=== PATIENT | female | born 1975 | race Caucasian/White ===

== ENCOUNTER 2016-08-09 20:15 | Inpatient (IN) | payer OTHER ==
--- NOTE | 2016-08-09 20:33 | CPEKG ---
Heart Rate: 75 RR Interval: 800 P-R Interval: 132 QRSD Interval: 86 QT Interval: 396 QTC Interval: 443 P [place]: 15 QRS [place]: 48 T Wave [place]: 7 EKG Severity - NORMAL ECG - EKG Impression: SINUS RHYTHM Electronically Signed By: Polo Briones 09-Aug-2016 21:39:33
[2016-08-09 21:04] LABS: % IMMATURE GRANULYOCYTES 0.2 % (0.0-1.1); ABSOLUTE IMMATURE GRANULOCYTES 0.01 10^3/uL (0.00-0.10); ADD DIFF? NO; ADD MORPH? NO; ADD SCAN? NO; ATYPICAL LYMPHOCYTE FLAG 0 (0-99); FRAGMENT RBC FLAG 0 (0-99); HEMATOCRIT 40.1 % (38.0-47.0); HEMOGLOBIN 14.3 g/dL (12.6-16.3); LEFT SHIFT FLG 0 (0-99); LIPEMIA HEMOLYSIS FLAG 90 (0-99); MEAN CELL HEMOGLOBIN 31.8 pg (27.9-34.1); MEAN CELL HEMOGLOBIN CONCENTR. 35.7 g/dL (32.4-36.7); MEAN CELL VOLUME 89.3 fL (81.5-99.8); MEAN PLATELET VOLUME 10.6 fL (8.7-11.7); PLATELET CLUMPS FLAG 10 (0-99); PLATELET COUNT 271 10^3/uL (150-400); RED BLOOD CELL COUNT 4.49 10^6/uL (4.18-5.33); RED CELL DISTRIBUTION WIDTH 11.3 % (11.5-15.2)
[2016-08-09 21:36] LABS: CALCIUM 9.4 mg/dL (8.5-10.4); CARBON DIOXIDE 27 mEq/l (22-31); CHLORIDE 100 mEq/L (97-110); CREATININE 0.7 mg/dL (0.6-1.0); GLOMERULAR FILTRATION RATE > 60; GLUCOSE 96 mg/dL (70-100); SODIUM 138 mEq/L (134-144)
[2016-08-09] MEDS ORDERED: methylPREDNISolone SOD SUCC 125 MG/2 ML VIAL IVP ONE (21:38)
[2016-08-09] MEDS ORDERED: ALBUTEROL 3 ML DEYVIAL IH ONE (21:38)
[2016-08-09 21:41] LABS: ANION GAP 11 mEq/L (8-16); POTASSIUM 3.8 mEq/L (3.5-5.2)
--- NOTE | 2016-08-09 21:42 | EDPHY ---
H & P Stated Complaint: chest pain x 2 days Time Seen by Provider: 08/09/16 21:18 HPI/ROS: CHIEF COMPLAINT: Allergic reaction HISTORY OF PRESENT ILLNESS: The patient is a 40-year-old female who comes to the emergency department complaining of chest pain that is characteristic of her mast cell activation syndrome/allergic reactions. She has had these symptoms for the last 2 weeks. She states that every day for the last 2 weeks she has had an allergic reaction to something whether it was a cat or food cetera. When this happens she frequently develops chest pain. She has a protocol to receive epinephrine, Benadryl, Solu-Medrol, and albuterol when this happens that typically relieves her symptoms. She also has been taking nitroglycerin at home according to her protocol. This is not been helpful. She has already taken some Benadryl at home. She has not had a fever. She has not had a cough for shortness of breath. She does have a history of DVT and PE is well and is currently on Xarelto. She states that the symptoms do not feel like previous PEs but feel completely characteristic of her allergic reactions. She also states that she headache cardiac catheterization 1 year ago because of chest pain and it was completely clean. REVIEW OF SYSTEMS: Constitutional: denies: chills, fever, recent illness, recent injury EENTM: denies: blurred vision, double vision, nose congestion Respiratory: denies: cough, shortness of breath Cardiac: See HPI denies: irregular heart rate, lightheadedness, palpitations Gastrointestinal/Abdominal: denies: abdominal pain, diarrhea, nausea, vomiting, blood streaked stools Genitourinary: denies: dysuria, frequency, hematuria, pain Musculoskeletal: denies: joint pain, muscle pain Skin: denies: lesions, rash, jaundice, bruising Neurological: denies: headache, numbness, paresthesia, tingling, dizziness, weakness Hematologic/Lymphatic: denies: blood clots, easy bleeding, easy bruising Immunologic/allergic: denies: HIV/AIDS, transplant EXAM: GENERAL: Well-appearing, well-nourished and in no acute distress. HEAD: Atraumatic, normocephalic. EYES: Pupils equal round and reactive to light, extraocular movements intact, sclera anicteric, conjunctiva are normal. ENT: TMs normal, nares patent, oropharynx clear without exudates. Moist mucous membranes. NECK: Normal range of motion, supple without lymphadenopathy or JVD. LUNGS: Breath sounds clear to auscultation bilaterally and equal. No wheezes rales or rhonchi. HEART: Regular rate and rhythm without murmurs, rubs or gallops. ABDOMEN: Soft, nontender, normoactive bowel sounds. No guarding, no rebound. No masses appreciated. BACK: No CVA tenderness, no spinal tenderness, step-offs or deformities EXTREMITIES: Normal range of motion, no pitting or edema. No clubbing or cyanosis. NEUROLOGICAL: Cranial nerves II through XII grossly intact. Normal speech, normal gait. 5/5 strength, normal movement in all extremities, normal sensation PSYCH: Normal mood, normal affect. SKIN: Warm, dry, normal turgor, no visible rashes or lesions. Source: Patient, Family, Old records Exam Limitations: No limitations - Personal History Current Tetanus/Diphtheria Vaccine: Yes Current Tetanus Diphtheria and Acellular Pertussis (TDAP): Yes Tetanus Vaccine Date: LAST 10 YRS - Medical/Surgical History Hx Asthma: Yes Hx Chronic Respiratory Disease: No Hx Diabetes: No Hx Cardiac Disease: Yes Hx Renal Disease: No Hx Cirrhosis: No Hx Alcoholism: No Hx HIV/AIDS: No Hx Splenectomy or Spleen Trauma: No Other PMH: medical- mastocytosis/multiple allergies, Adrenal Insufficiency, Colotis, Food allergies, asthma, "small PFO" home o2. surgery- appy, ortho - Family History Significant Family History: No pertinent family hx - Social History Smoking Status: Former smoker Alcohol Use: None Drug Use: None Constitutional: Initial Vital Signs Temperature (C) 37 C 08/09/16 20:25 Heart Rate 88 08/09/16 20:25 Respiratory Rate 16 08/09/16 20:25 Blood Pressure 121/89 H 08/09/16 20:25 O2 Sat (%) 92 08/09/16 20:25 O2 Delivery Mode Nasal Cannula O2 (L/minute) 2 Allergies/Adverse Reactions: iron sucrose complex [From Venofer] Allergy (Severe, Verified 10/13/13 18:06) Anaphylaxis aspirin Allergy (Intermediate, Verified 10/13/13 18:06) levofloxacin [From Levaquin] Allergy (Unknown, Verified 10/13/13 18:06) nabumetone [From Relafen] Allergy (Unknown, Verified 10/13/13 18:06) dapsone Allergy (Verified 03/13/15 11:25) STEROIDS Allergy (Unknown, Uncoded 08/01/12 22:31) Home Medications: Medication Instructions Recorded Budesonide/Formoterol 160/4.5 2 puffs IH BID 03/13/15 [Symbicort 160-4.5 Mcg Inhaler] Cetirizine [ZyRTEC] 20 mg PO HS 03/13/15 Cromolyn Sodium 20 mg IH TID 03/13/15 Levalbuterol Inhaler [Xopenex Hfa 1 - 2 puffs IH Q4 PRN 03/13/15 Inhaler (RX)] Ranitidine HCl [Zantac] 150 mg PO DAILY@03/13/15 Zileuton [Zyflo] 1,200 mg PO BID 03/13/15 Alendronate Sodium [Fosamax 70 MG 70 mg PO MO@0700 08/10/16 (*)] Cetirizine [ZyrTEC 10 mg (*)] 10 mg PO DAILY 08/10/16 Cromolyn Sodium [Gastrocrom] 200 mg PO QID 08/10/16 FEXOFENADINE HCL 180 mg PO DAILY 08/10/16 Folic Acid [Folic Acid 1 MG (*)] 1 mg PO DAILY 08/10/16 Hydrochlorothiazide [HCTZ (*)] 12.5 mg PO DAILY 08/10/16 Hydrocortisone [Cortef 10 mg (*)] 5 mg PO DAILY@08 08/10/16 Hydrocortisone [Cortef] 2.5 mg PO DAILY@,08/10/16 Isosorbide Dinitrate [Isosorbide 10 mg PO DAILY 08/10/16 Dinitrate 10 mg (*)] Omeprazole 40 mg PO DAILY 08/10/16 Rivaroxaban [Xarelto] 20 mg PO DAILY18 08/10/16 Veramyst Nasal [place] 2 sprays EACHNARE DAILY 08/10/16 Medical Decision Making - Diagnostics EKG Interpretation: An EKG obtained and was read and documented in trace view. Please see trace view for full reading and report. Sinus rhythm Imaging: X-ray: chest x-ray was obtained. I viewed the images myself on the PACS system. My interpretation of the images is: negative for acute disease . The radiologist interpretation is negative. ED Course/Re-evaluation: I discussed the case with Dr. Caroline Diehl the patient's primary. She has mast cell activation syndrome. They are considering doing continues Benadryl effusions with home health. She is in agreement with the treatment and plan thus far. 10:55 p.m. the patient is feeling much better. She is requesting another dose of epinephrine and Benadryl. We will continue to observe. She is in no distress currently. Vital signs are stable. 11:40 p.m. the patient is requesting another dose of Benadryl and that she thinks she may be able to go home. She is being set up for continues Benadryl infusions By her primary physician. 11:50 p.m. I discussed the case with Dr KIAH Holguin who will evaluate the patient. The patient's family is asking that she be admitted. Differential Diagnosis: Partial list of the Differential diagnosis considered include but were not limited to; mast cell activation syndrome, vasal spasm, pneumonia, acute coronary disease and although unlikely based on the history and physical exam, I also considered arrhythmia, pneumonia, pneumothorax, PE. I discussed these differential diagnoses and the plan with the patient as well as the usual and expected course. The patient understands that the diagnosis is provisional and that in medicine we are not always correct and that further workup is often warranted. Usual and customary warnings were given. All of the patient's questions were answered. The patient was instructed to return to the emergency department should the symptoms at all worsen or return, otherwise to followup with the physician as we discussed. - Data Points Laboratory Results: Laboratory Results 08/09/16 20:40 08/09/16 20:40 Medications Given: Discontinued Medications Albuterol (Proventil Neb) 3 ml IH EDNOW ONE Stop: 08/09/16 21:39 Last Admin: 08/09/16 22:13 Dose: 3 ml Budesonide/Formoterol Fumarate (Symbicort 160-4.5 Mcg Inhaler) 2 puffs IH BID SABINA Stop: 02/06/17 08:59 Last Admin: 08/10/16 09:58 Dose: 2 puffs Diphenhydramine HCl (Benadryl Injection) 50 mg IVP EDNOW ONE Stop: 08/09/16 21:39 Last Admin: 08/09/16 22:00 Dose: 50 mg Diphenhydramine HCl (Benadryl) 50 mg PO EDNOW ONE Stop: 08/09/16 22:59 Last Admin: 08/09/16 23:50 Dose: Not Given Diphenhydramine HCl (Benadryl Injection) 50 mg IVP EDNOW ONE Stop: 08/09/16 23:37 Last Admin: 08/09/16 23:48 Dose: 50 mg Diphenhydramine HCl (Benadryl Injection) 50 mg IVP EDNOW ONE Stop: 08/09/16 23:01 Last Admin: 08/09/16 23:00 Dose: 50 mg Epinephrine HCl (Epinephrine) 0.3 mg IM EDNOW ONE Stop: 08/09/16 21:39 Last Admin: 08/09/16 22:01 Dose: 0.3 mg Epinephrine HCl (Epinephrine) 0.3 mg IM EDNOW ONE Stop: 08/09/16 22:59 Last Admin: 08/09/16 23:15 Dose: 0.3 mg Methylprednisolone Sodium Succinate (Solu-Medrol) 125 mg IVP EDNOW ONE Stop: 08/09/16 21:39 Last Admin: 08/09/16 22:00 Dose: 125 mg Methylprednisolone Sodium Succinate (Solu-Medrol) 60 mg IVP Q6HRS ONE Stop: 08/11/16 09:01 Last Admin: 08/11/16 08:25 Dose: 60 mg Miscellaneous Medication (Cromolyn Sodium [Cromolyn Sodium]) 20 mg IH TID SABINA Stop: 02/06/17 08:59 Last Admin: 08/10/16 10:01 Dose: Not Given Departure - Departure Disposition: [facility] Acute Clinical Impression: Mast cell activation Chest pain Qualifiers: Chest pain type: other chest pain Qualifier Code: (R07.89) Other chest pain Condition: Fair
[2016-08-09 21:48] LABS: TROPONIN I < 0.012 ng/mL (0-0.034)
--- NOTE | 2016-08-09 21:52 | DX ---
Portable AP chest. August 09, 2016At 2105 History: Chest pain. Comparison examination: October 13, 2013. Findings: Lungs are clear. Heart size is normal. No pneumothorax or pleural effusion. Impression: Negative chest
[2016-08-09] MEDS: diphenhydrAMINE 25 MG CAP PO ONE ×2 (23:15→23:50)
[2016-08-10] MEDS ORDERED: ONDANSETRON 4 MG/2 ML VIAL IVP PRN (00:25)
[2016-08-10] MEDS ORDERED: ALBUTEROL 3 ML DEYVIAL IH PRN (00:25)
[2016-08-10] MEDS: NS 1,000 ML IV SCH ×2 (01:34→14:01)
--- NOTE | 2016-08-10 01:35 | GHP ---
[f rep st] HISTORY AND PHYSICAL DATE OF ADMISSION: 08/09/2016 CHIEF COMPLAINT: Chest pain and insomnia/fatigue. HISTORY OF PRESENT ILLNESS: A 40-year-old female with a recent diagnosis of mast cell activation syn tavares, who presents with worsening of her chronic symptoms from this condition, which includes chest pain, pruritus, and now severe fatigue. The patient is followed closely at [facility] and by Dr Leni Diehl in the outpatient setting, where aggressive treatment of her mast cell activation syndrome has been initiated. There have been extensive discussions about treating the patient potentially wit h an ongoing Benadryl drip through a PICC line at home, but coordination and initiation of this thera py has not been started. Patient develops chest pain, which is central, squeezing, as if her lungs a re folding in on her when her mast cell activation syndrome is in exacerbation. These are the sympto ms she has been experiencing progressively over the course of the last couple of weeks. She presente d to the emergency department to obtain IV Benadryl, as well as IV epinephrine. In the ED, after sev eral rounds of both Benadryl and epinephrine, she reports an improvement in her chest pain. She hist orically has had a very extensive cardiac workup to rule out cardiac causes for chest pain in the pas t, including a recent clean cardiac catheterization. Patient additionally has been diagnosed with pu lmonary embolism. She denies this being pleuritic pain or similar in any way to her preceding PE. A ctively denying any headache or vision changes, any dysphagia. Does have the tightening in her chest , as well as the folding sensation of her lungs with associated shortness of breath. She denies any active hives or rashes. Has had bouts of colitis related to her mast cell activation syndrome, which has been quiescent recently. Patient has extreme fatigue related to pruritus that keeps her from res ting. This seems to be improved since the IV pushes of Benadryl in the emergency department. PAST MEDICAL HISTORY: 1. Recent diagnosis of mast cell activation syndrome, managed at [facility] and by Dr. Diehl. 2. Adrenal insufficiency. 3. Asthma. 4. History of pulmonary embolism on novel anticoagulant. 5. History of colitis. SOCIAL HISTORY: Negative for tobacco, alcohol, or illicit drugs. FAMILY HISTORY: Negative for anyone with mast cell activation syndrome. REVIEW OF SYSTEMS: A 10-point review of systems is negative with the exception of that reported in t he HPI. PHYSICAL EXAMINATION: VITAL SIGNS: Blood pressure 113/76, heart rate 86, respiratory rate 16, 98% o n L, 37.0. GENERAL: Healthy-appearing young female, in no acute distress. HEENT: Notable for mois t mucous membranes. Eyes negative for any icterus. CARDIAC: Regular rate and rhythm. PULMONARY: Decreased breath sounds at bilateral bases with fine crackles; otherwise no wheezing, rales, or rhonc hi. GASTROINTESTINAL: Positive bowel sounds. Mild tenderness to palpation in the right upper quadr ant. No rebound or guarding. MUSCULOSKELETAL: Negative for any lower extremity edema. SKIN: Nega tive for any rashes. NEUROLOGIC: Alert and oriented x3. PSYCHIATRIC: Pleasant and cooperative on interview and examination. DATA: White count 6.1, hematocrit 40.1, platelets of 271. Creatinine 0.7. Troponin less than 0.012 . EKG, which I personally reviewed and interpreted, shows sinus rhythm, normal axis, normal intervals, with no acute ST-T changes. Chest x-ray, which I personally reviewed and interpreted, shows no acute cardiopulmonary process. ASSESSMENT AND PLAN: This is a 40-year-old female, presenting with exacerbation of her mast cell act ivation syndrome. 1. Mast cell activation syndrome: Will continue patient's home medications and have written for francie eduled IV Benadryl 50 mg q.4. Patient is aware that she cannot have ongoing epinephrine pushes on e medical floor. Will continue her home meds, those not on formulary she can take her own. Plan to have coordination with Dr. Diehl, her outpatient physician, for planning related to PICC line place ment and potential Benadryl drip in the outpatient setting. Will avoid visit from therapy pets and a voided strong perfumes as able with her care providers. 2. Acute chest pain: This is a well-known symptom of the patient's underlying mast cell activation. Patient has had extensive cardiac workup in the outpatient setting, which has been negative with ne gative troponin and EKG at presentation, as well as chest x-ray. Would like to not pursue additional cardiac risk stratification at this time. 3. Adrenal insufficiency: Patient's labs and vital signs are normal. Will continue her outpatient medications without change. 4. History of pulmonary embolism: Will continue her Xarelto. She has taken her doses today. 5. Prophylaxis: Patient is on Xarelto. 6. Diet: Regular unrestricted. She will make appropriate choices as she has many food allergies. 7. Disposition: I expect greater than 2 midnights, as we need to coordinate a plan with Dr. Diehl in the outpatient setting for disposition and medical management at home. Discussed the case with chiki martínez emergency room physician. Patient will be triaged to the medical-surgical floor for care. /[id number]/MODL
[2016-08-10 06:18] LABS: % IMMATURE GRANULYOCYTES 0.3 % (0.0-1.1); ABSOLUTE IMMATURE GRANULOCYTES 0.02 10^3/uL (0.00-0.10); ADD DIFF? NO; ADD MORPH? NO; ADD SCAN? NO; ATYPICAL LYMPHOCYTE FLAG 0 (0-99); FRAGMENT RBC FLAG 0 (0-99); HEMATOCRIT 40.7 % (38.0-47.0); HEMOGLOBIN 14.1 g/dL (12.6-16.3); LEFT SHIFT FLG 0 (0-99); LIPEMIA HEMOLYSIS FLAG 90 (0-99); MEAN CELL HEMOGLOBIN 31.8 pg (27.9-34.1); MEAN CELL HEMOGLOBIN CONCENTR. 34.6 g/dL (32.4-36.7); MEAN CELL VOLUME 91.7 fL (81.5-99.8); MEAN PLATELET VOLUME 10.8 fL (8.7-11.7); PLATELET CLUMPS FLAG 10 (0-99); PLATELET COUNT 271 10^3/uL (150-400); RED BLOOD CELL COUNT 4.44 10^6/uL (4.18-5.33); RED CELL DISTRIBUTION WIDTH 11.3 % (11.5-15.2)
[2016-08-10 06:22] LABS: ANION GAP 9 mEq/L (8-16); CALCIUM 8.9 mg/dL (8.5-10.4); CARBON DIOXIDE 27 mEq/l (22-31); CHLORIDE 103 mEq/L (97-110); CREATININE 0.6 mg/dL (0.6-1.0); GLOMERULAR FILTRATION RATE > 60; GLUCOSE 156 mg/dL (70-100); POTASSIUM 4.6 mEq/L (3.5-5.2); SODIUM 139 mEq/L (134-144)
[2016-08-10] MEDS ORDERED: LEVALBUTEROL INHALER 200 PUFFS/15 GM MDI IH PRN (08:35)
[2016-08-10] MEDS ORDERED: CROMOLYN SODIUM IH SCH (09:00)
[2016-08-10] MEDS ORDERED: NON-FORMULARY NEW DRUG (Omeprazole [Omeprazole] 40 MG) PO SCH (09:00)
[2016-08-10] MEDS ORDERED: BUDESONIDE/FORMOTEROL 160/4.5 60 PUFFS/MDI IH SCH (09:00)
[2016-08-10] MEDS: HYDROCHLOROTHIAZIDE 25 MG TAB PO SCH (10:14)
[2016-08-10] MEDS: CETIRIZINE 10 MG TAB PO SCH ×2 (10:16→20:54)
[2016-08-10] MEDS: FOLIC ACID 1 MG TAB PO SCH (10:17)
[2016-08-10] MEDS: ISOSORBIDE DINITRATE 10 MG TAB PO SCH (10:18)
[2016-08-10] MEDS: FEXOFENADINE HCL 180 MG PO SCH (10:21)
[2016-08-10] MEDS: FAMOTIDINE 20 MG TAB PO SCH ×2 (10:41→18:18)
[2016-08-10] MEDS: PANTOPRAZOLE SODIUM 40 MG TAB PO SCH (10:41)
[2016-08-10] MEDS: HYDROCORTISONE 10 MG TAB PO SCH ×3 (11:12→18:18)
[2016-08-10] MEDS ORDERED: HYDROCORTISONE 10 MG TAB PO SCH (12:00)
[2016-08-10] MEDS ORDERED: HYDROCORTISONE 2.5 MG PO SCH (12:00)
--- NOTE | 2016-08-10 12:19 | HOSPPROG ---
Hospitalist Progress Note Assessment/Plan: 40F PMH adrenal insufficiency, PE now on OAC, colitis, asthma with recent dx of mast cell activation syndrome. Presented on 08/09/16 with acute exacerbation of her mast cell activation syndrome with symptoms cp, pruritus, and severe fatigue. This is my first day caring for this patient. Labs and H&P reviewed. Discussed care with Drs. Holguin and Fazal #. mast cell activation syndrome exacerbation: continue IV Benadryl scheduled q 4h now and will try to arrange PICC and continuous infusion pt will be seen in outpatient setting by specialist Dr. Tse in a tertiary center #. adrenal insufficiency: her home hydrocortisone doses have been increased in setting of acute stress from above #. h/o PE: Xarelto continued #. DVT ppx: continue Xarelto. Subjective: Reports cp, pruritus are better. Objective: Vital Signs Temp Pulse Resp BP Pulse Ox 98 F 80 16 108/70 98 08/10/16 10:57 08/10/16 10:57 08/10/16 10:57 08/10/16 10:57 08/10/16 10:57 Laboratory Results 08/10/16 05:36 08/10/16 05:36 08/09/16 08/10/16 08/11/16 05:59 05:59 05:59 Intake Total 40 450 Output Total 600 1000 Balance -560 -550 - Physical Exam Constitutional: no apparent distress, appears nourished Eyes: PERRL, anicteric sclera Ears, Nose, Mouth, Throat: moist mucous membranes, hearing normal Cardiovascular: regular rate and rhythym, no murmur, rub, or gallop Respiratory: no respiratory distress ICD10 Worksheet Patient Problems: Problems Problem Status Diagnosed Chest pain Acute Mast cell activation Acute
[2016-08-10] MEDS: VERAMYST EACHNARE SCH (13:01)
[2016-08-10] MEDS: ZILEUTON PO SCH ×2 (13:02→20:57)
[2016-08-10] MEDS: CROMOLYN SODIUM PO SCH ×3 (13:02→20:54)
[2016-08-10] MEDS: CROMOLYN SODIUM IH SCH ×2 (15:13→22:38)
--- NOTE | 2016-08-10 15:42 | GCON ---
[f rep st] CONSULTATION ALLERGY CONSULTATION CHIEF COMPLAINT: Mast cell activation Syndrome HISTORY OF PRESENT ILLNESS: Moni is a 40-year-old with history of mast cell activation syndrome (MCAS), adrenal insufficiency, pulmonary emboli on chronic anticoagulation with Xarelto, asthma, and coronary artery vasospasm, who was admitted to the hospital yesterday due to persistent left-sided chest pain, worse on exertion which frequently occurs in conjunction with her mast cell symptoms and is felt to possibly be related to her mast cell triggered coronary vasospasms. She has been having increased frequency and severity of allergic reactions over the past several weeks without clear etiology. She has not been responding to her outpatient medications. Over the past couple of weeks, we have been discussing the possibility of placing a PICC lien for continuous IV Benadryl infusion to further stabilize her. She will be going to see mast cell activation specialist, Dr. Wero Vasquez, at the [facility] in September for further recommendations regarding therapies. REVIEW OF SYSTEMS: CONSTITUTIONAL: Positive for night sweats, which she reports often occur in conjunction with her mast cell activation disorder. NEUROLOGICAL: She has had difficulty with cognitive function and reading over the past several weeks, which are intermittent. She does not have that currently at this point in time. RESPIRATORY: She has a history of asthma. CARDIAC: No chest pain at the time which she is being evaluated, but is positive for exertional chest pain prior to admission. SKIN: Positive for chronic itching which has been quite severe over the past few weeks, but currently is much more comfortable. HEMATOLOGIC/LYMPHATICS: Positive for history of pulmonary emboli. ALLERGIC/IMMUNOLOGIC: Positive for mast cell activation disorder. EXAM: GENERAL: Tired-appearing, no apparent distress. HEENT: Atraumatic. RESPIRATORY: Normal respiratory effort. EXTREMITIES: No cyanosis. NEUROLOGIC : Alert, oriented. PSYCHIATRIC: Normal mood and affect. PAST MEDICAL HISTORY: 1. Recent diagnosis of mast cell activation syndrome. 2. Adrenal insufficiency. 3. Asthma. 4. 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 5. CREST syndrome 6. Pulmonary embolism. 7. Ulcerative Colitis. 8. Small intestinal bowel overgrowth. 9. Chronic sinusitis 10. 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 Lactose intolerance 13. Gerd 12. Osteopenia 13: Ovarian Dysts 14. Chronic Iron deficiency anemia 15. B12 deficiency 16. Vocal Cord Dysfunction 17. Multiple Food allergies 18. 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 She has been disabled due to her illnesses. She lives independently with roommates. FAMILY HISTORY: No history of mast cell activation disorder. IMAGING STUDIES: Chest x-ray done 08/09/2016 was negative. Electrocardiogram 08/09/2016 demonstrated normal sinus rhythm. LABORATORY FINDINGS: Troponin negative. Glucose elevated at 156. CBC: Hemoglobin/hematocrit within normal limits. IMPRESSION: A 40-year-old female with history of mast cell activation syndrome with subacute exacerbation that has been difficult to manage. RECOMMENDATIONS: 1. For mast cell activation syndrome, would recommend continuing present management with IV Benadryl. 2. In regard to her outpatient management, placement of a PICC line with initiation of home health to be set up for continuous IV Benadryl infusions. She did a trial of this in our office as an outpatient several weeks ago, which she tolerated well and felt to be beneficial. At that time, she found significant benefit with an infusion rate of 14 mg/hour. 3. Agree with her hydrocortisone being increased post acute flare of her mast cell activation disorder and then can be tapered as her symptoms improve. 4. We also had a discussion today regarding whether or not she should have additional steroids prior to her PICC line placement, which is planned for tomorrow morning. It is reasonable to provide this given that she has been having so many reactions recently. Solu-Medrol 62.5 mg 1 to 1-1/2 hours prior to the procedure would be a reasonable option. Our office will be following her after discharge in regard to her Benadryl. Our office number is [phone] for any need for coordination of care. /[id number]/MODL MTDD
[2016-08-10] MEDS ORDERED: NON-FORMULARY NEW DRUG (Ranitidine Hcl [Zantac] 150 MG) PO SCH (18:00)
[2016-08-10] MEDS: RIVAROXABAN 20 MG TAB PO SCH (18:18)
[2016-08-10] MEDS: BUDESONIDE/FORMOTEROL 160/4.5 60 PUFFS/MDI IH SCH (20:57)
[2016-08-10] MEDS ORDERED: ALTEPLASE 2 MG VIAL IVP PRN (21:16)
[2016-08-11] MEDS: NS 1,000 ML IV SCH ×2 (05:41→17:56)
[2016-08-11] MEDS: CROMOLYN SODIUM PO SCH ×4 (06:03→21:40)
[2016-08-11] MEDS ORDERED: ALENDRONATE SODIUM 70 MG TAB PO SCH (07:00)
[2016-08-11] MEDS ORDERED: HYDROCORTISONE 10 MG TAB PO SCH ×2 (08:00)
[2016-08-11] MEDS: CROMOLYN SODIUM IH SCH ×3 (08:13→21:36)
[2016-08-11] MEDS: BUDESONIDE/FORMOTEROL 160/4.5 60 PUFFS/MDI IH SCH ×2 (08:14→21:36)
[2016-08-11] MEDS: LEVALBUTEROL INHALER 200 PUFFS/15 GM MDI IH PRN ×2 (08:14→15:22)
[2016-08-11] MEDS: FAMOTIDINE 20 MG TAB PO SCH ×2 (08:16→17:48)
[2016-08-11] MEDS: FOLIC ACID 1 MG TAB PO SCH (08:17)
[2016-08-11] MEDS: ISOSORBIDE DINITRATE 10 MG TAB PO SCH (08:17)
[2016-08-11] MEDS: HYDROCORTISONE 10 MG TAB PO SCH ×3 (08:17→17:48)
[2016-08-11] MEDS: CETIRIZINE 10 MG TAB PO SCH ×2 (08:17→21:40)
[2016-08-11] MEDS: PANTOPRAZOLE SODIUM 40 MG TAB PO SCH (08:17)
[2016-08-11] MEDS: HYDROCHLOROTHIAZIDE 25 MG TAB PO SCH (08:18)
[2016-08-11] MEDS: ZILEUTON PO SCH ×2 (08:19→21:41)
[2016-08-11] MEDS: VERAMYST EACHNARE SCH (08:21)
[2016-08-11] MEDS: FEXOFENADINE HCL 180 MG PO SCH (08:29)
[2016-08-11] MEDS ORDERED: methylPREDNISolone SOD SUCC 125 MG/2 ML VIAL IVP ONE (09:00)
--- NOTE | 2016-08-11 10:16 | HOSPPROG ---
Hospitalist Progress Note Assessment/Plan: DIAGNOSIS: # multiple ongoing symptoms attributed to mast cell activation disease # chest pain with normal EKG and troponin, no heart failure or arrhythmia # history of PE on chronic anticoagulation She now has her PICC catheter in place, and we will transition from intermittent IV Benadryl to continuous IV Benadryl infusion. The plan apparently is to discharge the patient to home on continuous IV Benadryl. It is not clear to me at this point however what the goals of inpatient therapy and home what we will use to determine when she is discharged home. She has had entirely normal vital signs here and is not having any respiratory distress. She does still have chest pain that goes into her left arm however and it does seem to be increased with activity at times. I will need to review with Dr. Diehl and her primary care physician's what other cardiac evaluation has been undertaken with what results to be certain that we should not be looking at this from our cardiac standpoint. Per the patient this symptom has been attributed to her mast cell disorder. PLANS: Begin Benadryl infusion Review further with Dr. Diehl specific plans, and determine whether further cardiac evaluation is warranted for chest pain SUBJECTIVE: Still having chest discomfort with radiation into the left arm, fairly continuous but increased with exertion so is somewhat atypical for cardiac Otherwise eating well without nausea, no shortness of breath, some stable chronic orthostatic lightheadedness OBJECTIVE Vitals reviewed: Normal without fever Exam: alert oriented skin warm dry color ok resps not labored lungs clear BSs heart regular abd soft nondistended nontender, bowel sounds present limbs warm, no edema picc site ok Objective: Vital Signs Temp Pulse Resp BP Pulse Ox 37.1 C 77 18 105/77 100 08/11/16 07:52 08/11/16 08:15 08/11/16 08:15 08/11/16 07:52 08/11/16 08:15 Laboratory Results 08/10/16 05:36 08/10/16 05:36 08/10/16 08/11/16 08/12/16 06:59 06:59 06:59 Intake Total 40 4355 Output Total 600 2800 Balance -560 1555 ICD10 Worksheet Patient Problems: Problems Problem Status Diagnosed Chest pain Acute Mast cell activation Acute
--- NOTE | 2016-08-11 15:28 | IR ---
Imaging-Guided Peripherally Inserted Central Catheter History: IV infusion. Prophylactic Antibiotic: Cefazolin was not ordered and administered for antimicrobial prophylaxis be cause it was not medically necessary for this procedure. VTE Prophylaxis: There is not an order for VTE prophylaxis to be given within 24 hours after procedu re end time because it was not medically necessary for this procedure. Crosscutting Measure: Patient's current list of medications including all known prescriptions, over- the-counters, herbals, and vitamin/mineral/dietary supplements are reviewed. Medications' name, dosa ge, frequency, and route of administration are confirmed. Technique: Following informed consent, the right arm was prepped and draped in sterile fashion. 1% Xy locaine was used for local anesthetic. All elements of maximal sterile barrier technique including cap, mask, sterile gown, sterile gloves, large sterile sheet, hand hygiene, and 2% chlorhexidine for cutaneous antisepsis, followed. Ultrasound evaluation of potential access site was performed. After successfully identifying a patent vessel, ultrasound guidance was used to puncture the vein. A permanent recording was created for the patient's record. Ultrasound transducer was placed in sterile sleeve and used for real-time imaging guidance over steri le gel to enter the basilic vein. 0.018 measuring wire was passed centrally under fluoroscopic contro l. A skin mary with scalpel blade was followed by removing the access needle. A 4 Brazilian pee-away she ath was followed by a 4 Brazilian single-lumen central catheter, trimmed to 38 cm length. The tip of th e catheter was positioned centrally and the guidewire removed. A single fluoroscopic spot image was o btained in inspiration. The hub of the catheter was fixed to the skin using a sterile StatLock adhesi ve device, and a sterile dressing was applied. The catheter was irrigated. Findings: The tip of the central catheter terminates at the junction of the superior vena cava and th e right atrium. Fluoroscopy: 0.1 minutes, 1 images Impression: 4 Brazilian single lumen peripherally inserted central catheter is ready to use.
[2016-08-11] MEDS: RIVAROXABAN 20 MG TAB PO SCH (17:48)
[2016-08-11] MEDS ORDERED: DIPHENHYDRAMINE IV SCH (20:00)
[2016-08-11] MEDS ORDERED: D5W IV SCH (20:00)
[2016-08-12] MEDS: CROMOLYN SODIUM PO SCH ×4 (05:28→22:11)
[2016-08-12] MEDS: CROMOLYN SODIUM IH SCH ×3 (08:41→21:37)
[2016-08-12] MEDS: BUDESONIDE/FORMOTEROL 160/4.5 60 PUFFS/MDI IH SCH ×2 (08:41→21:38)
[2016-08-12] MEDS: LEVALBUTEROL INHALER 200 PUFFS/15 GM MDI IH PRN ×2 (08:43→16:08)
[2016-08-12] MEDS: HYDROCORTISONE 10 MG TAB PO SCH ×3 (09:38→18:30)
[2016-08-12] MEDS: HYDROCHLOROTHIAZIDE 25 MG TAB PO SCH (09:38)
[2016-08-12] MEDS: CETIRIZINE 10 MG TAB PO SCH ×3 (09:39→21:57)
[2016-08-12] MEDS: FAMOTIDINE 20 MG TAB PO SCH ×2 (09:39→18:31)
[2016-08-12] MEDS: FOLIC ACID 1 MG TAB PO SCH (09:39)
[2016-08-12] MEDS: PANTOPRAZOLE SODIUM 40 MG TAB PO SCH (09:39)
[2016-08-12] MEDS: ISOSORBIDE DINITRATE 10 MG TAB PO SCH (09:39)
[2016-08-12] MEDS: VERAMYST EACHNARE SCH (09:47)
[2016-08-12] MEDS: ZILEUTON PO SCH ×2 (09:57→22:15)
[2016-08-12] MEDS: FEXOFENADINE HCL 180 MG PO SCH (09:57)
[2016-08-12] MEDS: RIVAROXABAN 20 MG TAB PO SCH (16:25)
--- NOTE | 2016-08-12 18:41 | HOSPPROG ---
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 The plan apparently is to discharge the patient to home on continuous IV Benadryl. It is not clear to me at this point however what the goals of inpatient therapy and home what we will use to determine when she is discharged home. She has had entirely normal vital signs here and is not having any respiratory distress. She does still have chest pain that goes into her left arm however and it does seem to be increased with activity at times. I will need to review with Dr. Diehl and her primary care physician's what other cardiac evaluation has been undertaken with what results to be certain that we should not be looking at this from our cardiac standpoint. Per the patient this symptom has been attributed to her mast cell disorder. PLANS: -continue Benadryl infusion, adjusting dose as needed; may need to decrease dose further if blood pressures dropped -I have reviewed the patient's care in detail with Dr. Caroline Diehl today. -At this point the patient appears to be tolerating the Benadryl infusion well with some occasional borderline low blood pressures but no other sign of side effect of complication. If she continues to do well with that we can probably send her home on the current dosing. I did review with Dr. Diehl that our pharmacist here were concerned that they could not find data regarding the stability of Benadryl in solution, and their questions about how best to compound and deliver this medicine to her if she is going to be using at home. Dr. Diehl will be talking with Dr. Vasquez about this question to see if he has any data available or any knowledge or other suggestions. SUBJECTIVE: Still having chest discomfort with radiation into the left arm, fairly continuous but increased with exertion so is somewhat atypical for cardiac Otherwise eating well without nausea, no shortness of breath, some stable chronic orthostatic lightheadedness OBJECTIVE Vitals reviewed: Her blood pressures have been slightly low at some points but overall stable, with normal pulse respirations and temperature Exam: alert oriented skin warm dry color ok resps not labored lungs clear BSs heart regular abd soft nondistended nontender, bowel sounds present limbs warm, no edema picc site ok Objective: Vital Signs Temp Pulse Resp BP Pulse Ox 36.8 C 75 18 91/65 L 98 08/12/16 16:21 08/12/16 16:21 08/12/16 16:21 08/12/16 16:21 08/12/16 16:21 Laboratory Results 08/10/16 05:36 08/10/16 05:36 08/11/16 08/12/16 08/13/16 06:59 06:59 06:59 Intake Total 4355 1940 1000 Output Total 2800 2000 Balance 1555 -60 1000 ICD10 Worksheet Patient Problems: Problems Problem Status Diagnosed Chest pain Acute Mast cell activation Acute
[2016-08-12] MEDS: D5W IV SCH (19:15)
[2016-08-12] MEDS: DIPHENHYDRAMINE IV SCH (19:15)
[2016-08-12] MEDS: NS 1,000 ML IV SCH (19:18)
[2016-08-13] MEDS: CROMOLYN SODIUM PO SCH ×4 (05:52→21:35)
[2016-08-13] MEDS: BUDESONIDE/FORMOTEROL 160/4.5 60 PUFFS/MDI IH SCH ×2 (08:37→20:46)
[2016-08-13] MEDS: CROMOLYN SODIUM IH SCH ×3 (08:37→20:46)
[2016-08-13] MEDS: NS 1,000 ML IV SCH ×2 (08:48→21:44)
[2016-08-13] MEDS: HYDROCHLOROTHIAZIDE 25 MG TAB PO SCH (09:34)
[2016-08-13] MEDS: CETIRIZINE 10 MG TAB PO SCH ×2 (09:35→21:33)
[2016-08-13] MEDS: FOLIC ACID 1 MG TAB PO SCH (09:35)
[2016-08-13] MEDS: PANTOPRAZOLE SODIUM 40 MG TAB PO SCH (09:36)
[2016-08-13] MEDS: HYDROCORTISONE 10 MG TAB PO SCH ×3 (09:36→17:27)
[2016-08-13] MEDS: ISOSORBIDE DINITRATE 10 MG TAB PO SCH (09:36)
[2016-08-13] MEDS: FAMOTIDINE 20 MG TAB PO SCH ×2 (09:36→17:28)
[2016-08-13] MEDS: ZILEUTON PO SCH ×2 (09:37→21:39)
[2016-08-13] MEDS: VERAMYST EACHNARE SCH (09:37)
[2016-08-13] MEDS: FEXOFENADINE HCL 180 MG PO SCH (09:38)
--- NOTE | 2016-08-13 11:04 | PDIAF ---
- Diagnosis Diagnosis: mast cell activation disease Code Status: Full Code - Medication Management Discharge Medications: Medications to Continue on Transfer Budesonide/Formoterol 160/4.5 [Symbicort 160-4.5 Mcg Inh (*)] 2 puffs IH BID [Last Taken Unknown] Cetirizine [ZyrTEC 10 mg (*)] 20 mg PO HS 03/13/15 [Last Taken Unknown] Cromolyn Sodium 20 mg IH TID 03/13/15 [Last Taken 08/09/16] Levalbuterol Inhaler [Xopenex Hfa Inhaler (*)] 1 - 2 puffs IH Q4 PRN 03/13/15 [ Last Taken Unknown] Ranitidine HCl [Zantac] 150 mg PO DAILY@03/13/15 [Last Taken Unknown] Zileuton [ZYFLO] 1,200 mg PO BID 03/13/15 [Last Taken Unknown] Alendronate Sodium [Fosamax 70 MG (*)] 70 mg PO MO@0700 08/10/16 [Last Taken Unknown] Cetirizine [ZyrTEC 10 mg (*)] 10 mg PO DAILY 08/10/16 [Last Taken Unknown] Cromolyn Sodium [GASTROCROM] 200 mg PO QID 08/10/16 [Last Taken Unknown] FEXOFENADINE HCL 180 mg PO DAILY 08/10/16 [Last Taken Unknown] Folic Acid [Folic Acid 1 MG (*)] 1 mg PO DAILY 08/10/16 [Last Taken Unknown] Hydrochlorothiazide [HCTZ (*)] 12.5 mg PO DAILY 08/10/16 [Last Taken 08/09/16] Hydrocortisone [Cortef 10 mg (*)] 5 mg PO DAILY@08 08/10/16 [Last Taken Unknown] Hydrocortisone [Cortef] 2.5 mg PO DAILY@08/10/16 [Last Taken Unknown] Isosorbide Dinitrate [Isosorbide Dinitrate 10 mg (*)] 10 mg PO DAILY 08/10/16 [ Last Taken Unknown] Omeprazole 40 mg PO DAILY 08/10/16 [Last Taken 08/09/16] Rivaroxaban [Xarelto] 20 mg PO DAILY18 08/10/16 [Last Taken 08/09/16] Veramyst Nasal [place] 2 sprays EACHNARE DAILY 08/10/16 [Last Taken Unknown] diphenhydrAMINE [Benadryl Injection] 200 mg IV CONT #0 inj 08/13/16 [Last Taken Unknown] Strategic Sourcing Manager Antibiotics: Continuous IV infusion of Benadryl 14 milligrams/hour Discharge Medications: Refer to the Discharge Home Medication list for PRN reason. PICC Care - Routine: Yes - Orders Services needed: Home Care, Registered Nurse Home Care Face to Face: I certify that this patient was under my care and that I had the required [id number] encounter meeting the encounter requirements on the discharge day. My findings support the fact that the patient is homebound as defined in CMS Chapter 7 Medicare Benefits Manual 30.1.1, The condition of the patient is such that there exists a normal inability to leave home and consequently, leaving home would require a considerable and taxing effort. Diet Recommendation: no restrictions on diet Diet Texture: Regular Texture Diet Additional: Contact Dr. Caroline Diehl at [facility] for any questions regarding the patient's symptoms or Benadryl infusion. - Follow Up Care Current Providers and Referrals: Caroline Diehl MD [Medical Doctor] - As per Instructions Nicole Bryson MD [Primary Care Provider] - As per Instructions
--- NOTE | 2016-08-13 11:15 | PDDCSUM ---
Discharge Summary Discharge Summary: DISCHARGE SUMMARY NOTE DISCHARGE DIAGNOSES: # mast cell activation disease exacerbation CONSULTANTS: Dr. Caroline Diehl PROCEDURES: Placement of PICC catheter HOSPITAL COURSE SUMMARY: This patient who has been diagnosed with mast cell activation disease came into the ER with symptoms of exacerbation including shortness of breath, chest pain, abdominal pain, lightheadedness, and others. She was treated in the emergency room with steroids and intravenous Benadryl and had some improvement. Dr. Caroline Diehl, her long-standing global cmo was consulted. The patient was felt to require ongoing parenteral antihistamine therapy. She was initially admitted with scattered standing orders for 50 mg Benadryl every 4 hours which she received without complication. A PICC line has been placed. Dr. Caroline Diehl has arranged for the patient to have outpatient continuous infusion of IV Benadryl. Here in the hospital we have titrated her to a dose of 14 milligrams/hour which she is tolerating well so far without neurologic, parasympathetic, or sympathetic side effects. This is a therapy that has been demonstrated apparently effective in safe by a Dr. Vasquez in [place] who is apparently an expert in the field of this disorder. She does still have some chest discomfort and abdominal discomfort, but these are mild and a typical part of her ongoing syndrome. She is eating well, getting up walking well but with occasional orthostatic lightheadedness. She has no rashes on her skin. She has mild dry mouth but is able to manage that by drinking more water easily. At this point the patient is felt stable for discharge to home. Because she is receiving continuous infusion of Benadryl at home at 14 milligrams/hour, it is considered that there could potentially be cholineesterase inhibitor toxicity. I have given the patient a list of the side effects of any cholinesterase inhibitor toxicity and instructed her to watch for the side effects and promptly discuss with Dr. Diehl should they occur. In the event she is unable to get in touch with Dr. Diehl she should come to the ER in such an instance. MEDICATION CHANGES: Addition of continuous IV Benadryl infusion at 14 milligrams/hour via PICC catheter FOLLOW-UP PLAN: With Dr. Diehl later this week or the beginning of next week Greater than 35 minutes bedside and care coordination time today
[2016-08-13] MEDS: D5W IV SCH (14:15)
[2016-08-13] MEDS: DIPHENHYDRAMINE IV SCH (14:15)
[2016-08-13] MEDS: RIVAROXABAN 20 MG TAB PO SCH (17:27)
[2016-08-14 05:35] VITALS: RESP 16
[2016-08-14] MEDS: DIPHENHYDRAMINE IV SCH (05:36)
[2016-08-14] MEDS: D5W IV SCH (05:36)
[2016-08-14] MEDS: CROMOLYN SODIUM PO SCH ×2 (05:39→12:03)
[2016-08-14] MEDS: PANTOPRAZOLE SODIUM 40 MG TAB PO SCH (08:24)
[2016-08-14] MEDS: HYDROCORTISONE 10 MG TAB PO SCH ×2 (08:24→12:02)
[2016-08-14] MEDS: ISOSORBIDE DINITRATE 10 MG TAB PO SCH (08:25)
[2016-08-14] MEDS: HYDROCHLOROTHIAZIDE 25 MG TAB PO SCH (08:25)
[2016-08-14] MEDS: FAMOTIDINE 20 MG TAB PO SCH (08:26)
[2016-08-14] MEDS: FOLIC ACID 1 MG TAB PO SCH (08:26)
[2016-08-14] MEDS: CETIRIZINE 10 MG TAB PO SCH (08:26)
[2016-08-14] MEDS: FEXOFENADINE HCL 180 MG PO SCH (08:27)
[2016-08-14] MEDS: ZILEUTON PO SCH (08:28)
[2016-08-14] MEDS: VERAMYST EACHNARE SCH (08:28)
--- NOTE | 2016-08-14 09:24 | PDDCSUM ---
Discharge Summary Discharge Summary: DISCHARGE DIAGNOSES: # mast cell activation disease exacerbation CONSULTANTS: Dr. Caroline Diehl PROCEDURES: Placement of PICC catheter HOSPITAL COURSE SUMMARY: This patient who has been diagnosed with mast cell activation disease came into the ER with symptoms of exacerbation including shortness of breath, chest pain, abdominal pain, lightheadedness, and others. She was treated in the emergency room with steroids and intravenous Benadryl and had some improvement. Dr. Caroline Diehl, her long-standing internal medicine nurse was consulted. The patient was felt to require ongoing parenteral antihistamine therapy. She was initially admitted with scattered standing orders for 50 mg Benadryl every 4 hours which she received without complication. A PICC line has been placed. Dr. Caroline Diehl has arranged for the patient to have outpatient continuous infusion of IV Benadryl. Here in the hospital we have titrated her to a dose of 14 milligrams/hour which she is tolerating well so far without neurologic, parasympathetic, or sympathetic side effects. This is a therapy that has been demonstrated apparently effective in safe by a Dr. Vasquez in [place] who is apparently an expert in the field of this disorder. The patient had inadvertently during her stay had a decrease in her dose of Benadryl infusion, and this led to increasing chest pain, abdominal pain, and lightheadedness. She did not have wheezing or shortness of breath with this. As we got back up to 14 milligrams/hour of Benadryl infusion her symptoms again decreased significantly and she is feeling much better at this point. On this day of discharge the patient is eating well, not having dry mouth and not having any symptoms of cholinesterase in addition toxicity. Because she is receiving continuous infusion of Benadryl at home at 14 milligrams/hour, it is considered that there could potentially be cholineesterase inhibitor toxicity. I have given the patient a list of the side effects of any cholinesterase inhibitor toxicity and instructed her to watch for the side effects and promptly discuss with Dr. Diehl should they occur. In the event she is unable to get in touch with Dr. Diehl she should come to the ER in such an instance. MEDICATION CHANGES: Addition of continuous IV Benadryl infusion at 14 milligrams/hour via PICC catheter FOLLOW-UP PLAN: With Dr. Diehl the 1st half of next week Greater than 35 minutes bedside and care coordination time today
[2016-08-14] MEDS: CROMOLYN SODIUM IH SCH (09:25)
[2016-08-14] MEDS: BUDESONIDE/FORMOTEROL 160/4.5 60 PUFFS/MDI IH SCH (09:25)
[2016-08-14] MEDS: NS 1,000 ML IV SCH (10:25)
[2016-08-14 14:06] VITALS: BP 90/65; PULSE 78; TEMP 97.7; O2SAT 98
== END 2016-08-14 15:03 | disposition home health service (06) | DRG 815 ==
LOC: OBSVTOIN 08-10 00:25 → F1N 08-10 01:06
PROVIDERS: ADMIT Hospitalist; ATTEND Hospitalist
PROC: 02HV33Z Insertion of Infusion Device into Superior Vena Cava, Percutaneous Approach (ICD-10-PCS; principal; 2016-08-10)
DX: D89.40 Mast cell activation, unspecified (principal); E27.40 Unspecified adrenocortical insufficiency; Z86.718 Personal history of other venous thrombosis and embolism; Z86.711 Personal history of pulmonary embolism; Z79.01 Long term (current) use of anticoagulants; Z87.891 Personal history of nicotine dependence; J45.909 Unspecified asthma, uncomplicated
CPT/HCPCS: 96374; C1751; J0171; J1200; J2405

== ENCOUNTER → 2016-09-06 | Outpatient (CLI) | payer OTHER | LOC: FIMAGING 17:03 | PROVIDERS: ATTEND Allergy & Immunology Allergy | DX: Z45.2 Encounter for adjustment and management of vascular access device (principal) ==

== ENCOUNTER → 2016-10-09 | Day surgery (SDC) | payer OTHER | END | disposition home or self-care (01) | LOC: FIMAGING 14:40 | PROVIDERS: ATTEND Allergy & Immunology Allergy | PROC: 02HV33Z Insertion of Infusion Device into Superior Vena Cava, Percutaneous Approach (ICD-10-PCS; principal; 2016-10-09) | PROC: 0JP Subcutaneous Tissue and Fascia, Removal (ICD-10-PCS; principal; 2016-10-09) | DX: T82.898A Other specified complication of vascular prosthetic devices, implants and grafts, initial encounter (principal) | CPT/HCPCS: 36584; 77001; C1751 ==

== ENCOUNTER → 2016-12-17 | Day surgery (SDC) | payer OTHER | END | disposition home or self-care (01) | LOC: FIMAGING 09:04 | PROVIDERS: ATTEND Radiology Diagnostic Radiology | PROC: 02HV33Z Insertion of Infusion Device into Superior Vena Cava, Percutaneous Approach (ICD-10-PCS; principal; 2016-12-17) | PROC: B51M1ZA Fluoroscopy of Right Upper Extremity Veins using Low Osmolar Contrast, Guidance (ICD-10-PCS; principal; 2016-12-17) | DX: C96.2 Malignant mast cell neoplasm (principal) | CPT/HCPCS: 36569; 77001; C1751 ==

== ENCOUNTER 2016-12-21 11:37 | Emergency (ER) | payer OTHER ==
[2016-12-21 11:46] VITALS: TEMP 98.2; O2SAT 98
--- NOTE | 2016-12-21 12:18 | EDPHY ---
H & P Stated Complaint: picc line painful & LEAKING PLACED WED Time Seen by Provider: 12/21/16 11:49 HPI/ROS: CHIEF COMPLAINT: Right arm pain following placement of new PICC line catheter HISTORY OF PRESENT ILLNESS: The patient presents to the ED with complaints of increasing right arm pain following the placement of a new PICC line catheter on Thursday. The patient has developed a small amount of bleeding around the puncture site of her skin. The patient reports that her PICC lines continuing to flush normally. The patient denies any chest pain or shortness of breath. The patient is receiving a continuous Benadryl infusion for mast cell dysfunction as prescribed for her allergy data warehouse specialist Dr. Caroline Diehl. REVIEW OF SYSTEMS: A comprehensive 10 point review of systems is otherwise negative aside from elements mentioned in the history of present illness. Source: Patient - Personal History LMP (Females 10-55): Unknown Current Tetanus/Diphtheria Vaccine: Yes Current Tetanus Diphtheria and Acellular Pertussis (TDAP): Yes Tetanus Vaccine Date: LAST 10 YRS - Medical/Surgical History Hx Asthma: Yes Hx Chronic Respiratory Disease: No Hx Diabetes: No Hx Cardiac Disease: Yes Hx Renal Disease: No Hx Cirrhosis: No Hx Alcoholism: No Hx HIV/AIDS: No Hx Splenectomy or Spleen Trauma: No Other PMH: medical- mastocytosis/multiple allergies, Adrenal Insufficiency, Colotis, Food allergies, asthma, "small PFO" home o2. surgery- appy, ortho - Social History Smoking Status: Former smoker - Physical Exam Exam: General Appearance: Alert, no distress Eyes: Pupils equal and round no pallor or injection ENT, Mouth: Mucous membranes moist Respiratory: There are no retractions, lungs are clear to auscultation Cardiovascular: Regular rate and rhythm Gastrointestinal: Abdomen is soft and nontender, no masses, bowel sounds normal Neurological: A&O, normal motor function, normal sensory exam, normal cranial nerves Skin: Warm and dry, no rashes, no changes consistent with cellulitis, no abscess present Musculoskeletal: Neck is supple nontender Extremities: PICC line appears patent, minimal blood noted on dressing consistent with resolving hematoma, minimal tenderness noted along the lateral aspect of the right arm Constitutional: Initial Vital Signs Temperature (C) 36.8 C 12/21/16 11:41 Heart Rate 85 12/21/16 11:41 Respiratory Rate 14 12/21/16 11:41 Blood Pressure 119/85 H 12/21/16 11:41 O2 Sat (%) 98 12/21/16 11:41 O2 Delivery Mode Room Air Allergies/Adverse Reactions: iron sucrose complex [From Venofer] Allergy (Severe, Verified 10/13/13 18:06) Anaphylaxis aspirin Allergy (Intermediate, Verified 10/13/13 18:06) levofloxacin [From Levaquin] Allergy (Unknown, Verified 10/13/13 18:06) nabumetone [From Relafen] Allergy (Unknown, Verified 10/13/13 18:06) dapsone Allergy (Verified 03/13/15 11:25) STEROIDS Allergy (Unknown, Uncoded 08/01/12 22:31) Home Medications: Medication Instructions Recorded Budesonide/Formoterol 160/4.5 2 puffs IH BID 03/13/15 [Symbicort 160-4.5 Mcg Inh (*)] Cetirizine [ZyrTEC 10 mg (*)] 20 mg PO HS 03/13/15 Cromolyn Sodium 20 mg IH TID 03/13/15 Levalbuterol Inhaler [Xopenex Hfa 1 - 2 puffs IH Q4 PRN 03/13/15 Inhaler (*)] Ranitidine HCl [Zantac] 150 mg PO DAILY@03/13/15 Zileuton [ZYFLO] 1,200 mg PO BID 03/13/15 Alendronate Sodium [Fosamax 70 MG 70 mg PO MO@0700 08/10/16 (*)] Cetirizine [ZyrTEC 10 mg (*)] 10 mg PO DAILY 08/10/16 Cromolyn Sodium [GASTROCROM] 200 mg PO QID 08/10/16 FEXOFENADINE HCL 180 mg PO DAILY 08/10/16 Folic Acid [Folic Acid 1 MG (*)] 1 mg PO DAILY 08/10/16 Hydrochlorothiazide [HCTZ (*)] 12.5 mg PO DAILY 08/10/16 Hydrocortisone [Cortef 10 mg (*)] 5 mg PO DAILY@08 08/10/16 Hydrocortisone [Cortef] 2.5 mg PO DAILY@,18 08/10/16 Isosorbide Dinitrate [Isosorbide 10 mg PO DAILY 08/10/16 Dinitrate 10 mg (*)] Omeprazole 40 mg PO DAILY 08/10/16 Rivaroxaban [Xarelto] 20 mg PO DAILY18 08/10/16 Veramyst Nasal [place] 2 sprays EACHNARE DAILY 08/10/16 diphenhydrAMINE [Benadryl 200 mg IV CONT #0 inj 08/13/16 Injection] Medical Decision Making - Diagnostics Imaging Results: Imaging Impressions Extremity Venous Study 12/21/16 12:02 Impression: 1. No evidence of vein thrombosis in the right arm. 2. PICC is demonstrated in the right basilic vein. Results called and discussed with Jayesh Le M.D. on 12/21/2016 at 13:17 ED Course/Re-evaluation: The patient presents to the ED for evaluation of right biceps pain following PICC line placement. The patient's PICC line is noted to be patent and flowing normally. She has no clinical evidence of a cellulitis or abscess. The patient was taken for an ultrasound of the right upper extremity which demonstrated no evidence of a DVT, hematoma or other acute finding. The patient will be discharged home with instructions to continue to take Tylenol as needed for pain. Differential Diagnosis: Differential diagnosis considered includes upper extremity DVT, cellulitis, abscess, PICC line thrombosis, postprocedure hematoma Departure - Departure Disposition: Home, Routine, Self-Care Clinical Impression: Status post PICC central line placement Condition: Good Instructions: Peripherally Inserted Central Catheters and Midline Catheters (ED ) Additional Instructions: 1. Your ultrasound shows no evidence of a blood clot or PICC line malfunction. 2. Please follow-up with Dr. Diehl as needed Referrals: Nicole Bryson MD [Primary Care Provider] - As per Instructions
[2016-12-21 13:45] VITALS: BP 130/93; PULSE 77; RESP 16
== END 2016-12-21 13:40 | disposition home or self-care (01) ==
DX: T82.848A Pain due to vascular prosthetic devices, implants and grafts, initial encounter (principal); J45.909 Unspecified asthma, uncomplicated; Z87.891 Personal history of nicotine dependence; Y71.2 Prosthetic and other implants, materials and accessory cardiovascular devices associated with adverse incidents

== ENCOUNTER 2017-06-03 16:49 | Emergency (ER) | payer OTHER ==
[2017-06-03 16:56] VITALS: PULSE 78; RESP 18
--- NOTE | 2017-06-03 19:03 | EDPHY ---
H & P Time Seen by Provider: 06/03/17 18:10 HPI/ROS: HPI Here for PICC line change. 41-year-old female by private vehicle with family. 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 Caroline Diehl. She had a new PICC line that was placed by IR today. This was placed in her left upper extremity. She was supposed to have the old PICC line removed at the same time. Interventional radiology did not do this and referred her back to her primary care physician to have this line removed and cultured. Her primary care physician's office told her that they do not removed PICC lines and she was sent to the emergency department. She denies any complaints. She is currently infusing medicine through her new left upper extremity PICC line. ROS: Constitutional: No fever, no chills. No weakness. Musculoskeletal: No back pain. No neck pain. No extremity pain. Skin: No rashes. Neurological: No focal weakness or altered sensation. Past medical history: Multiple allergies, adrenal insufficiency, colitis, asthma, as above. Social history: Nonsmoker. No alcohol. Here with family. Physical Exam: General Appearance: Alert, no distress. This patient is responding to questions appropriately and in full sentences. This patient appears well- hydrated and well-nourished. Eyes: Pupils equal and round no pallor or injection. No lid edema, erythema or injection. Right upper extremity: PICC line insertion site is clean dry and intact. There is no evidence of infection. There is no associated edema or swelling. The left upper extremity is neurovascularly intact. Left upper extremity: New PICC line insertion site some residual blood under her dressing from the initial placement of the PICC line. There is no surrounding erythema, edema or swelling. The line is currently receiving medications and is flushing well. The left upper extremity is neurovascularly intact. Neurological: Motor sensory function is grossly intact. Cranial nerves are normal. Gait is normal. Skin: Warm and dry, no rashes. Extremities are symmetrical. All joints range without pain or impingement. Psychiatric: No agitation. No depression. Database: EKG: Imaging: Procedures: Emergency department course: Vital signs reviewed and are normal. We removed the patient's right upper extremity PICC line successfully. The tip of the line was cut under sterile conditions, contained in a sterile container and sent to the lab for culture drain. The patient had no residual bleeding after PICC line removal. A proper dressing was placed. The right upper extremity is neurovascularly intact. The left upper extremity PICC line continues to flush well and she is currently receiving an infusion of medication. She feels comfortable going home. Follow- up and return to emergency department precautions discussed with her. All of her questions were answered. She was discharged in good condition. Differential Diagnosis: The differential diagnosis on this patient includes but is not limited to PICC line removal. Upper extremity DVT, PICC line associated infection unlikely. This represents a partial list of diagnoses considered. These considerations are based on history, physical exam, past history, reassessment and diagnostic testing. Smoking Status: Former smoker Constitutional: Initial Vital Signs Temperature (C) 37 C 06/03/17 16:53 Heart Rate 78 06/03/17 16:53 Respiratory Rate 18 06/03/17 16:53 Blood Pressure 139/97 H 06/03/17 16:53 O2 Sat (%) 97 06/03/17 16:53 O2 Delivery Mode Room Air Allergies/Adverse Reactions: iron sucrose complex [From Venofer] Allergy (Severe, Verified 06/03/17 16:57) Anaphylaxis aspirin Allergy (Intermediate, Verified 06/03/17 16:57) levofloxacin [From Levaquin] Allergy (Unknown, Verified 06/03/17 16:57) nabumetone [From Relafen] Allergy (Unknown, Verified 06/03/17 16:57) dapsone Allergy (Verified 06/03/17 16:57) STEROIDS Allergy (Unknown, Uncoded 08/01/12 22:31) Home Medications: Medication Instructions Recorded Budesonide/Formoterol 160/4.5 2 puffs IH BID 03/13/15 [Symbicort 160-4.5 Mcg Inh (*)] Cetirizine [ZyrTEC 10 mg (*)] 20 mg PO HS 03/13/15 Cromolyn Sodium 20 mg IH TID 03/13/15 Levalbuterol Inhaler [Xopenex Hfa 1 - 2 puffs IH Q4 PRN 03/13/15 Inhaler (*)] Ranitidine HCl [Zantac] 150 mg PO DAILY@,18 03/13/15 Zileuton [ZYFLO] 1,200 mg PO BID 03/13/15 Alendronate Sodium [Fosamax 70 MG 70 mg PO MO@0700 08/10/16 (*)] Cetirizine [ZyrTEC 10 mg (*)] 10 mg PO DAILY 08/10/16 Cromolyn Sodium [GASTROCROM] 200 mg PO QID 08/10/16 FEXOFENADINE HCL 180 mg PO DAILY 08/10/16 Folic Acid [Folic Acid 1 MG (*)] 1 mg PO DAILY 08/10/16 Hydrochlorothiazide [HCTZ (*)] 12.5 mg PO DAILY 08/10/16 Hydrocortisone [Cortef 10 mg (*)] 5 mg PO DAILY@08 08/10/16 Hydrocortisone [Cortef] 2.5 mg PO DAILY@08/10/16 Isosorbide Dinitrate [Isosorbide 10 mg PO DAILY 08/10/16 Dinitrate 10 mg (*)] Omeprazole 40 mg PO DAILY 08/10/16 Rivaroxaban [Xarelto] 20 mg PO DAILY18 08/10/16 Veramyst Nasal [place] 2 sprays EACHNARE DAILY 08/10/16 diphenhydrAMINE [Benadryl 200 mg IV CONT #0 inj 08/13/16 Injection] Departure - Departure Disposition: Home, Routine, Self-Care Clinical Impression: PIC line (peripherally inserted central catheter) removal Condition: Good Instructions: Peripherally Inserted Central Catheters and Midline Catheters (ED ) Additional Instructions: Read and follow provided instructions. Follow-up with your primary care physician in 1-2 days for re-evaluation as needed. Usual new left upper extremity PICC line as usual for infusion of your medications. Return to the emergency department for fever, swelling, discoloration involving the PICC line insertion site or other serious concerns. Referrals: Nicole Bryson MD [Primary Care Provider] - As per Instructions
[2017-06-03 19:33] VITALS: BP 128/75; TEMP 98.2; O2SAT 96
== END 2017-06-03 19:33 | disposition home or self-care (01) ==
DX: Z45.2 Encounter for adjustment and management of vascular access device (principal); J45.909 Unspecified asthma, uncomplicated; Z87.891 Personal history of nicotine dependence

== ENCOUNTER → 2017-06-03 | Day surgery (SDC) | payer OTHER | END | disposition home or self-care (01) | LOC: FIMAGING 14:54 | PROVIDERS: ATTEND Allergy & Immunology Allergy | PROC: 02HV33Z Insertion of Infusion Device into Superior Vena Cava, Percutaneous Approach (ICD-10-PCS; principal; 2017-06-03) | PROC: 0JP Subcutaneous Tissue and Fascia, Removal (ICD-10-PCS; principal; 2017-06-03) | DX: T82.898A Other specified complication of vascular prosthetic devices, implants and grafts, initial encounter (principal); D89.40 Mast cell activation, unspecified | CPT/HCPCS: 36569; 77001; C1751 ==

== ENCOUNTER → 2017-06-08 | Day surgery (SDC) | payer OTHER ==
[~2017-06-08] MED LIST: IOPAMIDOL (ISOVUE-300) 150 ML BTL ONE
== END | disposition home or self-care (01) ==
LOC: FIMAGING 14:38
PROVIDERS: ATTEND Allergy & Immunology Allergy
PROC: 3E033KZ Introduction of Other Diagnostic Substance into Peripheral Vein, Percutaneous Approach (ICD-10-PCS; principal; 2017-06-08)
DX: Z45.2 Encounter for adjustment and management of vascular access device (principal); I82.A11 Acute embolism and thrombosis of right axillary vein
CPT/HCPCS: 36005; 75820; 77001; C1751; C1769; Q9967

== ENCOUNTER 2017-06-15 12:20 | Emergency (ER) | payer OTHER ==
[2017-06-15 12:27] VITALS: RESP 18
--- NOTE | 2017-06-15 13:19 | EDPHY ---
H & P Time Seen by Provider: 06/15/17 12:52 HPI/ROS: CHIEF COMPLAINT: Left arm pain HISTORY OF PRESENT ILLNESS: Has PICC line left arm. She is being treated for Mastocytosis and adrenal insufficiency by doctor Fazal. On June 08 of this year she had procedure by Dr. Gonsales from IR showing occluded right arm veins and left-sided PICC line was left in place. She tells me she has an appointment with Dr. Gutierrez in a week to discuss port placement. She says that on Thursday she had a little bit of yellow drainage from the site and has been having increasing left upper arm pain the last 2 days. No shortness of breath and no skin redness or fever. 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 Chest clear to auscultation. Regular rate rhythm without murmur had no additional excess work of breathing. Left upper arm PICC site is clean dry and intact. Compartments are soft and normal motor sensory and vascular in the left hand. Normal left hand temperature and radial pulse. She does not have skin redness or fluctuance or warmth to touch or lymphangitis. Emergency Department course/MDM: Plan for ultrasound to evaluate for venous clot. Pain would prefer to avoid an additional procedure as she is attempting to transition to a port. According to her the PICC line does still function. 1320: Discussed with Dr. Rodrigo Gutierrez request the patient be sent to his office directly from the ED after her evaluation for port evaluation. 1506: Ultrasound shows nonocclusive DVT as well as superficial clot. Is currently taking Xarelto, does not have symptoms of pulmonary embolism. 1545: Discussed with [place]. In speaking with the patient afterwards however, she actually is seeing Dr. Rodrigo Gutierrez even though she is a [facility] patient because of insurance reasons. 1558: Discussed with [facility]. She recommends stopping Xarelto. Outpatient treatment with office follow-up. Weight based bid dosing lovenox. 1538: discussed with Fazal. Discussed with Dr. Gutierrez. According to Hematology, the patient should be stopped on her Xarelto and started on weight based twice a day Lovenox which the patient is agreeable to. She will visit with Dr. Gutierrez today regarding port placement but this procedure is not recommended by product manager e commerce Dr. Maynard until her anticoagulation situation has been evaluated and stabilized. Dr. Diehl will facilitate Hematology follow-up next week, and scheduling surgery for port placement after the DVT question has been stabilized. I do not think she has infection of the PICC line site. Smoking Status: Former smoker Constitutional: Initial Vital Signs Temperature (C) 37 C 06/15/17 12:21 Heart Rate 94 06/15/17 12:21 Respiratory Rate 18 06/15/17 12:21 Blood Pressure 117/79 06/15/17 12:21 O2 Sat (%) 96 06/15/17 12:21 O2 Delivery Mode Room Air Allergies/Adverse Reactions: iron sucrose complex [From Venofer] Allergy (Severe, Verified 06/03/17 16:57) Anaphylaxis aspirin Allergy (Intermediate, Verified 06/03/17 16:57) levofloxacin [From Levaquin] Allergy (Unknown, Verified 06/03/17 16:57) nabumetone [From Relafen] Allergy (Unknown, Verified 06/03/17 16:57) dapsone Allergy (Verified 06/03/17 16:57) STEROIDS Allergy (Unknown, Uncoded 08/01/12 22:31) Home Medications: Medication Instructions Recorded Budesonide/Formoterol 160/4.5 2 puffs IH BID 03/13/15 [Symbicort 160-4.5 Mcg Inh (*)] Cetirizine [ZyrTEC 10 mg (*)] 20 mg PO HS 03/13/15 Cromolyn Sodium 20 mg IH TID 03/13/15 Levalbuterol Inhaler [Xopenex Hfa 1 - 2 puffs IH Q4 PRN 03/13/15 Inhaler (*)] Ranitidine HCl [Zantac] 150 mg PO DAILY@03/13/15 Zileuton [ZYFLO] 1,200 mg PO BID 03/13/15 Alendronate Sodium [Fosamax 70 MG 70 mg PO MO@0700 08/10/16 (*)] Cetirizine [ZyrTEC 10 mg (*)] 10 mg PO DAILY 08/10/16 Cromolyn Sodium [GASTROCROM] 200 mg PO QID 08/10/16 FEXOFENADINE HCL 180 mg PO DAILY 08/10/16 Folic Acid [Folic Acid 1 MG (*)] 1 mg PO DAILY 08/10/16 Hydrochlorothiazide [HCTZ (*)] 12.5 mg PO DAILY 08/10/16 Hydrocortisone [Cortef 10 mg (*)] 5 mg PO DAILY@08 08/10/16 Hydrocortisone [Cortef] 2.5 mg PO DAILY@12,18 08/10/16 Isosorbide Dinitrate [Isosorbide 10 mg PO DAILY 08/10/16 Dinitrate 10 mg (*)] Omeprazole 40 mg PO DAILY 08/10/16 Rivaroxaban [Xarelto] 20 mg PO DAILY18 08/10/16 Veramyst Nasal [place] 2 sprays EACHNARE DAILY 08/10/16 diphenhydrAMINE [Benadryl 200 mg IV CONT #0 inj 08/13/16 Injection] Enoxaparin [Lovenox 80 MG (*)] 80 mg SQ BID #14 syr 06/15/17 MDM/Departure - MDM Imaging Results: Imaging Impressions Extremity Venous Study 06/15/17 13:14 Impression: 1. Short segment of nonocclusive deep venous thrombosis in the left innominate vein adjacent the PICC. 2. Occlusive superficial thrombophlebitis along the course of the PICC in the basilic vein. Findings discussed with Emergency Department physician, Casey Bailey on 2016, 15:04. Medications Given: Discontinued Medications Enoxaparin Sodium (Lovenox) 80 mg SC EDNOW ONE Stop: 06/15/17 16:04 Last Admin: 06/15/17 16:31 Dose: 80 mg - Depart Disposition: Home, Routine, Self-Care Clinical Impression: Deep vein thrombosis (DVT) of left upper extremity Qualifiers: Affected thrombotic vein of extremity: unspecified vein of extremity Chronicity : acute Qualified Code(s): I82.622 - Acute embolism and thrombosis of deep veins of left upper extremity Condition: Good Instructions: Deep Venous Thrombosis (ED) Additional Instructions: Stop Xarelto. Start weight based twice a day Lovenox injections and follow up with Hematology next week. You should see Dr. Gutierrez in the office today but product manager e commerce Dr. Maynard recommends delaying any kind of surgery for port placement until your PICC line clot has started to show evidence of resolution on ultrasound. Return immediately for chest pain or shortness of breath. Prescriptions: Enoxaparin [Lovenox 80 MG (*)] 80 mg SQ BID #14 syr Referrals: Caroline Diehl MD [[facility] [place] Care Provider] - As per Instructions Nicole Bryson MD [Primary Care Provider] - As per Instructions Aruna Maynard MD [Medical Doctor] - As per Instructions
[2017-06-15] MEDS ORDERED: ENOXAPARIN 80 MG/0.8 ML SYR SC ONE (16:03)
[2017-06-15 16:38] VITALS: BP 128/68; PULSE 88; TEMP 98.2; O2SAT 98
== END 2017-06-15 16:30 | disposition home or self-care (01) ==
DX: I82.622 Acute embolism and thrombosis of deep veins of left upper extremity (principal); Z87.891 Personal history of nicotine dependence
CPT/HCPCS: J1650

== ENCOUNTER → 2017-06-26 | Outpatient (CLI) | payer OTHER | LOC: CIMAGING 08:55 | PROVIDERS: ATTEND Internal Medicine Hematology & Oncology | DX: I82.612 Acute embolism and thrombosis of superficial veins of left upper extremity (principal) | CPT/HCPCS: 93971-PO ==

== ENCOUNTER 2017-07-02 07:26 | Observation (INO) | payer OTHER ==
--- NOTE | 2017-07-01 11:41 | GHP ---
[f rep st] HISTORY AND PHYSICAL DATE OF ADMISSION: 07/02/2017 HISTORY OF PRESENT ILLNESS: The patient is a 41-year-old female recently seen in our office for cons ultation regarding port placement for treatment for monoclonal mast cell activation syndrome. The pa gerardo is currently managing her condition with IV Benadryl infusion and she is considering Gleevec th erapy in the future. The patient has symptoms significant for urticaria itching pruritus. It is imp ortant to note that she recently had a left subclavian DVT and is currently on Lovenox. PAST MEDICAL HISTORY: Mass cell activation syndrome. PAST SURGICAL HISTORY: Appendectomy, laparoscopy for endometriosis, sinus surgery. REVIEW OF SYSTEMS: Negative 10 point review of systems. MEDICATIONS: Lovenox, Fosamax, hydrochlorothiazide, fludrocortisone, ranitidine, Singulair, Xopenex, iron tablets, vitamin B12, Brovana. 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 PHYSICAL EXAMINATION: GENERAL: The patient is a pleasant female in no apparent distress. HEAD AND NECK: Normocephalic, atraumatic. CHEST: CTA bilaterally. HEART: Regular rhythm and rate. ABDOME N: Soft, nontender. EXTREMITIES: No lower extremity edema. Normal radius and dorsalis pedis pulse s to palpation. ASSESSMENT: A 41-year-old female, in need of port placement for ongoing treatment of mast cell disea se, on Lovenox, significant allergy history as noted above. RECOMMENDATION: Port placement was discussed with the patient in detail, including risks of pneumoth orax, vessel injury, infection, bleeding. The patient elects to proceed with scheduling, patient see n and examined by Dr. Gutierrez. /[id number]/MODL
--- NOTE | 2017-07-01 22:17 | PDHPUP ---
History & Physical Update H&P update statement: This history and physical update is based on an assessment of the patient which was completed after admission or registration (within 24 hours), but prior to the surgery/procedure. updated
[2017-07-02] MEDS ORDERED: ceFAZolin 2 GM/DEXTROSE 100 ML IV ONE ×3 (07:36→13:45)
[2017-07-02] MEDS ORDERED: LR 1,000 ML IV ONE ×2 (07:45→14:14)
[2017-07-02] MEDS ORDERED: LIDOCAINE 1% 2 ML INJ ID PRN (07:45)
[2017-07-02] MEDS ORDERED: ceFAZolin 2 GM/SWFI 2 GM/20 ML SYR IVP ONE ×2 (07:45→14:00)
[2017-07-02] MEDS ORDERED: MIDAZOLAM 2 MG/2 ML VIAL IVP ONE (09:23)
--- NOTE | 2017-07-02 09:25 | PDANEPAE ---
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 chronic bronchitis. hx of multiple pe's - Neurologic History Hx Cerebrovascular Accident: No Hx Seizures: Yes Hx Dementia: No Neurologic History Comment: 2 seizures as child - Endocrine History Hx Diabetes: No - Renal History Hx Renal Disorders: Yes Renal History Comment: hx of kidney stones - Liver History Hx Hepatic Disorders: No - Neurological & Psychiatric Hx Hx Neurological and Psychiatric Disorders: No - Cancer History Hx Cancer: No - Congenital Disorder History Hx Congenital Disorders: No - GI History Hx Gastrointestinal Disorders: Yes Gastrointestinal History Comment: reflux. ulcerative colitis- currently in remission - Other Health History Other Health History: wears glasses/ contacts. very sensitive skin- gets rashes easily. bruises easily - Chronic Pain History Chronic Pain: No - Surgical History Prior Surgeries: right elbow surgery to repair tendon. right wrist carpal tunnel. 2 laparoscopies for endometriosis and cysts. sinus. appy. left ankle ANE Review of Systems Review of Systems: - Exercise capacity METS (RN): 3 METS ANE Patient History - Allergies Allergies/Adverse Reactions: iron sucrose complex [From Venofer] Allergy (Severe, Verified 06/03/17 16:57) Anaphylaxis aspirin Allergy (Intermediate, Verified 06/30/17 11:08) Anaphylaxis levofloxacin [From Levaquin] Allergy (Unknown, Verified 06/30/17 11:08) hives all over and swelling of tongue nabumetone [From Relafen] Allergy (Unknown, Verified 06/30/17 11:08) hives all over and swelling of tongue dapsone Allergy (Verified 06/30/17 11:08) severe anemia soy Allergy (Verified 06/30/17 11:43) STEROIDS Allergy (Unknown, Uncoded 06/30/17 11:08) has to have benadryl first - Home Medications Home Medications: Ranitidine HCl [Zantac] 03/13/15 [Last Taken 07/02/17 06:45] Alendronate Sodium [Fosamax 70 MG (*)] 70 mg PO MO@0700 08/10/16 [Last Taken 06/05] Cetirizine [ZyrTEC 10 mg (*)] 10 mg PO DAILY 08/10/16 [Last Taken 07/01/17] Cromolyn Sodium [GASTROCROM] 08/10/16 [Last Taken 07/02/17 06:15] Hydrochlorothiazide [HCTZ (*)] DAILY 08/10/16 [Last Taken 07/01/17] Hydrocortisone [Cortef] 08/10/16 [Last Taken 07/02/17 06:15] Isosorbide Dinitrate [Isosorbide Dinitrate 10 mg (*)] 15 mg PO TID 08/10/16 [ Last Taken 07/02/17 06:45] Brovano IH 06/30/17 [Last Taken 07/02/17 06:15] Budesonide 0.25MG/2Ml Neb 06/30/17 [Last Taken 07/02/17 06:15] Cromolyn Sodium 06/30/17 [Last Taken 07/02/17 06:15] Domperidone 06/30/17 [Last Taken 07/02/17 06:15] Famotidine IV CONT 06/30/17 [Last Taken 07/02/17 07:57] Florinef 06/30/17 [Last Taken 07/02/17 06:15] Iv Hydration 06/30/17 [Last Taken 07/01/17] Nitrostat 06/30/17 [Last Taken 06/02/17] Quercetin 06/30/17 [Last Taken 07/02/17 06:45] Singulair 2 tab 06/30/17 [Last Taken 07/02/17 06:45] Solumedrol 06/30/17 [Last Taken 06/25/17] VITAMIN D 06/30/17 [Last Taken 07/02/17 06:15] Vitamin B12 1000MCG/ML (*) 06/30/17 [Last Taken 07/01/17] Xopenex Hfa Inhaler (*) 06/30/17 [Last Taken 07/02/17 06:15] diphenhydrAMINE [Benadryl Injection] CONT 06/30/17 [Last Taken 07/02/17 07:57] - NPO status NPO Since - Liquids (Date): 07/02/17 NPO Since - Liquids (Time): 06:00 NPO Since - Solids (Date): 07/01/17 NPO Since - Solids (Time): 19:00 - Smoking Hx Smoking Status: Former smoker - Family Anes Hx Family Hx Anesthesia Complications: none ANE Labs/Vital Signs - Vital Signs Vital Signs: reviewed preoperatively; see RN documention for details Blood Pressure: 120/93 Heart Rate: 76 Respiratory Rate: 16 O2 Sat (%): 97 Height: 177.8 cm Weight: 76.204 kg ANE Physical Exam - Airway Neck exam: FROM Mallampati Score: Class 1 Mouth exam: normal dental/mouth exam - Pulmonary Pulmonary: no respiratory distress - Cardiovascular Cardiovascular: regular rate and rhythym - ASA Status ASA Status: IV ANE Anesthesia Plan Anesthesia Plan: GA w LMA
[2017-07-02] MEDS ORDERED: PROPOFOL 200 MG/20 ML VIAL ONE ×3 (09:32→16:11)
[2017-07-02] MEDS ORDERED: fentaNYL 100 MCG/2 ML INJ ONE ×7 (09:33→18:00)
[2017-07-02] MEDS ORDERED: LIDOCAINE 1% 300 MG/30 ML SDV ONE ×2 (09:38→14:35)
[2017-07-02] MEDS ORDERED: BACITRACIN ZINC 14.2 GM OINTTUBE TP ONE ×2 (09:38→14:35)
[2017-07-02] MEDS ORDERED: BUPIVACAINE 0.5% 30 ML SDV ONE ×2 (09:38→14:36)
[2017-07-02] MEDS ORDERED: SODIUM BICARBONATE 10 MEQ/10 ML SYR IVP ONE ×2 (09:38→14:35)
[2017-07-02] MEDS ORDERED: HYDROmorphONE/DILAUDID 2 MG TAB PO PRN (09:54)
[2017-07-02] MEDS ORDERED: D5W 1/2 NS W/ 20 KCl/L 1,000 ML IV SCH (10:00)
[2017-07-02] MEDS ORDERED: NALOXONE HCL 0.4 MG/ML INJ IVP PRN ×2 (10:19→17:31)
[2017-07-02] MEDS ORDERED: ONDANSETRON 4 MG/2 ML VIAL ONE ×5 (10:32→18:22)
[2017-07-02] MEDS ORDERED: DEXAMETHASONE 4 MG/ML VIAL ONE (10:32)
[2017-07-02] MEDS ORDERED: HYDROCORTISONE 100 MG/2 ML VIAL ONE ×2 (10:32→16:11)
--- NOTE | 2017-07-02 10:46 | POSTANESTH ---
Post Anesthetic Evaluation Cardiovascular Status: Normal, Stable Respiratory Status: Normal, Stable Level of Consciousness/Mental Status: Can Participate in Eval Pain Control: Adequate, Prn Tx Ordered Nausea/Vomiting Control: Adequate, Prn Tx Ordered Complications Possibly Related to Anesthesia: None Noted
[2017-07-02] MEDS: ONDANSETRON 4 MG/2 ML VIAL IVP PRN ×5 (11:00→23:51)
[2017-07-02] MEDS: fentaNYL 100 MCG/2 ML INJ IVP PRN ×5 (11:09→23:52)
[2017-07-02] MEDS ORDERED: PROMETHAZINE HCL 25 MG/ML INJ ONE (11:53)
[2017-07-02] MEDS ORDERED: PROMETHAZINE HCL 25 MG/ML INJ IV PRN (12:26)
[2017-07-02] MEDS ORDERED: ceFAZolin 1 GM/5 ML SYR IV ONE (13:45)
[2017-07-02] MEDS ORDERED: fentaNYL 12 MCG PATCH TD SCH (14:00)
--- NOTE | 2017-07-02 14:11 | POSTOPPROG ---
Post Op Note Date of Operation: 07/02/17 Surgeon: Rodrigo Gutierrez Anesthesiologist: Dr Bowles Anesthesia: GET(General Endotracheal) Pre-op Diagnosis: need for access Post-op Diagnosis: same Indication: same Procedure: power port placement Inf/Abcess present in the surg proc area at time of surgery?: No Depth: Organ Space EBL: Minimal
--- NOTE | 2017-07-02 16:08 | PDANEPAE ---
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 chronic bronchitis. hx of multiple pe's - Neurologic History Hx Cerebrovascular Accident: No Hx Seizures: Yes Hx Dementia: No Neurologic History Comment: 2 seizures as child - Endocrine History Hx Diabetes: No - Renal History Hx Renal Disorders: Yes Renal History Comment: hx of kidney stones - Liver History Hx Hepatic Disorders: No - Neurological & Psychiatric Hx Hx Neurological and Psychiatric Disorders: No - Cancer History Hx Cancer: No - Congenital Disorder History Hx Congenital Disorders: No - GI History Hx Gastrointestinal Disorders: Yes Gastrointestinal History Comment: reflux. ulcerative colitis- currently in remission - Other Health History Other Health History: wears glasses/ contacts. very sensitive skin- gets rashes easily. bruises easily - Chronic Pain History Chronic Pain: No - Surgical History Prior Surgeries: right elbow surgery to repair tendon. right wrist carpal tunnel. 2 laparoscopies for endometriosis and cysts. sinus. appy. left ankle ANE Review of Systems Review of Systems: - Exercise capacity METS (RN): 3 METS ANE Patient History - Allergies Allergies/Adverse Reactions: iron sucrose complex [From Venofer] Allergy (Severe, Verified 06/03/17 16:57) Anaphylaxis aspirin Allergy (Intermediate, Verified 06/30/17 11:08) Anaphylaxis levofloxacin [From Levaquin] Allergy (Unknown, Verified 06/30/17 11:08) hives all over and swelling of tongue nabumetone [From Relafen] Allergy (Unknown, Verified 06/30/17 11:08) hives all over and swelling of tongue dapsone Allergy (Verified 06/30/17 11:08) severe anemia soy Allergy (Verified 06/30/17 11:43) STEROIDS Allergy (Unknown, Uncoded 06/30/17 11:08) has to have benadryl first - Home Medications Home Medications: RX: Alendronate Sodium [Fosamax 70 MG (*)] 70 mg PO MO@0700 08/10/16 [Last Taken 06/29/17] RX: Cetirizine [ZyrTEC 10 mg (*)] 10 mg PO DAILY@12 08/10/16 [Last Taken ] RX: Hydrochlorothiazide [HCTZ (*)] 25 mg PO DAILY 08/10/16 [Last Taken 07/01/17] RX: Hydrocortisone [Cortef] 5 mg PO TID 08/10/16 [Last Taken 07/02/17 05:45] RX: Isosorbide Dinitrate [Isosorbide Dinitrate 10 mg (*)] 15 mg PO TID 08/10/16 [Last Taken 07/02/17 05:45] Budesonide [Budesonide 0.5MG/2Ml Neb (*)] 0.5 mg IH BID 06/30/17 [Last Taken 05:45] Cholecalciferol Vit D3 [Vitamin D3 2000 units tab (OTC)] 2,000 units PO BID 07/05 [Last Taken 07/02/17 05:45] Cyanocobalamin [Vitamin B12 1000MCG/ML (*)] 1,000 mcg IM Q14D 06/30/17 [Last Taken 07/01/17] Fludrocortisone Acetate [Florinef 0.1 MG (RX)] 0.3 mg PO DAILY 06/30/17 [Last Taken 07/02/17 05:45] Levalbuterol Inhaler [Xopenex Hfa Inhaler (*)] 1 puffs IH DAILY 06/30/17 [Last Taken 07/02/17 05:45] Montelukast Sodium [Singulair 10 mg (*)] 10 mg PO BID 06/30/17 [Last Taken 07/02 05:45] Nitroglycerin [Nitrostat 0.4 mg (*)] 0.4 mg SL Q5M PRN 06/30/17 [Last Taken Unknown] Ns [NS IV 1000ml (*)] 1,000 ml IV BID 06/30/17 [Last Taken 07/01/17] methylPREDNISolone SOD SUCC [Solu-Medrol 125 mg (*)] 125 mg IM DAILY PRN [Last Taken 06/25/17] Benadryl Own Pump 15 mg IV CONT 07/02/17 [Last Taken 07/02/17] Brovana Nebulizer 1 each IH BID 07/02/17 [Last Taken 07/02/17 05:45] Cetirizine [ZyrTEC 10 mg (*)] 20 mg PO HS 07/02/17 [Last Taken 07/01/17] Compounded Zantac 10 ml PO QID 07/02/17 [Last Taken 07/02/17 05:45] Domperidone 4 each PO QID 07/02/17 [Last Taken 07/02/17 05:45] Famotidine (Own Pump) 2 mg IV CONT 07/02/17 [Last Taken 07/02/17] Levalbuterol Inhaler [Xopenex Hfa Inhaler (*)] 1 puffs IH HS PRN 07/02/17 [Last Taken Unknown] Quercetin 500mg 500 mg PO QID 07/02/17 [Last Taken 07/02/17 05:45] RX: Cromolyn Sodium 1 drop EACHEYE BID 07/02/17 [Last Taken 07/02/17 05:45] RX: Cromolyn Sodium 40 mg IH QID 07/02/17 [Last Taken 07/02/17 05:45] Sodium Cl Nasal [[place] (*)] 1 spray NS BID 07/02/17 [Last Taken 07/02/17] - NPO status NPO Since - Liquids (Date): 07/02/17 NPO Since - Liquids (Time): 06:00 NPO Since - Solids (Date): 07/01/17 NPO Since - Solids (Time): 19:00 - Smoking Hx Smoking Status: Former smoker - Family Anes Hx Family Hx Anesthesia Complications: none ANE Labs/Vital Signs - Vital Signs Vital Signs: reviewed preoperatively; see RN documention for details Blood Pressure: 126/85 Heart Rate: 76 Respiratory Rate: 18 O2 Sat (%): 96 Height: 177.8 cm Weight: 76.204 kg ANE Physical Exam - Airway Neck exam: FROM Mallampati Score: Class 1 Mouth exam: normal dental/mouth exam - Pulmonary Pulmonary: no respiratory distress - Cardiovascular Cardiovascular: regular rate and rhythym - ASA Status ASA Status: IV ANE Anesthesia Plan Anesthesia Plan: GA w LMA
[2017-07-02] MEDS ORDERED: methylPREDNISolone SOD SUCC 125 MG/2 ML VIAL IM PRN (17:09)
[2017-07-02] MEDS ORDERED: NITROGLYCERIN 0.4 MG SL PRN (17:09)
[2017-07-02] MEDS ORDERED: [UNRECOGNIZED DRUG - OTHER] IV SCH (17:15)
[2017-07-02] MEDS ORDERED: FAMOTIDINE IV SCH (17:15)
[2017-07-02] MEDS ORDERED: fentaNYL 100 MCG/2 ML INJ IVP PRN (17:31)
--- NOTE | 2017-07-02 18:07 | POSTOPPROG ---
Post Op Note Date of Operation: 07/02/17 Surgeon: Rodrigo Gutierrez Anesthesiologist: CHELI Anesthesia: GET(General Endotracheal) Pre-op Diagnosis: MAST CELL DYSFUNCTION Post-op Diagnosis: SAME Indication: NEED FOR CONTINUOUS IV INFUSION Procedure: PORT REMOVAL AND PLACEMENT OF DOUBLE-LUMEN [place] MIN CATHETER Findings: GOOD POSITION AND FLOW Inf/Abcess present in the surg proc area at time of surgery?: No Depth: Deep Incisional (Fascial) EBL: Minimal Complications: NONE
--- NOTE | 2017-07-02 18:08 | POSTOPPROG ---
Post Op Note Date of Operation: 07/02/17 Surgeon: Rodrigo Gutierrez Anesthesiologist: CHELI Anesthesia: GET(General Endotracheal) Pre-op Diagnosis: MAST CELL DYSFUNCTION Post-op Diagnosis: SAME Indication: NEED FOR IV INFUSION Procedure: LEFT SUBCLAVIAN PORT PLACEMENT WITH FLUOROSCOPIC GUIDANCE Findings: GOOD POSITION AND FLOW Inf/Abcess present in the surg proc area at time of surgery?: No Depth: Deep Incisional (Fascial) EBL: Minimal Complications: NONE
[2017-07-02] MEDS ORDERED: CETIRIZINE PO SCH (21:00)
[2017-07-02] MEDS ORDERED: CROMOLYN SODIUM EACHEYE SCH (21:00)
[2017-07-02] MEDS ORDERED: RANITIDINE 15 MG/ML PO SCH (21:00)
[2017-07-02] MEDS ORDERED: BUDESONIDE 0.5 MG/2 ML AMPUL.NEB IH SCH (21:00)
[2017-07-02] MEDS ORDERED: HYDROCORTISONE 5 MG PO SCH (22:00)
[2017-07-03] MEDS: MONTELUKAST SODIUM 10 MG TAB PO SCH ×2 (00:09→09:49)
[2017-07-03] MEDS: Cromolyn Sodium [Nasalcrom] NS SCH ×2 (00:10→09:38)
[2017-07-03] MEDS: ISOSORBIDE DINITRATE 10 MG PO SCH ×3 (00:12→12:10)
[2017-07-03] MEDS: QUERCETIN 500 MG PO SCH ×3 (00:13→12:14)
[2017-07-03] MEDS: CETRIZINE 10 MG PO SCH ×2 (00:15→12:13)
[2017-07-03] MEDS: DOMPERIDONE PO SCH ×3 (00:17→12:15)
[2017-07-03] MEDS: CROMOLYN SODIUM 100 MG/5 ML PO SCH ×3 (00:18→12:16)
[2017-07-03] MEDS: [UNRECOGNIZED DRUG - OTHER] EACHEYE SCH ×2 (02:13→09:40)
[2017-07-03] MEDS: ARFORMOTEROL 15 MCG/2 ML IH SCH ×2 (02:16→06:14)
[2017-07-03] MEDS: BUDESONIDE 1 MG IH SCH ×3 (02:16→10:48)
[2017-07-03] MEDS: CROMOLYN SODIUM IH SCH ×3 (02:18→10:47)
[2017-07-03] MEDS: SODIUM CL NS SCH ×2 (02:21→09:48)
[2017-07-03] MEDS: ENOXAPARIN 80 MG/0.8 ML SYR SC SCH ×2 (02:23→09:35)
[2017-07-03] MEDS ORDERED: LR 1,000 ML IV SCH (03:00)
[2017-07-03] MEDS: RANITIDINE 15 MG/ML PO SCH ×2 (04:37→13:33)
[2017-07-03 04:47] LABS: HEMATOCRIT 35.7 % (38.0-47.0); HEMOGLOBIN 12.4 g/dL (12.6-16.3)
[2017-07-03 04:59] LABS: ANION GAP 9 mEq/L (8-16); CALCIUM 8.7 mg/dL (8.5-10.4); CARBON DIOXIDE 30 mEq/l (22-31); CHLORIDE 101 mEq/L (97-110); CREATININE 0.7 mg/dL (0.6-1.0); GLOMERULAR FILTRATION RATE > 60; GLUCOSE 119 mg/dL (70-100); POTASSIUM 2.8 mEq/L (3.5-5.2); SODIUM 140 mEq/L (134-144)
[2017-07-03] MEDS ORDERED: LEVALBUTEROL 1.25 MG/3 ML DEYVIAL ONE (06:12)
[2017-07-03 07:42] VITALS: RESP 16
--- NOTE | 2017-07-03 08:26 | PDHOSCONS ---
Hospitalist Consult Hospitalist Consult: Hospitalist Consult Note Date of service: 07/03/17 Source - patient provides history and appears reliable. EMR also reviewed. Consult requested by Dr. Jacob Gutierrez. Reason for consultation: medical management. HPI - Pleasant 41 yo F with pmhx significant for mast cell activation syndrome, adrenal insufficient, asthma, CREST, hx PE/DVTs, Ulcerative colitis admitted s/ p placement of Otero port with previous PICC line. Consult for medical management by problem. 1. mast cell activation syndrome - patient with several allergies to foods, medications. 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 she frequently requires bolus dosing of benadryl and on previous hospitalizations has required continuous benadryl gtts for exacerbations. At this time postoperatively patient denies any of these symptoms. She denies chest pain/ palpitations/shortness of breath. Patient has her own benadryl pump available for prn use. 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 Patient received decadron perioperatively however she continues to feel quite fatigued and "like I've been hit by a bus." not acute changes in BPs postoperatively. 3. asthma - patient with history of severe persistent symptoms. she continues on budesnoide, cromolyn, xopenex, singulair, brovana, zyrtect 4. hx PE/DVT on lovenox tx dosing. 5. hx of coronary artery vasospasm - no c/o chest pain or SOB. on diltiazem, imdur, nitro prn. ROS - negative except as noted above. Allergies - lactose intolerance, food dyes, soy, barley, nuts, tomatoes, gluten in tolerant. dapsone, iron injections, relafen, all NSAIDS. Medications - diltiazem, alocril, cromolyn, budesonide, zantac, xopenex, vit d3 , fludrocortisone, domperidone, imdur, famotidine, lovenox, hydrocortisone, quercetin, ntg, singulair, solu-medrol prn, vit b12, zyrtvana, alendronate. pt with own benadryl and famotidine on pump. PMHx - mast cell activation syndrome, adrenal insufficiency on chronic steroid therapy, asthma severe persistent, coronary artery vasospasm, CREST, hx PE/DVTs on chronic anticoagulation with tx lovenox, chronic sinusitis, PFO, diaphragm paresis, chronic iron anemia b12 deficiency, voal cord dysfunction PSHx - PICC/PORT, appy, laporoscopy for ovarian cysts with findings of endometriosis, Right wrist, right elbow, left heel, left ankle reconstruction. FHx - sister with thyroid dysfunction and gestational DM. no family members with mast cell dysfunction, autoimmune diseases or CAD. SHX - patient is disabled. denies tobacco or drugs. drinks occasional etoh. COR - FULL - patient with advanced directive in system. father Yogesh Campoverde is MDPOA. PHYSICAL EXAM: VS: Selected Entries 07/02/17 23:00 Heart Rate 73 Respiratory 16 Rate O2 Sat (%) 93 Temperature (C) 36.4 C Blood Pressure 113/83 H Mean Arterial 93 Pressure (MAP) O2 (L/minute) 2 Activity During At Rest Vital Signs O2 Delivery Room Air Mode Blood Pressure Right Source Upper Arm Temperature Oral Source Heart Rate Automatic Source Gen - NAD. pleasant adult female lays in bed. appears fatigued, chronically ill and slightly uncomfortable. lays quietly in bed. Skin - left chest wounds bandaged. ent - mucous membranes slightly dry. no nasal discharge. eyes - ocular muscles grossly intact. no scleral icterus or conjunctival injection. CV - RRR. no m/r/g RESP - CTA-b. no w/r/r. Abd - + BS. soft NTTP. no rebound, guarding/masses. - no suprapubic ttp. no delcid in place. MSK - grossly normal moves all extremities while laying down. Neuro - nonfocal. no facial drooping. moves all extremities. Psych - patient cooperative and pleasant. thought process/content/questions appropriate. LABS/STUDIES: o/p pre-op labs reviewed nad located in patient paper chart. nothing grossly abnormal. A/P Pleasant 41 yo F with multiple medical issues with request for Hospitalist assistance with med management by problem 1. jay's disease - patient reporting fatigue, malaise and feeling unwell. will increase her hydrocortisone to 10mg TID from 5mg TID. continue fluorinef at home dose 0.3mg daily. s/p decadron perioperatively. check electrolytes in the AM. 2. mast cell activation syndrome - patient has a pump for famotidine and benadryl if needed emergently. athis time does not appear to be decompensated. IV beneadryl is available IV prn. continue famotidine, singulair, zyrtec and steroids. epi prn. 3. asthma - agree with resuming home medications nebs, inhaled steroids, cromolyn . patient without any respiratory distress or wheezing on exam. 4. hx DVT/PE - continue tx lovenox BID 5. hx coronary vasospasm - agree with continuing imdur, ntg prn, dilt FEN - IVF as per primary team. electrolyte monitoring and replacement prn. diet as tolerated. PPX - SCDs. on tx lovenox. COR - FULL. patient father Yogesh Campoverde is MDPOA. Dispo - obs on med/surge Thank you for this consultation we will continue to follow along with you.
[2017-07-03] MEDS ORDERED: PROTOCOL POTASSIUM 1 DOSE MISC PRN (08:38)
[2017-07-03] MEDS ORDERED: PROTOCOL MAGNESIUM 1 DOSE IV PRN (08:38)
[2017-07-03] MEDS ORDERED: POTASSIUM CL 10 MEQ TAB PO ONE (08:50)
[2017-07-03] MEDS ORDERED: CHOLECALCIFEROL VIT D3 2,000 UNITS TAB/CAP PO SCH (09:00)
[2017-07-03] MEDS ORDERED: DILTIAZEM HCL 180 MG PO SCH (09:00)
[2017-07-03] MEDS ORDERED: LEVALBUTEROL INHALER 200 PUFFS/15 GM MDI IH SCH (09:00)
[2017-07-03] MEDS ORDERED: HYDROCHLOROTHIAZIDE 25 MG TAB PO SCH (09:00)
[2017-07-03] MEDS ORDERED: FLUDROCORTISONE ACETATE 0.1 MG PO SCH (09:00)
[2017-07-03] MEDS: ONDANSETRON 4 MG/2 ML VIAL IVP PRN (09:03)
[2017-07-03] MEDS: fentaNYL 100 MCG/2 ML INJ IVP PRN (09:03)
[2017-07-03] MEDS: HYDROCORTISONE 5 MG PO SCH ×2 (09:44→12:12)
--- NOTE | 2017-07-03 11:01 | SOAPPROG ---
SOAP Progress Note Assessment/Plan: Assessment: 41-year-old female status post surgery for IV access x2 Tolerating regular diet pain well controlled would like to go home today Physical exam Very comfortable, no signs of distress Bandage dry Plan DC home with follow-up in the office for suture removal 07/03/17 11:00 Objective: Vital Signs Temp Pulse Resp BP Pulse Ox 36.2 C 78 16 117/81 H 98 07/03/17 07:39 07/03/17 07:39 07/03/17 07:39 07/03/17 09:41 07/03/17 07:39 Laboratory Results 07/03/17 04:30 07/03/17 04:30 07/02/17 07/03/17 07/04/17 05:59 05:59 05:59 Intake Total 1400 Balance 1400 ICD10 Worksheet Patient Problems: Problems Problem Status Onset Chest pain Acute Mast cell activation Acute
--- NOTE | 2017-07-03 11:29 | ASMTCMCOM ---
CM Note CM Note Notes: Pt. is a 40-year-old woman admitted w/ mast cell activation syndrome. Pt. needs a port placement. Hx. [place]'s disease, ulcerative colitis, asthma, endometriosis, allergies, PE/DVT, and coronary artery vasospasm. Pt. on O2. Pt. is disabled per notes. Per RN, Pt. has a caregiver at home. Per notes, father John Campoverde is MDPOA. No new homecare needs. Pt. will d/c independently with caregiver. Date Signed: 07/03/2017 11:29 AM Electronically Signed By:Rosemarie Novak LCSW
[2017-07-03 12:02] VITALS: BP 105/71; PULSE 72; TEMP 97.8; O2SAT 96
--- NOTE | 2017-07-03 15:53 | HOSPPROG ---
Hospitalist Progress Note Assessment/Plan: Patient was discharged prior to my evaluation by surgical services. Objective: Vital Signs Temp Pulse Resp BP Pulse Ox 36.6 C 72 16 105/71 96 07/03/17 12:00 07/03/17 12:00 07/03/17 12:00 07/03/17 12:00 07/03/17 12:00 Laboratory Results 07/03/17 04:30 07/03/17 04:30 07/02/17 07/03/17 07/04/17 05:59 05:59 05:59 Intake Total 1400 Balance 1400 ICD10 Worksheet Patient Problems: Problems Problem Status Onset Chest pain Acute Mast cell activation Acute
--- NOTE | 2017-07-03 18:03 | ASMTCMCOM ---
CM Note CM Note Notes: SWer learned late in pm today that Pt. was open w/ [facility] before admission. Called Naomie to coordinate care. Made [employer] referral and attached port placement note. Naomie to work to get RN order from PCP since it is after hours at [facility]. Care to resume. Date Signed: 07/03/2017 06:03 PM Electronically Signed By:Rosemarie Novak LCSW
--- NOTE | 2017-07-03 18:08 | ASDISCHSUM ---
Discharge Information Plan Status:IV ABX/Infusion Medically Cleared to Leave: Discharge Date:07/03/2017 02:49 PM CM D/C Disposition:Home, Routine, Self-Care ADT D/C Disposition:Home, Routine, Self-Care Projected Discharge Date:07/03/2017 11:00 AM Transportation at D/C: Discharge Delay Reason: Follow-Up Date:07/03/2017 11:00 AM Discharge Slot: Final Diagnosis: Placement Information Referral Type:Home Infusion Referral ID:[id number] Provider Name:[facility] Address 1:[address] Address 2: City:[place] Selection Factors: State:[place] Patient Contact Information Contact Name:HUA Relationship:Friend [address] City:[place] Alternate Phone: State/Zip Code:[place] [address] Email: Financial Information Financial Class:[employer] [facility] Primary Plan Desc:[facility] Primary Plan Number:[id number] Secondary Plan Desc: Secondary Plan Number: Assessment Information [facility] CM Progress Note CM Note CM Note Notes: Pt. is a 40-year-old woman admitted w/ mast cell activation syndrome. Pt. needs a port placement. Hx. [place]'s disease, ulcerative colitis, asthma, endometriosis, allergies, PE/DVT, and coronary artery vasospasm. Pt. on O2. Pt. is disabled per notes. Per RN, Pt. has a caregiver at home. Per notes, father John Campoverde is MDPOA. No new homecare needs. Pt. will d/c independently with caregiver. Date Signed: 07/03/2017 11:29 AM Electronically Signed By:Rosemarie Novak LCSW [facility] CM Progress Note CM Note CM Note Notes: Emmanuel learned late in pm today that Pt. was open w/ [facility] before admission. Called Naomie to coordinate care. Made [employer] referral and attached port placement note. Naomie to work to get RN order from PCP since it is after hours at [facility]. Care to resume. Date Signed: 07/03/2017 06:03 PM Electronically Signed By:Rosemarie Novak LCSW Intervention Information
--- NOTE | 2017-07-03 23:08 | GDS ---
[f rep st] DISCHARGE SUMMARY REASON FOR ADMISSION: Surgery for improved IV access. OTHER PERTINENT DIAGNOSIS: Mast cell disease. HOSPITAL COURSE: Patient is a 41-year-old female, who was originally seen in our office and schedule d for a PowerPort placement. Patient suffers from a mast cell disease, which requires Benadryl infus ions. She has been using a PICC line for the last couple of months. She underwent surgery the [facility] of 07/02/2017, PowerPort placement with Dr. Gutierrez. It was later noted that patient was under the impression she was going to have a Otero catheter placed. She returned to the operating room the brenda day and underwent further surgery by Dr. Gutierrez, port removal and placement of a double-lumen [place] man catheter. She was observed overnight because of her history of anaphylaxis. She was also seen b y Internal Medicine. Patient was discharged with instructions to follow up in our office in approximately 10 days for sutu re removal. She should call for an appointment. She was seen and examined by Dr. Gutierrez prior to dis charge. /[id number]/[id number]
[2017-07-15] MEDS ORDERED: CYANOCOBALAMIN 1000 MCG IM SCH (09:00)
== END 2017-07-03 14:49 | disposition home or self-care (01) ==
LOC: FSGY 07:26 → F3E 09:53
PROVIDERS: ADMIT Surgery; ATTEND Surgery
PROC: 0JH60XZ Insertion of Tunneled Vascular Access Device into Chest Subcutaneous Tissue and Fascia, Open Approach (ICD-10-PCS; principal; 2017-07-02 09:00)
PROC: 02HV33Z Insertion of Infusion Device into Superior Vena Cava, Percutaneous Approach (ICD-10-PCS; principal; 2017-07-02 09:00)
PROC: 02HV03Z Insertion of Infusion Device into Superior Vena Cava, Open Approach (ICD-10-PCS; 2017-07-02 17:15)
PROC: 0JPT03Z Removal of Infusion Device from Trunk Subcutaneous Tissue and Fascia, Open Approach (ICD-10-PCS; 2017-07-02 17:15)
DX: D47.02 Systemic mastocytosis (principal); E27.1 Primary adrenocortical insufficiency; J45.909 Unspecified asthma, uncomplicated; D50.9 Iron deficiency anemia, unspecified; Z86.718 Personal history of other venous thrombosis and embolism; Z79.01 Long term (current) use of anticoagulants; Z79.2 Long term (current) use of antibiotics
CPT/HCPCS: 36561; 36581; 36590; 71010; 76001; G0378; C1788; J0690; J1100; J1200; J1642; J1650; J2250; J2405; J2550; J2704; J3010; J7626

== ENCOUNTER 2017-07-15 19:16 | Inpatient (IN) | payer OTHER ==
[2017-07-15 20:15] LABS: PLATELET COUNT 191 10^3/uL (150-400)
[2017-07-15] MEDS ORDERED: ONDANSETRON 4 MG/2 ML VIAL IVP ONE (20:20)
[2017-07-15] MEDS ORDERED: NS 1,000 ML IV ONE ×2 (20:20)
[2017-07-15] MEDS ORDERED: ACETAMINOPHEN 500 MG TAB PO ONE (20:20)
--- NOTE | 2017-07-15 20:25 | EDPHY ---
H & P Time Seen by Provider: 07/15/17 19:52 HPI/ROS: Chief complaint. Fever HPI. 41-year-old female with history of mastocytosis, adrenal insufficiency colitis, asthma presents emergency department with fever that began last night. Started with headache and fever and chills. She has URI symptoms. Slight shortness of breath without cough. Slight achiness in the left chest which is described as also sharp without radiation. Somewhat worse with deep breathing. Nausea without abdominal pain. No urinary symptoms. Sick contacts at home with mom. Tylenol last p.m.. She had a port change on 07/02. She had skin irritation but it does not appear to be red. ROS Constitutional. Fever and chills and weakness Eyes. no problems with vision ENT. URI symptoms Cardiovascular. Left chest pain Respiratory. Slight shortness of breath without cough Abdominal. No abdominal pain but nausea . no problems urinating MS. no calf pain/swelling, no neck/back pain, no joint pain Skin. no rash Lymph. no swollen glands Neuro. Headache Past Medical/Surgical History: Past medical history mastocytosis adrenal insufficiency colitis Social History: Single, nonsmoker, no alcohol Smoking Status: Former smoker Physical Exam: General Appearance: Alert well-developed female moderate distress vital signs show temp 39.5degrees with heart rate 108 Eyes: Pupils equal and round no pallor or injection. ENT, tympanic membranes normal. Pharynx without injection. Mucous membranes are dry Respiratory: There are no retractions, lungs are clear to auscultation. Cardiovascular: Regular rate and rhythm. Gastrointestinal: Abdomen is soft and nontender, no masses, bowel sounds normal. Neurological: Awake and alert, sensory and motor exams grossly normal. Skin: Warm and dry, no rashes. Skin around port somewhat irritated but no evidence of cellulitis Musculoskeletal: Neck is supple nontender. Extremities symmetrical, full range of motion. Psychiatric: Patient is oriented X 3, there is no agitation. Constitutional: Initial Vital Signs Temperature (C) 39.5 C H 07/15/17 19:19 Heart Rate 108 H 07/15/17 19:19 Respiratory Rate 16 07/15/17 19:19 Blood Pressure 133/71 H 07/15/17 19:19 O2 Sat (%) 95 07/15/17 19:19 O2 Delivery Mode Nasal Cannula O2 (L/minute) 2 Allergies/Adverse Reactions: iron sucrose complex [From Venofer] Allergy (Severe, Verified 07/15/17 19:25) Anaphylaxis aspirin Allergy (Intermediate, Verified 07/15/17 19:25) Anaphylaxis levofloxacin [From Levaquin] Allergy (Unknown, Verified 07/15/17 19:25) hives all over and swelling of tongue nabumetone [From Relafen] Allergy (Unknown, Verified 07/15/17 19:25) hives all over and swelling of tongue dapsone Allergy (Verified 07/15/17 19:25) severe anemia latex Allergy (Verified 07/15/17 19:25) soy Allergy (Verified 07/15/17 19:25) STEROIDS Allergy (Unknown, Uncoded 07/15/17 19:25) has to have benadryl first Home Medications: Medication Instructions Recorded Alendronate Sodium [Fosamax 70 MG 70 mg PO MO@0700 08/10/16 (*)] Cetirizine [ZyrTEC 10 mg (*)] 10 mg PO DAILY@12 08/10/16 Hydrochlorothiazide [HCTZ (*)] 25 mg PO DAILY 08/10/16 Hydrocortisone [Cortef] 5 mg PO TID 08/10/16 Isosorbide Dinitrate [Isosorbide 15 mg PO TID 08/10/16 Dinitrate 10 mg (*)] Enoxaparin [Lovenox 80 MG (*)] 80 mg SQ BID #14 syr 06/15/17 Cholecalciferol Vit D3 [Vitamin D3 2,000 units PO BID 06/30/17 2000 units tab (OTC)] Cyanocobalamin [Vitamin B12 1,000 mcg IM Q14D 06/30/17 1000MCG/ML (*)] Fludrocortisone Acetate [Florinef] 0.3 mg PO DAILY 06/30/17 Levalbuterol Inhaler [Xopenex Hfa 1 puffs IH DAILY 06/30/17 Inhaler (*)] Montelukast Sodium [Singulair 10 10 mg PO BID 06/30/17 mg (*)] Nitroglycerin [Nitrostat 0.4 mg 0.4 mg SL Q5M PRN 06/30/17 (*)] Ns [NS IV 1000ml (*)] 1,000 ml IV BID 06/30/17 methylPREDNISolone SOD SUCC 125 mg IM DAILY PRN 06/30/17 [Solu-Medrol 125 mg (*)] Alocril Opthalmic Solution 2% 1 drop EACHEYE BID 07/02/17 Benadryl Own Pump 15 mg IV CONT 07/02/17 Brovana Nebulizer 1 each IH BID 07/02/17 Budesonide 1 mg IH BID 07/02/17 Cetirizine [ZyrTEC 10 mg (*)] 20 mg PO HS 07/02/17 Compounded Zantac 10 ml PO QID 07/02/17 Cromolyn Sodium 40 mg IH QID 07/02/17 Cromolyn Sodium 200 mg PO QID 07/02/17 Cromolyn Sodium [Nasalcrom] 1 inh NS BID 07/02/17 Domperidone 4 each PO QID 07/02/17 Famotidine (Own Pump) 2 mg IV CONT 07/02/17 Levalbuterol Inhaler [Xopenex Hfa 1 puffs IH HS PRN 07/02/17 Inhaler (*)] Quercetin 500mg 500 mg PO QID 07/02/17 Sodium Cl Nasal [[place] (*)] 1 spray NS BID 07/02/17 Diltiazem HCl [Diltiazem 24Hr ER] 180 mg PO DAILY 07/03/17 EPINEPHrine KIT [Epipen Kit] 0.3 mg IM ONCE PRN inj 07/03/17 HYDROmorphone HCL [Dilaudid 2 mg 2 mg PO Q4HRS PRN #20 tab 07/03/17 (*)] diphenhydrAMINE [Benadryl 50 mg IVP Q4HRS PRN inj 07/03/17 Injection] Medical Decision Making - Diagnostics EKG Interpretation: EKG interpreted by me shows normal sinus rhythm with normal interval and axis. QRS is normal there is some T-wave flattening. No arrhythmia. Rate 93 Imaging Results: Chest x-ray interpreted by me shows no pneumonia. Her sick when catheter is present and appears well positioned Procedures: IV normal saline. Sepsis workup with blood cultures 1 g magnesium sulfate IV. KCL replacement for potassium less than 3.2 protocol ED Course/Re-evaluation: Re-evaluation 9:00 p.m.. Patient is stable. Decreased nausea no vomiting. Still with headache and just got her Tylenol. Still with fever. The patient her dad and I talked about laboratory evaluation and imaging studies so far. No obvious evidence for pneumonia. However critically low potassium. We talked about replacement and admission. She expresses understanding and agreement. She has had 1 L of saline and still no urge to urinate. I consulted discussed case with Dr. Carpenter, hospitalist, who agrees to the admission Differential Diagnosis: This is likely influenza causing the fever. Considered pneumonia, sepsis, urinary tract infection. Urine is still pending. She has significant hypokalemia. - Data Points Laboratory Results: Laboratory Results 07/15/17 20:00 07/15/17 20:00 07/15/17 07/15/17 07/15/17 21:08 20:00 20:00 WBC RBC Hgb Hct MCV MCH MCHC RDW Plt Count MPV Neut % (Auto) Lymph % (Auto) [place] % (Auto) Eos % (Auto) Baso % (Auto) Nucleat RBC Rel Count Absolute Neuts (auto) Absolute Lymphs (auto) Absolute Monos (auto) Absolute Eos (auto) Absolute Basos (auto) Absolute Nucleated RBC Immature Gran % Immature Gran # PT 15.3 SEC H SEC (12.0-15.0) INR 1.19 H (0.83-1.16) APTT 31.5 SEC SEC (23.0-38.0) VBG Lactic Acid 0.7 mmol/L mmol/L (0.7-2.1) Sodium Potassium Chloride Carbon Dioxide Anion Gap BUN Creatinine Estimated GFR Glucose Calcium Total Bilirubin Nasal Influenza A PCR Pending Nasal Influenza B PCR Pending 07/15/17 07/15/17 20:00 20:00 WBC 8.77 10^3/uL 10^3/uL (3.80-9.50) RBC 4.38 10^6/uL 10^6/uL (4.18-5.33) Hgb 13.8 g/dL g/dL (12.6-16.3) Hct 38.1 % % (38.0-47.0) MCV 87.0 fL fL (81.5-99.8) MCH 31.5 pg pg (27.9-34.1) MCHC 36.2 g/dL g/dL (32.4-36.7) RDW 11.7 % % (11.5-15.2) Plt Count 191 10^3/uL 10^3/uL (150-400) MPV 10.1 fL fL (8.7-11.7) Neut % (Auto) 82.8 % H % (39.3-74.2) Lymph % (Auto) 7.8 % L % (15.0-45.0) [place] % (Auto) 8.2 % % (4.5-13.0) Eos % (Auto) 0.0 % L % (0.6-7.6) Baso % (Auto) 0.5 % % (0.3-1.7) Nucleat RBC Rel Count 0.0 % % (0.0-0.2) Absolute Neuts (auto) 7.27 10^3/uL H 10^3/uL (1.70-6.50) Absolute Lymphs (auto) 0.68 10^3/uL L 10^3/uL (1.00-3.00) Absolute Monos (auto) 0.72 10^3/uL 10^3/uL (0.30-0.80) Absolute Eos (auto) 0.00 10^3/uL L 10^3/uL (0.03-0.40) Absolute Basos (auto) 0.04 10^3/uL 10^3/uL (0.02-0.10) Absolute Nucleated RBC 0.00 10^3/uL 10^3/uL (0-0.01) Immature Gran % 0.7 % % (0.0-1.1) Immature Gran # 0.06 10^3/uL 10^3/uL (0.00-0.10) PT INR APTT VBG Lactic Acid Sodium 134 mEq/L mEq/L (134-144) Potassium 2.4 mEq/L L* mEq/L (3.5-5.2) Chloride 98 mEq/L mEq/L (97-110) Carbon Dioxide 23 mEq/l mEq/l (22-31) Anion Gap 13 mEq/L mEq/L (8-16) BUN 10 mg/dL mg/dL (7-23) Creatinine 0.8 mg/dL mg/dL (0.6-1.0) Estimated GFR > 60 Glucose 90 mg/dL mg/dL (70-100) Calcium 8.2 mg/dL L mg/dL (8.5-10.4) Total Bilirubin 0.6 mg/dL mg/dL (0.1-1.4) Nasal Influenza A PCR Nasal Influenza B PCR Medications Given: Discontinued Medications Acetaminophen (Tylenol) 1,000 mg PO EDNOW ONE Stop: 07/15/17 20:21 Last Admin: 07/15/17 20:51 Dose: 1,000 mg Sodium Chloride (Ns) 1,000 mls @ 0 mls/hr IV EDNOW ONE; Wide Open PRN Reason: Protocol Stop: 07/15/17 20:21 Last Admin: 07/15/17 20:36 Dose: 1,000 mls Ondansetron HCl (Zofran) 4 mg IVP EDNOW ONE Stop: 07/15/17 20:21 Last Admin: 07/15/17 20:37 Dose: 4 mg Departure - Departure Disposition: [facility] Inpatient Acute Clinical Impression: Hypokalemia Condition: Fair Referrals: Nicole Bryson MD [Primary Care Provider] - As per Instructions
[2017-07-15 20:28] LABS: INR 1.19 (0.83-1.16); PROTIME(PATIENT) 15.3 SEC (12.0-15.0)
[2017-07-15] MEDS ORDERED: MAGNESIUM SULF 1 GM/DEXTROSE 100 ML IV ONE (21:04)
[2017-07-15] MEDS ORDERED: POTASSIUM Cl (KCl) 100 ML IV SCH (21:05)
--- NOTE | 2017-07-15 21:25 | CPEKG ---
Heart Rate: 93 RR Interval: 645 P-R Interval: 140 QRSD Interval: 92 QT Interval: 348 QTC Interval: 433 P [place]: 30 QRS [place]: 27 EKG Severity - NORMAL ECG - EKG Impression: SINUS RHYTHM Electronically Signed By: Yo Garcia 15-Jul-2017 21:52:21
[2017-07-15] MEDS ORDERED: POTASSIUM Cl (KCl) 10 MEQ in NS 50 ML IV ONE (21:45)
[2017-07-15] MEDS ORDERED: POTASSIUM Cl (KCl) 10 MEQ in NS 100 ML IV ONE (21:45)
[2017-07-15] MEDS ORDERED: diphenhydrAMINE 25 MG CAP PO PRN (23:08)
[2017-07-15] MEDS ORDERED: HYDROCODONE/APAP 5/325 TAB PO PRN (23:08)
[2017-07-15] MEDS ORDERED: LORazepam 0.5 MG TAB PO PRN (23:08)
[2017-07-15] MEDS ORDERED: PROTOCOL K PHOSPHATE 1 DOSE IV PRN (23:14)
[2017-07-15] MEDS ORDERED: PROTOCOL MAGNESIUM 1 DOSE IV PRN (23:14)
[2017-07-15] MEDS ORDERED: PROTOCOL POTASSIUM 1 DOSE MISC PRN (23:14)
[2017-07-15] MEDS ORDERED: methylPREDNISolone SOD SUCC 125 MG/2 ML VIAL IM PRN (23:44)
[2017-07-15] MEDS ORDERED: NITROGLYCERIN 0.4 MG BTL SL PRN (23:44)
[2017-07-15] MEDS ORDERED: LEVALBUTEROL INHALER 200 PUFFS/15 GM MDI IH PRN (23:44)
--- NOTE | 2017-07-15 23:44 | PDGENHP ---
History and Physical - Chief Complaint fever, chills - History of Present Illness Source - patient provides history and appears reliable. 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 Patient denies any cough, rhinorrhea, dysuria/hematuria, no vomiting/diarrhea. patient also notes myalgias. she noted to ED provider exposure to sick contact her mother but denied exposures to me during interview. History Information - Allergies/Home Medication List Allergies/Adverse Reactions: iron sucrose complex [From Venofer] Allergy (Severe, Verified 07/15/17 19:25) Anaphylaxis aspirin Allergy (Intermediate, Verified 07/15/17 19:25) Anaphylaxis levofloxacin [From Levaquin] Allergy (Unknown, Verified 07/15/17 19:25) hives all over and swelling of tongue nabumetone [From Relafen] Allergy (Unknown, Verified 07/15/17 19:25) hives all over and swelling of tongue dapsone Allergy (Verified 07/15/17 19:25) severe anemia latex Allergy (Verified 07/15/17 19:25) soy Allergy (Verified 07/15/17 19:25) STEROIDS Allergy (Unknown, Uncoded 07/15/17 19:25) has to have benadryl first Home Medications: Alendronate Sodium [Fosamax 70 MG (*)] 70 mg PO MO@0700 08/10/16 [Last Taken 06/05] Cetirizine [ZyrTEC 10 mg (*)] 10 mg PO DAILY@12 08/10/16 [Last Taken 07/01/17] Hydrochlorothiazide [HCTZ (*)] 25 mg PO DAILY 08/10/16 [Last Taken 07/01/17] Hydrocortisone [Cortef] 5 mg PO TID 08/10/16 [Last Taken 07/02/17 05:45] Isosorbide Dinitrate [Isosorbide Dinitrate 10 mg (*)] 15 mg PO TID 08/10/16 [ Last Taken 07/02/17 05:45] Cholecalciferol Vit D3 [Vitamin D3 2000 units tab (OTC)] 2,000 units PO BID 07/05 [Last Taken 07/02/17 05:45] Cyanocobalamin [Vitamin B12 1000MCG/ML (*)] 1,000 mcg IM Q14D 06/30/17 [Last Taken 07/01/17] Fludrocortisone Acetate [Florinef] 0.3 mg PO DAILY 06/30/17 [Last Taken 05:45] Levalbuterol Inhaler [Xopenex Hfa Inhaler (*)] 1 puffs IH DAILY 06/30/17 [Last Taken 07/02/17 05:45] Montelukast Sodium [Singulair 10 mg (*)] 10 mg PO BID 06/30/17 [Last Taken 07/02 05:45] Nitroglycerin [Nitrostat 0.4 mg (*)] 0.4 mg SL Q5M PRN 06/30/17 [Last Taken Unknown] Ns [NS IV 1000ml (*)] 1,000 ml IV BID 06/30/17 [Last Taken 07/01/17] methylPREDNISolone SOD SUCC [Solu-Medrol 125 mg (*)] 125 mg IM DAILY PRN [Last Taken 06/25/17] Alocril Opthalmic Solution 2% 1 drop EACHEYE BID 07/02/17 [Last Taken Unknown] Benadryl Own Pump 15 mg IV CONT 07/02/17 [Last Taken 07/02/17] Brovana Nebulizer 1 each IH BID 07/02/17 [Last Taken 07/02/17 05:45] Budesonide 1 mg IH BID 07/02/17 [Last Taken 07/02/17 05:45] Cetirizine [ZyrTEC 10 mg (*)] 20 mg PO HS 07/02/17 [Last Taken 07/01/17] Compounded Zantac 10 ml PO QID 07/02/17 [Last Taken 07/02/17 05:45] Cromolyn Sodium 40 mg IH QID 07/02/17 [Last Taken 07/02/17 05:45] Cromolyn Sodium 200 mg PO QID 07/02/17 [Last Taken Unknown] Cromolyn Sodium [Nasalcrom] 1 inh NS BID 07/02/17 [Last Taken Unknown] Domperidone 4 each PO QID 07/02/17 [Last Taken 07/02/17 05:45] Famotidine (Own Pump) 2 mg IV CONT 07/02/17 [Last Taken 07/02/17] Levalbuterol Inhaler [Xopenex Hfa Inhaler (*)] 1 puffs IH HS PRN 07/02/17 [Last Taken Unknown] Quercetin 500mg 500 mg PO QID 07/02/17 [Last Taken 07/02/17 05:45] Sodium Cl Nasal [[place] (*)] 1 spray NS BID 07/02/17 [Last Taken 07/15/17] Diltiazem HCl [Diltiazem 24Hr ER] 180 mg PO DAILY 07/03/17 [Last Taken Unknown] I have personally reviewed and updated: family history, medical history, social history, surgical history - Past Medical History Additional medical history: mast cell activation syndrome with chronic benadryl pump, adrenal insufficiency on chronic steroid therapy, asthma severe persistent , coronary artery vasospasm, CREAST, hx PE/DVTs on chronic anticoagulation with lovenox, chronic sinusitis, PFO, diaphragm paresis, chronic iron deficiency anemia, b12 deficiency, vocal cord dysfunction - Surgical History Additional surgical history: PICC/PORT, appy, laporoscopy for ovairian cysts with findings of endometriosis, right wrist, right elbow, left heel, left ankle rconstruction - Family History Additional family history: sister - Gestational DM,thyroid dysfunction. no fhx mast cell dysfunction, autoimmune disease or CAD - Social History Smoking Status: Former smoker Tobacco Use: Cigarettes Alcohol Use: None Drug Use: None Additional social history: patient is disabled. COR - FULL. father Yogesh Campoverde is MDPOA. Review of Systems Review of Systems: ROS: 10pt was reviewed & negative except for what was stated in HPI & below Constitutional: Reports: chills, fever, malaise EENMT: Denies: blurred vision, double vision, eye pain, sore throat Cardiac: Reports: no symptoms. Denies: edema, palpitations Respiratory: Denies: cough Gastrointestinal: Reports: nausea. Denies: vomitting, diarrhea Genitourinary: Denies: discharge, hematuria Muscolosketal: Reports: muscle pain. Denies: back pain Skin: Denies: change in color, rash Neurological: Reports: no symptoms. Denies: headache, tingling, weakness Hematologic/Lymphatic: Denies: anemia, easy bruising Physical Exam Physical Exam: Selected Entries 07/15/17 19:19 Blood Pressure Automatic Method Heart Rate 108 H Respiratory 16 Rate O2 Sat (%) 95 Temperature (C) 39.5 C H Blood Pressure 133/71 H Mean Arterial 91 Pressure (MAP) O2 (L/minute) 2 O2 Delivery Nasal Cannula Mode Temperature Oral Source Temp Pulse Resp BP Pulse Ox 37.4 C 92 16 96/67 L 96 07/15/17 23:20 07/15/17 23:20 07/15/17 23:20 07/15/17 23:20 07/15/17 23:20 O2 (L/minute) 2 Constitutional: no apparent distress, not in pain, other (appears acutely ill but nontoxic. diaphoretic/flushed, fatigued but alert and interactive. ) Eyes: PERRL, anicteric sclera, No icteric sclera, No scleral injection Ears, Nose, Mouth, Throat: dry mucous membranes, other (no nasal discharge), No poor dentition Cardiovascular: regular rate and rhythym, no murmur, rub, or gallop, No edema Peripheral Pulses: 2+: dorsalis-pedis (R), dorsalis-pedis (L) Respiratory: no respiratory distress, no rales or rhonchi, clear to auscultation Gastrointestinal: normoactive bowel sounds, soft, non-tender abdomen, no palpable masses, No tenderness, No distension Genitourinary: no bladder tenderness, No delcid in urethra Skin: warm, other (flushed), No rash Musculoskeletal: full muscle strength, other (sits up independently. moves all extremities. fatigued but grossly normal strength) Neurologic: AAOx3, other (grossly intact, nonfocal exam. ) Psychiatric: interacting appropriately, not anxious, not encephalopathic Lab Data & Imaging Review 07/15/17 20:00 07/15/17 20:00 WBC 8.77 10^3/uL (3.80-9.50) 07/15/17 20:00 RBC 4.38 10^6/uL (4.18-5.33) 07/15/17 20:00 Hgb 13.8 g/dL (12.6-16.3) 07/15/17 20:00 Hct 38.1 % (38.0-47.0) 07/15/17 20:00 MCV 87.0 fL (81.5-99.8) 07/15/17 20:00 MCH 31.5 pg (27.9-34.1) 07/15/17 20:00 MCHC 36.2 g/dL (32.4-36.7) 07/15/17 20:00 RDW 11.7 % (11.5-15.2) 07/15/17 20:00 Plt Count 191 10^3/uL (150-400) 07/15/17 20:00 MPV 10.1 fL (8.7-11.7) 07/15/17 20:00 Neut % (Auto) 82.8 % (39.3-74.2) H 07/15/17 20:00 Lymph % (Auto) 7.8 % (15.0-45.0) L 07/15/17 20:00 [place] % (Auto) 8.2 % (4.5-13.0) 07/15/17 20:00 Eos % (Auto) 0.0 % (0.6-7.6) L 07/15/17 20:00 Baso % (Auto) 0.5 % (0.3-1.7) 07/15/17 20:00 Nucleat RBC Rel Count 0.0 % (0.0-0.2) 07/15/17 20:00 Absolute Neuts (auto) 7.27 10^3/uL (1.70-6.50) H 07/15/17 20:00 Absolute Lymphs (auto) 0.68 10^3/uL (1.00-3.00) L 07/15/17 20:00 Absolute Monos (auto) 0.72 10^3/uL (0.30-0.80) 07/15/17 20:00 Absolute Eos (auto) 0.00 10^3/uL (0.03-0.40) L 07/15/17 20:00 Absolute Basos (auto) 0.04 10^3/uL (0.02-0.10) 07/15/17 20:00 Absolute Nucleated RBC 0.00 10^3/uL (0-0.01) 07/15/17 20:00 Immature Gran % 0.7 % (0.0-1.1) 07/15/17 20:00 Immature Gran # 0.06 10^3/uL (0.00-0.10) 07/15/17 20:00 PT 15.3 SEC (12.0-15.0) H 07/15/17 20:00 INR 1.19 (0.83-1.16) H 07/15/17 20:00 APTT 31.5 SEC (23.0-38.0) 07/15/17 20:00 VBG Lactic Acid 0.7 mmol/L (0.7-2.1) 07/15/17 20:00 Sodium 134 mEq/L (134-144) 07/15/17 20:00 Potassium 2.4 mEq/L (3.5-5.2) L* 07/15/17 20:00 Chloride 98 mEq/L (97-110) 07/15/17 20:00 Carbon Dioxide 23 mEq/l (22-31) 07/15/17 20:00 Anion Gap 13 mEq/L (8-16) 07/15/17 20:00 BUN 10 mg/dL (7-23) 07/15/17 20:00 Creatinine 0.8 mg/dL (0.6-1.0) 07/15/17 20:00 Estimated GFR > 60 07/15/17 20:00 Glucose 90 mg/dL (70-100) 07/15/17 20:00 Calcium 8.2 mg/dL (8.5-10.4) L 07/15/17 20:00 Total Bilirubin 0.6 mg/dL (0.1-1.4) 07/15/17 20:00 Nasal Influenza A PCR NEGATIVE FOR FLU A (NEGATIVE) 07/15/17 21:08 Nasal Influenza B PCR NEGATIVE FOR FLU B (NEGATIVE) 07/15/17 21:08 Imaging Review: Chest 2 View, 07/15/2017 History: Meets sepsis criteria, suspected infection Comparison: Chest x-ray 07/02/2017 Findings: Upright AP and lateral views of the chest are submitted for interpretation. Lines/tubes: Left subclavian tunneled central venous catheter is in place with tip terminating overlying the superior cavoatrial junction. Interval removal of a small-caliber central venous catheter which appears to course along the indwelling larger tunneled catheter. Lungs: Streaky airspace opacities in the left lower lobe. No definite consolidation. Pleura: No pleural effusion or pneumothorax. Heart and mediastinum: Cardiomediastinal silhouette is within normal limits. Bones and soft tissues: No acute osseous abnormality. Soft tissues are grossly normal. Impression: Streaky airspace opacities in the left lower lobe, likely atelectasis, less likely pneumonia. Visualized and Interpreted imaging results: Yes Visualized and Interpreted EKG results: Yes EKG Interpretation: Positive for: normal sinsus rhythm Assessment & Plan Assessment: 41 yo F with hx mast cell activation syndrome, adrenal insufficiency, asthma, hypothyroidism and on chronic anticoagulation for hx of PE/DVT who presents to ED with c/o fever 1. Fever - without severe Sepsis criteria. suspect patient with early viral syndrome. influenza PCR negative. will check repiratory panel. also will obtain bcx from patient port to r/o line infection. patient without leukocytosis, SIRS criteria or elevation in lactic acid. Will hold off on antibiotic therapies while awaiting UA, respiratory penal. Given history of adrenal insufficiency however and strong suspicion for viral illness will go ahead and increase patient hydrocortisone dosing, continue fluorinef. IVF. tylenol prn for fever. 2. Hypokalemia (Acute) - replacement in progress. s/p magnesium replacement in ED. chronic medical issues 3. mast cell activation syndrome - patient continues on her benadryl pump, epi pen prn. 4. adrenal insufficiency - steroids as above. 5. asthma - continue nebs, inhalers 6. hx PE on anticoagulation lovenox - continue 7. hypothyroidism -continue l- thyroxine replacement 8. coronary artery vasospasm - chest pain free. continue imdur, cardizem, nitro prn. FEN - IVF overnight. electrolyte replacement as above. diet as tolerated. PPX - SCDs. lovenox therapeutic tx COR - FULL. father Yogesh Campoverde [facility] Dispo - Patient admitted to inpatient status. anticipate 2 midnight stay with patient history of multiple medical problems while awaiting culture results.
[2017-07-15] MEDS ORDERED: [UNRECOGNIZED DRUG - OTHER] IV SCH (23:45)
[2017-07-15] MEDS ORDERED: FAMOTIDINE IV SCH (23:45)
[2017-07-16] MEDS ORDERED: POTASSIUM CL 20 MEQ/15 ML UDCUP PO ONE (00:26)
[2017-07-16] MEDS ORDERED: FAMOTIDINE IV SCH (00:30)
[2017-07-16] MEDS: ONDANSETRON 4 MG/2 ML VIAL IVP PRN ×3 (00:38→09:56)
[2017-07-16] MEDS: NS W/ 20 KCl/L 1,000 ML IV SCH ×3 (00:38→21:40)
[2017-07-16] MEDS: POTASSIUM Cl (KCl) 10 MEQ in NS 100 ML IV SCH ×4 (00:56→23:18)
[2017-07-16] MEDS: ACETAMINOPHEN 325 MG TAB PO PRN ×2 (04:56→10:02)
[2017-07-16 05:27] LABS: PLATELET COUNT 162 10^3/uL (150-400)
[2017-07-16] MEDS ORDERED: CROMOLYN SODIUM PO SCH (06:00)
[2017-07-16] MEDS: CROMOLYN SODIUM 20 MG/2 ML IH SCH ×4 (06:49→22:20)
[2017-07-16] MEDS: PIPERACILLIN/TAZO 3.375 GM/DEX 50 ML IV SCH ×3 (08:32→21:56)
[2017-07-16] MEDS: BUDESONIDE IH SCH ×2 (08:41→22:07)
[2017-07-16] MEDS: LEVALBUTEROL INHALER 200 PUFFS/15 GM MDI IH SCH (08:45)
[2017-07-16] MEDS ORDERED: HYDROCORTISONE 10 MG TAB PO SCH (09:00)
[2017-07-16] MEDS ORDERED: MONTELUKAST SODIUM 10 MG TAB PO SCH (09:00)
[2017-07-16] MEDS ORDERED: ARFORMOTEROL IH SCH (09:00)
[2017-07-16] MEDS ORDERED: FLUDROCORTISONE ACETATE 0.1 MG TAB PO SCH (09:00)
[2017-07-16] MEDS ORDERED: HYDROCHLOROTHIAZIDE 25 MG TAB PO SCH (09:00)
[2017-07-16] MEDS ORDERED: ISOSORBIDE DINITRATE 10 MG TAB PO SCH (09:00)
[2017-07-16] MEDS ORDERED: CHOLECALCIFEROL VIT D3 2,000 UNITS TAB/CAP PO SCH (09:00)
[2017-07-16] MEDS ORDERED: DILTIAZEM CD 180 MG CAP PO SCH (09:00)
--- NOTE | 2017-07-16 09:25 | PDMN ---
Medical Necessity Medical necessity: M160 sepsis and other febrile illnesses - pt with fever, hypokalemia, hx: mast cell activation syndrome, adrenal insuff. asthma, hx PE, hypothyroidism, coronary artery vasospasm, - mult med problems- awaiting further eval and tx. anticipate > 2 midnights
[2017-07-16] MEDS: ENOXAPARIN 80 MG/0.8 ML SYR SC SCH ×2 (10:00→21:50)
[2017-07-16] MEDS: [UNRECOGNIZED DRUG - OTHER] EACHEYE SCH ×2 (10:36→22:30)
[2017-07-16] MEDS: RANITIDINE 15 MG/ML PO SCH ×4 (10:36→21:48)
[2017-07-16] MEDS: QUERCETIN 500 MG PO SCH ×4 (10:36→21:52)
[2017-07-16] MEDS ORDERED: POTASSIUM Cl (KCl) 50 ML IV SCH ×2 (10:45→18:43)
[2017-07-16] MEDS: POTASSIUM Cl (KCl) 10 MEQ in NS 50 ML IV SCH ×3 (11:25→15:12)
[2017-07-16] MEDS ORDERED: PIPERACILLIN/TAZO 3.375 GM/DEX 50 ML IV SCH (12:00)
[2017-07-16] MEDS ORDERED: DOMPERIDONE PO SCH (12:00)
[2017-07-16] MEDS: PROMETHAZINE HCL 25 MG/ML INJ IVP PRN ×2 (12:19→18:36)
[2017-07-16] MEDS: HYDROmorphONE/DILAUDID 2 MG TAB PO PRN ×2 (12:19→18:37)
[2017-07-16] MEDS: MONTELUKAST SODIUM 10 MG TAB PO SCH ×2 (12:25→21:51)
[2017-07-16] MEDS: CROMOLYN SODIUM 100 MG/5 ML PO SCH ×3 (12:26→21:49)
[2017-07-16] MEDS: HYDROCORTISONE 10 MG TAB PO SCH ×2 (12:30→18:37)
--- NOTE | 2017-07-16 14:14 | SOAPPROG ---
SOAP Progress Note Assessment/Plan: Assessment: 41-year-old female with mast cell activation syndrome/recent headache when catheter insertion 2 weeks ago/now presents with bacteremia and high fevers Catheter site looks okay with no drainage or tenderness Blood cultures positive for gram-negative Klebsiella Situation complicated by the need for blood thinners because of her DVTs from PICC line as well as the need for continuous Benadryl infusion for her mast cell problem Presently afebrile She does not want the her catheter removed today but wants to think about and removed tomorrow if possible Plan: She will need a temporary line a either a PICC were jugular line and then removal of her PICC min and later replacement/these risks and options been fully discussed with the patient and her family 07/16/17 14:03 Objective: Vital Signs Temp Pulse Resp BP Pulse Ox 39.3 C H 104 H 18 100/66 96 07/16/17 10:41 07/16/17 10:41 07/16/17 10:41 07/16/17 10:41 07/16/17 10:41 Microbiology 07/15/17 23:57 Respiratory Panel (PCR) - Final Nasal, Sinus - Swab No Organism Detected Laboratory Results 07/16/17 04:48 07/16/17 04:48 07/15/17 07/16/17 07/17/17 05:59 05:59 05:59 Intake Total 1100 Output Total 2000 Balance -900 PT 15.3 SEC (12.0-15.0) H 07/15/17 20:00 INR 1.19 (0.83-1.16) H 07/15/17 20:00 ICD10 Worksheet Patient Problems: Problems Problem Status Onset Hypokalemia Acute Chest pain Acute Mast cell activation Acute
--- NOTE | 2017-07-16 15:04 | HOSPPROG ---
Hospitalist Progress Note Assessment/Plan: 41 yo F with hx mast cell activation syndrome, adrenal insufficiency, asthma, hypothyroidism and on chronic anticoagulation for hx of PE/DVT who presents to ED with c/o fever. First encounter, chart reviewed. D/W Ranjan Fitzpatrick and Roland. 1. Fever - 2/2 bacteremia 2. Bacteremia Kleb pneumo ID consult likely from recent Otero placement will need removal D/W surgery 3. Hypokalemia (Acute) - replacement s/p magnesium replacement in ED. chronic medical issues 3. mast cell activation syndrome - patient continues on her benadryl pump, epi pen prn. D/W Dr Caroline Diehl 4. adrenal insufficiency - steroids as above. 5. asthma - continue nebs, inhalers 6. hx PE on anticoagulation lovenox - continue 7. hypothyroidism - continue l- thyroxine replacement 8. coronary artery vasospasm - chest pain free. continue imdur, cardizem, nitro prn. FEN - IVF overnight. electrolyte replacement as above. diet as tolerated. PPX - SCDs. lovenox therapeutic tx COR - FULL. father Yogesh Campoverde MDPOA Dispo - Patient admitted to inpatient status. anticipate 2 midnight stay with patient history of multiple medical problems while awaiting culture results. D/W Family and pt at bedside Subjective: Feeling terrible. Still weak and having fevers. Objective: Vital Signs Temp Pulse Resp BP Pulse Ox 39.3 C H 104 H 18 100/66 96 07/16/17 10:41 07/16/17 10:41 07/16/17 10:41 07/16/17 10:41 07/16/17 10:41 Microbiology 07/15/17 23:57 Respiratory Panel (PCR) - Final Nasal, Sinus - Swab No Organism Detected Laboratory Results 07/16/17 04:48 07/16/17 04:48 07/15/17 07/16/17 07/17/17 05:59 05:59 05:59 Intake Total 1100 Output Total 2000 Balance -900 PT 15.3 SEC (12.0-15.0) H 07/15/17 20:00 INR 1.19 (0.83-1.16) H 07/15/17 20:00 - Physical Exam Constitutional: appears nourished, chronically ill appearing, uncomfortable Eyes: PERRL, anicteric sclera, EOMI Ears, Nose, Mouth, Throat: moist mucous membranes, hearing normal, ears appear normal Cardiovascular: regular rate and rhythym, tachycardia, No JVD, No edema Respiratory: no respiratory distress, no rales or rhonchi, reduced air movement Gastrointestinal: normoactive bowel sounds, No tenderness, No ascites Skin: warm, normal color, No mottled Musculoskeletal: normal joint ROM, no joint effusions, generalized weakness Neurologic: AAOx3 Psychiatric: interacting appropriately, not encephalopathic, thought process linear ICD10 Worksheet Patient Problems: Problems Problem Status Onset Mast cell activation Acute Chest pain Acute Hypokalemia Acute
[2017-07-16] MEDS: CETIRIZINE 10 MG TAB PO SCH ×2 (15:12→21:47)
--- NOTE | 2017-07-16 16:23 | ASMTCMCOM ---
CM Note CM Note Notes: Pt admitted w/fever, hypokalemia; she has hx of mult medical problems including Mast cell activation syndrome. She was recently hospitalized and had Otero cath placed for chroninc IV meds she is on. Met w/pt and parents were at bedside as well. Pt reports that she lives with 2 supportive housemates. She is current w/[facility] and says her RN w/[facility] is Shirni. CM left voice mail w/pauly at [facility]. DC needs not clear yet but CM w/f and plan as needed and will be in touch w/[facility]. Date Signed: 07/16/2017 04:23 PM Electronically Signed By:Shanel Smith RN
[2017-07-16] MEDS: fentaNYL 100 MCG/2 ML INJ IVP PRN (17:01)
[2017-07-16] MEDS: ISOSORBIDE DINITRATE 10 MG TAB PO SCH ×2 (17:02→21:54)
--- NOTE | 2017-07-16 17:20 | SOAPPROG ---
MAKAYLA Progress Note Assessment/Plan: Assessment: requested by family to see Moni Montenegro was currently in rigors and so I did not examine her. In short, will need PICC or IJ, then replace Hickmann vs groshong port. Hickmann certainly easier for continuous infusions. Plan: 07/16/17 17:15 Objective: Vital Signs Temp Pulse Resp BP Pulse Ox 37.5 C 124 H 22 H 100/66 90 L 07/16/17 16:00 07/16/17 16:00 07/16/17 16:00 07/16/17 17:02 07/16/17 16:00 Microbiology 07/15/17 23:57 Respiratory Panel (PCR) - Final Nasal, Sinus - Swab No Organism Detected Laboratory Results 07/16/17 04:48 07/16/17 04:48 07/15/17 07/16/17 07/17/17 05:59 05:59 05:59 Intake Total 1100 Output Total 2000 Balance -900 PT 15.3 SEC (12.0-15.0) H 07/15/17 20:00 INR 1.19 (0.83-1.16) H 07/15/17 20:00 ICD10 Worksheet Patient Problems: Problems Problem Status Onset Hypokalemia Acute Chest pain Acute Mast cell activation Acute
[2017-07-16] MEDS: ACETAMINOPHEN 325 MG PO PRN (18:37)
--- NOTE | 2017-07-16 19:05 | GCON ---
[f rep st] CONSULTATION INPATIENT INFECTIOUS DISEASE CONSULTATION REFERRING PHYSICIAN: Vielka Alvarez NP REASON FOR REFERRAL: Gram-negative bacteremia. HISTORY OF PRESENT ILLNESS: Patient is a 41-year-old female who has an underlying diagnosis of mast cell activation syndrome. The patient also carries a diagnosis of asthma, adrenal insufficiency, and coronary artery vasospasm with a documented history of pulmonary emboli and deep venous thrombosis, who came to the emergency department on 07/15/2017, complaining of fever and shaking chills. Patient had had a port and subsequently exchanged for a Otero catheter that occurred approximately 2 weeks ago. This area has not been bothering her much. She uses it for a chronic Benadryl infusion second reyes to her underlying mast cell activation syndrome. The patient had blood cultures drawn upon admis jennifer, and these are currently growing gram-negative rods from 2/2 sets which has been identified by o PCR panel as Klebsiella pneumoniae. The patient was placed on empiric Zosyn therapy. She is curr ently resting in bed. She feels generally poorly although her discomfort does not localize around he r left upper chest where the ports are placed. She seems to be tolerating the Zosyn without issue. PAST MEDICAL HISTORY: 1. Mast cell activation syndrome. 2. Asthma. 3. Adrenal insufficiency. 4. Coronary artery vasospasm. 5. Pulmonary emboli and deep venous thrombosis. PAST SURGICAL HISTORY: 1. Status post port placement. 2. Status post appendectomy. 3. Status post laparoscopic surgery for ovarian cysts. 4. Status post multiple orthopedic surgeries. ANTIBIOTICS: Zosyn. ALLERGIES: Patient is allergic to iron, aspirin, soy, latex, dapsone, nabumetone and levofloxacin. SOCIAL HISTORY: Patient has supportive parents. No significant tobacco, alcohol or drug use noted. FAMILY HISTORY: Negative for mast cell dysfunction. REVIEW OF SYSTEMS: Other than that detailed above in the History of Present Illness, comprehensive 1 0-system review is negative. PHYSICAL EXAMINATION: VITAL SIGNS: Temperature maximum 39.5. Temperature current 39.3. Heart rate i s 104, respiratory rate is 18, blood pressure is 100/66. GENERAL: Patient is a well-formed, well-no urished female in minimal distress. She is not toxic in appearance. She is alert and oriented x3. She is pleasant in demeanor. HEENT: Normocephalic for age. Atraumatic. No scleral icterus. No or al lesion. No drainage from the nares. Eyes: Lids and conjunctivae are within normal limits. Pupi ls are equal and round bilaterally. NECK: Supple. No meningismus. LUNGS: Clear to auscultation b ilaterally with good effort. HEART: Tachycardic, but regular. No murmur, rub, or gallop noted. Karsten carrillo has a Otero catheter in the left upper chest. There is an area of healing surgical wound to the medial aspect of the Otero. This is from the prior port placement that was exchanged. There i s no significant redness or tenderness or swelling over this area. SKIN: Warm and dry to the touch. No rash or lesions seen. MUSCULOSKELETAL: No muscle belly tenderness is noted. No joint line eff usion or arthritis is seen. NEURO: Cranial nerves 2-12 seem to be intact. Peripheral sensation see ms intact in extremities. LABORATORY DATA: Patient has a CBC dated 07/16/2017, that shows a white blood cell count of 11.5, he moglobin of 12.4, hematocrit of 36.4, and a platelet count of 162. Differential is left-shifted with 84% segmented neutrophils. Serum chemistries on 07/16/2017, shows sodium of 142, potassium of 3.3, chloride of 109, bicarbonate of 21, BUN of 8, creatinine of 0.6. Nasal influenza PCR is negative for influenza A and B. MICROBIOLOGIC DATA: Patient has blood cultures dated 07/15/2017, which are positive for Klebsiella p neumoniae. Repeat blood culture drawn at midnight last night is also growing a gram-negative michael. ASSESSMENT: Gram-negative bacteremia, Klebsiella pneumoniae. I believe she is covered quite well wi th Zosyn. We will await sensitivity pattern to confirm. The patient's source is likely going to be the recent surgery and line access. Would advise that this line be removed. We will continue treati ng for approximately 2 weeks following line removal. This was explained to the patient, as well as h er family. PLAN: 1. Continue Zosyn monotherapy. 2. Consult General Surgery regarding line removal. 3. Discuss with hospitalist about arranging vascular access for continued Benadryl infusion. 4. Follow clinical course and temp curve. /[id number]/MODL
[2017-07-16] MEDS ORDERED: NS 500 ML IV ONE (20:47)
[2017-07-16] MEDS: CHOLECALCIFEROL VIT D3 2,000 UNITS TAB/CAP PO SCH (21:48)
[2017-07-16] MEDS: BROVANA 15 MCG/2 ML IH SCH (22:07)
[2017-07-16] MEDS ORDERED: KETOROLAC 15 MG/1 ML SDV IVP PRN (23:28)
[2017-07-17] MEDS ORDERED: NS 1,000 ML IV ONE (01:15)
[2017-07-17] MEDS: PIPERACILLIN/TAZO 3.375 GM/DEX 50 ML IV SCH ×4 (01:20→21:22)
[2017-07-17] MEDS: PROMETHAZINE HCL 25 MG/ML INJ IVP PRN ×4 (01:20→23:34)
[2017-07-17] MEDS: HYDROmorphONE/DILAUDID 2 MG TAB PO PRN ×2 (01:21→23:34)
[2017-07-17] MEDS: CROMOLYN SODIUM 20 MG/2 ML IH SCH ×4 (05:09→20:36)
[2017-07-17] MEDS: RANITIDINE 15 MG/ML PO SCH ×4 (05:31→21:28)
[2017-07-17] MEDS: QUERCETIN 500 MG PO SCH ×4 (05:34→21:30)
[2017-07-17] MEDS: ACETAMINOPHEN 325 MG PO PRN ×5 (05:35→22:02)
[2017-07-17] MEDS ORDERED: POTASSIUM CL 10 MEQ TAB PO ONE (07:55)
[2017-07-17] MEDS ORDERED: POTASSIUM CL 20 MEQ PKT PO ONE ×2 (08:45→21:15)
[2017-07-17] MEDS: fentaNYL 100 MCG/2 ML INJ IVP PRN ×2 (09:10→10:08)
[2017-07-17] MEDS: ENOXAPARIN 80 MG/0.8 ML SYR SC SCH ×2 (09:20→21:37)
[2017-07-17] MEDS: CROMOLYN SODIUM 100 MG/5 ML PO SCH ×5 (09:28→21:31)
[2017-07-17] MEDS: HYDROCORTISONE 10 MG TAB PO SCH ×3 (09:33→17:48)
[2017-07-17] MEDS: CHOLECALCIFEROL VIT D3 2,000 UNITS TAB/CAP PO SCH ×2 (09:35→21:32)
[2017-07-17] MEDS: [UNRECOGNIZED DRUG - OTHER] EACHEYE SCH ×2 (09:35→21:36)
[2017-07-17] MEDS: DILTIAZEM CD 180 MG CAP PO SCH (09:37)
[2017-07-17] MEDS: FLUDROCORTISONE ACETATE 0.1 MG TAB PO SCH (09:39)
[2017-07-17] MEDS: ISOSORBIDE DINITRATE 10 MG TAB PO SCH ×3 (09:40→21:37)
[2017-07-17] MEDS: MONTELUKAST SODIUM 10 MG TAB PO SCH ×2 (09:45→21:33)
[2017-07-17] MEDS: HYDROCHLOROTHIAZIDE 25 MG TAB PO SCH (09:45)
--- NOTE | 2017-07-17 09:45 | HOSPPROG ---
Hospitalist Progress Note Assessment/Plan: Patient is a 41-year-old female with mast cell activation syndrome, adrenal insufficiency as well as hyperthyroidism who was admitted with the emergency room for ongoing fever. Today is my 1st encounter with the patient. Chart reviewed. Discussed her care w Dr Woodruff. * bacteremia, Klebsiella pneumonia -2nd blood culture continues to show bacteremia -secondary from Otero port placement -on Zosyn -reviewed her care with Dr Watkins, will order PICC placement, Dr Woodruff will remove Otero * sepsis -due to the above * hypotensive yesterday * tachycardia -could be from the above -patient chronically on a calcium channel adrián that was given just now * hypokalemia -replacement * history of mast cell activation syndrome -on a Benadryl pump, Pepcid iv -EpiPen p.r.n. * adrenal insufficiency -on steroids * hyperthyroidism *coronary artery vasospasms hx -on medications to control this *hx of PE -on chronic anticoagulation *Plan: ordered PICC placement, Dr Woodruff to remove port/ explained to patient's parents the port needs to be removed to get rid of the source of her infection, they understand Subjective: Moni is c/o rigors, chills, pain everywhere. Objective: Vital Signs Temp Pulse Resp BP Pulse Ox 38.1 C 90 16 114/79 96 07/17/17 08:00 07/17/17 08:00 07/17/17 08:00 07/17/17 08:00 07/17/17 08:00 Microbiology 07/15/17 23:57 Respiratory Panel (PCR) - Final Nasal, Sinus - Swab No Organism Detected Laboratory Results 07/16/17 04:48 07/17/17 06:10 07/16/17 07/17/17 07/18/17 05:59 05:59 05:59 Intake Total 1100 5100 Output Total 2000 1800 800 Balance -900 3300 -800 PT 15.3 SEC (12.0-15.0) H 07/15/17 20:00 INR 1.19 (0.83-1.16) H 07/15/17 20:00 - Physical Exam Constitutional: uncomfortable, No not in pain Eyes: PERRL Ears, Nose, Mouth, Throat: hearing normal Cardiovascular: regular rate and rhythym, tachycardia Respiratory: other (increase RR) Skin: warm Neurologic: AAOx3 Psychiatric: anxious ICD10 Worksheet Patient Problems: Problems Problem Status Onset Hypokalemia Acute Chest pain Acute Mast cell activation Acute
[2017-07-17] MEDS ORDERED: fentaNYL 100 MCG/2 ML INJ IVP ONE (09:53)
[2017-07-17] MEDS ORDERED: ALTEPLASE 2 MG VIAL IVP PRN (10:23)
[2017-07-17] MEDS: BUDESONIDE IH SCH ×2 (10:38→20:35)
[2017-07-17] MEDS: BROVANA 15 MCG/2 ML IH SCH ×2 (10:38→20:35)
[2017-07-17] MEDS: LEVALBUTEROL INHALER 200 PUFFS/15 GM MDI IH SCH (10:39)
[2017-07-17] MEDS ORDERED: K PHOS 20 MMOL in D5W 250 ML IV ONE (12:00)
[2017-07-17] MEDS: CETIRIZINE 10 MG TAB PO SCH ×2 (13:06→21:33)
--- NOTE | 2017-07-17 14:14 | SOAPPROG ---
SOAP Progress Note Assessment/Plan: Assessment: Getting PICC today Will remove Hickmann after PICC is placed S: Feeling better today although still tachy O: No obvious signs of infection on chest Lying in bed, appears more comfortable than last evening Plan: 07/16/17 17:15 07/17/17 14:13 Objective: Vital Signs Temp Pulse Resp BP Pulse Ox 37.3 C 101 H 21 H 100/59 L 91 L 07/17/17 13:09 07/17/17 13:09 07/17/17 13:09 07/17/17 13:09 07/17/17 13:09 Microbiology 07/15/17 23:57 Respiratory Panel (PCR) - Final Nasal, Sinus - Swab No Organism Detected Laboratory Results 07/16/17 04:48 07/17/17 06:10 07/16/17 07/17/17 07/18/17 05:59 05:59 05:59 Intake Total 1100 5100 Output Total 2000 1800 800 Balance -900 3300 -800 PT 15.3 SEC (12.0-15.0) H 07/15/17 20:00 INR 1.19 (0.83-1.16) H 07/15/17 20:00 ICD10 Worksheet Patient Problems: Problems Problem Status Onset Hypokalemia Acute Chest pain Acute Mast cell activation Acute
--- NOTE | 2017-07-17 17:54 | PCMIDPN ---
Assessment/Plan: Assessment: Klebsiella bacteremia secondary to infected Otero catheter. Patient needs the segment catheter discontinued although this is complicated by need for continuous Benadryl infusion. Will have PICC line placed today in the left arm and have the Otero catheter discontinued after completion of this procedure. The PICC line may be mildly colonized but continuous bacteremia although continued antibiotic therapy would limit this. It would be unlikely to be able to service a continued nidus for Klebsiella bacteremia. It is likely however the we would have to switch out the PICC once antibiotics were close to completion as she is likely to retain this PICC for continued Benadryl use. Plan: 1. Continue IV Zosyn. 2. Follow up on sensitivity panels for the Klebsiella. 3. PICC line placement and Otero catheter removal. 4. Follow temp curve and clinical course. 07/17/17 17:49 07/17/17 17:52 07/17/17 17:54 Subjective: Patient having difficult morning. Fevers and rigors. No other new complaints. Parents at bedside. Objective: Zosyn # 2 Vital Signs Temp Pulse Resp BP Pulse Ox 37.2 C 81 20 104/60 94 07/17/17 17:35 07/17/17 17:35 07/17/17 17:35 07/17/17 17:35 07/17/17 17:35 Laboratory Results 07/16/17 04:48 07/17/17 06:10 07/16/17 07/17/17 07/18/17 05:59 05:59 05:59 Intake Total 1100 5100 Output Total 2000 1800 800 Balance -900 3300 -800 - Physical Exam General Appearance: WD/WN, alert, no apparent distress, toxic Respiratory: lungs clear, normal breath sounds Cardiac/Chest: regular rate, rhythm, tachycardia Skin: normal color, warm/dry, No rash Neuro/Psych: alert, normal mood/affect, oriented x 3 ICD10 Worksheet Patient Problems: Problems Problem Status Onset Hypokalemia Acute Chest pain Acute Mast cell activation Acute
--- NOTE | 2017-07-17 18:38 | GPN ---
[f rep st] PROCEDURE NOTE DATE OF PROCEDURE: 07/17/2017 ANESTHESIA: 1% lidocaine. PREOPERATIVE DIAGNOSIS: Infected Otero catheter. POSTOPERATIVE DIAGNOSIS: Infected Otero catheter. PROCEDURE PERFORMED: Removal of Otero catheter. SPECIMENS: None. ESTIMATED BLOOD LOSS: 1 mL. FINDINGS: No unusual findings. INDICATIONS: The patient is a 41-year-old woman who had a Otero placed. She had then developed Kl ebsiella bacteremia. Otero catheter was indicated for removal. DESCRIPTION OF PROCEDURE: Patient was already in the interventional radiology suite. The double-lume n PICC had been placed in her left arm. When this was completed, we switched her infusion over, then prepped her chest with ChloraPrep. I injected it with lidocaine. I removed the sutures I then was able to dissect around the small cuff. The catheter was excised. Hemostasis achieved with pressure. Dressing applied. She tolerated the procedure well. /[id number]/MODL
[2017-07-18] MEDS: PIPERACILLIN/TAZO 3.375 GM/DEX 50 ML IV SCH ×2 (00:52→09:39)
[2017-07-18] MEDS: RANITIDINE 15 MG/ML PO SCH ×4 (05:58→22:46)
[2017-07-18] MEDS: QUERCETIN 500 MG PO SCH ×4 (06:00→22:38)
[2017-07-18] MEDS: CROMOLYN SODIUM 20 MG/2 ML IH SCH ×4 (06:03→21:55)
[2017-07-18 06:15] LABS: PLATELET COUNT 95 10^3/uL (150-400)
[2017-07-18] MEDS ORDERED: POTASSIUM CL 20 MEQ PKT PO ONE ×2 (07:55→19:45)
[2017-07-18] MEDS: ACETAMINOPHEN 325 MG PO PRN ×2 (07:57→12:52)
[2017-07-18] MEDS: BUDESONIDE IH SCH ×2 (09:25→21:47)
[2017-07-18] MEDS: BROVANA 15 MCG/2 ML IH SCH ×2 (09:29→21:53)
[2017-07-18] MEDS: LEVALBUTEROL INHALER 200 PUFFS/15 GM MDI IH SCH (09:33)
[2017-07-18] MEDS: ENOXAPARIN 80 MG/0.8 ML SYR SC SCH ×2 (09:45→22:40)
[2017-07-18] MEDS: [UNRECOGNIZED DRUG - OTHER] EACHEYE SCH ×2 (09:50→22:27)
[2017-07-18] MEDS: HYDROmorphONE/DILAUDID 2 MG TAB PO PRN (09:56)
[2017-07-18] MEDS: PROMETHAZINE HCL 25 MG/ML INJ IVP PRN (09:57)
[2017-07-18] MEDS: CHOLECALCIFEROL VIT D3 2,000 UNITS TAB/CAP PO SCH ×2 (10:00→22:30)
[2017-07-18] MEDS: MONTELUKAST SODIUM 10 MG TAB PO SCH ×2 (10:02→22:36)
[2017-07-18] MEDS: DILTIAZEM CD 180 MG CAP PO SCH (10:03)
[2017-07-18] MEDS: FLUDROCORTISONE ACETATE 0.1 MG TAB PO SCH (10:03)
[2017-07-18] MEDS: HYDROCORTISONE 10 MG TAB PO SCH ×3 (10:06→18:32)
[2017-07-18] MEDS: HYDROCHLOROTHIAZIDE 25 MG TAB PO SCH (10:07)
[2017-07-18] MEDS: ISOSORBIDE DINITRATE 10 MG TAB PO SCH ×3 (10:09→22:37)
[2017-07-18] MEDS: CROMOLYN SODIUM 100 MG/5 ML PO SCH ×4 (10:10→22:32)
--- NOTE | 2017-07-18 11:31 | SOAPPROG ---
SOAP Progress Note Assessment/Plan: Assessment: s/p PICC and removal of Otero Can replace Otero after bacteremia clears No urgency - can plan week of 07/27, 08/03 or 08/10 depending on bacteremia S: Feeling much better today O: chest dressing with stain on it. PICC site clean Plan: 07/16/17 17:15 07/17/17 14:13 07/18/17 11:29 Objective: Vital Signs Temp Pulse Resp BP Pulse Ox 37.3 C 104 H 14 115/81 H 97 07/18/17 08:00 07/18/17 10:03 07/18/17 08:00 07/18/17 10:03 07/18/17 08:00 Microbiology 07/16/17 00:19 Blood Culture - Final Blood Klebsiella Pneumoniae Laboratory Results 07/18/17 06:07 07/18/17 06:07 07/17/17 07/18/17 07/19/17 05:59 05:59 05:59 Intake Total 5100 500 450 Output Total 1800 3800 Balance 3300 -3300 450 PT 15.3 SEC (12.0-15.0) H 07/15/17 20:00 INR 1.19 (0.83-1.16) H 07/15/17 20:00 ICD10 Worksheet Patient Problems: Problems Problem Status Onset Hypokalemia Acute Chest pain Acute Mast cell activation Acute
[2017-07-18] MEDS ORDERED: K PHOS 15 MMOL in D5W 250 ML IV ONE (12:00)
--- NOTE | 2017-07-18 12:36 | PCMIDPN ---
Assessment/Plan: Assessment/ Plan: 1. Klebsiella pneumonia bacteremia secondary to infected Otero catheter: - both cultures positive. sensitivites reviewed. -CHange zosyn to ceftriaxone for once daily atbx in the OP.patient has a home health nurse through [facility] already - plt down today. maybe related to zosyn vs current infection. -s/p Otero removal yesterday and picc line placement. -recheck labs in am. -long discussion with patient, family regarding above, plan of care, cultures, etc. -Will need to have picc line changed prior to d/c of atbx and then at some point after that if remains stable off atbx, then can have Otero replaced. - care coordinated with hospitalist team - care coordinated with case management as well. Meds zosyn -07/16/17 Subjective: Temps improved today.did have spiking temps yesterday. no rigors, chills today. denies abd pain, or diarrhea. denies sob. on O2. appetite has returned. family at bedside. Objective: Vital Signs Temp Pulse Resp BP Pulse Ox 37.3 C 104 H 14 115/81 H 97 07/18/17 08:00 07/18/17 10:03 07/18/17 08:00 07/18/17 10:03 07/18/17 08:00 Microbiology 07/16/17 00:19 Blood Culture - Final Blood Klebsiella Pneumoniae Laboratory Results 07/18/17 06:07 07/18/17 06:07 07/17/17 07/18/17 07/19/17 05:59 05:59 05:59 Intake Total 5100 500 450 Output Total 1800 3800 Balance 3300 -3300 450 - Physical Exam General Appearance: alert, no apparent distress Respiratory: lungs clear, other (shallow breaths) Cardiac/Chest: regular rate, rhythm, other (right upper chest dressing noted. mild brusing noted just outside of dressing. ) Extremities: No swelling Abdomen: normal bowel sounds, non-tender, soft, No distended - Time Spent With Patient Time Spent with Patient: greater than 35 minutes Time Spent with Patient: Greater than 35 minutes spent on this patients care, greater than 50% of time spent counseling, educating, and coordinating care regarding the above mentioned plan. ICD10 Worksheet Patient Problems: Problems Problem Status Onset Hypokalemia Acute Chest pain Acute Mast cell activation Acute
[2017-07-18] MEDS: CETIRIZINE 10 MG TAB PO SCH ×2 (13:06→22:29)
--- NOTE | 2017-07-18 15:10 | HOSPPROG ---
Hospitalist Progress Note Assessment/Plan: Patient is a 41-year-old female with mast cell activation syndrome, adrenal insufficiency as well as hyperthyroidism who was admitted with the emergency room for ongoing fever. Coordinated care with Dr Stanley. Hopefully, will be able to dc soon * bacteremia, Klebsiella pneumonia -2nd blood culture continues to show bacteremia -secondary from Otero port placement -on Zosyn 07/16. * sepsis -due to the above -resolving * hypotensive -asymptomatic * tachycardia -overall resolved -patient chronically on a calcium channel adrián that was given just now * hypokalemia -replacement *thrombocytopenia -follow, ? from abx * history of mast cell activation syndrome -on a Benadryl pump, Pepcid iv -EpiPen p.r.n. * adrenal insufficiency -on steroids * hyperthyroidism *coronary artery vasospasms hx -on medications to control this *hx of PE -on chronic anticoagulation *Plan: cont the above treatment. Plan of care discussed with patient and her parents. Subjective: Moni is feeling much better today. Objective: Vital Signs Temp Pulse Resp BP Pulse Ox 37.6 C 92 24 H 98/68 L 92 07/18/17 14:47 07/18/17 14:47 07/18/17 14:47 07/18/17 14:47 07/18/17 14:47 Microbiology 07/16/17 00:19 Blood Culture - Final Blood Klebsiella Pneumoniae Laboratory Results 07/18/17 06:07 07/18/17 06:07 07/17/17 07/18/17 07/19/17 05:59 05:59 05:59 Intake Total 5100 500 450 Output Total 1800 3800 Balance 3300 -3300 450 PT 15.3 SEC (12.0-15.0) H 07/15/17 20:00 INR 1.19 (0.83-1.16) H 07/15/17 20:00 - Physical Exam Constitutional: no apparent distress, appears nourished, not in pain Eyes: PERRL Ears, Nose, Mouth, Throat: hearing normal Cardiovascular: regular rate and rhythym, No tachycardia Respiratory: no respiratory distress, rhonchi (right base) Skin: warm Musculoskeletal: full muscle strength Neurologic: AAOx3 Psychiatric: interacting appropriately, not anxious ICD10 Worksheet Patient Problems: Problems Problem Status Onset Hypokalemia Acute Chest pain Acute Mast cell activation Acute
[2017-07-18] MEDS: fentaNYL 100 MCG/2 ML INJ IVP PRN (16:21)
[2017-07-18] MEDS ORDERED: POTASSIUM CL 10 MEQ TAB PO ONE ×2 (20:15→22:00)
[2017-07-19] MEDS: ACETAMINOPHEN 325 MG PO PRN ×3 (05:10→23:03)
[2017-07-19] MEDS: RANITIDINE 15 MG/ML PO SCH ×4 (05:12→23:04)
[2017-07-19 05:14] LABS: PLATELET COUNT 117 10^3/uL (150-400)
[2017-07-19] MEDS: QUERCETIN 500 MG PO SCH ×4 (05:14→22:51)
[2017-07-19] MEDS: CROMOLYN SODIUM 100 MG/5 ML PO SCH ×4 (05:16→22:52)
[2017-07-19] MEDS ORDERED: POTASSIUM CL 10 MEQ TAB PO ONE ×2 (06:14→19:13)
[2017-07-19] MEDS: CROMOLYN SODIUM 20 MG/2 ML IH SCH ×4 (06:17→21:26)
[2017-07-19] MEDS: ENOXAPARIN 80 MG/0.8 ML SYR SC SCH ×2 (07:47→22:45)
[2017-07-19] MEDS: [UNRECOGNIZED DRUG - OTHER] EACHEYE SCH ×2 (07:48→22:56)
--- NOTE | 2017-07-19 07:49 | SOAPPROG ---
SOAP Progress Note Assessment/Plan: Assessment: s/p PICC and removal of Otero Can replace Otero after bacteremia clears. I will have Serax call me. Per ID note she will have current PICC replaced after the bacteremia clears. And then we can plan for Otero in the future. S: Feeling much better today Plan: 07/16/17 17:15 07/17/17 14:13 07/18/17 11:29 07/19/17 07:48 Objective: Vital Signs Temp Pulse Resp BP Pulse Ox 37.0 C 91 13 114/87 H 97 07/19/17 07:37 07/19/17 07:37 07/19/17 07:37 07/19/17 07:37 07/19/17 07:37 Microbiology 07/16/17 00:19 Blood Culture - Final Blood Klebsiella Pneumoniae Laboratory Results 07/19/17 05:00 07/19/17 05:00 07/18/17 07/19/17 07/20/17 05:59 05:59 05:59 Intake Total 500 1724 Output Total 3800 600 Balance -3300 1124 PT 15.3 SEC (12.0-15.0) H 07/15/17 20:00 INR 1.19 (0.83-1.16) H 07/15/17 20:00 ICD10 Worksheet Patient Problems: Problems Problem Status Onset Hypokalemia Acute Chest pain Acute Mast cell activation Acute
[2017-07-19] MEDS: DILTIAZEM CD 180 MG CAP PO SCH (07:51)
[2017-07-19] MEDS: CHOLECALCIFEROL VIT D3 2,000 UNITS TAB/CAP PO SCH ×2 (07:52→22:46)
[2017-07-19] MEDS: MONTELUKAST SODIUM 10 MG TAB PO SCH ×2 (07:52→22:46)
[2017-07-19] MEDS: FLUDROCORTISONE ACETATE 0.1 MG TAB PO SCH (07:53)
[2017-07-19] MEDS: ISOSORBIDE DINITRATE 10 MG TAB PO SCH ×3 (07:57→22:47)
[2017-07-19] MEDS: HYDROCHLOROTHIAZIDE 25 MG TAB PO SCH (08:00)
[2017-07-19] MEDS: HYDROCORTISONE 10 MG TAB PO SCH ×3 (08:02→17:26)
[2017-07-19] MEDS: POTASSIUM CL 20 MEQ TAB PO SCH (09:33)
--- NOTE | 2017-07-19 09:45 | HOSPPROG ---
Hospitalist Progress Note Assessment/Plan: Patient is a 41-year-old female with mast cell activation syndrome, adrenal insufficiency as well as hyperthyroidism who was admitted with the emergency room for ongoing fever. * bacteremia, Klebsiella pneumonia -2nd blood culture continues to show bacteremia -secondary from Otero port placement -was treated w Zosyn, now on Ceftriaxone * sepsis -due to the above -resolving * hypotensive -asymptomatic * tachycardia -overall resolved -patient chronically on a calcium channel adrián that was given just now * hypokalemia -replacement *thrombocytopenia -follow, ? from abx * history of mast cell activation syndrome -on a Benadryl pump, Pepcid iv -EpiPen p.r.n. * adrenal insufficiency -on steroids * hyperthyroidism *coronary artery vasospasms hx -on medications to control this *hx of PE -on chronic anticoagulation *Plan: Will discuss with Infectious Disease about further plans. She had a fever of 101 yesterday and a low-grade temperature this morning. Will need current PICC pulled out and a new 1 placed in prior to discharge but will discuss the timing of this Subjective: Moni is feeling better steadily. Objective: Vital Signs Temp Pulse Resp BP Pulse Ox 37.0 C 91 13 114/87 H 97 07/19/17 07:37 07/19/17 07:37 07/19/17 07:37 07/19/17 07:37 07/19/17 07:37 Microbiology 07/16/17 00:19 Blood Culture - Final Blood Klebsiella Pneumoniae Laboratory Results 07/19/17 05:00 07/19/17 05:00 07/18/17 07/19/17 07/20/17 05:59 05:59 05:59 Intake Total 500 1724 Output Total 3800 600 Balance -3300 1124 PT 15.3 SEC (12.0-15.0) H 07/15/17 20:00 INR 1.19 (0.83-1.16) H 07/15/17 20:00 - Physical Exam Constitutional: no apparent distress, not in pain Eyes: PERRL Ears, Nose, Mouth, Throat: hearing normal Cardiovascular: regular rate and rhythym Respiratory: no respiratory distress Gastrointestinal: normoactive bowel sounds Skin: warm (pale) Musculoskeletal: full muscle strength Neurologic: AAOx3 Psychiatric: interacting appropriately ICD10 Worksheet Patient Problems: Problems Problem Status Onset Hypokalemia Acute Chest pain Acute Mast cell activation Acute
[2017-07-19] MEDS: BROVANA 15 MCG/2 ML IH SCH ×2 (10:11→21:42)
[2017-07-19] MEDS ORDERED: LEVALBUTEROL 1.25 MG/3 ML DEYVIAL ONE (10:24)
[2017-07-19] MEDS: LEVALBUTEROL INHALER 200 PUFFS/15 GM MDI IH SCH (10:27)
[2017-07-19] MEDS: BUDESONIDE IH SCH ×2 (10:29→21:23)
[2017-07-19] MEDS ORDERED: BUDESONIDE 0.5 MG/2 ML AMPUL.NEB IH ONE (10:30)
[2017-07-19] MEDS: fentaNYL 100 MCG/2 ML INJ IVP PRN ×2 (10:38→19:38)
--- NOTE | 2017-07-19 11:35 | PCMIDPN ---
Assessment/Plan: Assessment/ Plan: 1. Klebsiella pneumonia bacteremia secondary to infected Otero catheter: - both cultures positive. sensitivites reviewed. -on Ceftriaxone. -platelets lower yesterday, coming up today. maybe related to zosyn vs current infection. -s/p Otero removal and picc line placement. -follow platelet count - given she will need [facility] Otero and picc placed while likely still bactermic will check f/u blood cx to ensure has cleared. . -Will need to have picc line changed prior to d/c of atbx and then at some point after that if remains stable off atbx, then can have Otero replaced. - care coordinated with hospitalist team - care coordinated with pharmacy. having them double check she will be able to get ceftriaxone along with her other meds through picc line. If not, then may change to ancef or invanz. discussed both potential options with patient including continuous infusion ancef vs q8. she is ok doing q8 if need be. -patient had continuous fentanyl and famotidine infusion via one lumen. --long discussion with patient, family regarding above, plan of care, cultures, etc Meds ceftraixone 1g ddaily - 07/18/17 zosyn -07/16/17-07/18/17 Subjective: fever spike yesterday to 101 degrees F. overall temp curve is coming down. patient not feeling well today overall. denies sob,abd pain or diarrhea. picc line stable without complaints. has peripheral iv in also. Objective: Vital Signs Temp Pulse Resp BP Pulse Ox 37.0 C 91 13 114/87 H 97 07/19/17 07:37 07/19/17 07:37 07/19/17 07:37 07/19/17 07:37 07/19/17 07:37 Microbiology 07/16/17 00:19 Blood Culture - Final Blood Klebsiella Pneumoniae Laboratory Results 07/19/17 05:00 07/19/17 05:00 07/18/17 07/19/17 07/20/17 05:59 05:59 05:59 Intake Total 500 1724 Output Total 3800 600 Balance -3300 1124 - Physical Exam General Appearance: alert, no apparent distress Respiratory: lungs clear Cardiac/Chest: tachycardia, other (right upper chest with dressing in place) Abdomen: normal bowel sounds, non-tender, soft, No distended - Time Spent With Patient Time Spent with Patient: greater than 35 minutes Time Spent with Patient: Greater than 35 minutes spent on this patients care, greater than 50% of time spent counseling, educating, and coordinating care regarding the above mentioned plan. ICD10 Worksheet Patient Problems: Problems Problem Status Onset Hypokalemia Acute Chest pain Acute Mast cell activation Acute
[2017-07-19] MEDS: LEVALBUTEROL 1.25 MG/3 ML DEYVIAL IH SCH ×3 (11:52→21:27)
[2017-07-19] MEDS: CETIRIZINE 10 MG TAB PO SCH ×2 (12:10→22:46)
--- NOTE | 2017-07-19 14:24 | ASMTCMCOM ---
CM Note CM Note Notes: Chart reviewed. Patient has persistent fevers. Current with [facility] home infusion. Will likely need IV access changed when her blood cultures clear. CM to follow. Date Signed: 07/19/2017 02:24 PM Electronically Signed By:Kristina Scott RN
[2017-07-19] MEDS: PROMETHAZINE HCL 25 MG/ML INJ IVP PRN (19:37)
[2017-07-20] MEDS: QUERCETIN 500 MG PO SCH ×4 (04:53→22:29)
[2017-07-20] MEDS: ACETAMINOPHEN 325 MG PO PRN ×4 (04:55→22:25)
[2017-07-20] MEDS: RANITIDINE 15 MG/ML PO SCH ×4 (04:58→22:35)
[2017-07-20] MEDS: CROMOLYN SODIUM 100 MG/5 ML PO SCH ×4 (04:59→22:32)
[2017-07-20] MEDS: LEVALBUTEROL 1.25 MG/3 ML DEYVIAL IH SCH ×4 (06:27→21:01)
[2017-07-20] MEDS: CROMOLYN SODIUM 20 MG/2 ML IH SCH ×4 (06:28→21:01)
[2017-07-20] MEDS ORDERED: POTASSIUM CL 10 MEQ TAB PO ONE ×2 (07:33→18:50)
[2017-07-20] MEDS: ENOXAPARIN 80 MG/0.8 ML SYR SC SCH ×2 (07:36→22:28)
[2017-07-20] MEDS: MONTELUKAST SODIUM 10 MG TAB PO SCH ×2 (07:43→22:26)
[2017-07-20] MEDS: POTASSIUM CL 20 MEQ TAB PO SCH (07:47)
[2017-07-20] MEDS: CHOLECALCIFEROL VIT D3 2,000 UNITS TAB/CAP PO SCH ×2 (07:48→22:24)
[2017-07-20] MEDS: [UNRECOGNIZED DRUG - OTHER] EACHEYE SCH ×2 (07:49→22:51)
[2017-07-20] MEDS: ISOSORBIDE DINITRATE 10 MG TAB PO SCH ×3 (07:50→22:26)
[2017-07-20] MEDS: DILTIAZEM CD 180 MG CAP PO SCH (07:51)
[2017-07-20] MEDS: HYDROCHLOROTHIAZIDE 25 MG TAB PO SCH (07:52)
[2017-07-20] MEDS: FLUDROCORTISONE ACETATE 0.1 MG TAB PO SCH (07:53)
[2017-07-20] MEDS: HYDROCORTISONE 10 MG TAB PO SCH ×3 (07:54→19:30)
[2017-07-20] MEDS: BUDESONIDE IH SCH ×2 (09:35→21:02)
[2017-07-20] MEDS: BROVANA 15 MCG/2 ML IH SCH ×2 (09:39→21:02)
--- NOTE | 2017-07-20 09:39 | HOSPPROG ---
Hospitalist Progress Note Assessment/Plan: Patient is a 41-year-old female with mast cell activation syndrome, adrenal insufficiency as well as hyperthyroidism who was admitted with the emergency room for ongoing fever. * bacteremia, Klebsiella pneumonia -2nd blood culture continues to show bacteremia -next set pending -secondary from Otero port placement -was treated w Zosyn, now on Ceftriaxone * sepsis -due to the above -resolving * hypotensive -asymptomatic * tachycardia -overall resolved -patient chronically on a calcium channel adrián that was given just now * hypokalemia -replacement *thrombocytopenia -follow, ? from abx * history of mast cell activation syndrome -on a Benadryl pump, Pepcid iv -EpiPen p.r.n. * adrenal insufficiency -on steroids * hyperthyroidism *coronary artery vasospasms hx -on medications to control this *hx of PE -on chronic anticoagulation *Plan: no longer febrile, will discuss w ID if current PICC should remain in place or should be removed and have a new line placed. Subjective: Moni is feeling a bit more lethargic today. Had coughing during the night last night. Objective: Vital Signs Temp Pulse Resp BP Pulse Ox 36.7 C 85 16 113/84 H 94 07/20/17 07:13 07/20/17 07:13 07/20/17 07:13 07/20/17 07:13 07/20/17 07:13 Laboratory Results 07/19/17 05:00 07/20/17 05:00 07/19/17 07/20/17 07/21/17 05:59 05:59 05:59 Intake Total 1724 2500 Output Total 600 Balance 1124 2500 PT 15.3 SEC (12.0-15.0) H 07/15/17 20:00 INR 1.19 (0.83-1.16) H 07/15/17 20:00 - Physical Exam Constitutional: no apparent distress, appears nourished, not in pain Eyes: PERRL Ears, Nose, Mouth, Throat: hearing normal Cardiovascular: regular rate and rhythym Respiratory: no respiratory distress, clear to auscultation Skin: warm Neurologic: AAOx3 Psychiatric: interacting appropriately ICD10 Worksheet Patient Problems: Problems Problem Status Onset Hypokalemia Acute Chest pain Acute Mast cell activation Acute
[2017-07-20] MEDS: CETIRIZINE 10 MG TAB PO SCH ×2 (12:44→22:24)
--- NOTE | 2017-07-20 14:12 | PDIAF ---
- Diagnosis Diagnosis: Klebsiella line infection Code Status: Full Code - Medication Management Discharge Medications: Medications to Continue on Transfer Alendronate Sodium [Fosamax 70 MG (*)] 70 mg PO MO@0700 08/10/16 [Last Taken 06/05] Cetirizine [ZyrTEC 10 mg (*)] 10 mg PO DAILY@12 08/10/16 [Last Taken 07/01/17] Hydrochlorothiazide [HCTZ (*)] 25 mg PO DAILY 08/10/16 [Last Taken 07/01/17] Hydrocortisone [Cortef] 5 mg PO TID 08/10/16 [Last Taken 07/02/17 05:45] Isosorbide Dinitrate [Isosorbide Dinitrate 10 mg (*)] 15 mg PO TID 08/10/16 [ Last Taken 07/02/17 05:45] Enoxaparin [Lovenox 80 MG (*)] 80 mg SQ BID #14 syr 06/15/17 [Last Taken 09:00] Cholecalciferol Vit D3 [Vitamin D3 2000 units tab (OTC)] 2,000 units PO BID 07/05 [Last Taken 07/02/17 05:45] Cyanocobalamin [Vitamin B12 1000MCG/ML (*)] 1,000 mcg IM Q14D 06/30/17 [Last Taken 07/01/17] Fludrocortisone Acetate [Florinef] 0.3 mg PO DAILY 06/30/17 [Last Taken 05:45] Levalbuterol Inhaler [Xopenex Hfa Inhaler (*)] 1 puffs IH DAILY 06/30/17 [Last Taken 07/02/17 05:45] Montelukast Sodium [Singulair 10 mg (*)] 10 mg PO BID 06/30/17 [Last Taken 07/02 05:45] Nitroglycerin [Nitrostat 0.4 mg (*)] 0.4 mg SL Q5M PRN 06/30/17 [Last Taken Unknown] Ns [NS IV 1000ml (*)] 1,000 ml IV BID 06/30/17 [Last Taken 07/01/17] methylPREDNISolone SOD SUCC [Solu-Medrol 125 mg (*)] 125 mg IM DAILY PRN [Last Taken 06/25/17] Alocril Opthalmic Solution 2% 1 drop EACHEYE BID 07/02/17 [Last Taken Unknown] Benadryl Own Pump 15 mg IV CONT 07/02/17 [Last Taken 07/02/17] Brovana Nebulizer 1 each IH BID 07/02/17 [Last Taken 07/02/17 05:45] Budesonide 1 mg IH BID 07/02/17 [Last Taken 07/02/17 05:45] Cetirizine [ZyrTEC 10 mg (*)] 20 mg PO HS 07/02/17 [Last Taken 07/01/17] Compounded Zantac 10 ml PO QID 07/02/17 [Last Taken 07/02/17 05:45] Cromolyn Sodium 40 mg IH QID 07/02/17 [Last Taken 07/02/17 05:45] Cromolyn Sodium 200 mg PO QID 07/02/17 [Last Taken Unknown] Cromolyn Sodium [Nasalcrom] 1 inh NS BID 07/02/17 [Last Taken Unknown] Domperidone 4 each PO QID 07/02/17 [Last Taken 07/02/17 05:45] Famotidine (Own Pump) 2 mg IV CONT 07/02/17 [Last Taken 07/02/17] Levalbuterol Inhaler [Xopenex Hfa Inhaler (*)] 1 puffs IH HS PRN 07/02/17 [Last Taken Unknown] Quercetin 500mg 500 mg PO QID 07/02/17 [Last Taken 07/02/17 05:45] Sodium Cl Nasal [[place] (*)] 1 spray NS BID 07/02/17 [Last Taken 07/15/17] Diltiazem HCl [Diltiazem 24Hr ER] 180 mg PO DAILY 07/03/17 [Last Taken Unknown] EPINEPHrine KIT [Epipen Kit] 0.3 mg IM ONCE PRN inj 07/03/17 [Last Taken Unknown] HYDROmorphone HCL [Dilaudid 2 mg (*)] 2 mg PO Q4HRS PRN #20 tab 07/03/17 [Last Taken Unknown] Environmental Marketer Antibiotics: Ceftriaxone 1 g IV daily Nursing Home Antibiotic Stop Date: 07/31/17 Discharge Medications: Refer to the Discharge Home Medication list for PRN reason. PICC Care - Routine: Yes - Orders Services needed: Home Care, Registered Nurse Home Care Face to Face: I certify that this patient was under my care and that I had the required [id number] encounter meeting the encounter requirements on the discharge day. My findings support the fact that the patient is homebound as defined in Home Care Face to Face Continued: CMS Chapter 7 Medicare Benefits Manual 30.1.1 , The condition of the patient is such that there exists a normal inability to leave home and consequently, leaving home would require a considerable and taxing effort. - Labs/Radiology CBC w/diff Date: 07/27/17 (Weekly Thursday) CMP Date: 07/27/17 (Weekly Thursday) Call or Fax Lab and Imaging Results to: Duong Watkins MD [facility] at fax [phone] - Follow Up Care Current Providers and Referrals: Nicole Bryson MD [Primary Care Provider] - As per Instructions Duong Watkins MD [Medical Doctor] - follow up in 1 week
--- NOTE | 2017-07-20 14:17 | PCMIDPN ---
Assessment/Plan: # Klebsiella line infection --exchange PICC line today before discharge --DC today if antibiotics can be arranged --blood cultures collected to establish clearance in this complex patient --IV ceftriaxone through 07/31/2017, inter agency complete # sepsis due to line infection, resolved Medications Ceftriaxone 1 g IV Q 24, # 3 Microbiology 07/15 blood cultures (2) Klebsiella 07/16 blood cultures (1) Klebsiella 07/19 blood cultures (2): Pending Subjective: Patient feeling improved although remains fatigued. Does want to go home if possible. Objective: Vital Signs Temp Pulse Resp BP Pulse Ox 36.8 C 84 16 128/89 H 97 07/20/17 11:06 07/20/17 11:06 07/20/17 11:06 07/20/17 11:06 07/20/17 11:06 Laboratory Results 07/19/17 05:00 07/20/17 05:00 07/19/17 07/20/17 07/21/17 05:59 05:59 05:59 Intake Total 1724 2500 Output Total 600 Balance 1124 2500 - Physical Exam General Appearance: alert, no apparent distress EENT: pale conjunctiva Respiratory: No accessory muscle use Skin: pallor Neuro/Psych: alert, normal mood/affect - Time Spent With Patient Time Spent with Patient: greater than 25 minutes (Coordination of care with hospitalists) Time Spent with Patient: Greater than 25 minutes spent on this patients care, greater than 50% of time spent counseling, educating, and coordinating care regarding the above mentioned plan. ICD10 Worksheet Patient Problems: Problems Problem Status Onset Hypokalemia Acute Chest pain Acute Mast cell activation Acute
[2017-07-20] MEDS ORDERED: ALTEPLASE 2 MG VIAL IVP PRN (14:18)
[2017-07-20] MEDS ORDERED: POTASSIUM CL 20 MEQ TAB PO SCH (16:11)
[2017-07-21] MEDS: CROMOLYN SODIUM 20 MG/2 ML IH SCH ×4 (05:06→21:31)
[2017-07-21] MEDS: LEVALBUTEROL 1.25 MG/3 ML DEYVIAL IH SCH ×4 (05:07→21:30)
[2017-07-21] MEDS: ACETAMINOPHEN 325 MG PO PRN ×3 (05:35→17:29)
[2017-07-21] MEDS: RANITIDINE 15 MG/ML PO SCH ×4 (05:36→21:40)
[2017-07-21] MEDS: QUERCETIN 500 MG PO SCH ×4 (05:36→21:50)
[2017-07-21] MEDS: CROMOLYN SODIUM 100 MG/5 ML PO SCH ×4 (05:39→21:46)
[2017-07-21] MEDS ORDERED: POTASSIUM CL 10 MEQ TAB PO ONE (07:52)
[2017-07-21] MEDS: ENOXAPARIN 80 MG/0.8 ML SYR SC SCH ×2 (08:07→21:41)
[2017-07-21] MEDS: [UNRECOGNIZED DRUG - OTHER] EACHEYE SCH ×2 (08:11→21:44)
[2017-07-21] MEDS: CHOLECALCIFEROL VIT D3 2,000 UNITS TAB/CAP PO SCH ×2 (08:14→21:45)
[2017-07-21] MEDS: DILTIAZEM CD 180 MG CAP PO SCH (08:19)
[2017-07-21] MEDS: FLUDROCORTISONE ACETATE 0.1 MG TAB PO SCH (08:20)
[2017-07-21] MEDS: HYDROCHLOROTHIAZIDE 25 MG TAB PO SCH (08:21)
[2017-07-21] MEDS: HYDROCORTISONE 10 MG TAB PO SCH ×3 (08:22→17:34)
[2017-07-21] MEDS: ISOSORBIDE DINITRATE 10 MG TAB PO SCH ×3 (08:23→21:41)
[2017-07-21] MEDS: MONTELUKAST SODIUM 10 MG TAB PO SCH ×2 (08:24→21:41)
--- NOTE | 2017-07-21 08:31 | HOSPPROG ---
Hospitalist Progress Note Assessment/Plan: Patient is a 41-year-old female with mast cell activation syndrome, adrenal insufficiency as well as hyperthyroidism who was admitted with the emergency room for ongoing fever. * bacteremia, Klebsiella pneumonia -2nd blood culture continues to show bacteremia -next set pending -secondary from Otero port placement -was treated w Zosyn, now on Ceftriaxone * Sepsis POA resulting from Klebsiella Pneumoniae bacteremia. -From Otero line. * hypotensive -asymptomatic * tachycardia -overall resolved -patient chronically on a calcium channel adrián that was given just now * hypokalemia -replacement/significant -will dc home on kdur 40 meq bid -will let her PCP doctor, Dr Diehl know for close monitoring *thrombocytopenia -follow, ? from abx * history of mast cell activation syndrome -on a Benadryl pump, Pepcid iv -EpiPen p.r.n. * adrenal insufficiency -on steroids * hyperthyroidism *coronary artery vasospasms hx -on medications to control this *hx of PE -on chronic anticoagulation *Plan:dc today, will need close monitoring of K levels Subjective: Moni is feeling well, ready for dc. Objective: Vital Signs Temp Pulse Resp BP Pulse Ox 36.5 C 88 18 128/84 H 97 07/21/17 07:48 07/21/17 07:48 07/21/17 07:48 07/21/17 07:48 07/21/17 07:48 Laboratory Results 07/19/17 05:00 07/21/17 05:45 07/20/17 07/21/17 07/22/17 05:59 05:59 05:59 Intake Total 2500 1500 Balance 2500 1500 PT 15.3 SEC (12.0-15.0) H 07/15/17 20:00 INR 1.19 (0.83-1.16) H 07/15/17 20:00 - Physical Exam Constitutional: no apparent distress, appears nourished, not in pain Eyes: PERRL Ears, Nose, Mouth, Throat: hearing normal Respiratory: no respiratory distress Skin: warm Musculoskeletal: full muscle strength Neurologic: AAOx3 Psychiatric: interacting appropriately, not anxious ICD10 Worksheet Patient Problems: Problems Problem Status Onset Hypokalemia Acute Chest pain Acute Mast cell activation Acute
[2017-07-21] MEDS: BUDESONIDE IH SCH ×2 (09:31→21:25)
[2017-07-21] MEDS: BROVANA 15 MCG/2 ML IH SCH ×2 (09:32→21:24)
[2017-07-21] MEDS ORDERED: POTASSIUM CL 20 MEQ TAB PO SCH (11:15)
[2017-07-21] MEDS: CETIRIZINE 10 MG TAB PO SCH ×2 (11:42→21:42)
--- NOTE | 2017-07-21 12:08 | GCON ---
[f rep st] CONSULTATION DATE OF CONSULTATION: 07/16/2017 HISTORY OF PRESENT ILLNESS: Patient is a 41-year-old female who is known to me from a previous Otero catheter placement. She presents at this time with her usual mast cell activation problems, needing continuous IV. However, Otero has become infected, and she has positive blood cultures. The Otero line itself appears to be nontender and normal, but, in the face of her recurrent positive blood cultures, it is likely that catheter line sepsis is her diagnosis. PAST MEDICAL HISTORY: Quite complicated by the mast cell activation syndrome, and she requires a continuous Benadryl infusion. She also has a history of colitis and adrenal insufficiency. REVIEW OF SYSTEMS: Negative on a full 10-point review of systems, except that she is an ex smoker and as related to her History of Present Illness and Past History. PHYSICAL EXAMINATION: GENERAL: Reveals an alert, 41-year-old female who is presently afebrile, but who had a temperature of over 39 last p.m. HEAD AND NECK: Reveal no icterus or adenopathy. CHEST: Clear. Port site on the left anterior chest appears to be normal with no drainage, erythema, or tenderness. CARDIAC: Reveals a regular rhythm. ABDOMEN: Soft and nontender. MEDICATIONS: Include: Dilaudid, epinephrine, diltiazem, quercetin, albuterol inhalers, famotidine, domperidone, cromolyn sodium, Zyrtec, budesonide, Brovana nebulizer, Benadryl pump, Alocril ophthalmic ointment, methylprednisolone, Nitrostat, Singulair, Florinef, vitamin B12, vitamin D3, Lovenox, isosorbide, hydrocortisone, HCTZ, and Fosamax. ALLERGIES: Include: Aspirin, iron, Levaquin, Relafen, dapsone, latex, and soy. IMPRESSION: Probable Otero line sepsis. RECOMMENDATIONS: Line removal, temporary IV for antibiotics and Benadryl drip, and then later replacement of her Otero catheter. /[id number]/MODL MTDD
--- NOTE | 2017-07-21 15:27 | ASMTCMCOM ---
CM Note CM Note Notes: Spoke with Naomie from [facility] and faxed reports on PICC line placement. They are ready when patient is ready to discharge. Patient's potassium level dropped and she will need to be here another night. Naomie states their RN can handle the nursing needs patient has. CM will follow. Date Signed: 07/21/2017 03:27 PM Electronically Signed By:Tavia Lieberman LCSW
[2017-07-21] MEDS ORDERED: ONDANSETRON 4 MG/2 ML VIAL IVP PRN (16:09)
[2017-07-21] MEDS: POTASSIUM CL 20 MEQ TAB PO SCH (21:41)
[2017-07-22 05:21] VITALS: PULSE 90
[2017-07-22] MEDS: RANITIDINE 15 MG/ML PO SCH (05:41)
[2017-07-22] MEDS: QUERCETIN 500 MG PO SCH (05:42)
[2017-07-22] MEDS: CROMOLYN SODIUM 100 MG/5 ML PO SCH (05:43)
[2017-07-22] MEDS: CROMOLYN SODIUM 20 MG/2 ML IH SCH ×2 (05:48→09:58)
[2017-07-22] MEDS: LEVALBUTEROL 1.25 MG/3 ML DEYVIAL IH SCH ×2 (05:49→09:58)
[2017-07-22] MEDS: ACETAMINOPHEN 325 MG PO PRN (07:14)
[2017-07-22] MEDS: HYDROCORTISONE 10 MG TAB PO SCH (07:16)
[2017-07-22 07:32] VITALS: BP 124/95; RESP 20; TEMP 99.1; O2SAT 92
[2017-07-22] MEDS: POTASSIUM CL 20 MEQ TAB PO SCH (08:40)
[2017-07-22] MEDS: DILTIAZEM CD 180 MG CAP PO SCH (08:42)
[2017-07-22] MEDS: ISOSORBIDE DINITRATE 10 MG TAB PO SCH (08:43)
[2017-07-22] MEDS: MONTELUKAST SODIUM 10 MG TAB PO SCH (08:44)
[2017-07-22] MEDS: CHOLECALCIFEROL VIT D3 2,000 UNITS TAB/CAP PO SCH (08:45)
[2017-07-22] MEDS: [UNRECOGNIZED DRUG - OTHER] EACHEYE SCH (08:46)
[2017-07-22] MEDS: FLUDROCORTISONE ACETATE 0.1 MG TAB PO SCH (08:51)
[2017-07-22] MEDS: ENOXAPARIN 80 MG/0.8 ML SYR SC SCH (08:52)
--- NOTE | 2017-07-22 08:54 | HOSPPROG ---
Hospitalist Progress Note Assessment/Plan: Patient is a 41-year-old female with mast cell activation syndrome, adrenal insufficiency as well as hyperthyroidism who was admitted with the emergency room for ongoing fever. * bacteremia, Klebsiella pneumonia -2nd blood culture continues to show bacteremia -next set of blood cx is negative -secondary from Otero port placement -was treated w Zosyn, now on Ceftriaxone * Sepsis POA resulting from Klebsiella Pneumoniae bacteremia. -From Otero line. * hypotensive -resolved * tachycardia -overall resolved -patient chronically on a calcium channel adrián that was given just now * hypokalemia -replacement/significant -will dc home on kdur 40 meq bid -will let her PCP doctor, Dr Diehl know -message left on voice machine *thrombocytopenia -follow, ? from abx * history of mast cell activation syndrome -on a Benadryl pump, Pepcid iv -EpiPen p.r.n. * adrenal insufficiency -on steroids * hyperthyroidism *coronary artery vasospasms hx -on medications to control this *hx of PE -on chronic anticoagulation *Plan:dc today, will need close monitoring of K levels Subjective: Moni is feeling much better today. Objective: Vital Signs Temp Pulse Resp BP Pulse Ox 37.3 C 90 20 124/95 H 92 07/22/17 07:29 07/22/17 07:29 07/22/17 07:29 07/22/17 07:29 07/22/17 07:29 Laboratory Results 07/19/17 05:00 07/22/17 05:40 07/21/17 07/22/17 07/23/17 05:59 05:59 05:59 Intake Total 1500 1500 Balance 1500 1500 PT 15.3 SEC (12.0-15.0) H 07/15/17 20:00 INR 1.19 (0.83-1.16) H 07/15/17 20:00 - Physical Exam Constitutional: no apparent distress, appears nourished, not in pain Eyes: PERRL Ears, Nose, Mouth, Throat: hearing normal Respiratory: no respiratory distress Skin: warm Musculoskeletal: full muscle strength Neurologic: AAOx3 Psychiatric: interacting appropriately ICD10 Worksheet Patient Problems: Problems Problem Status Onset Hypokalemia Acute Chest pain Acute Mast cell activation Acute
--- NOTE | 2017-07-22 09:05 | PDIAF ---
- Diagnosis Diagnosis: Klebsiella line infection Code Status: Full Code - Medication Management Discharge Medications: Medications to Continue on Transfer Alendronate Sodium [Fosamax 70 MG (*)] 70 mg PO MO@0700 08/10/16 [Last Taken 06/05] Cetirizine [ZyrTEC 10 mg (*)] 10 mg PO DAILY@12 08/10/16 [Last Taken 07/01/17] Hydrochlorothiazide [HCTZ (*)] 25 mg PO DAILY 08/10/16 [Last Taken 07/01/17] Hydrocortisone [Cortef] 5 mg PO TID 08/10/16 [Last Taken 07/02/17 05:45] Isosorbide Dinitrate [Isosorbide Dinitrate 10 mg (*)] 15 mg PO TID 08/10/16 [ Last Taken 07/02/17 05:45] Enoxaparin [Lovenox 80 MG (*)] 80 mg SQ BID #14 syr 06/15/17 [Last Taken 09:00] Cholecalciferol Vit D3 [Vitamin D3 2000 units tab (OTC)] 2,000 units PO BID 07/05 [Last Taken 07/02/17 05:45] Cyanocobalamin [Vitamin B12 1000MCG/ML (*)] 1,000 mcg IM Q14D 06/30/17 [Last Taken 07/01/17] Fludrocortisone Acetate [Florinef] 0.3 mg PO DAILY 06/30/17 [Last Taken 05:45] Montelukast Sodium [Singulair 10 mg (*)] 10 mg PO BID 06/30/17 [Last Taken 07/02 05:45] Nitroglycerin [Nitrostat 0.4 mg (*)] 0.4 mg SL Q5M PRN 06/30/17 [Last Taken Unknown] methylPREDNISolone SOD SUCC [Solu-Medrol 125 mg (*)] 125 mg IM DAILY PRN [Last Taken 06/25/17] Alocril Opthalmic Solution 2% 1 drop EACHEYE BID 07/02/17 [Last Taken Unknown] Benadryl Own Pump 15 mg IV CONT 07/02/17 [Last Taken 07/02/17] Brovana Nebulizer 1 each IH BID 07/02/17 [Last Taken 07/02/17 05:45] Budesonide 1 mg IH BID 07/02/17 [Last Taken 07/02/17 05:45] Cetirizine [ZyrTEC 10 mg (*)] 20 mg PO HS 07/02/17 [Last Taken 07/01/17] Compounded Zantac 10 ml PO QID 07/02/17 [Last Taken 07/02/17 05:45] Cromolyn Sodium 40 mg IH QID 07/02/17 [Last Taken 07/02/17 05:45] Cromolyn Sodium 200 mg PO QID 07/02/17 [Last Taken Unknown] Cromolyn Sodium [Nasalcrom] 1 inh NS BID 07/02/17 [Last Taken Unknown] Domperidone 4 each PO QID 07/02/17 [Last Taken 07/02/17 05:45] Famotidine (Own Pump) 2 mg IV CONT 07/02/17 [Last Taken 07/02/17] Levalbuterol Inhaler [Xopenex Hfa Inhaler (*)] 1 puffs IH HS PRN 07/02/17 [Last Taken Unknown] Quercetin 500mg 500 mg PO QID 07/02/17 [Last Taken 07/02/17 05:45] Sodium Cl Nasal [[place] (*)] 1 spray NS BID 07/02/17 [Last Taken 07/15/17] Diltiazem HCl [Diltiazem 24Hr ER] 180 mg PO DAILY 07/03/17 [Last Taken Unknown] EPINEPHrine KIT [Epipen Kit] 0.3 mg IM ONCE PRN inj 07/03/17 [Last Taken Unknown] HYDROmorphone HCL [Dilaudid 2 mg (*)] 2 mg PO Q4HRS PRN #20 tab 07/03/17 [Last Taken Unknown] Potassium Cl [Klor-Con 20 meq (*)] 40 meq PO BID #120 tab 07/22/17 [Last Taken Unknown] Boat [employer]ar Maker Antibiotics: Ceftriaxone 1 g IV daily Nursing Home Antibiotic Stop Date: 07/31/17 Discharge Medications: Refer to the Discharge Home Medication list for PRN reason. PICC Care - Routine: Yes - Orders Services needed: Home Care, Registered Nurse Home Care Face to Face: I certify that this patient was under my care and that I had the required [id number] encounter meeting the encounter requirements on the discharge day. My findings support the fact that the patient is homebound as defined in Home Care Face to Face Continued: CMS Chapter 7 Medicare Benefits Manual 30.1.1 , The condition of the patient is such that there exists a normal inability to leave home and consequently, leaving home would require a considerable and taxing effort. Diet Recommendation: no restrictions on diet Diet Texture: Regular Texture Diet Additional: send K levels to Dr Diehl, she is on a high dose of potassium due to severe hypokalemia. - Labs/Radiology BMP Date: 07/24/17 (every 2 days till stable) CBC w/diff Date: 07/27/17 (Weekly Thursday) CMP Date: 07/27/17 (Weekly Thursday) - Follow Up Care Current Providers and Referrals: Nicole Bryson MD [Primary Care Provider] - As per Instructions Duong Watkins MD [Medical Doctor] - follow up in 1 week
--- NOTE | 2017-07-22 09:42 | GDS ---
[f rep st] DISCHARGE SUMMARY DISCHARGE DIAGNOSES: 1. Bacteremia. 2. Sepsis present on admission resulting from Klebsiella pneumoniae bacteremia. 3. Hypotension. 4. Tachycardia. 5. Hypokalemia. 6. Thrombocytopenia. 7. History of mast cell activation syndrome. 8. Adrenal insufficiency. 9. Hyperthyroidism. 10. Coronary artery vasospasm history. 11. History of pulmonary embolism. CONSULTATION: 1. Dr. Duong Watkins. 2. Dr. Gaby Woodruff. HISTORY OF PRESENT ILLNESS: Briefly, the patient is a 41-year-old female, who has an underlying diagnosis of mast cell activation syndrome. She also has a diagnosis of asthma, coronary artery vasospasm, pulmonary emboli and DVT. Came to the emergency room complaining of fever and shaking chills. She had a port and subsequently changed for Otero catheter that occurred approximately 2 weeks ago, which had not been bothering much. She came to the emergency room and was admitted. It was noted that her blood cultures grew out a Klebsiella pneumonia. She was seen and evaluated by Dr. Woodruff. During her stay, her Otero catheter was removed and a PICC line was placed. Prior to her discharge , the PICC was replaced. Today, she is feeling markedly better. Her hospital stay was complicated in that she had significant hypokalemia. Etiologies unclear at this time, except that she is on a diuretic. This has been held. She will be discharged home on 40 mEq of potassium b.i.d., and will have this checked closely and follow up with Dr. Diehl. HOSPITAL COURSE BY PROBLEM: 1. Bacteremia. Her 2 sets of blood cultures showed bacteremia. Her next set as of today is negative. This was secondary from a Otero port. She was initially treated with Zosyn. Now, she is on ceftriaxone. 2. Sepsis present on admission resulting from the Klebsiella pneumoniae bacteremia, resolved. 3. Hypotension, resolved. 4. Tachycardia, resolved. 5. Hypokalemia. She has had extremely low potassiums. It is markedly better. Will continue on b.i.d. of K-Dur and will have her potassium level checked every 2 days. 6. Thrombocytopenia. Could have been from the antibiotics. 7. History of mast cell activation syndrome. She is on a Benadryl and Pepcid IV. She has EpiPen p.r.n. 8. Adrenal insufficiency, on steroids. 9. Hyperthyroidism, stable. 10. Coronary artery vasospasm. Home medications have been continued. 11. History of pulmonary embolism. She is on chronic anticoagulation. DISCHARGE CONDITION: Stable. Blood pressure is 124/95, heart rate is 90, respiratory rate is 20, O2 sats on room air 92%, temperature 37.3 Celsius. MEDICATIONS AT DISCHARGE: Please see the EMR. DISCHARGE INSTRUCTIONS: 1. To further follow up with Dr. Watkins. 2. Extremely close monitoring of her potassium and follow up with Dr. Caroline Diehl. 3. If she does have fever, chills, chest pain, or shortness of breath, return to the ER. Greater than 30 minutes discharging and coordinating care. /[id number]/MODL MTDD
[2017-07-22] MEDS: BROVANA 15 MCG/2 ML IH SCH (09:57)
[2017-07-22] MEDS: BUDESONIDE IH SCH (09:58)
== END 2017-07-22 10:40 | disposition home or self-care (01) | DRG 314 ==
LOC: F3E 22:38
PROVIDERS: ADMIT Internal Medicine Pulmonary Disease; ATTEND Internal Medicine Pulmonary Disease
PROC: 02PYX3Z Removal of Infusion Device from Great Vessel, External Approach (ICD-10-PCS; principal; 2017-07-17)
PROC: 02HV33Z Insertion of Infusion Device into Superior Vena Cava, Percutaneous Approach (ICD-10-PCS; 2017-07-17)
PROC: 02HV33Z Insertion of Infusion Device into Superior Vena Cava, Percutaneous Approach (ICD-10-PCS; 2017-07-20)
PROC: 02PYX3Z Removal of Infusion Device from Great Vessel, External Approach (ICD-10-PCS; 2017-07-20)
DX: T80.211A Bloodstream infection due to central venous catheter, initial encounter (principal); A41.89 Other specified sepsis; E27.40 Unspecified adrenocortical insufficiency; E87.6 Hypokalemia; D69.6 Thrombocytopenia, unspecified; E05.90 Thyrotoxicosis, unspecified without thyrotoxic crisis or storm; B96.1 Klebsiella pneumoniae [K. pneumoniae] as the cause of diseases classified elsewhere; D89.40 Mast cell activation, unspecified; J45.909 Unspecified asthma, uncomplicated; Z86.711 Personal history of pulmonary embolism; Z86.718 Personal history of other venous thrombosis and embolism; Z87.891 Personal history of nicotine dependence; Z79.01 Long term (current) use of anticoagulants
CPT/HCPCS: 96365; C1751; J0696; J1650; J2405; J2543; J2550; J3010; J3475; J7626

== ENCOUNTER 2017-08-03 13:59 | Inpatient (IN) | payer OTHER ==
[2017-08-03 15:22] LABS: PLATELET COUNT 275 10^3/uL (150-400)
[2017-08-03 15:32] LABS: INR 1.05 (0.83-1.16); PROTIME(PATIENT) 13.9 SEC (12.0-15.0)
[2017-08-03] MEDS ORDERED: NS 1,000 ML IV ONE (15:41)
[2017-08-03] MEDS ORDERED: POTASSIUM CL 20 MEQ TAB PO ONE (15:41)
--- NOTE | 2017-08-03 15:41 | EDPHY ---
H & P Time Seen by Provider: 08/03/17 14:55 HPI/ROS: Chief complaint. Fever HPI. 41-year-old female with history of mast cell activation syndrome an adrenal insufficiency on immuno compromising medication presents with fever. She was admitted July 15 and developed pneumonia with Klebsiella bacteremia. She also had significant hypokalemia at 2.4. She was discharged from the hospital about 12 days ago. 3 days ago she finished her oral antibiotics. This morning she developed fever. She has cough and congestion. No urinary symptoms. Nausea but no abdominal pain or vomiting or diarrhea. Exposure to Infectious Disease in the hospital the and this would not be a community-acquired pneumonia. She has had a headache since hospitalization on July 15 ROS Constitutional. Fever and chills Eyes. no problems with vision ENT. no sore throat, no nasal drainage Cardiovascular. no chest pain Respiratory. Cough Abdominal. Nausea . no problems urinating MS. no calf pain/swelling, no neck/back pain, no joint pain Skin. no rash Lymph. no swollen glands Neuro. Headache Past Medical/Surgical History: Mast cell activation syndrome, asthma, adrenal insufficiency, coronary artery spasm, PE/DVT on chronic anticoagulation, hypothyroid, recent Klebsiella bacteremia Social History: Single, nonsmoker, no alcohol Smoking Status: Former smoker Physical Exam: General Appearance: Alert well-developed female moderate distress temp is 39.5degrees with heart rate 113. Blood pressure 103/74 Eyes: Pupils equal and round no pallor or injection. ENT, mucous membranes are dry. Pharynx without injection Respiratory: There are no retractions, lungs are clear to auscultation. Cardiovascular: Regular rate and rhythm. Gastrointestinal: Abdomen is soft and nontender, no masses, bowel sounds normal. Neurological: Awake and alert, sensory and motor exams grossly normal. Skin: Warm and dry, no rashes. Musculoskeletal: Neck is supple nontender. Extremities symmetrical, full range of motion. Psychiatric: Patient is oriented X 3, there is no agitation. Constitutional: Initial Vital Signs Temperature (C) 39.5 C H 08/03/17 14:05 Heart Rate 113 H 08/03/17 14:05 Respiratory Rate 20 08/03/17 14:05 Blood Pressure 103/74 08/03/17 14:05 O2 Sat (%) 93 08/03/17 14:05 O2 Delivery Mode Room Air Allergies/Adverse Reactions: iron sucrose complex [From Venofer] Allergy (Severe, Verified 08/03/17 14:04) Anaphylaxis aspirin Allergy (Intermediate, Verified 08/03/17 14:04) Anaphylaxis levofloxacin [From Levaquin] Allergy (Unknown, Verified 08/03/17 14:04) hives all over and swelling of tongue nabumetone [From Relafen] Allergy (Unknown, Verified 08/03/17 14:04) hives all over and swelling of tongue dapsone Allergy (Verified 08/03/17 14:04) severe anemia latex Allergy (Verified 08/03/17 14:04) soy Allergy (Verified 08/03/17 14:04) STEROIDS Allergy (Unknown, Uncoded 07/15/17 19:25) has to have benadryl first Home Medications: Medication Instructions Recorded Alendronate Sodium [Fosamax 70 MG 70 mg PO MO@0700 08/10/16 (*)] Cetirizine [ZyrTEC 10 mg (*)] 10 mg PO DAILY@12 08/10/16 Hydrochlorothiazide [HCTZ (*)] 25 mg PO DAILY 08/10/16 Hydrocortisone [Cortef] 5 mg PO TID 08/10/16 Isosorbide Dinitrate [Isosorbide 15 mg PO TID 08/10/16 Dinitrate 10 mg (*)] Enoxaparin [Lovenox 80 MG (*)] 80 mg SQ BID #14 syr 06/15/17 Cholecalciferol Vit D3 [Vitamin D3 2,000 units PO BID 06/30/17 2000 units tab (OTC)] Cyanocobalamin [Vitamin B12 1,000 mcg IM Q14D 06/30/17 1000MCG/ML (*)] Fludrocortisone Acetate [Florinef] 0.3 mg PO DAILY 06/30/17 Montelukast Sodium [Singulair 10 10 mg PO BID 06/30/17 mg (*)] Nitroglycerin [Nitrostat 0.4 mg 0.4 mg SL Q5M PRN 06/30/17 (*)] methylPREDNISolone SOD SUCC 125 mg IM DAILY PRN 06/30/17 [Solu-Medrol 125 mg (*)] Alocril Opthalmic Solution 2% 1 drop EACHEYE BID 07/02/17 Benadryl Own Pump 15 mg IV CONT 07/02/17 Brovana Nebulizer 1 each IH BID 07/02/17 Budesonide 1 mg IH BID 07/02/17 Cetirizine [ZyrTEC 10 mg (*)] 20 mg PO HS 07/02/17 Compounded Zantac 10 ml PO QID 07/02/17 Cromolyn Sodium 40 mg IH QID 07/02/17 Cromolyn Sodium 200 mg PO QID 07/02/17 Cromolyn Sodium [Nasalcrom] 1 inh NS BID 07/02/17 Domperidone 4 each PO QID 07/02/17 Famotidine (Own Pump) 2 mg IV CONT 07/02/17 Levalbuterol Inhaler [Xopenex Hfa 1 puffs IH HS PRN 07/02/17 Inhaler (*)] Quercetin 500mg 500 mg PO QID 07/02/17 Sodium Cl Nasal [[place] (*)] 1 spray NS BID 07/02/17 Diltiazem HCl [Diltiazem 24Hr ER] 180 mg PO DAILY 07/03/17 EPINEPHrine KIT [Epipen Kit] 0.3 mg IM ONCE PRN inj 07/03/17 HYDROmorphone HCL [Dilaudid 2 mg 2 mg PO Q4HRS PRN #20 tab 07/03/17 (*)] Potassium Cl [Klor-Con 20 meq (*)] 40 meq PO BID #120 tab 07/22/17 Medical Decision Making - Diagnostics EKG Interpretation: EKG interpreted by me shows normal sinus rhythm with first-degree AV block. Normal axis. QRS is normal there is no significant ST elevation or depression. There is no arrhythmia. There is some lateral T changes. The rate is 93 Imaging Results: Imaging Impressions Chest X-Ray 08/03/17 15:01 Impression: 1. Near complete resolution of right lung alveolar opacities possibly reflecting resolving pneumonia. 2. PICC in stable position. 3. Query airways disease. Chest x-ray interpreted by me shows near complete resolution of her right lung pneumonia. PICC line present and appears in good position Procedures: IV normal saline. Sepsis workup. Patient has hypokalemia. IV and oral potassium ED Course/Re-evaluation: On further evaluation patient remained stable. The patient her family and I discussed imaging and lab an EKG findings. We discussed treatment plan including recommendation for admission. They expressed understanding and agreement Differential Diagnosis: Fever with recent Klebsiella bacteremia. I considered sepsis, pneumonia, urinary tract infection, influenza. Patient also has significant hypokalemia. I considered EKG changes in conduction disturbances. - Data Points Laboratory Results: Laboratory Results 08/03/17 15:05 08/03/17 15:05 08/03/17 08/03/17 08/03/17 15:45 15:05 15:05 WBC RBC Hgb Hct MCV MCH MCHC RDW Plt Count MPV Neut % (Auto) Lymph % (Auto) Thayer % (Auto) Eos % (Auto) Baso % (Auto) Nucleat RBC Rel Count Absolute Neuts (auto) Absolute Lymphs (auto) Absolute Monos (auto) Absolute Eos (auto) Absolute Basos (auto) Absolute Nucleated RBC Immature Gran % Immature Gran # PT 13.9 SEC SEC (12.0-15.0) INR 1.05 (0.83-1.16) APTT 32.8 SEC SEC (23.0-38.0) VBG Lactic Acid Sodium Potassium Chloride Carbon Dioxide Anion Gap BUN Creatinine Estimated GFR Glucose Calcium Magnesium 1.6 mg/dL mg/dL (1.6-2.3) Total Bilirubin Nasal Influenza A PCR NEGATIVE FOR FLU A (NEGATIVE) Nasal Influenza B PCR NEGATIVE FOR FLU B (NEGATIVE) 08/03/17 08/03/17 08/03/17 15:05 15:05 15:05 WBC 7.45 10^3/uL 10^3/uL (3.80-9.50) RBC 3.51 10^6/uL L 10^6/uL (4.18-5.33) Hgb 10.6 g/dL L g/dL (12.6-16.3) Hct 30.7 % L % (38.0-47.0) MCV 87.5 fL fL (81.5-99.8) MCH 30.2 pg pg (27.9-34.1) MCHC 34.5 g/dL g/dL (32.4-36.7) RDW 12.5 % % (11.5-15.2) Plt Count 275 10^3/uL 10^3/uL (150-400) MPV 10.1 fL fL (8.7-11.7) Neut % (Auto) 81.0 % H % (39.3-74.2) Lymph % (Auto) 10.3 % L % (15.0-45.0) Thayer % (Auto) 7.8 % % (4.5-13.0) Eos % (Auto) 0.1 % L % (0.6-7.6) Baso % (Auto) 0.4 % % (0.3-1.7) Nucleat RBC Rel Count 0.0 % % (0.0-0.2) Absolute Neuts (auto) 6.03 10^3/uL 10^3/uL (1.70-6.50) Absolute Lymphs (auto) 0.77 10^3/uL L 10^3/uL (1.00-3.00) Absolute Monos (auto) 0.58 10^3/uL 10^3/uL (0.30-0.80) Absolute Eos (auto) 0.01 10^3/uL L 10^3/uL (0.03-0.40) Absolute Basos (auto) 0.03 10^3/uL 10^3/uL (0.02-0.10) Absolute Nucleated RBC 0.00 10^3/uL 10^3/uL (0-0.01) Immature Gran % 0.4 % % (0.0-1.1) Immature Gran # 0.03 10^3/uL 10^3/uL (0.00-0.10) PT INR APTT VBG Lactic Acid 1.2 mmol/L mmol/L (0.7-2.1) Sodium 137 mEq/L mEq/L (135-145) Potassium 2.7 mEq/L L* mEq/L (3.5-5.2) Chloride 101 mEq/L mEq/L (97-110) Carbon Dioxide 24 mEq/l mEq/l (22-31) Anion Gap 12 mEq/L mEq/L (8-16) BUN 4 mg/dL L mg/dL (7-23) Creatinine 0.6 mg/dL mg/dL (0.6-1.0) Estimated GFR > 60 Glucose 176 mg/dL H mg/dL (70-100) Calcium 8.6 mg/dL mg/dL (8.5-10.4) Magnesium Total Bilirubin 0.3 mg/dL mg/dL (0.1-1.4) Nasal Influenza A PCR Nasal Influenza B PCR Medications Given: Acetaminophen (Tylenol) 650 mg PO Q4HRS PRN PRN Reason: Pain, Mild/Fever, Can Take PO Stop: 01/30/18 16:11 Last Admin: 08/03/17 17:00 Dose: 650 mg Discontinued Medications Sodium Chloride (Ns) 1,000 mls @ 0 mls/hr IV EDNOW ONE; Wide Open PRN Reason: Protocol Stop: 08/03/17 15:42 Last Admin: 08/03/17 15:44 Dose: 1,000 mls Potassium Chloride (Klor-Con) 20 meq PO EDNOW ONE Stop: 08/03/17 15:42 Last Admin: 08/03/17 16:06 Dose: 20 meq Departure - Departure Disposition: [facility] Acute Clinical Impression: Hypokalemia Condition: Fair
[2017-08-03] MEDS ORDERED: ONDANSETRON DISINTEGRATING 4 MG TAB PO PRN (16:12)
[2017-08-03] MEDS ORDERED: PROTOCOL POTASSIUM 1 DOSE MISC PRN (16:12)
[2017-08-03] MEDS ORDERED: ACETAMINOPHEN 325 MG TAB PO PRN (16:12)
[2017-08-03] MEDS ORDERED: PROTOCOL MAGNESIUM 1 DOSE IV PRN (16:12)
--- NOTE | 2017-08-03 16:34 | CPEKG ---
Heart Rate: 93 RR Interval: 645 P-R Interval: 240 QRSD Interval: 90 QT Interval: 376 QTC Interval: 468 P Emeigh: -21 QRS Emeigh: 44 EKG Severity - ABNORMAL ECG - EKG Impression: SINUS RHYTHM EKG Impression: FIRST DEGREE AV BLOCK EKG Impression: ABNORMAL T, CONSIDER ISCHEMIA, LATERAL LEADS Electronically Signed By: Yo Garcia 03-Aug-2017 21:34:22
--- NOTE | 2017-08-03 17:22 | GHP ---
[f rep st] HISTORY AND PHYSICAL DATE OF ADMISSION: 08/03/2017 CHIEF COMPLAINT: Fever. HISTORY OF PRESENT ILLNESS: The patient is a 41-year-old with a history significant for multiple med ical issues including mast cell activation syndrome, scleroderma, adrenal insufficiency, and asthma. She was recently admitted here in early July for pneumonia complicated by Klebsiella bacteremia a nd a secondary port infection. During that hospitalization, she had her Otero removed. She cleare d her bacteremia with ceftriaxone and had a PICC line placed prior to discharge. She had just comple xu 10 more days of ceftriaxone as an outpatient. Her last dose was on the , 3 days prior to thi s admission. After finishing her antibiotic, she started feeling poorly on Thursday night, she started getting a worse headache and cough, just feeling sick in general. She said she felt similar to when she was bacteremic. She describes a host of symptoms including headache, nausea, cough, chest pain, shortness of breath, muscle ache, joint aches. She noted higher fever, so she came into the ER toda y for further evaluation and treatment. Upon arrival, her temperature was 39.5, but the rest of her vital signs were fairly stable. PAST MEDICAL HISTORY: 1. Recent pneumonia complicated by Klebsiella bacteremia, just completed antibiotics 3 days prior to this admission. 2. Mast cell activation syndrome on a Benadryl and famotidine drip with a PICC line placed and plans for an eventual port placement. She has been on this for a year, followed by Dr. Caroline Diehl, [facility]. 3. Adrenal insufficiency secondary to steroid use with her asthma, [facility]. 4. Scleroderma with Crest syndrome. 5. Ulcerative colitis, currently not active. 6. History of endometriosis. 7. Coronary artery vasospasm, which can go along with her mast cell activation syndrome. She is fol lowed by Cardiology at [facility]. Currently on calcium channel adrián and nitrates. 8. Osteoporosis, on alendronate. 9. Gastric slowing, currently on domperidone. 10. Asthma. 11. History of kidney stones, was previously on hydrochlorothiazide. That was discontinued with her episodes of hypokalemia during her last admission. 12. Anemia, chronic. FAMILY HISTORY: Sister with gestational diabetes and thyroid dysfunction. SOCIAL HISTORY: She is a former smoker. No obvious alcohol use or drug use. Patient is on disabili ty. She has a caregiver and her parents and caregiver all at her bedside. MEDICATIONS: Please see medication reconciliation form. ALLERGIES: Extensive. Please see summary. These include iron sucrose, aspirin, Levaquin, Relafen, dapsone, latex, soy and steroids. PHYSICAL EXAM: VITAL SIGNS: Temperature on admission was 39.5, currently 37.9 with a heart rate of 100, blood pressure 123/90, respirations 16. She is 93% on room air. GENERAL: She is a mildly obes e, 41-year-old woman in no obvious distress. She is alert and oriented. Her speech is fluent. HEEN T: Pupils are equal. Extraocular movements intact. Sclerae anicteric. External ears normal. Nose normal. She is wearing a respiratory mask. NECK: Supple without significant lymphadenopathy or th yromegaly noted. HEART: Regular rate and rhythm. No murmur, gallop, or rub. LUNGS: Clear bilater ally without wheeze, rhonchi, or rales. ABDOMEN: Soft. No obvious masses or tenderness noted. EXT REMITIES: No clubbing, cyanosis, or edema. MUSCULOSKELETAL: No joint effusions or deformities note d. NEUROLOGIC: Her speech is fluent. She is oriented. She can move all 4 extremities. SKIN: No rash. PSYCHIATRIC: Affect is appropriate. LABORATORY DATA: CBC is within normal limits, although she is mildly anemic with a hemoglobin of 10. 6. Electrolytes show potassium of 2.7, normal renal function, elevated glucose of 176. Influenza A and B PCR are negative. Chest x-ray personally reviewed and interpreted, shows no obvious infiltrate , resolving pneumonia from previous x-ray. Comparison EKG shows sinus rhythm. Nonspecific T-wave ch anges anteriorly. ASSESSMENT AND PLAN: A 41-year-old with a complicated past medical history, presents with fever. Sh hannah was recently admitted with bacteremia and is currently not on antibiotic. She also has hypokalemia . 1. Fever, unclear etiology. No obvious source found on exam. Her influenza A and B are negative. We will also check a respiratory panel. We will discuss with Infectious Disease whether he recommend s IV antibiotics given her complicated and recent history of bacteremia. 2. Hypokalemia. We will place her on potassium protocol. We will also check magnesium levels and r eplace as needed. Consider urinalysis for potassium and electrolytes. 3. Hyperglycemia. We will place her on an insulin protocol. Glucoses are likely elevated due to he r acute illness. Most recent hemoglobin A1c was borderline prediabetic back in February. 4. Mast cell activation syndrome. I did discuss the case in detail with Dr. Caroline Diehl. She is currently on Benadryl and famotidine drip and we will continue that. She is set up to see Dr. Woodruff eventually as an outpatient to have another port placed. Currently, she does have a working PICC lorenza hannah. 5. Adrenal insufficiency secondary to chronic steroid use. We will continue her usual medications w hen they have been reconciled. 6. Coronary artery vasospasms. She is having mild chest discomfort but her EKG is fairly unremarkab le. Continue her usual medications and monitor her symptoms. 7. Asthma. She is saturating normally on room air and has no wheezing or abnormal breath sounds. W e will continue her usual medications. Follow her symptoms. 8. Multiple other chronic medical issues are stable and we will continue her usual medications. CODE STATUS: Full code. /[id number]/MODL
[2017-08-03] MEDS: D5W 1/2 NS W/ 20 KCl/L 1,000 ML IV SCH (20:38)
[2017-08-03] MEDS ORDERED: POTASSIUM CL 10 MEQ TAB PO ONE (21:23)
[2017-08-03] MEDS ORDERED: POTASSIUM Cl (KCl) 100 ML IV SCH (22:00)
[2017-08-03] MEDS: ONDANSETRON 4 MG/2 ML VIAL IVP PRN (22:45)
[2017-08-03] MEDS: fentaNYL 100 MCG/2 ML INJ IVP PRN (22:45)
[2017-08-03] MEDS: POTASSIUM Cl (KCl) 10 MEQ in NS 100 ML IV SCH (22:47)
[2017-08-03] MEDS: cefTRIAXone 2 GM in STERILE WATER INJ 20 ML IV SCH (23:04)
[2017-08-04] MEDS: POTASSIUM Cl (KCl) 10 MEQ in NS 100 ML IV SCH (00:30)
[2017-08-04] MEDS: D5W 1/2 NS W/ 20 KCl/L 1,000 ML IV SCH ×4 (04:55→22:20)
[2017-08-04 05:20] LABS: PLATELET COUNT 247 10^3/uL (150-400)
[2017-08-04] MEDS ORDERED: POTASSIUM CL 10 MEQ TAB PO ONE ×2 (06:19→21:48)
--- NOTE | 2017-08-04 06:33 | PDMN ---
Medical Necessity Medical necessity: Pt meets INPT criteria per and [facility] Systemic or Infectious Condition GRG (est. LOS >2 MN for eval/tx of fever with unclear etiology, temp on admit 39.5, hypokalemia - K+ 2.6, mast cell activation syndrome on Benadryl and famotidine drip; hx recent pneumonia complicated by bacteremia, adrenal insufficiency 2/2 chronic steroid use, scleroderma, coronary artery vasospasm, asthma).
--- NOTE | 2017-08-04 09:58 | ASMTCASEMG ---
Living Arrangements What is your living Answers: Alone arrangement? Who do you live with? Type Of Residence What kind of residence do Answers: Apartment you live in? Discharge Plan Comments Coordination Status Comments Notes: Patient is a 41yo single female with a complicated past medical history who was admitted for fever, hypokalemia, hyperglycemia, mast cell activation syndrome, adrenal insufficiency, coronary artery vasospasms, and asthma. Patient is on disability and her caregiver and parents were at her bedside. No therapies have been ordered. D/C needs TBD. CM will follow. Date Signed: 08/04/2017 09:56 AM Electronically Signed By:Tavia Lieberman LCSW
--- NOTE | 2017-08-04 10:40 | PCMIDPN ---
Assessment/Plan: Assessment/Plan: 1. Fever with recurrent Klebsiella bacteremia: - Negative influenza,RVP work up so far - f/u blood cx are positive. She did have negative blood cx on 07/19/17 and a new picc line placed on 07/20/17 prior to discharge - Has been off antibiotics since 08/01. - Ceftriaxone re-started today - REcommend trying to get PIV in place so we can remove picc line if possible and clear bacteremia. Culture tip. -Will order f/u blood cx for tomorrow -Check TTE given recent IV access history and recurrence of bacteremia to ensure no deep seated process. -Care coordiated with her RN, hospitalist team -plan of care reviewed in detail with patient and her parents at bedside MEd ceftraixone 2g daily- 08/04/17 Subjective: Pt admitted last night due to high fevers, chills, not feeling well. She just completed Ceftriaxone IV on 07/31/17. She was feeling well. She states that on Thursday, she was having a hard time getting her IVF through the line and had to flush it several times, and then it worked and worked fine on from then onwards. She states that on Thursday, she started to get a headache and thought, maybe she might be coming down with something. Later that day she noticed fever. She denies feeling more short of breath. She had a chronic cough that fluctuates with respect to productive sputum. She denies abd pain or diarrhea, shiv dysuria. Denies muscle aches or joint pains. denies wounds. SHe had a rash on the back of her lower scalp/upper neck a couple of days ago that has already almost resolved. She was supposed to get IV Ceftraixone last night, but patient refused dose because she states she was told it was for a UTI. Despite not getting any antibiotics yesterday, her temperature curve has improved, her labs have improved with resolution of left shift. She is feeling a bit woren out today better. Her blood cx from yesterday are positive with Klebsiella. Objective: Vital Signs Temp Pulse Resp BP Pulse Ox 36.4 C 79 16 119/87 H 92 08/04/17 07:54 08/04/17 07:54 08/04/17 07:54 08/04/17 07:54 08/04/17 07:54 Laboratory Results 08/04/17 05:00 08/04/17 05:00 08/03/17 08/04/17 08/05/17 05:59 05:59 05:59 Intake Total 2633 Output Total 700 Balance 1933 - Physical Exam General Appearance: alert, no apparent distress Respiratory: lungs clear Cardiac/Chest: regular rate, rhythm Extremities: other (picc line in LUE), No swelling Abdomen: normal bowel sounds, non-tender, soft, No distended Skin: other (minimal residual pink area on posterior scalp, lower hair line, upper neck. no vesicles, pustules, bullae, desquamation seen. nontender. ) - Time Spent With Patient Time Spent with Patient: greater than 35 minutes Time Spent with Patient: Greater than 35 minutes spent on this patients care, greater than 50% of time spent counseling, educating, and coordinating care regarding the above mentioned plan. ICD10 Worksheet Patient Problems: Problems Problem Status Onset Hypokalemia Acute Chest pain Acute Mast cell activation Acute
[2017-08-04] MEDS: BUDESONIDE 1 MG/2 ML IH SCH ×2 (11:22→17:37)
[2017-08-04] MEDS: CROMOLYN 20 MG/2 ML IH SCH ×3 (11:23→21:32)
[2017-08-04] MEDS: LEVALBUTEROL 1.25 MG/3 ML DEYVIAL IH PRN ×2 (11:24→17:22)
[2017-08-04] MEDS: ARFORMOTEROL 15 MCG/2 ML IH SCH ×2 (11:24→17:37)
[2017-08-04] MEDS ORDERED: NITROGLYCERIN 0.4 MG BTL SL PRN (11:27)
[2017-08-04] MEDS ORDERED: methylPREDNISolone SOD SUCC 125 MG/2 ML VIAL IM PRN (11:27)
[2017-08-04] MEDS ORDERED: ENOXAPARIN 80 MG/0.8 ML SYR SC SCH (11:30)
[2017-08-04] MEDS ORDERED: FAMOTIDINE IV SCH (11:30)
[2017-08-04] MEDS ORDERED: DIPHENHYDRAMINE IV SCH (11:30)
[2017-08-04] MEDS: fentaNYL 100 MCG/2 ML INJ IVP PRN ×2 (11:48→22:20)
[2017-08-04] MEDS: ONDANSETRON 4 MG/2 ML VIAL IVP PRN ×2 (11:54→22:20)
[2017-08-04] MEDS ORDERED: CETIRIZINE 10 MG TAB PO SCH (12:00)
[2017-08-04] MEDS ORDERED: DOMPERIDONE PO SCH ×2 (12:00→16:00)
[2017-08-04] MEDS: RANITIDINE 15 MG/ML PO SCH ×3 (13:14→21:24)
[2017-08-04] MEDS: ENOXAPARIN 80 MG/0.8 ML SYR SC SCH ×2 (13:15→21:24)
--- NOTE | 2017-08-04 13:28 | ECHO ---
[email or web address] [address] Main: [phone] Fax: Transthoracic Echocardiogram Name: AKHIL CAMPOVERDE MR#: [id number] Study Date: 08/04/2017 Study Time: 11:33 AM Date of : 1975 Age: 41 year(s) Height: 177.8 cm (70 in.) Weight: 76.2 kg (168 lb.) BSA: 1.94 m2 Gender: Female Examination: Echo Indication: Fever unknown origin, Mast Cell Activation Syndrome Image Quality: Contrast: Requested by: Jenaro Stanley BP: 119 mmHg/87 mmHg Heart Rate: Rhythm: Tachycardia Indication: Fever unknown origin, Mast Cell Activation Syndrome Procedure Staff Resistor Tester: Rosalino Quintanilla Reading Physician: Rodrigo Campoverde Requesting Provider: Resistor Tester: Reading Physician: Requesting Provider: Conclusions: Normal size left ventricle. No LV hypertrophy. Normal global systolic LV function. EF is 68 %. No regional wall motion abnormality. Diastolic dysfunction is present. . Prominate RV chordae and RV moderator band. There is no significant mitral valve regurgitation. The tricuspid valve is normal in appearance and function. The pulmonic valve is normal in appearance and function. Measurements: Chambers Valvular Assessment AV/MV Valvular Assessment TV/PV Normal Normal Normal Name Value Range Name Value Range Name Value Range Ao Siria (MM): 2.5 cm (2.2 cm-3.7 AV Vmax: 2.06 m/s (1 m/s-1.7 TR Vmax: 2.28 mm/s ( - ) cm) m/s) TR PGmax: 21 mmHg ( - ) IVSd (2D): 0.9 cm (0.6 cm-1.1 AV maxP mmHg ( - ) syst. PAP: 26 mmHg ( - ) cm) LVOT Vmax: 1.47 m/s (0.7 m/s-1.1 PV Vmax: 1.22 m/s (0.6 m/s-0.9 LVDd (2D): 4.7 cm (3.9 cm-5.3 m/s) m/s) cm) MV E Vmax: 0.63 m/s ( - ) PV PGmax: 6 mmHg ( - ) LVDs (2D): 2.9 cm (2.1 cm-4 MV A Vmax: 0.80 m/s ( - ) cm) MV E/A: 0.79 ( - ) LVPWd (2D): 1.0 cm ( - ) LVEF (2D): 68 (>=54 %) Patient: AKHIL CAMPOVERDE Study Date: 08/04/2017 Page 1 of 2 11:33 AM Continued Measurements: Chambers Valvular Assessment AV/MV Valvular Assessment TV/PV Name Value Name Value Name Value LADs Lon.0 cm MV E/E' Lateral: 8.90 CVP (est.): 5 mmHg LA Area: 18.6 cm2 Findings: Left Ventricle: Normal size left ventricle. No LV hypertrophy. Normal global systolic LV function. EF is 68 %. No regional wall motion abnormality. Diastolic dysfunction is present. . Right Ventricle: Normal size right ventricle. Normal RV function. Prominate RV chordae and RV moderator band. Left Atrium: The left atrium is normal in size. Right Atrium: The right atrium is normal in size. Mitral Valve: The mitral valve is normal in appearance and function. There is no significant mitral valve regurgitation. Aortic Valve: The aortic valve is tri-leaflet and functions normally. Tricuspid Valve: The tricuspid valve is normal in appearance and function. Pulmonic Valve: The pulmonic valve is normal in appearance and function. Aorta: The aorta is normal. Pericardium: Small pericardial effusion. No echocardiographic evidence of hemodynamic compromise. (No Signature Object) Patient: AKHIL CAMPOVERDE Study Date: 08/04/2017 Page 2 of 2 11:33 AM [id number]
[2017-08-04] MEDS: cefTRIAXone 2 GM in STERILE WATER INJ 20 ML IV SCH (15:31)
[2017-08-04] MEDS ORDERED: ISOSORBIDE DINITRATE 10 MG TAB PO SCH (16:00)
[2017-08-04] MEDS ORDERED: HYDROCORTISONE 5 MG PO SCH (16:00)
--- NOTE | 2017-08-04 16:55 | HOSPPROG ---
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 here w recurrent klebsiella bacteremia bacteremia: concern for munchausens although no evidence that it is actually happening on ceftriaxone u/s site of bettencourt given fullness at site picc out peripherals for now repeat cx in AM mast cell activation syndrome: continue meds hypokalemia: repleted UC: quiescent proph: lmwh dispo: inpt Subjective: case d/w dr hudson. recurrent klebsiella bacteremia Objective: Vital Signs Temp Pulse Resp BP Pulse Ox 37.0 C 109 H 18 94/68 L 92 08/04/17 16:00 08/04/17 16:00 08/04/17 16:00 08/04/17 16:00 08/04/17 16:00 Laboratory Results 08/04/17 05:00 08/04/17 05:00 08/03/17 08/04/17 08/05/17 05:59 05:59 05:59 Intake Total 2633 Output Total 700 Balance 1933 PT 13.9 SEC (12.0-15.0) 08/03/17 15:05 INR 1.05 (0.83-1.16) 08/03/17 15:05 - Physical Exam Constitutional: no apparent distress, appears nourished Eyes: PERRL, anicteric sclera Ears, Nose, Mouth, Throat: moist mucous membranes, hearing normal Cardiovascular: regular rate and rhythym, no murmur, rub, or gallop, other (L chest w fullness but no fluctuance or erythema at site of prior port) Respiratory: no respiratory distress, no rales or rhonchi Gastrointestinal: normoactive bowel sounds, soft, non-tender abdomen Genitourinary: no bladder fullness, No delcid in urethra Skin: warm, normal color Musculoskeletal: full muscle strength Neurologic: AAOx3 ICD10 Worksheet Patient Problems: Problems Problem Status Onset Hypokalemia Acute Chest pain Acute Mast cell activation Acute
[2017-08-04] MEDS ORDERED: ONDANSETRON DISINTEGRATING 4 MG TAB PO PRN (17:00)
[2017-08-04] MEDS: CROMOLYN SODIUM PO SCH ×3 (17:15→21:25)
[2017-08-04] MEDS: DOMPERIDONE PO SCH ×2 (17:20→21:23)
[2017-08-04] MEDS: HYDROCORTISONE 5 MG PO SCH ×2 (17:25→21:27)
[2017-08-04] MEDS: ISOSORBIDE DINITRATE 10 MG TAB PO SCH ×2 (17:25→21:29)
[2017-08-04] MEDS: QUERCETIN 500 MG PO SCH ×2 (17:27→21:22)
[2017-08-04] MEDS: CHOLECALCIFEROL PO SCH (21:21)
[2017-08-04] MEDS: CETIRIZINE 10 MG TAB PO SCH (21:22)
[2017-08-04] MEDS: MONTELUKAST SODIUM 10 MG TAB PO SCH (21:24)
[2017-08-04] MEDS: CROMOLYN SODIUM NS SCH (21:26)
[2017-08-04] MEDS: [UNRECOGNIZED DRUG - OTHER] EACHEYE SCH (21:28)
[2017-08-04] MEDS: SODIUM CL NASAL 45 ML BTL NS SCH (21:29)
[2017-08-05] MEDS: QUERCETIN 500 MG PO SCH ×4 (05:20→21:38)
[2017-08-05] MEDS: DOMPERIDONE PO SCH ×4 (05:20→21:38)
[2017-08-05] MEDS: RANITIDINE 15 MG/ML PO SCH ×4 (05:20→21:38)
[2017-08-05] MEDS: CROMOLYN SODIUM PO SCH ×5 (05:21→21:38)
[2017-08-05] MEDS: LEVALBUTEROL 1.25 MG/3 ML DEYVIAL IH PRN ×4 (05:41→21:21)
[2017-08-05] MEDS: CROMOLYN 20 MG/2 ML IH SCH ×4 (05:42→21:51)
[2017-08-05] MEDS: HYDROCORTISONE 5 MG PO SCH ×3 (07:43→21:42)
[2017-08-05] MEDS: CHOLECALCIFEROL PO SCH ×2 (07:45→21:40)
[2017-08-05] MEDS: MONTELUKAST SODIUM 10 MG TAB PO SCH ×2 (07:50→21:39)
[2017-08-05] MEDS: [UNRECOGNIZED DRUG - OTHER] EACHEYE SCH ×2 (07:50→21:41)
[2017-08-05] MEDS: FLUDROCORTISONE ACETATE 0.1 MG TAB PO SCH (07:53)
[2017-08-05] MEDS: DILTIAZEM 180 MG PO SCH (07:54)
[2017-08-05] MEDS: CROMOLYN SODIUM NS SCH ×2 (07:55→21:40)
[2017-08-05] MEDS ORDERED: POTASSIUM CL 10 MEQ TAB PO ONE ×2 (07:57→10:30)
[2017-08-05] MEDS: POTASSIUM CL 20 MEQ TAB PO SCH (07:57)
--- NOTE | 2017-08-05 09:15 | PCMIDPN ---
Assessment/Plan: Recurrent Klebsiella bacteremia, initial source thought to be Otero/MediPort site on left chest wall which was removed. PICC line was placed initially during episode of bacteremia but was exchanged prior to discharge. Echo shows no evidence of endocarditis . Current considerations for recurrence include possible abscess at MediPort site or PICC line. --PICC line already removed and tip was cultured --Aspirate L chest wall --continue ceftriaxone 1 g IV daily, doubt of all the resistance --repeat blood cx tomorrow AM meds ceftriaxone 1gm IV daily, #2 micro 08/03 blood cx R AC: NGTD left Arm: likely PICC arm: Klebsiella Subjective: pain over L chest wall no further rigors since yesterday patient states that initial blood cx peripheral stick R arm and PICC line draw. reports no peripheral stick performed L arm (where the PICC line was located) Objective: Vital Signs Temp Pulse Resp BP Pulse Ox 36.5 C 79 14 107/73 98 08/05/17 08:00 08/05/17 08:00 08/05/17 08:00 08/05/17 08:00 08/05/17 08:00 Laboratory Results 08/04/17 05:00 08/05/17 04:52 08/04/17 08/05/17 08/06/17 05:59 05:59 05:59 Intake Total 2633 1850 Output Total 700 1800 Balance 1933 50 - Physical Exam General Appearance: alert, no apparent distress EENT: pale conjunctiva, No scleral icterus, No thrush Respiratory: normal breath sounds, No crackles Neck: supple Cardiac/Chest: regular rate, rhythm, other (Left chest wall fullness and tenderness over the MediPort site, no fluctuance or erythema) Extremities: No pedal edema Abdomen: non-tender, soft Skin: No rash Neuro/Psych: alert, normal mood/affect, oriented x 3 - Time Spent With Patient Time Spent with Patient: greater than 35 minutes (Review of plans for ongoing workup for recurrence of bacteremia. Reviewed with patient and her parents) Time Spent with Patient: Greater than 35 minutes spent on this patients care, greater than 50% of time spent counseling, educating, and coordinating care regarding the above mentioned plan. ICD10 Worksheet Patient Problems: Problems Problem Status Onset Hypokalemia Acute Chest pain Acute Mast cell activation Acute
--- NOTE | 2017-08-05 09:24 | SOAPPROG ---
SOAP Progress Note Assessment/Plan: Assessment/Plan: 41yo F readmitted with recurrent bactremia. Complicated surgical course Abscess at previous bettencourt removal site - aspiration today, may need I&D IV antibiotics per ID Appreciate hospitalist and ID management Seen by Dr. Woodruff 08/05/17 09:24 08/05/17 09:24 Objective: Vital Signs Temp Pulse Resp BP Pulse Ox 36.5 C 79 14 107/73 98 08/05/17 08:00 08/05/17 08:00 08/05/17 08:00 08/05/17 08:00 08/05/17 08:00 Laboratory Results 08/04/17 05:00 08/05/17 04:52 08/04/17 08/05/17 08/06/17 05:59 05:59 05:59 Intake Total 2633 1850 Output Total 700 1800 Balance 1933 50 PT 13.9 SEC (12.0-15.0) 08/03/17 15:05 INR 1.05 (0.83-1.16) 08/03/17 15:05 ICD10 Worksheet Patient Problems: Problems Problem Status Onset Hypokalemia Acute Chest pain Acute Mast cell activation Acute
[2017-08-05] MEDS ORDERED: LIDOCAINE 1% 300 MG/30 ML SDV ONE (09:38)
[2017-08-05] MEDS: ARFORMOTEROL 15 MCG/2 ML IH SCH ×2 (09:42→21:24)
[2017-08-05] MEDS: BUDESONIDE 1 MG/2 ML IH SCH ×2 (09:42→21:24)
[2017-08-05] MEDS: SODIUM CL NASAL 45 ML BTL NS SCH ×2 (09:58→21:42)
--- NOTE | 2017-08-05 10:25 | HOSPPROG ---
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 here w recurrent klebsiella bacteremia bacteremia: concern for possible munchausens although no evidence that it is actually happening on ceftriaxone u/s site of bettencourt given fullness at site asoiration today picc out peripherals for now repeat cx in AM mast cell activation syndrome: continue meds hypokalemia: repleted UC: quiescent proph: lmwh dispo: inpt Subjective: case d/w dr herrera Objective: Vital Signs Temp Pulse Resp BP Pulse Ox 36.5 C 77 16 107/73 95 08/05/17 08:00 08/05/17 09:45 08/05/17 09:45 08/05/17 08:00 08/05/17 09:45 Laboratory Results 08/04/17 05:00 08/05/17 04:52 08/04/17 08/05/17 08/06/17 05:59 05:59 05:59 Intake Total 2633 1850 Output Total 700 1800 Balance 1933 50 PT 13.9 SEC (12.0-15.0) 08/03/17 15:05 INR 1.05 (0.83-1.16) 08/03/17 15:05 - Physical Exam Constitutional: no apparent distress, appears nourished Eyes: PERRL, anicteric sclera Ears, Nose, Mouth, Throat: moist mucous membranes, hearing normal Cardiovascular: regular rate and rhythym, no murmur, rub, or gallop, other (L chest (old port site) w induration but no warmth or fluctuance) Respiratory: no respiratory distress, no rales or rhonchi Gastrointestinal: normoactive bowel sounds, soft, non-tender abdomen Genitourinary: no bladder fullness, No delcid in urethra Skin: warm, normal color ICD10 Worksheet Patient Problems: Problems Problem Status Onset Hypokalemia Acute Chest pain Acute Mast cell activation Acute
[2017-08-05] MEDS: ISOSORBIDE DINITRATE 10 MG TAB PO SCH ×3 (11:19→21:42)
[2017-08-05] MEDS: ENOXAPARIN 80 MG/0.8 ML SYR SC SCH ×2 (11:22→21:38)
[2017-08-05] MEDS: cefTRIAXone 2 GM in STERILE WATER INJ 20 ML IV SCH (12:03)
[2017-08-05] MEDS: CETIRIZINE 10 MG TAB PO SCH ×2 (12:10→21:39)
[2017-08-05] MEDS: D5W 1/2 NS W/ 20 KCl/L 1,000 ML IV SCH ×2 (12:22→18:51)
[2017-08-05] MEDS: ONDANSETRON 4 MG/2 ML VIAL IVP PRN (16:35)
[2017-08-05] MEDS: fentaNYL 100 MCG/2 ML INJ IVP PRN ×2 (16:40→17:40)
[2017-08-06] MEDS: D5W 1/2 NS W/ 20 KCl/L 1,000 ML IV SCH ×2 (01:26→10:36)
[2017-08-06] MEDS: CROMOLYN 20 MG/2 ML IH SCH ×4 (04:12→21:33)
[2017-08-06] MEDS: CROMOLYN SODIUM PO SCH ×5 (04:59→21:05)
[2017-08-06] MEDS: DOMPERIDONE PO SCH ×4 (04:59→21:04)
[2017-08-06] MEDS: RANITIDINE 15 MG/ML PO SCH ×4 (04:59→21:16)
[2017-08-06] MEDS: QUERCETIN 500 MG PO SCH ×4 (04:59→21:06)
[2017-08-06] MEDS ORDERED: POTASSIUM CL 10 MEQ TAB PO ONE ×2 (07:44→20:51)
[2017-08-06] MEDS: cefTRIAXone 2 GM in STERILE WATER INJ 20 ML IV SCH (08:26)
[2017-08-06] MEDS: FLUDROCORTISONE ACETATE 0.1 MG TAB PO SCH (08:30)
[2017-08-06] MEDS: CHOLECALCIFEROL PO SCH ×2 (08:32→21:28)
[2017-08-06] MEDS: [UNRECOGNIZED DRUG - OTHER] EACHEYE SCH ×2 (08:33→21:12)
[2017-08-06] MEDS: MONTELUKAST SODIUM 10 MG TAB PO SCH ×2 (08:33→21:11)
[2017-08-06] MEDS: CROMOLYN SODIUM NS SCH ×2 (08:34→21:12)
[2017-08-06] MEDS: DILTIAZEM 180 MG PO SCH (08:36)
[2017-08-06] MEDS: SODIUM CL NASAL 45 ML BTL NS SCH ×2 (08:38→21:13)
[2017-08-06] MEDS: ENOXAPARIN 80 MG/0.8 ML SYR SC SCH ×2 (08:38→21:12)
[2017-08-06] MEDS: ISOSORBIDE DINITRATE 10 MG TAB PO SCH ×3 (08:40→21:07)
[2017-08-06] MEDS ORDERED: CYANO/VITAMIN B12 1000 MCG/ML VIAL IM SCH ×2 (09:00→09:30)
[2017-08-06] MEDS: LEVALBUTEROL 1.25 MG/3 ML DEYVIAL IH PRN ×2 (09:36→21:32)
[2017-08-06] MEDS: ARFORMOTEROL 15 MCG/2 ML IH SCH ×2 (09:37→21:33)
[2017-08-06] MEDS: BUDESONIDE 1 MG/2 ML IH SCH ×2 (09:37→21:33)
[2017-08-06] MEDS: HYDROCORTISONE 5 MG PO SCH ×3 (10:36→21:13)
[2017-08-06] MEDS: ONDANSETRON 4 MG/2 ML VIAL IVP PRN ×3 (10:36→21:27)
[2017-08-06] MEDS: POTASSIUM CL 20 MEQ TAB PO SCH ×2 (10:52→15:35)
[2017-08-06] MEDS ORDERED: LIDOCAINE 1% 300 MG/30 ML SDV ONE (12:01)
--- NOTE | 2017-08-06 12:10 | PCMIDPN ---
Assessment/Plan: Recurrent Klebsiella bacteremia, initial source thought to be Otero/MediPort site on left chest wall which was removed and patient rec'd 2 weeks IV antibiotics. Current etiology of recurrent klebsiell bacteremia may be PICC line as Blood cx from PICC line only one that is positive + Tip of PICC positive for GNR, suggestive of recurrent line infection but cannot r/o chest wall @ site of prior port. Interestingly PICC line was exchanged before discharge during last hospitalization. --LUE US to eval for clot --try to leave line out as long as possible --continue ceftriaxone --Dr Woodruff to I&D chest wall site of prior line --blood cx repeat today to establish clearance of bacteremia meds ceftriaxone 1gm IV daily, #3 micro 08/03 blood cx R AC: NGTD left PICC: Klebsiella 08/04 port: GNR 08/06 blood cx (2) pending 08/05 chest wall aspirate x 2: NGTD, gram stain without organisms Subjective: feeling better today L arm pain plan I&D of prior port site today Objective: Vital Signs Temp Pulse Resp BP Pulse Ox 36.9 C 95 18 123/90 H 97 08/06/17 11:42 08/06/17 11:42 08/06/17 11:42 08/06/17 11:42 08/06/17 11:42 Microbiology 08/05/17 10:35 Gram Stain - Final Chest - Aspirate 08/05/17 10:35 Gram Stain - Final Chest - Aspirate 08/03/17 17:20 Urine Culture - Final Urine,Clean Catch Two [place] Types Laboratory Results 08/04/17 05:00 08/06/17 04:57 08/05/17 08/06/17 08/07/17 05:59 05:59 05:59 Intake Total 1850 1500 Output Total 1800 1400 Balance 50 100 - Physical Exam General Appearance: alert, no apparent distress EENT: pale conjunctiva Respiratory: No accessory muscle use Extremities: No swelling (LUE), No erythema (LUE) Skin: No rash Neuro/Psych: alert, normal mood/affect, oriented x 3 - Time Spent With Patient Time Spent with Patient: greater than 35 minutes (care coordination with Dr. Woodruff and Vielka Walters NP) Time Spent with Patient: Greater than 35 minutes spent on this patients care, greater than 50% of time spent counseling, educating, and coordinating care regarding the above mentioned plan. ICD10 Worksheet Patient Problems: Problems Problem Status Onset Hypokalemia Acute Chest pain Acute Mast cell activation Acute
--- NOTE | 2017-08-06 12:49 | SOAPPROG ---
SOAP Progress Note Assessment/Plan: Assessment: small abscess unable to be aspirated Will proceed to OR for I&D Risks and benefits discussed S: Tender at chest wall site O: pleasant well nourished and well groomed smiling no increased work of breathing regular rate firm superior to healed incision site Plan: 08/06/17 12:48 Objective: Vital Signs Temp Pulse Resp BP Pulse Ox 36.9 C 95 18 123/90 H 97 08/06/17 11:42 08/06/17 11:42 08/06/17 11:42 08/06/17 11:42 08/06/17 11:42 Microbiology 08/05/17 10:35 Gram Stain - Final Chest - Aspirate 08/05/17 10:35 Gram Stain - Final Chest - Aspirate 08/03/17 17:20 Urine Culture - Final Urine,Clean Catch Two [place] Types Laboratory Results 08/04/17 05:00 08/06/17 04:57 08/05/17 08/06/17 08/07/17 05:59 05:59 05:59 Intake Total 1850 1500 Output Total 1800 1400 Balance 50 100 PT 13.9 SEC (12.0-15.0) 08/03/17 15:05 INR 1.05 (0.83-1.16) 08/03/17 15:05 ICD10 Worksheet Patient Problems: Problems Problem Status Onset Hypokalemia Acute Chest pain Acute Mast cell activation Acute
--- NOTE | 2017-08-06 13:02 | PDANEPAE ---
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 chronic bronchitis. hx of multiple pe's - Neurologic History Hx Cerebrovascular Accident: No Hx Seizures: Yes Hx Dementia: No Neurologic History Comment: 2 seizures as child - Endocrine History Hx Diabetes: No - Renal History Hx Renal Disorders: Yes Renal History Comment: hx of kidney stones - Liver History Hx Hepatic Disorders: No - Neurological & Psychiatric Hx Hx Neurological and Psychiatric Disorders: No - Cancer History Hx Cancer: No - Congenital Disorder History Hx Congenital Disorders: No - GI History Hx Gastrointestinal Disorders: Yes Gastrointestinal History Comment: reflux. ulcerative colitis- currently in remission - Other Health History Other Health History: wears glasses/ contacts. very sensitive skin- gets rashes easily. bruises easily - Chronic Pain History Chronic Pain: No - Surgical History Prior Surgeries: right elbow surgery to repair tendon. right wrist carpal tunnel. 2 laparoscopies for endometriosis and cysts. sinus. appy. left ankle ANE Review of Systems Review of systems is: negative Review of Systems: - Exercise capacity Exercise capacity: >=4 METS ANE Patient History - Allergies Allergies/Adverse Reactions: iron sucrose complex [From Venofer] Allergy (Severe, Verified 08/03/17 14:04) Anaphylaxis aspirin Allergy (Intermediate, Verified 08/03/17 14:04) Anaphylaxis levofloxacin [From Levaquin] Allergy (Unknown, Verified 08/03/17 14:04) hives all over and swelling of tongue nabumetone [From Relafen] Allergy (Unknown, Verified 08/03/17 14:04) hives all over and swelling of tongue dapsone Allergy (Verified 08/03/17 14:04) severe anemia latex Allergy (Verified 08/03/17 14:04) soy Allergy (Verified 08/03/17 14:04) STEROIDS Allergy (Unknown, Uncoded 07/15/17 19:25) has to have benadryl first - Home Medications Home medications: home medication list seen and reviewed Home Medications: Alendronate Sodium [Fosamax 70 MG (*)] 70 mg PO MO@0700 08/10/16 [Last Taken 06/05] Cetirizine [ZyrTEC 10 mg (*)] 10 mg PO DAILY@12 08/10/16 [Last Taken 08/03/17] Hydrocortisone [Cortef] 5 mg PO TID 08/10/16 [Last Taken 08/03/17] Isosorbide Dinitrate [Isosorbide Dinitrate 10 mg (*)] 15 mg PO TID 08/10/16 [ Last Taken 08/03/17] Cholecalciferol Vit D3 [Vitamin D3 2000 units tab (OTC)] 2,000 units PO BID 07/05 [Last Taken 08/03/17] Cyanocobalamin [Vitamin B12 1000MCG/ML (*)] 1,000 mcg IM Q14D 06/30/17 [Last Taken 07/23/17] Fludrocortisone Acetate [Florinef] 0.3 mg PO DAILY 06/30/17 [Last Taken 08/03/17 ] Montelukast Sodium [Singulair 10 mg (*)] 10 mg PO BID 06/30/17 [Last Taken 08/03] Nitroglycerin [Nitrostat 0.4 mg (*)] 0.4 mg SL Q5M PRN 06/30/17 [Last Taken Unknown] methylPREDNISolone SOD SUCC [Solu-Medrol 125 mg (*)] 125 mg IM DAILY PRN [Last Taken 06/25/17] Alocril Opthalmic Solution 2% 1 drop EACHEYE BID 07/02/17 [Last Taken 08/03/17] Benadryl Own Pump 15 mg IV CONT 07/02/17 [Last Taken 08/03/17] Brovana Nebulizer 1 each IH BID 07/02/17 [Last Taken 08/03/17] Budesonide 1 mg IH BID 07/02/17 [Last Taken 08/03/17] Cetirizine [ZyrTEC 10 mg (*)] 20 mg PO HS 07/02/17 [Last Taken 08/02/17] Compounded Zantac 10 ml PO QID 07/02/17 [Last Taken 08/03/17] Cromolyn Sodium 20 mg IH QID 07/02/17 [Last Taken 08/03/17] Cromolyn Sodium 200 mg PO QID 07/02/17 [Last Taken 08/03/17] Cromolyn Sodium [Nasalcrom] 1 inh NS BID 07/02/17 [Last Taken 08/03/17] Domperidone 4 each PO QID 07/02/17 [Last Taken 08/03/17] Famotidine (Own Pump) 2 mg IV CONT 07/02/17 [Last Taken 08/03/17] Quercetin 500mg 500 mg PO QID 07/02/17 [Last Taken 08/03/17] Sodium Cl Nasal [[place] (*)] 1 spray NS BID 07/02/17 [Last Taken 07/15/17] Diltiazem HCl [Diltiazem 24Hr ER] 180 mg PO DAILY 07/03/17 [Last Taken 08/03/17] Levalbuterol 1.25 mg [Xopenex 1.25MG Neb (*)] 1.25 mg IH Q8 PRN 08/03/17 [Last Taken Unknown] Potassium Cl [Klor-Con 20 meq (*)] 40 meq PO DAILY 08/03/17 [Last Taken 08/03/17 ] - NPO status NPO Status: no food or drink >8 hours NPO Since - Liquids (Date): 08/06/17 NPO Since - Liquids (Time): 08:00 NPO Since - Solids (Date): 08/05/17 NPO Since - Solids (Time): 18:00 - Anes Hx Anes Hx: no prior problems - Smoking Hx Smoking Status: Former smoker - Family Anes Hx Family Anes Hx: neg - N/A Family Hx Anesthesia Complications: none ANE Labs/Vital Signs - Labs Result Diagrams: 08/04/17 05:00 08/06/17 04:57 - Vital Signs Vital Signs: reviewed preoperatively; see RN documention for details Blood Pressure: 123/90 Heart Rate: 95 Respiratory Rate: 18 O2 Sat (%): 97 Height: 177.8 cm Weight: 76.657 kg ANE Physical Exam - Airway Neck exam: FROM Mallampati Score: Class 2 Mouth exam: normal dental/mouth exam - Pulmonary Pulmonary: no respiratory distress - Cardiovascular Cardiovascular: regular rate and rhythym - ASA Status ASA Status: III ANE Anesthesia Plan Anesthesia Plan: MAC Total IV Anesthesia: Yes
[2017-08-06] MEDS ORDERED: LR 1,000 ML IV ONE (13:03)
[2017-08-06] MEDS ORDERED: PROPOFOL/EMULSION 500 MG/50 ML BOTTLE IV ONE (13:22)
[2017-08-06] MEDS ORDERED: MIDAZOLAM 2 MG/2 ML VIAL ONE (13:28)
[2017-08-06] MEDS ORDERED: NALOXONE HCL 0.4 MG/ML INJ IVP PRN (13:59)
[2017-08-06] MEDS ORDERED: fentaNYL 100 MCG/2 ML INJ IVP PRN (13:59)
--- NOTE | 2017-08-06 14:30 | HOSPPROG ---
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 First encounter this hospital stay, chart reviewed. D/W Dr Rider. bacteremia: on ceftriaxone u/s site of bettencourt given fullness at site to OR today with Dr Woodruff aspiration done picc out peripherals for now repeat cx NGTD US LUE mast cell activation syndrome: continue meds hypokalemia: replaced cont UC: quiescent proph: lmwh dispo: inpt, unclear, will need further plan established Subjective: Feeling better today. No rigors. Pain controlled. Objective: Vital Signs Temp Pulse Resp BP Pulse Ox 36.5 C 95 18 123/90 H 97 08/06/17 14:08 08/06/17 13:17 08/06/17 13:17 08/06/17 13:17 08/06/17 13:17 Microbiology 08/05/17 10:35 Gram Stain - Final Chest - Aspirate 08/05/17 10:35 Gram Stain - Final Chest - Aspirate 08/03/17 17:20 Urine Culture - Final Urine,Clean Catch Two [place] Types Laboratory Results 08/04/17 05:00 08/06/17 04:57 08/05/17 08/06/17 08/07/17 05:59 05:59 05:59 Intake Total 1850 1500 Output Total 1800 1400 Balance 50 100 PT 13.9 SEC (12.0-15.0) 08/03/17 15:05 INR 1.05 (0.83-1.16) 08/03/17 15:05 - Physical Exam Constitutional: no apparent distress, appears nourished, not in pain Eyes: PERRL, anicteric sclera, EOMI Ears, Nose, Mouth, Throat: moist mucous membranes, hearing normal, ears appear normal Cardiovascular: regular rate and rhythym, No JVD, No edema Respiratory: no respiratory distress, no rales or rhonchi, reduced air movement Gastrointestinal: normoactive bowel sounds, No tenderness, No ascites Skin: warm, normal color, No erythema Musculoskeletal: normal joint ROM, no joint effusions, generalized weakness Neurologic: AAOx3 Psychiatric: not anxious, not encephalopathic, thought process linear ICD10 Worksheet Patient Problems: Problems Problem Status Onset Mast cell activation Acute Chest pain Acute Hypokalemia Acute
[2017-08-06] MEDS: CETIRIZINE 10 MG TAB PO SCH ×2 (15:27→21:09)
[2017-08-06] MEDS: fentaNYL 100 MCG/2 ML INJ IVP PRN ×2 (17:17→21:27)
--- NOTE | 2017-08-06 17:27 | POSTANESTH ---
Post Anesthetic Evaluation Cardiovascular Status: Normal, Stable, Similar to Pre-Op Cond Respiratory Status: Normal, Stable, Similar to Pre-op Cond. Level of Consciousness/Mental Status: Can Participate in Eval, Alert and Oriented Pain Control: Adequate, Prn Tx Ordered Nausea/Vomiting Control: Adequate, Prn Tx Ordered Complications Possibly Related to Anesthesia: None Noted
--- NOTE | 2017-08-06 21:47 | POSTOPPROG ---
Post Op Note Date of Operation: 08/06/17 Surgeon: Gaby Woodruff Anesthesiologist: kristi Anesthesia: IV Sedation Pre-op Diagnosis: chest wall abscess Post-op Diagnosis: same Indication: 41 yo with abscess Procedure: incision and drainage chest wall abscess 2cm Findings: thin fluid (no obvious purulence) Inf/Abcess present in the surg proc area at time of surgery?: Yes Depth: Superfical (Skin SQ) Specimen(s): micro
[2017-08-07] MEDS: DOMPERIDONE PO SCH ×4 (05:13→22:03)
[2017-08-07] MEDS: QUERCETIN 500 MG PO SCH ×4 (05:14→22:11)
[2017-08-07] MEDS: CROMOLYN SODIUM PO SCH ×4 (05:15→22:07)
[2017-08-07] MEDS: RANITIDINE 15 MG/ML PO SCH ×4 (05:16→22:08)
[2017-08-07] MEDS: CROMOLYN 20 MG/2 ML IH SCH ×4 (05:20→21:34)
[2017-08-07] MEDS: LEVALBUTEROL 1.25 MG/3 ML DEYVIAL IH PRN ×2 (05:21→16:26)
[2017-08-07] MEDS: ARFORMOTEROL 15 MCG/2 ML IH SCH ×2 (09:17→21:30)
[2017-08-07] MEDS: BUDESONIDE 1 MG/2 ML IH SCH ×2 (09:17→21:29)
[2017-08-07] MEDS: cefTRIAXone 2 GM in STERILE WATER INJ 20 ML IV SCH (09:46)
[2017-08-07] MEDS: [UNRECOGNIZED DRUG - OTHER] EACHEYE SCH ×2 (09:47→22:13)
[2017-08-07] MEDS: CHOLECALCIFEROL PO SCH ×2 (09:48→22:04)
[2017-08-07] MEDS: POTASSIUM CL 20 MEQ TAB PO SCH (09:49)
[2017-08-07] MEDS: CROMOLYN SODIUM NS SCH ×2 (09:49→22:13)
[2017-08-07] MEDS: HYDROCORTISONE 5 MG PO SCH ×3 (09:50→22:14)
[2017-08-07] MEDS: ISOSORBIDE DINITRATE 10 MG TAB PO SCH ×3 (09:51→22:05)
[2017-08-07] MEDS: DILTIAZEM 180 MG PO SCH (09:52)
[2017-08-07] MEDS: MONTELUKAST SODIUM 10 MG TAB PO SCH ×2 (09:52→22:04)
[2017-08-07] MEDS: FLUDROCORTISONE ACETATE 0.1 MG TAB PO SCH (09:53)
[2017-08-07] MEDS: ENOXAPARIN 80 MG/0.8 ML SYR SC SCH ×2 (09:56→22:02)
[2017-08-07] MEDS: SODIUM CL NASAL 45 ML BTL NS SCH ×2 (09:57→22:13)
--- NOTE | 2017-08-07 10:17 | PCMIDPN ---
Assessment/Plan: 1. Recurrent line infection with Klebsiella pneumoniae: Long conversation with patient and her parents. Would prefer to rotate peripheral IVs for now for at least another day to ensure blood cultures have sterilized for 48 hr before replacing PICC line. Also, would prefer interventional radiologist speak with patient at the bedside today regarding plans for PICC line, which arm, Plan B, etc as per patient request. Continue ceftriaxone. Over 25 min was spent with this patient today. Subjective: Patient is having irritation from Benadryl infusions at peripheral IV sites. Ultrasound showed superficial thrombophlebitis in the left basilic vein. No more fevers or rigors. Objective: Ceftriaxone 1 g IV daily day 4 Afebrile Vital Signs Temp Pulse Resp BP Pulse Ox 36.7 C 80 15 125/87 H 96 08/07/17 07:28 08/07/17 09:20 08/07/17 09:20 08/07/17 09:51 08/07/17 09:20 Microbiology 08/06/17 13:55 Gram Stain - Final Chest - Eswab 08/06/17 13:55 Mycobacterial Smear (ERIC) - Final Chest - Eswab Mycobacterial Culture - Final 08/05/17 10:35 Gram Stain - Final Chest - Aspirate 08/05/17 10:35 Gram Stain - Final Chest - Aspirate Laboratory Results 08/04/17 05:00 08/07/17 04:56 08/06/17 08/07/17 08/08/17 05:59 05:59 05:59 Intake Total 1500 450 Output Total 1400 3 Balance 100 447 Repeat blood cultures from August 06 show no growth at 24 hr Blood cultures August 03 with Klebsiella pneumoniae - Physical Exam General Appearance: alert, no apparent distress EENT: pharynx normal, No thrush Cardiac/Chest: other (Previous segment site looks fine, with small piece of Hydrofera Blue in place. No surrounding erythema or tenderness.) Extremities: other (Patient's peripheral IV sites are notable for some surrounding blanching erythema) ICD10 Worksheet Patient Problems: Problems Problem Status Onset Hypokalemia Acute Chest pain Acute Mast cell activation Acute
[2017-08-07] MEDS ORDERED: DIPHENHYDRAMINE IV SCH ×2 (12:00→12:30)
[2017-08-07] MEDS ORDERED: NS IV SCH ×2 (12:00→12:30)
[2017-08-07] MEDS: CETIRIZINE 10 MG TAB PO SCH ×2 (12:40→22:03)
[2017-08-07] MEDS ORDERED: ALTEPLASE 2 MG VIAL IVP PRN (13:18)
--- NOTE | 2017-08-07 13:22 | HOSPPROG ---
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 D/W Dr Del Angel and Dru. bacteremia: on ceftriaxone u/s site of bettencourt given fullness at site OR for I/D with Dr Woodruff, cx pending picc out needs replaced wait for 48 hour blood cx clearance peripherals for now repeat cx NGTD US LUE, phlebitis mast cell activation syndrome: continue meds pump infusion benadryl and pepcid hypokalemia: replaced cont UC: quiescent proph: lmwh dispo: will follow cultures for [address] PICC DC in 1-2 days with IV abx Subjective: Feeling better today. No rigors. Objective: Vital Signs Temp Pulse Resp BP Pulse Ox 36.7 C 80 15 125/87 H 96 08/07/17 07:28 08/07/17 09:20 08/07/17 09:20 08/07/17 09:51 08/07/17 09:20 Microbiology 08/05/17 10:35 Gram Stain - Final Chest - Aspirate 08/05/17 10:35 Gram Stain - Final Chest - Aspirate 08/06/17 13:55 Gram Stain - Final Chest - Eswab 08/06/17 13:55 Mycobacterial Smear (ERIC) - Final Chest - Eswab Mycobacterial Culture - Final Laboratory Results 08/04/17 05:00 08/07/17 04:56 08/06/17 08/07/17 08/08/17 05:59 05:59 05:59 Intake Total 1500 450 Output Total 1400 3 Balance 100 447 PT 13.9 SEC (12.0-15.0) 08/03/17 15:05 INR 1.05 (0.83-1.16) 08/03/17 15:05 - Physical Exam Constitutional: no apparent distress, appears nourished, not in pain Eyes: PERRL, anicteric sclera, EOMI Ears, Nose, Mouth, Throat: moist mucous membranes, hearing normal, ears appear normal Cardiovascular: regular rate and rhythym, No JVD, No edema Respiratory: no respiratory distress, no rales or rhonchi, reduced air movement Gastrointestinal: normoactive bowel sounds, No tenderness, No ascites Skin: warm, erythema, No mottled Musculoskeletal: full muscle strength, normal joint ROM, no joint effusions Neurologic: AAOx3 Psychiatric: interacting appropriately, not anxious, not encephalopathic, thought process linear ICD10 Worksheet Patient Problems: Problems Problem Status Onset Mast cell activation Acute Chest pain Acute Hypokalemia Acute
[2017-08-07] MEDS: DIPHENHYDRAMINE IV SCH (14:20)
[2017-08-07] MEDS: FAMOTIDINE 20 MG/NACL 50 ML IV SCH ×2 (14:20→18:43)
[2017-08-07] MEDS: NS IV SCH (14:20)
--- NOTE | 2017-08-07 16:14 | ASMTCMCOM ---
CARLOS Note CARLOS Note Notes: Patient chart reviewed. She is current with [facility] services. Verified home address and phone number, CM to follow. Date Signed: 08/07/2017 04:13 PM Electronically Signed By:Kristina Scott RN
--- NOTE | 2017-08-07 16:59 | SOAPPROG ---
SOAP Progress Note Assessment/Plan: Assessment/Plan: s/p OR I&D POD 1 incision site is doing well, pain controlled patient is to pack wound with HFB and cover with allevin, given both to take home, she will attempt to change the dressing herself twice a week. will call and make an appointment with questions or issues changing her dressings follow up as needed will not see this weekend unless issues S: Tender at chest wall site, less tender than yesterday, states she is doing well O: pleasant well nourished and well groomed smiling in room with family no increased work of breathing dressing intact Objective: Vital Signs Temp Pulse Resp BP Pulse Ox 36.8 C 87 15 114/87 H 96 08/07/17 15:08 08/07/17 16:27 08/07/17 16:27 08/07/17 16:45 08/07/17 16:27 Microbiology 08/05/17 10:35 Gram Stain - Final Chest - Aspirate 08/05/17 10:35 Gram Stain - Final Chest - Aspirate 08/06/17 13:55 Gram Stain - Final Chest - Eswab 08/06/17 13:55 Mycobacterial Smear (ERIC) - Final Chest - Eswab Mycobacterial Culture - Final Laboratory Results 08/04/17 05:00 08/07/17 04:56 08/06/17 08/07/17 08/08/17 05:59 05:59 05:59 Intake Total 1500 450 Output Total 1400 3 Balance 100 447 PT 13.9 SEC (12.0-15.0) 08/03/17 15:05 INR 1.05 (0.83-1.16) 08/03/17 15:05 ICD10 Worksheet Patient Problems: Problems Problem Status Onset Hypokalemia Acute Chest pain Acute Mast cell activation Acute
[2017-08-07] MEDS: fentaNYL 100 MCG/2 ML INJ IVP PRN (18:39)
[2017-08-07] MEDS: ONDANSETRON 4 MG/2 ML VIAL IVP PRN (18:39)
[2017-08-08] MEDS: LEVALBUTEROL 1.25 MG/3 ML DEYVIAL IH PRN ×2 (05:40→12:04)
[2017-08-08] MEDS: CROMOLYN SODIUM PO SCH ×5 (05:40→21:45)
[2017-08-08] MEDS: CROMOLYN 20 MG/2 ML IH SCH ×4 (05:49→21:26)
[2017-08-08] MEDS: FAMOTIDINE 20 MG/NACL 50 ML IV SCH ×2 (06:07→18:03)
[2017-08-08] MEDS: DOMPERIDONE PO SCH ×4 (06:10→21:45)
[2017-08-08] MEDS: QUERCETIN 500 MG PO SCH ×4 (06:12→21:48)
[2017-08-08] MEDS: RANITIDINE 15 MG/ML PO SCH ×4 (06:14→22:13)
[2017-08-08] MEDS: ENOXAPARIN 80 MG/0.8 ML SYR SC SCH ×2 (09:26→22:14)
[2017-08-08] MEDS: cefTRIAXone 2 GM in STERILE WATER INJ 20 ML IV SCH (09:27)
[2017-08-08] MEDS ORDERED: POTASSIUM CL 10 MEQ TAB PO ONE ×2 (09:37→19:42)
[2017-08-08] MEDS: FLUDROCORTISONE ACETATE 0.1 MG TAB PO SCH (09:39)
[2017-08-08] MEDS: DILTIAZEM 180 MG PO SCH (09:40)
[2017-08-08] MEDS: POTASSIUM CL 20 MEQ TAB PO SCH (09:41)
[2017-08-08] MEDS: [UNRECOGNIZED DRUG - OTHER] EACHEYE SCH ×2 (09:41→21:46)
[2017-08-08] MEDS: CROMOLYN SODIUM NS SCH ×2 (09:43→21:39)
[2017-08-08] MEDS: MONTELUKAST SODIUM 10 MG TAB PO SCH ×2 (09:45→21:38)
[2017-08-08] MEDS: ISOSORBIDE DINITRATE 10 MG TAB PO SCH ×3 (09:46→21:41)
[2017-08-08] MEDS: HYDROCORTISONE 5 MG PO SCH ×3 (09:47→21:40)
[2017-08-08] MEDS: SODIUM CL NASAL 45 ML BTL NS SCH ×2 (09:49→21:51)
[2017-08-08] MEDS: CHOLECALCIFEROL PO SCH ×2 (09:54→22:13)
[2017-08-08] MEDS: BUDESONIDE 1 MG/2 ML IH SCH ×2 (10:03→21:24)
[2017-08-08] MEDS: ARFORMOTEROL 15 MCG/2 ML IH SCH ×2 (10:04→21:24)
[2017-08-08] MEDS: CETIRIZINE 10 MG TAB PO SCH ×2 (14:25→21:37)
--- NOTE | 2017-08-08 15:19 | PCMIDPN ---
Assessment/Plan: Assessment/Plan: 1. recurrent Klebsiella bacteremia with line infection: - Negative influenza,RVP work up so far - She did have negative blood cx on 07/19/17 and a new picc line placed on prior to discharge - Ceftriaxone - picc line removed, cultured tip which is positive. chest fluid collection s/p I & D and cultures ngtd -f/u blood cx from 08/06 are ngtd - s/p new picc line today -plan for two weeks therapy from negative cultures. -plan reviewed with patient, family - care coordinated with case management and RN. MEd ceftraixone 2g daily- 08/04/17 Subjective: AFebrile. feels better. initally wanted to go home today. got her picc line in today. now feels hesistant to go home because she wants to make sure picc line is ok. Denies sob, abd pain or diarrhea. Objective: Vital Signs Temp Pulse Resp BP Pulse Ox 36.5 C 63 16 150/70 H 93 08/08/17 14:44 08/08/17 14:44 08/08/17 14:44 08/08/17 14:44 08/08/17 14:44 Microbiology 08/06/17 13:55 Gram Stain - Final Chest - Eswab 08/05/17 10:35 Gram Stain - Final Chest - Aspirate 08/05/17 10:35 Gram Stain - Final Chest - Aspirate 08/04/17 16:30 Catheter Tip Culture - Final Catheter Tip Klebsiella Pneumoniae Ssp Pneu Laboratory Results 08/04/17 05:00 08/08/17 04:46 08/07/17 08/08/17 08/09/17 05:59 05:59 05:59 Intake Total 450 93.8 Output Total 3 Balance 447 93.8 - Physical Exam General Appearance: alert, no apparent distress Respiratory: lungs clear Cardiac/Chest: regular rate, rhythm, other (left chest wound with hydrafera blue.no surrounding erythema. nontender. ) Extremities: other (LUE picc line), No swelling Abdomen: normal bowel sounds, non-tender, soft, No distended Skin: No erythema ICD10 Worksheet Patient Problems: Problems Problem Status Onset Hypokalemia Acute Chest pain Acute Mast cell activation Acute
--- NOTE | 2017-08-08 15:25 | PDIAF ---
- Diagnosis Diagnosis: Klebsiella bacteremia, with line infection Code Status: Full Code - Medication Management Discharge Medications: Medications to Continue on Transfer Alendronate Sodium [Fosamax 70 MG (*)] 70 mg PO MO@0700 08/10/16 [Last Taken 06/05] Cetirizine [ZyrTEC 10 mg (*)] 10 mg PO DAILY@12 08/10/16 [Last Taken 08/03/17] Hydrocortisone [Cortef] 5 mg PO TID 08/10/16 [Last Taken 08/03/17] Isosorbide Dinitrate [Isosorbide Dinitrate 10 mg (*)] 15 mg PO TID 08/10/16 [ Last Taken 08/03/17] Enoxaparin [Lovenox 80 MG (*)] 80 mg SQ BID #14 syr 06/15/17 [Last Taken ] Cholecalciferol Vit D3 [Vitamin D3 2000 units tab (OTC)] 2,000 units PO BID 07/05 [Last Taken 08/03/17] Cyanocobalamin [Vitamin B12 1000MCG/ML (*)] 1,000 mcg IM Q14D 06/30/17 [Last Taken 07/23/17] Fludrocortisone Acetate [Florinef] 0.3 mg PO DAILY 06/30/17 [Last Taken 08/03/17 ] Montelukast Sodium [Singulair 10 mg (*)] 10 mg PO BID 06/30/17 [Last Taken 08/03] Nitroglycerin [Nitrostat 0.4 mg (*)] 0.4 mg SL Q5M PRN 06/30/17 [Last Taken Unknown] methylPREDNISolone SOD SUCC [Solu-Medrol 125 mg (*)] 125 mg IM DAILY PRN [Last Taken 06/25/17] Alocril Opthalmic Solution 2% 1 drop EACHEYE BID 07/02/17 [Last Taken 08/03/17] Benadryl Own Pump 15 mg IV CONT 07/02/17 [Last Taken 08/03/17] Brovana Nebulizer 1 each IH BID 07/02/17 [Last Taken 08/03/17] Budesonide 1 mg IH BID 07/02/17 [Last Taken 08/03/17] Cetirizine [ZyrTEC 10 mg (*)] 20 mg PO HS 07/02/17 [Last Taken 08/02/17] Compounded Zantac 10 ml PO QID 07/02/17 [Last Taken 08/03/17] Cromolyn Sodium 20 mg IH QID 07/02/17 [Last Taken 08/03/17] Cromolyn Sodium 200 mg PO QID 07/02/17 [Last Taken 08/03/17] Cromolyn Sodium [Nasalcrom] 1 inh NS BID 07/02/17 [Last Taken 08/03/17] Domperidone 4 each PO QID 07/02/17 [Last Taken 08/03/17] Famotidine (Own Pump) 2 mg IV CONT 07/02/17 [Last Taken 08/03/17] Quercetin 500mg 500 mg PO QID 07/02/17 [Last Taken 08/03/17] Sodium Cl Nasal [[place] (*)] 1 spray NS BID 07/02/17 [Last Taken 07/15/17] Diltiazem HCl [Diltiazem 24Hr ER] 180 mg PO DAILY 07/03/17 [Last Taken 08/03/17] EPINEPHrine KIT [Epipen Kit] 0.3 mg IM ONCE PRN inj 07/03/17 [Last Taken Unknown] Levalbuterol 1.25 mg [Xopenex 1.25MG Neb (*)] 1.25 mg IH Q8 PRN 08/03/17 [Last Taken Unknown] Potassium Cl [Klor-Con 20 meq (*)] 40 meq PO DAILY 08/03/17 [Last Taken 08/03/17 ] Usp Antibiotics: ceftriaxone 2g IV daily [employer] 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 PICC Care - Routine: Yes - Orders Isolation Type: None - Labs/Radiology CBC w/diff Date: 08/10/17 (q mondays) CMP Date: 08/10/17 (q mondays) Call or Fax Lab and Imaging Results to: fax to Dr. Kristen Rider- [phone] - Follow Up Care Current Providers and Referrals: Caroline Diehl MD [Primary Care Provider] - As per Instructions Kristen Rider MD [Medical Doctor] - 08/20/17 (f/u with Dr. Rider on 08/20/17. Office will call you and give you a time. )
--- NOTE | 2017-08-08 15:40 | HOSPPROG ---
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 D/W Dr Stanley. bacteremia: on ceftriaxone PICC line placed OR for I/D with Dr Woodruff, cx negative repeat cx NGTD mast cell activation syndrome: continue meds pump infusion benadryl and pepcid hypokalemia: replaced cont UC: quiescent proph: lmwh dispo: DC in am with IV abx and cont pump from benadryl and pepcid Subjective: Feeling better. No fever. Pain controlled. Objective: Vital Signs Temp Pulse Resp BP Pulse Ox 37.1 C 88 16 111/84 H 95 08/08/17 11:26 08/08/17 12:00 08/08/17 12:00 08/08/17 11:26 08/08/17 12:00 Microbiology 08/06/17 13:55 Gram Stain - Final Chest - Eswab 08/05/17 10:35 Gram Stain - Final Chest - Aspirate 08/05/17 10:35 Gram Stain - Final Chest - Aspirate 08/04/17 16:30 Catheter Tip Culture - Final Catheter Tip Klebsiella Pneumoniae Ssp Pneu Laboratory Results 08/04/17 05:00 08/08/17 04:46 08/07/17 08/08/17 08/09/17 05:59 05:59 05:59 Intake Total 450 93.8 Output Total 3 Balance 447 93.8 PT 13.9 SEC (12.0-15.0) 08/03/17 15:05 INR 1.05 (0.83-1.16) 08/03/17 15:05 - Physical Exam Constitutional: appears nourished, not in pain, chronically ill appearing Eyes: PERRL, anicteric sclera, EOMI Ears, Nose, Mouth, Throat: moist mucous membranes, hearing normal, ears appear normal Cardiovascular: regular rate and rhythym, No JVD, No edema Respiratory: no respiratory distress, no rales or rhonchi, reduced air movement Gastrointestinal: normoactive bowel sounds, No tenderness, No ascites Skin: warm, normal color, No erythema Neurologic: AAOx3 Psychiatric: interacting appropriately, not anxious, not encephalopathic, thought process linear ICD10 Worksheet Patient Problems: Problems Problem Status Onset Mast cell activation Acute Chest pain Acute Hypokalemia Acute
[2017-08-08] MEDS: DIPHENHYDRAMINE IV SCH (16:23)
[2017-08-08] MEDS: NS IV SCH (16:23)
[2017-08-08] MEDS: fentaNYL 100 MCG/2 ML INJ IVP PRN (22:12)
[2017-08-08] MEDS: ONDANSETRON 4 MG/2 ML VIAL IVP PRN (22:12)
[2017-08-09] MEDS: FAMOTIDINE 20 MG/NACL 50 ML IV SCH (04:21)
[2017-08-09] MEDS: RANITIDINE 15 MG/ML PO SCH (05:31)
[2017-08-09] MEDS: DOMPERIDONE PO SCH (05:33)
[2017-08-09] MEDS: QUERCETIN 500 MG PO SCH (05:35)
[2017-08-09] MEDS: CROMOLYN SODIUM PO SCH (05:35)
[2017-08-09] MEDS: CROMOLYN 20 MG/2 ML IH SCH (06:06)
[2017-08-09] MEDS: LEVALBUTEROL 1.25 MG/3 ML DEYVIAL IH PRN (06:07)
[2017-08-09] MEDS: ENOXAPARIN 80 MG/0.8 ML SYR SC SCH (07:31)
[2017-08-09] MEDS: CHOLECALCIFEROL PO SCH (07:31)
[2017-08-09] MEDS: DILTIAZEM 180 MG PO SCH (07:33)
[2017-08-09 08:15] VITALS: BP 117/79; TEMP 98.2
[2017-08-09] MEDS: POTASSIUM CL 20 MEQ TAB PO SCH (08:38)
[2017-08-09] MEDS: cefTRIAXone 2 GM in STERILE WATER INJ 20 ML IV SCH (08:38)
[2017-08-09] MEDS: FLUDROCORTISONE ACETATE 0.1 MG TAB PO SCH (08:38)
[2017-08-09] MEDS: CROMOLYN SODIUM NS SCH (08:43)
[2017-08-09] MEDS: MONTELUKAST SODIUM 10 MG TAB PO SCH (08:44)
[2017-08-09] MEDS: [UNRECOGNIZED DRUG - OTHER] EACHEYE SCH (08:45)
[2017-08-09] MEDS: ISOSORBIDE DINITRATE 10 MG TAB PO SCH (08:46)
[2017-08-09] MEDS: HYDROCORTISONE 5 MG PO SCH (08:47)
[2017-08-09] MEDS: BUDESONIDE 1 MG/2 ML IH SCH (09:59)
[2017-08-09] MEDS: ARFORMOTEROL 15 MCG/2 ML IH SCH (10:00)
[2017-08-09] MEDS: SODIUM CL NASAL 45 ML BTL NS SCH (10:06)
--- NOTE | 2017-08-09 10:20 | PDIAF ---
- Diagnosis Diagnosis: Klebsiella bacteremia, with line infection Code Status: Full Code - Medication Management Discharge Medications: Medications to Continue on Transfer Alendronate Sodium [Fosamax 70 MG (*)] 70 mg PO MO@0700 08/10/16 [Last Taken 06/05] Cetirizine [ZyrTEC 10 mg (*)] 10 mg PO DAILY@12 08/10/16 [Last Taken 08/03/17] Hydrocortisone [Cortef] 5 mg PO TID 08/10/16 [Last Taken 08/03/17] Isosorbide Dinitrate [Isosorbide Dinitrate 10 mg (*)] 15 mg PO TID 08/10/16 [ Last Taken 08/03/17] Enoxaparin [Lovenox 80 MG (*)] 80 mg SQ BID #14 syr 06/15/17 [Last Taken ] Cholecalciferol Vit D3 [Vitamin D3 2000 units tab (OTC)] 2,000 units PO BID 07/05 [Last Taken 08/03/17] Cyanocobalamin [Vitamin B12 1000MCG/ML (*)] 1,000 mcg IM Q14D 06/30/17 [Last Taken 07/23/17] Fludrocortisone Acetate [Florinef] 0.3 mg PO DAILY 06/30/17 [Last Taken 08/03/17 ] Montelukast Sodium [Singulair 10 mg (*)] 10 mg PO BID 06/30/17 [Last Taken 08/03] Nitroglycerin [Nitrostat 0.4 mg (*)] 0.4 mg SL Q5M PRN 06/30/17 [Last Taken Unknown] methylPREDNISolone SOD SUCC [Solu-Medrol 125 mg (*)] 125 mg IM DAILY PRN [Last Taken 06/25/17] Alocril Opthalmic Solution 2% 1 drop EACHEYE BID 07/02/17 [Last Taken 08/03/17] Benadryl Own Pump 15 mg IV CONT 07/02/17 [Last Taken 08/03/17] Brovana Nebulizer 1 each IH BID 07/02/17 [Last Taken 08/03/17] Budesonide 1 mg IH BID 07/02/17 [Last Taken 08/03/17] Cetirizine [ZyrTEC 10 mg (*)] 20 mg PO HS 07/02/17 [Last Taken 08/02/17] Compounded Zantac 10 ml PO QID 07/02/17 [Last Taken 08/03/17] Cromolyn Sodium 20 mg IH QID 07/02/17 [Last Taken 08/03/17] Cromolyn Sodium 200 mg PO QID 07/02/17 [Last Taken 08/03/17] Cromolyn Sodium [Nasalcrom] 1 inh NS BID 07/02/17 [Last Taken 08/03/17] Domperidone 4 each PO QID 07/02/17 [Last Taken 08/03/17] Famotidine (Own Pump) 2 mg IV CONT 07/02/17 [Last Taken 08/03/17] Quercetin 500mg 500 mg PO QID 07/02/17 [Last Taken 08/03/17] Sodium Cl Nasal [[place] (*)] 1 spray NS BID 07/02/17 [Last Taken 07/15/17] Diltiazem HCl [Diltiazem 24Hr ER] 180 mg PO DAILY 07/03/17 [Last Taken 08/03/17] EPINEPHrine KIT [Epipen Kit] 0.3 mg IM ONCE PRN inj 07/03/17 [Last Taken Unknown] Levalbuterol 1.25 mg [Xopenex 1.25MG Neb (*)] 1.25 mg IH Q8 PRN 08/03/17 [Last Taken Unknown] Potassium Cl [Klor-Con 20 meq (*)] 40 meq PO DAILY 08/03/17 [Last Taken 08/03/17 ] Acetaminophen [Tylenol 325mg (*)] 650 mg PO Q4HRS PRN tab 08/09/17 [Last Taken Unknown] Famotidine 20 mg/NaCl [Pepcid 20 mg (Premix)] 20 ml IV CONT bag 08/09/17 [Last Taken Unknown] cefTRIAXone [Rocephin] 2 gm IV DAILY #14 vial 08/09/17 [Last Taken Unknown] diphenhydrAMINE [Benadryl Injection] 750 mg IV Q24H inj 08/09/17 [Last Taken Unknown] Jail Antibiotics: ceftriaxone 2g IV daily 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 PICC Care - Routine: Yes - Orders Services needed: Home Care, Registered Nurse Home Care Face to Face: I certify that this patient was under my care and that I had the required [id number] encounter meeting the encounter requirements on the discharge day. My findings support the fact that the patient is homebound as defined in Home Care Face to Face Continued: CMS Chapter 7 Medicare Benefits Manual 30.1.1 , The condition of the patient is such that there exists a normal inability to leave home and consequently, leaving home would require a considerable and taxing effort. Isolation Type: None Diet Recommendation: no restrictions on diet - Labs/Radiology CBC w/diff Date: 08/10/17 (q mondays) CMP Date: 08/10/17 (q mondays) Call or Fax Lab and Imaging Results to: fax to Dr. Kristen Rider- [phone] - Follow Up Care Current Providers and Referrals: Caroline Diehl MD [Primary Care Provider] - As per Instructions Kristen Rdier MD [Medical Doctor] - 08/20/17 (f/u with Dr. Rider on 08/20/17. Office will call you and give you a time. )
--- NOTE | 2017-08-09 11:02 | ASMTCMCOM ---
CM Note CM Note Notes: Patient is medically cleared for discharge to home with Home infusion services. Call to [facility] infusion company to verify receipt of allscripts orders. CM to follow. Spoke with Amirah at [employer] and cnfirmed jayant's orders. Faxed copy to [phone].this number is not working. Updated in allscripts. Address and phone previously verified. Confirmed receipt of fax. CM available should other needs arise. Date Signed: 08/09/2017 11:01 AM Electronically Signed By:Kristina Scott RN
[2017-08-09 11:39] VITALS: PULSE 88; RESP 18; O2SAT 88
--- NOTE | 2017-08-09 14:14 | GDS ---
[f rep st] DISCHARGE SUMMARY DISCHARGE DIAGNOSES: 1. Klebsiella bacteremia. 2. History of mast cell activation syndrome. 3. Hypokalemia. CONSULTATIONS: 1. Infectious Disease. 2. General Surgery. 3. Interventional Radiology. PHYSICAL EXAM: GENERAL: The patient is alert. VITAL SIGNS: Afebrile at 36.8, pulse is 92, respira tory rate is 16, blood pressure is 117/79. She is saturating 93% on room air. I have seen and evaluated the patient on the day of discharge. HOSPITAL COURSE: The patient is a 41-year-old female who presents with fever and rigor. She was sushil luated and diagnosed with: 1. Klebsiella bacteremia. During this hospitalization, patient received IV antibiotic therapy, as w ell as repeat culturing. She did receive an infectious disease consultation. She had previously suf fered from a Klebsiella bacteremia and this appears to be a recurrence. However, unclear how it occu rred. Her blood cultures have remained negative for greater than 48 hours. A PICC line has been omid isaura. She will continue IV Rocephin in the outpatient setting for a total of 2 weeks. 2. History of mast cell activation syndrome. She has continued her Benadryl as well as Pepcid infus ions during this hospital course. These have been re-initiated at the time of disposition. Long ter m she will require a Otero placement for access for these medications. 3. Hypokalemia. Replacement has been provided and is stable. DISPOSITION: The patient will be discharged home independently with home health care. She does have an active PICC line. She will continue IV antibiotic therapy of ceftriaxone 2 g daily for a total o f 2 weeks, as well as her previously prescribed Benadryl and Pepcid infusions that are managed by her primary care physician, Dr. Caroline Diehl. Followup will be with infectious disease, Dr. Kristen linder on 08/20/2017, as well as her primary care physician, Dr. Caroline Diehl. There are no pending stud ies. DISCHARGE MEDICATIONS: Please refer to EMR form. New medications to the patient include Rocephin. I spent greater than 35 minutes in the care, coordination, and management of this patient's dispositi on. /[id number]/MODL
--- NOTE | 2017-08-09 14:30 | ASDISCHSUM ---
Discharge Information Plan Status:Home with Home Health Medically Cleared to Leave:08/08/2017 Discharge Date:08/09/2017 11:55 AM D/C Disposition:Home Health Service [facility] D/C Disposition:Home, Routine, Self-Care Projected Discharge Date:08/09/2017 11:00 AM Transportation at D/C:Family Discharge Delay Reason: Follow-Up Date:08/09/2017 11:00 AM Discharge Slot: Final Diagnosis: Placement Information Referral Type:Home Infusion Referral ID:[id number] Provider Name:[facility] Address 1:[address] Address 2: City:[place] Selection Factors: State:[place] Patient Contact Information Contact Name:HUA Relationship:Friend Address:[address] City:[place] Alternate Phone: State/Zip Code:[place] [address] Email: Financial Information Financial Class:Bei[employer] Primary [facility] Desc[facility] Primary Plan Number:[id number] Secondary Plan Desc: Secondary Plan Number: Assessment Information [facility] Initial CM Assessment Living Arrangements What is your living Answers: Alone arrangement? Who do you live with? Type Of Residence What kind of residence do Answers: Apartment you live in? Discharge Plan Comments Coordination Status Comments Notes: Patient is a 41yo single female with a complicated past medical history who was admitted for fever, hypokalemia, hyperglycemia, mast cell activation syndrome, adrenal insufficiency, coronary artery vasospasms, and asthma. Patient is on disability and her caregiver and parents were at her bedside. No therapies have been ordered. D/C needs TBD. CM will follow. Date Signed: 08/04/2017 09:56 AM Electronically Signed By:Tavia Lieberman LCSW [facility] Progress Note CM Note CM Note Notes: Patient chart reviewed. She is current with [facility]. Verified home address and phone number, CM to follow. Date Signed: 08/07/2017 04:13 PM Electronically Signed By:Kristina Scott RN [facility] CM Progress Note CM Note CM Note Notes: Patient is medically cleared for discharge to home with Home infusion services. Call to [facility] infusion company to verify receipt of allscripts orders. CM to follow. Spoke with Amirah at [employer] and ewamed jayant's orders. Faxed copy to [phone].this number is not working. Updated in [employer]. Address and phone previously verified. Confirmed receipt of fax. CM available should other needs arise. Date Signed: 08/09/2017 11:01 AM Electronically Signed By:Kristina Scott RN Intervention Information
[2017-08-10] MEDS ORDERED: ALENDRONATE SODIUM 70 MG TAB PO SCH (07:00)
--- NOTE | 2017-08-12 15:17 | PQFORM ---
PHYSICIAN QUERY FORM Needs Your Response This query form is being sent to you to assure this patient record is coded properly. Please respond to the question below: SEXER QUESTION: Dr English Please clarify the etiology of the patient's bacteremia. Progress notes mention line infection however this was not carried through to the Discharge Summary. Was the bacteremia _x_ Due to/complication of PICC line ? 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 Move cursor to area below the stars. When complete, hit "Save." Click on the "Sign" button, then click "Sign" again. Type in your PIN and hit "Enter." MTDD
== END 2017-08-09 11:55 | disposition home health service (06) | DRG 315 ==
LOC: F3E 18:44
PROVIDERS: ADMIT Internal Medicine; ATTEND Internal Medicine
PROC: 0H95XZZ Drainage of Chest Skin, External Approach (ICD-10-PCS; principal; 2017-08-06 16:00)
PROC: 02H633Z Insertion of Infusion Device into Right Atrium, Percutaneous Approach (ICD-10-PCS; 2017-08-08)
DX: T82.7XXA Infection and inflammatory reaction due to other cardiac and vascular devices, implants and grafts, initial encounter (principal); R78.81 Bacteremia; L02.213 Cutaneous abscess of chest wall; B96.1 Klebsiella pneumoniae [K. pneumoniae] as the cause of diseases classified elsewhere; D89.40 Mast cell activation, unspecified; E87.6 Hypokalemia; M34.9 Systemic sclerosis, unspecified; J45.909 Unspecified asthma, uncomplicated; E27.40 Unspecified adrenocortical insufficiency; T38.0X5A Adverse effect of glucocorticoids and synthetic analogues, initial encounter
CPT/HCPCS: C1751; J0696; J1200; J1650; J2250; J2405; J2704; J3010

== ENCOUNTER 2017-08-14 11:10 | Emergency (ER) | payer OTHER ==
--- NOTE | 2017-08-14 11:36 | EDPHY ---
H & P Time Seen by Provider: 08/14/17 11:27 HPI/ROS: CHIEF COMPLAINT: Clogged PICC line HISTORY OF PRESENT ILLNESS: 41-year-old female with medical history significant for mast cell activation syndrome, recent hospitalization for Klebsiella bacteremia with placement of double-lumen PICC line in her left upper extremity, has been receiving daily ceftriaxone infusions in addition to her continuous famotidine and diphenhydramine infusions, states that the home health nurse had difficulty infusing the ceftriaxone yesterday but was able to do so successfully however today was unable to do so and therefore comes to the ER for evaluation. States that she has had prior adverse reaction to IV heparin. PHYSICAL EXAM (Prior to examination, patient consented to physical exam, hands were washed and my usual and customary physical exam procedures followed) 1) GENERAL: Well-developed, well-nourished, alert and oriented. Appears to be in no acute distress. 2) HEAD: Normocephalic 3) HEENT: sclera anicteric 4) LUNGS: Breathing comfortably. 5) SKIN: Left upper extremity: PICC line in place with no signs of cellulitis , no lymphangitic streaking or tenderness. Soft compartments. Smoking Status: Former smoker Constitutional: Initial Vital Signs Temperature (C) 36.9 C 08/14/17 11:18 Heart Rate 88 08/14/17 11:18 Respiratory Rate 17 08/14/17 11:18 Blood Pressure 126/92 H 08/14/17 11:18 O2 Sat (%) 96 08/14/17 11:18 O2 Delivery Mode Room Air Allergies/Adverse Reactions: iron sucrose complex [From Venofer] Allergy (Severe, Verified 08/03/17 14:04) Anaphylaxis aspirin Allergy (Intermediate, Verified 08/03/17 14:04) Anaphylaxis levofloxacin [From Levaquin] Allergy (Unknown, Verified 08/03/17 14:04) hives all over and swelling of tongue nabumetone [From Relafen] Allergy (Unknown, Verified 08/03/17 14:04) hives all over and swelling of tongue adhesive tape Allergy (Verified 08/06/17 14:15) Hives dapsone Allergy (Verified 08/03/17 14:04) severe anemia latex Allergy (Verified 08/03/17 14:04) soy Allergy (Verified 08/03/17 14:04) STEROIDS Allergy (Unknown, Uncoded 07/15/17 19:25) has to have benadryl first Home Medications: Medication Instructions Recorded Alendronate Sodium [Fosamax 70 MG 70 mg PO MO@0700 08/10/16 (*)] Cetirizine [ZyrTEC 10 mg (*)] 10 mg PO DAILY@12 08/10/16 Hydrocortisone [Cortef] 5 mg PO TID 08/10/16 Isosorbide Dinitrate [Isosorbide 15 mg PO TID 08/10/16 Dinitrate 10 mg (*)] Enoxaparin [Lovenox 80 MG (*)] 80 mg SQ BID #14 syr 06/15/17 Cholecalciferol Vit D3 [Vitamin D3 2,000 units PO BID 06/30/17 2000 units tab (OTC)] Cyanocobalamin [Vitamin B12 1,000 mcg IM Q14D 06/30/17 1000MCG/ML (*)] Fludrocortisone Acetate [Florinef] 0.3 mg PO DAILY 06/30/17 Montelukast Sodium [Singulair 10 10 mg PO BID 06/30/17 mg (*)] Nitroglycerin [Nitrostat 0.4 mg 0.4 mg SL Q5M PRN 06/30/17 (*)] methylPREDNISolone SOD SUCC 125 mg IM DAILY PRN 06/30/17 [Solu-Medrol 125 mg (*)] Alocril Opthalmic Solution 2% 1 drop EACHEYE BID 07/02/17 Benadryl Own Pump 15 mg IV CONT 07/02/17 Brovana Nebulizer 1 each IH BID 07/02/17 Budesonide 1 mg IH BID 07/02/17 Cetirizine [ZyrTEC 10 mg (*)] 20 mg PO HS 07/02/17 Compounded Zantac 10 ml PO QID 07/02/17 Cromolyn Sodium 20 mg IH QID 07/02/17 Cromolyn Sodium 200 mg PO QID 07/02/17 Cromolyn Sodium [Nasalcrom] 1 inh NS BID 07/02/17 Domperidone 4 each PO QID 07/02/17 Famotidine (Own Pump) 2 mg IV CONT 07/02/17 Quercetin 500mg 500 mg PO QID 07/02/17 Sodium Cl Nasal [[place] (*)] 1 spray NS BID 07/02/17 Diltiazem HCl [Diltiazem 24Hr ER] 180 mg PO DAILY 07/03/17 EPINEPHrine KIT [Epipen Kit] 0.3 mg IM ONCE PRN inj 07/03/17 Levalbuterol 1.25 mg [Xopenex 1.25 mg IH Q8 PRN 08/03/17 1.25MG Neb (*)] Potassium Cl [Klor-Con 20 meq (*)] 40 meq PO DAILY 08/03/17 Acetaminophen [Tylenol 325mg (*)] 650 mg PO Q4HRS PRN tab 08/09/17 Famotidine 20 mg/NaCl [Pepcid 20 20 ml IV CONT bag 08/09/17 mg (Premix)] cefTRIAXone [Rocephin] 2 gm IV DAILY #14 vial 08/09/17 diphenhydrAMINE [Benadryl 750 mg IV Q24H inj 08/09/17 Injection] MDM/Departure - MDM Medications Given: Discontinued Medications Alteplase, Recombinant (Cathflo Activase) 2 mg IVP EDNOW ONE Stop: 08/14/17 11:41 Last Admin: 08/14/17 12:08 Dose: 2 mg Alteplase, Recombinant (Cathflo Activase) 2 mg IVP EDNOW ONE Stop: 08/14/17 14:09 Last Admin: 08/14/17 14:11 Dose: 2 mg ED Course/Re-evaluation: 2:11 p.m.: Still no flow to the patient's PICC line. Cathflo protocol followed an IR Dr Gonsales has been alerted. 2:19 p.m.: Phone consultation with Dr. Gonsales, interventional radiology, who will schedule PICC line replacement this afternoon. 3:53 p.m.: Patient is back from interventional Radiology, PICC line has been replaced, is patent. She has her dose of Rocephin with her which he is given to herself. Plan will be discharge home, continue medications as directed. - Depart Disposition: Home, Routine, Self-Care Clinical Impression: Occluded PICC line Condition: Good Instructions: How to Flush Your PICC or Midline Catheter (ED) Additional Instructions: Keep administering medications via your PICC line as directed previously. Referrals: Caroline Diehl MD [Primary Care Provider] - 1-2 days without fail
[2017-08-14] MEDS ORDERED: ALTEPLASE 2 MG VIAL IVP ONE ×2 (11:40→14:08)
[2017-08-14 16:08] VITALS: BP 121/70; PULSE 18; RESP 82; TEMP 97.7; O2SAT 97
== END 2017-08-14 16:09 | disposition home or self-care (01) ==
DX: T82.898A Other specified complication of vascular prosthetic devices, implants and grafts, initial encounter (principal); Z87.891 Personal history of nicotine dependence; Z91.040 Latex allergy status; Y82.8 Other medical devices associated with adverse incidents
CPT/HCPCS: 96374; J2997

== ENCOUNTER 2017-09-02 09:01 | Observation (INO) | payer OTHER ==
--- NOTE | 2017-08-29 11:34 | GHP ---
[f rep st] HISTORY AND PHYSICAL DATE OF ADMISSION: 09/02/2017 CHIEF COMPLAINT: Need for central venous access. HISTORY OF PRESENT ILLNESS: Moni is a 41-year-old woman with mass cell activation who requires cont inuous infusions and requires a central line to facilitate her infusions. She has had a recent histo ry of bacteremia and her previous line was removed. A PICC line was placed and she was scheduled to have a new Otero line placed when she developed bacteremia again. Her cultures have since then bee n negative. PAST MEDICAL HISTORY: Adrenal insufficiency, asthma, mass cell activation, and history of pulmonary embolism. PAST SURGICAL HISTORY: Port placement, port removal, and Otero catheter placement. ALLERGIES: Adhesive, aspirin, dapsone, iron, latex, Levaquin, steroids, requiring Benadryl prior to, and Relafen. MEDICATIONS: Reviewed. FAMILY HISTORY: None. SOCIAL HISTORY: She is not working. She has never used tobacco products. PHYSICAL EXAM: GENERAL: This is a pleasant, well-nourished, and well-groomed woman. HEENT: Normoc ephalic. No gross hearing deficits. Mucous membranes are moist. Pupils are equal and round. No sc leral icterus. LUNGS: Clear to auscultation bilaterally. No increased work of breathing. CARDIAC: Regular rate. SKIN: Warm and dry. PSYCHIATRIC: Mood and affect are normal. NEUROLOGIC: Grossl y intact. IMPRESSION AND PLAN: Moni is a 41-year-old woman who requires continuous infusions due to her mass cell activation. She has cleared her bacteremia. We will place a double-lumen Otero catheter. Th e risks and benefits including, but not limited to, stroke, heart attack, , blood clots, infecti on, bleeding, recurrent bacteremia, problems with the line were all discussed. She will hold her Danisha enox the morning of surgery. /[id number]/MODL
[2017-09-02] MEDS ORDERED: BUPIVACAINE 0.5% 30 ML SDV ONE (09:11)
[2017-09-02] MEDS ORDERED: ceFAZolin 2 GM/SWFI 2 GM/20 ML SYR IVP ONE (09:36)
--- NOTE | 2017-09-02 09:42 | PDHPUP ---
History & Physical Update H&P update statement: This history and physical update is based on an assessment of the patient which was completed after admission or registration (within 24 hours), but prior to the surgery/procedure. H&P update: H&P reviewed & patient examined, no change in patient's condition since H&P completed
[2017-09-02] MEDS ORDERED: MIDAZOLAM 2 MG/2 ML VIAL IVP ONE (10:15)
[2017-09-02] MEDS ORDERED: MIDAZOLAM 2 MG/2 ML VIAL ONE (10:17)
--- NOTE | 2017-09-02 10:17 | PDANEPAE ---
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 chronic bronchitis. hx of multiple pe's. abram positive - Neurologic History Hx Cerebrovascular Accident: No Hx Seizures: Yes Hx Dementia: No Neurologic History Comment: 2 seizures as child - Endocrine History Hx Diabetes: No - Renal History Hx Renal Disorders: Yes Renal History Comment: hx of kidney stones - Liver History Hx Hepatic Disorders: No - Neurological & Psychiatric Hx Hx Neurological and Psychiatric Disorders: No - Cancer History Hx Cancer: No - Congenital Disorder History Hx Congenital Disorders: No - GI History Hx Gastrointestinal Disorders: Yes Gastrointestinal History Comment: reflux. ulcerative colitis- currently in remission. gastroparesis - Other Health History Other Health History: wears glasses/ contacts. very sensitive skin- gets rashes easily. bruises easily - Chronic Pain History Chronic Pain: No - Surgical History Prior Surgeries: 08/06/17 I&D of chest with Dr. Woodruff. 07/02/17 port removed and bettencourt placed with matt. 07/02/17 port placed with Matt. right elbow surgery to repair tendon. right wrist carpal tunnel. 2 laparoscopies for endometriosis and cysts. sinus surgery. appy surgery. left ankle surgery ANE Review of Systems Review of Systems: - Exercise capacity METS (RN): 3 METS ANE Patient History - Allergies Allergies/Adverse Reactions: adhesive tape Allergy (Verified 08/06/17 14:15) Hives aspirin Allergy (Verified 08/28/17 15:21) Anaphylaxis dapsone Allergy (Verified 08/03/17 14:04) severe anemia gluten Allergy (Verified 08/28/17 15:22) iron sucrose complex [From Venofer] Allergy (Verified 08/28/17 15:21) Anaphylaxis lactose Allergy (Verified 08/28/17 15:22) latex Allergy (Verified 08/28/17 15:21) Anaphylaxis levofloxacin [From Levaquin] Allergy (Verified 08/28/17 15:21) hives all over and swelling of tongue nabumetone [From Relafen] Allergy (Verified 08/28/17 15:21) hives all over and swelling of tongue perfume Allergy (Verified 08/28/17 15:22) throat will close up and sob povidone-iodine [From Betadine] Allergy (Verified 08/28/17 16:07) rash/hives soap [From Betadine] Allergy (Verified 08/28/17 16:07) Rash/hives soy Allergy (Verified 08/28/17 15:21) major gi issues, if in lotion she gets hives cleaning chemicals Allergy (Uncoded 08/28/17 15:23) throat will close and sob STEROIDS Allergy (Uncoded 08/28/17 15:21) has to have benadryl first - Home Medications Home Medications: Alendronate Sodium [Fosamax 70 MG (*)] 70 mg PO MO@0700 08/10/16 [Last Taken 06/05] Cetirizine [ZyrTEC 10 mg (*)] 10 mg PO DAILY@12 08/10/16 [Last Taken 08/03/17] Hydrocortisone [Cortef] 5 mg PO TID 08/10/16 [Last Taken 08/03/17] Isosorbide Dinitrate [Isosorbide Dinitrate 10 mg (*)] 15 mg PO TID 08/10/16 [ Last Taken 08/03/17] Cholecalciferol Vit D3 [Vitamin D3 2000 units tab (OTC)] 2,000 units PO BID 07/05 [Last Taken 08/03/17] Cyanocobalamin [Vitamin B12 1000MCG/ML (*)] 1,000 mcg IM Q14D 06/30/17 [Last Taken 07/23/17] Fludrocortisone Acetate [Florinef] 0.3 mg PO DAILY 06/30/17 [Last Taken 08/03/17 ] Montelukast Sodium [Singulair 10 mg (*)] 10 mg PO BID 06/30/17 [Last Taken 08/03] methylPREDNISolone SOD SUCC [Solu-Medrol 125 mg (*)] 125 mg IM DAILY PRN [Last Taken 09/01/17] Alocril Opthalmic Solution 2% 1 drop EACHEYE BID PRN 07/02/17 [Last Taken ] Benadryl Own Pump 15 mg IV CONT 07/02/17 [Last Taken 08/03/17] Brovana Nebulizer 1 each IH BID 07/02/17 [Last Taken 08/03/17] Budesonide 1 mg IH BID 07/02/17 [Last Taken 08/03/17] Cetirizine [ZyrTEC 10 mg (*)] 20 mg PO HS 07/02/17 [Last Taken 08/02/17] Cromolyn Sodium 20 mg IH QID 07/02/17 [Last Taken 08/03/17] Cromolyn Sodium 200 mg PO QID 07/02/17 [Last Taken 08/03/17] Cromolyn Sodium [Nasalcrom] 1 inh NS BID 07/02/17 [Last Taken 08/03/17] Domperidone 40 mg PO QID 07/02/17 [Last Taken 08/03/17] Quercetin 500mg 500 mg PO QID 07/02/17 [Last Taken 08/03/17] Potassium Cl [Klor-Con 20 meq (*)] 40 meq PO BID 08/03/17 [Last Taken 08/03/17] Diltiazem 180 mg PO DAILY 08/28/17 [Last Taken Unknown] Famotidine 20 mg/NaCl [Pepcid 20 mg (Premix)] 2 mg IV CONT 08/28/17 [Last Taken Unknown] Normal Saline 1 l IV BID 08/28/17 [Last Taken Unknown] Ondansetron 4 mg/2 ml Isecure 4 mg IV BID PRN 08/28/17 [Last Taken Unknown] Ranitidine HCl 10 ml PO QID 08/28/17 [Last Taken Unknown] Xopenex 1.25MG Neb (*) 1.25 mg IH BID 08/28/17 [Last Taken Unknown] Xopenex Hfa Inhaler (*) 08/28/17 [Last Taken Unknown] - Smoking Hx Smoking Status: Former smoker - Family Anes Hx Family Hx Anesthesia Complications: none ANE Labs/Vital Signs - Vital Signs Height: 177.8 cm Weight: 76.204 kg ANE Physical Exam - Airway Neck exam: FROM Mallampati Score: Class 1 Mouth exam: normal dental/mouth exam - Pulmonary Pulmonary: no respiratory distress - Cardiovascular Cardiovascular: regular rate and rhythym - ASA Status ASA Status: III ANE Anesthesia Plan Anesthesia Plan: GA w LMA
[2017-09-02] MEDS ORDERED: fentaNYL 100 MCG/2 ML INJ ONE ×4 (10:19→11:39)
[2017-09-02] MEDS ORDERED: ONDANSETRON 4 MG/2 ML VIAL ONE ×3 (10:19→12:34)
[2017-09-02] MEDS ORDERED: DEXAMETHASONE 4 MG/ML VIAL ONE (10:19)
[2017-09-02] MEDS ORDERED: HYDROCORTISONE 100 MG/2 ML VIAL ONE (10:19)
[2017-09-02] MEDS ORDERED: PROPOFOL 200 MG/20 ML VIAL ONE ×2 (10:20)
--- NOTE | 2017-09-02 10:38 | POSTOPPROG ---
Post Op Note Date of Operation: 09/02/17 Surgeon: Gaby Woodruff Anesthesiologist: vivi Anesthesia: GET(General Endotracheal) Pre-op Diagnosis: mast cell activation Post-op Diagnosis: same Indication: 41 yo with mast cell activation Procedure: hickmann Inf/Abcess present in the surg proc area at time of surgery?: No EBL: Minimal
[2017-09-02] MEDS ORDERED: ACETAMINOPHEN 325 MG TAB PO PRN (10:40)
[2017-09-02] MEDS ORDERED: methylPREDNISolone SOD SUCC 125 MG/2 ML VIAL IM PRN (10:40)
[2017-09-02] MEDS ORDERED: ONDANSETRON IV PRN (10:40)
[2017-09-02] MEDS ORDERED: [UNRECOGNIZED DRUG - OTHER] EACHEYE PRN (10:40)
[2017-09-02] MEDS ORDERED: FAMOTIDINE IV SCH (10:45)
[2017-09-02] MEDS ORDERED: SODIUM CHLORIDE IV SCH (10:45)
[2017-09-02] MEDS ORDERED: CYANO/VITAMIN B12 1000 MCG/ML VIAL IM SCH (10:45)
[2017-09-02] MEDS ORDERED: NS 1,000 ML IV ONE (10:46)
[2017-09-02] MEDS ORDERED: HYDROCODONE/APAP 5/325 TAB PO PRN (10:47)
[2017-09-02] MEDS ORDERED: NALOXONE HCL 0.4 MG/ML INJ IVP PRN (10:56)
[2017-09-02] MEDS ORDERED: HYDROmorphONE/DILAUDID 1 MG/ML INJ IVP PRN (10:56)
[2017-09-02] MEDS: fentaNYL 100 MCG/2 ML INJ IVP PRN ×6 (11:30→22:13)
[2017-09-02] MEDS: ONDANSETRON 4 MG/2 ML VIAL IVP PRN ×5 (11:43→22:12)
--- NOTE | 2017-09-02 13:08 | GOP ---
[f rep st] OPERATIVE REPORT DATE OF OPERATION: 09/02/2017 SURGEON: Gaby Woodruff MD ANESTHESIA: General. ANESTHESIOLOGIST: Dr. Maddy Bowles PREOPERATIVE DIAGNOSIS: Mass cell activation. POSTOPERATIVE DIAGNOSIS: Mass cell activation. PROCEDURE PERFORMED: Right subclavian Otero double-lumen catheter placement. FINDINGS: tip by SVC RA junction SPECIMENS: None. ESTIMATED BLOOD LOSS: 15 cc. INDICATIONS: The patient is a 41-year-old woman with mast cell activation. She has had difficulty with IV access. She has cleared her bacteremia and is eligible for double-lumen Otero catheter placement. DESCRIPTION OF PROCEDURE: The patient was brought into the operating room, placed supine on the table, and general anesthesia was administered. Her bilateral neck and chest were prepped and draped in usual sterile fashion. She was placed in the Trendelenburg position. I infiltrated her chest with 0.25% Marcaine prior to making incisions. I accessed her right subclavian vein with dark return of blood flow on the first attempt. I threaded the guidewire and removed the needle. Placement was confirmed in the IVC with fluoroscopy. I made a small mary in the skin on her right chest, in an area where the patient and I had discussed preoperatively. I tunneled the catheter up to the insertion site. I measured the catheter under fluoroscopy and cut it to size. Using the Seldinger technique, I placed a dilator and sheath over the wire. I removed the wire and the dilator. I placed the catheter through the sheath and peeled away the sheath. Placement was confirmed with fluoroscopy. Each port withdrew blood easily and was flushed with heparin. I closed the insertion site with a 3-0 nylon. I placed a StatLock device around the insertion site. I examined the wound on her left chest. I placed Lakisha and a sterile dressing. I transferred her lines over to the Otero, they were both running easily. I removed the PIC in her left arm. She was awakened in the operating room, extubated, transferred to PACU in stable condition. /[id number]/MODL MTDD
[2017-09-02] MEDS ORDERED: [UNRECOGNIZED DRUG - OTHER] IV SCH (14:30)
[2017-09-02] MEDS ORDERED: [UNRECOGNIZED DRUG - OTHER] SQ SCH (14:30)
[2017-09-02] MEDS ORDERED: FAMOTIDINE 20 MG/NACL 50 ML IV SCH (14:30)
[2017-09-02] MEDS ORDERED: NS IV SCH (14:45)
[2017-09-02] MEDS ORDERED: DIPHENHYDRAMINE IV SCH (14:45)
[2017-09-02] MEDS: CROMOLYN SODIUM IH SCH ×3 (15:14→21:19)
[2017-09-02] MEDS ORDERED: LEVALBUTEROL INHALER 200 PUFFS/15 GM MDI IH PRN (15:40)
[2017-09-02] MEDS ORDERED: NITROGLYCERIN 0.4 MG BTL SL PRN (15:40)
[2017-09-02] MEDS ORDERED: DEXAMETHASONE 4 MG/ML VIAL IVP PRN (15:40)
[2017-09-02] MEDS: RANITIDINE PO SCH ×3 (15:42→20:11)
[2017-09-02] MEDS: DOMPERIDONE PO SCH ×3 (16:00→20:01)
[2017-09-02] MEDS: QUERCETIN 500 MG PO SCH ×3 (16:00→20:02)
[2017-09-02] MEDS: CROMOLYN SODIUM PO SCH ×3 (16:00→22:21)
--- NOTE | 2017-09-02 16:06 | SOAPPROG ---
SOAP Progress Note Assessment/Plan: Assessment: s/p brittany post op phone call sore but doing well Plan: 09/02/17 16:05 Objective: Vital Signs Temp Pulse Resp BP Pulse Ox 36.4 C 73 14 118/87 H 97 09/02/17 15:26 09/02/17 15:51 09/02/17 15:51 09/02/17 15:26 09/02/17 15:51 09/01/17 09/02/17 09/03/17 05:59 05:59 05:59 Intake Total 900 Output Total 15 Balance 885 ICD10 Worksheet Patient Problems: Problems Problem Status Onset Chest pain Acute Hypokalemia Acute Mast cell activation Acute
[2017-09-02] MEDS: HYDROCORTISONE 10 MG TAB PO SCH ×2 (16:38→22:15)
[2017-09-02] MEDS: ISOSORBIDE DINITRATE 10 MG TAB PO SCH ×2 (16:43→22:15)
[2017-09-02] MEDS: PROMETHAZINE HCL 25 MG/ML INJ IVP PRN (19:57)
[2017-09-02] MEDS: POTASSIUM CL 20 MEQ TAB PO SCH (20:12)
[2017-09-02] MEDS: MONTELUKAST SODIUM 10 MG TAB PO SCH (20:12)
[2017-09-02] MEDS: ENOXAPARIN 80 MG/0.8 ML SYR SC SCH (20:12)
[2017-09-02] MEDS ORDERED: GASTROCROM PO SCH (21:00)
[2017-09-02] MEDS ORDERED: CETIRIZINE 10 MG TAB PO SCH (21:00)
[2017-09-02] MEDS ORDERED: RANITIDINE PO SCH (21:00)
[2017-09-02] MEDS ORDERED: ONDANSETRON 4 MG/2 ML VIAL IVP SCH (21:00)
[2017-09-02] MEDS: ARFORMOTEROL IH SCH (21:13)
[2017-09-02] MEDS: BUDESONIDE 1 MG/2 ML IH SCH (21:14)
[2017-09-02] MEDS: LEVALBUTEROL 1.25 MG/3 ML DEYVIAL IH SCH ×2 (21:20→21:23)
[2017-09-02] MEDS: CROMOLYN SODIUM NS SCH (22:22)
[2017-09-03] MEDS: PROMETHAZINE HCL 25 MG/ML INJ IVP PRN ×2 (02:17→12:21)
[2017-09-03] MEDS: fentaNYL 100 MCG/2 ML INJ IVP PRN ×3 (02:18→11:04)
[2017-09-03] MEDS: RANITIDINE PO SCH (05:27)
[2017-09-03] MEDS: DOMPERIDONE PO SCH (05:28)
[2017-09-03] MEDS: QUERCETIN 500 MG PO SCH (05:29)
[2017-09-03] MEDS: CROMOLYN SODIUM PO SCH (05:31)
[2017-09-03] MEDS: LEVALBUTEROL 1.25 MG/3 ML DEYVIAL IH SCH (05:42)
[2017-09-03] MEDS: CROMOLYN SODIUM IH SCH (05:42)
[2017-09-03] MEDS: ONDANSETRON 4 MG/2 ML VIAL IVP PRN ×2 (06:05→11:04)
[2017-09-03 07:13] VITALS: BP 112/72; RESP 18; TEMP 98.2
[2017-09-03] MEDS: ENOXAPARIN 80 MG/0.8 ML SYR SC SCH (08:06)
[2017-09-03] MEDS: CROMOLYN SODIUM NS SCH (08:09)
[2017-09-03] MEDS: ISOSORBIDE DINITRATE 10 MG TAB PO SCH (08:18)
[2017-09-03] MEDS: MONTELUKAST SODIUM 10 MG TAB PO SCH (08:21)
[2017-09-03] MEDS: HYDROCORTISONE 10 MG TAB PO SCH (08:27)
[2017-09-03] MEDS: POTASSIUM CL 20 MEQ TAB PO SCH (08:28)
--- NOTE | 2017-09-03 08:39 | SOAPPROG ---
SOAP Progress Note Assessment/Plan: Assessment: POD # 1 s/p bettencourt Doing well dc home remove suture R chest 1 week RTC my clinic 2 weeks S: Feels well O: Sites cdi Plan: 09/02/17 16:05 09/03/17 08:39 Objective: Vital Signs Temp Pulse Resp BP Pulse Ox 36.8 C 82 18 112/72 95 09/03/17 07:13 09/03/17 07:13 09/03/17 07:13 09/03/17 07:13 09/03/17 07:13 09/02/17 09/03/17 09/04/17 05:59 05:59 05:59 Intake Total 1300 Output Total 15 Balance 1285 ICD10 Worksheet Patient Problems: Problems Problem Status Onset Chest pain Acute Hypokalemia Acute Mast cell activation Acute
--- NOTE | 2017-09-03 08:45 | PDIAF ---
- Diagnosis Diagnosis: mast cell activation Code Status: Full Code - Medication Management Discharge Medications: Medications to Continue on Transfer Alendronate Sodium [Fosamax 70 MG (*)] 70 mg PO MO@0700 08/10/16 [Last Taken 07/06] Cetirizine [ZyrTEC 10 mg (*)] 10 mg PO DAILY@12 08/10/16 [Last Taken 09/01/17] Hydrocortisone [Cortef] 5 mg PO TID 08/10/16 [Last Taken 09/02/17] Isosorbide Dinitrate [Isosorbide Dinitrate 10 mg (*)] 15 mg PO TID 08/10/16 [ Last Taken 09/02/17] Enoxaparin [Lovenox 80 MG (*)] 80 mg SQ BID #14 syr 06/15/17 [Last Taken 21:00] Cholecalciferol Vit D3 [Vitamin D3 2000 units tab (OTC)] 4,000 units PO DAILY [Last Taken 09/02/17] Cyanocobalamin [Vitamin B12 1000MCG/ML (*)] 1,000 mcg IM Q14D 06/30/17 [Last Taken 08/21/17] Fludrocortisone Acetate [Florinef] 0.3 mg PO DAILY 06/30/17 [Last Taken 09/02/17 ] Montelukast Sodium [Singulair 10 mg (*)] 10 mg PO BID 06/30/17 [Last Taken 09/02] methylPREDNISolone SOD SUCC [Solu-Medrol 125 mg (*)] 125 mg IM DAILY PRN [Last Taken 06/25/17] Benadryl Own Pump 15 mg IV CONT 07/02/17 [Last Taken 09/02/17] Brovana Nebulizer 1 each IH BID 07/02/17 [Last Taken 09/02/17] Budesonide 1 mg IH BID 07/02/17 [Last Taken 09/02/17] Cetirizine [ZyrTEC 10 mg (*)] 20 mg PO HS 07/02/17 [Last Taken 09/01/17] Cromolyn Sodium 20 mg IH QID 07/02/17 [Last Taken 09/01/17 21:00] Cromolyn Sodium [Nasalcrom] 1 inh NS BID 07/02/17 [Last Taken 09/02/17] Domperidone 40 mg PO QID 07/02/17 [Last Taken 09/02/17] Quercetin 500mg 500 mg PO QID 07/02/17 [Last Taken 09/02/17] Potassium Cl [Klor-Con 20 meq (*)] 40 meq PO BID 08/03/17 [Last Taken 09/01/17 21:00] Diltiazem HCl [Cartia XT 180mg] 180 mg PO DAILY 08/28/17 [Last Taken 09/02/17] Levalbuterol 1.25 mg [Xopenex 1.25MG Neb (*)] 1.25 mg IH QID 08/28/17 [Last Taken 09/01/17 21:00] Levalbuterol Inhaler [Xopenex Hfa Inhaler (*)] 2 puffs IH DAILY PRN 08/28/17 [ Last Taken Unknown] Ondansetron HCl [Zofran] 4 mg IV Q6HRS PRN 08/28/17 [Last Taken 09/01/17 21:00] Compounded Ranitidine Mary Grace. 10 ml PO QID 09/02/17 [Last Taken 09/02/17] Dexamethasone [Decadron 4mg/ml inj (*)] 4 mg IJ AD PRN 09/02/17 [Last Taken Unknown] Famotidine Own Pump 2 mg SQ CONT 09/02/17 [Last Taken 09/02/17] Gastrocrom 2 each PO QID 09/02/17 [Last Taken 09/02/17] Nitro Cream 1 simran TP DAILY 09/02/17 [Last Taken Unknown] Nitroglycerin [Nitrostat 0.4 mg (*)] 0.4 mg SL Q5M PRN 09/02/17 [Last Taken Unknown] Discharge Medications: Refer to the Discharge Home Medication list for PRN reason. - Orders Services needed: Registered Nurse Isolation Type: None Diet Recommendation: no restrictions on diet Sutures/Papo Site: right chest Date to Remove Sutures/Stirum: 09/09/17 Activity/Weight Bearing Restrictions: no restrictions Additional: alex to wound on left chest followed by allevyn or tegaderm Q2-3 days. - Follow Up Care Current Providers and Referrals: Caroline Diehl MD [Primary Care Provider] - Gaby Woodruff MD [Medical Doctor] - follow up in 2 weeks (make an appointment on a Thursday if possible)
[2017-09-03] MEDS ORDERED: FLUDROCORTISONE ACETATE 0.1 MG TAB PO SCH (09:00)
[2017-09-03] MEDS ORDERED: DILTIAZEM 180 MG PO SCH (09:00)
[2017-09-03] MEDS ORDERED: CHOLECALCIFEROL VIT D3 2,000 UNITS TAB/CAP PO SCH (09:00)
[2017-09-03] MEDS: BUDESONIDE 1 MG/2 ML IH SCH (09:30)
[2017-09-03] MEDS: ARFORMOTEROL IH SCH (09:30)
[2017-09-03 09:47] VITALS: PULSE 80; O2SAT 96
[2017-09-03] MEDS ORDERED: CETIRIZINE 10 MG TAB PO SCH (12:00)
--- NOTE | 2017-09-03 12:18 | ASMTCMCOM ---
CM Note CM Note Notes: Spoke w/RN and pt, will dc home independent. Pt has another cartridge of Protonix that she wears 24hrs a day, Dr will allow her to dc home and attatch the new cartridge as soon as she gets there. CM notified Naomie at [facility] who supplies her cartridges, they will call to follow up. DC Plan: Independent Date Signed: 09/03/2017 12:18 PM Electronically Signed By:Elsi Matute RN
[2017-09-03] MEDS ORDERED: CROMOLYN SODIUM PO SCH (16:00)
[2017-09-04] MEDS ORDERED: CYANO/VITAMIN B12 1000 MCG/ML VIAL IM SCH (09:00)
[2017-09-04] MEDS ORDERED: NITRO TP SCH (09:00)
[2017-09-07] MEDS ORDERED: ALENDRONATE SODIUM 70 MG TAB PO SCH (07:00)
== END 2017-09-03 12:43 | disposition home health service (06) ==
LOC: F2W 09:01 → F3E 13:03
PROVIDERS: ADMIT Surgery; ATTEND Surgery
DX: D89.4 Mast cell activation syndrome and related disorders (principal); Z79.2 Long term (current) use of antibiotics; J45.909 Unspecified asthma, uncomplicated; Z86.711 Personal history of pulmonary embolism
CPT/HCPCS: C1788; G0378; J0690; J1100; J1200; J1642; J1650; J1720; J2250; J2405; J2550; J2704; J3010; J3420

== ENCOUNTER → 2017-09-15 | Outpatient (CLI) | payer OTHER | LOC: FIMAGING 11:20 | PROVIDERS: ATTEND Surgery | DX: S69.92XA Unspecified injury of left wrist, hand and finger(s), initial encounter (principal) ==

== ENCOUNTER 2017-09-24 10:51 | Emergency (ER) | payer OTHER ==
--- NOTE | 2017-09-24 10:58 | EDPHY ---
H & P Source: Patient, RN/MD, EMS Exam Limitations: No limitations - Personal History Tetanus Vaccine Date: LAST 10 YRS - Medical/Surgical History Hx Asthma: Yes Hx Chronic Respiratory Disease: No Hx Diabetes: No Hx Cardiac Disease: Yes Hx Renal Disease: No Hx Cirrhosis: No Hx Alcoholism: No Hx HIV/AIDS: No Hx Splenectomy or Spleen Trauma: No Other PMH: medical- mast cell activation disorder/multiple allergies, Adrenal Insufficiency, Colitis, Food allergies, asthma, "small PFO" home o2. surgery- appy, ortho - Social History Smoking Status: Former smoker Time Seen by Provider: 09/24/17 10:57 HPI/ROS: HPI: This is a 41-year-old female who presents with Chief Complaint: Allergic reaction Location: throat/skin Quality: Allergic reaction Duration: Prior to arrival Signs and Symptoms: + shortness of breath at rest, no shortness of breath on exertion, no cough, no chest pain, no palpitations, + hives on chest, no wheezing, + difficulty swallowing, + sensation of throat closing Timing: Acute Severity: Moderate to severe Context: Patient has a history of mast cell disorder multiple allergies presents from her sound engineer office, Dr. Diehl, status post administration of a new medication that contained 2 diet that patient has now found out she is allergic to. Patient reports that within 30 sec of taking the medication she felt short of breath, scratchy throat, throat closing, dyspnea and hives on her chest. The sound engineer office gave her Solu-Medrol 125 mg, epinephrine, Zantac. EMS then gave patient Zofran and Benadryl on route. Upon arrival to the emergency room patient reports that her symptoms have 75% improved she just feels a little throat tightness that continues. Patient reports that she has a prescription for epinephrine pen already and even has 1 in her purse at bedside. Modifying Factors: See above Comment: ROS: see HPI Constitutional: No fever, no chills, no weight loss Eyes: No blurred vision Respiratory: + shortness of breath, no cough Cardiovascular: No chest pain, no palpitations, no lower extremity edema Gastrointestinal: No nausea, no vomiting, no diarrhea Genitourinary: No dysuria Extremities: No myalgias Neurologic: No weakness, no numbness Skin: No rashes Hematologic: No bruising, no bleeding MEDICAL/SURGICAL/SOCIAL HISTORY: medical- mast cell activation disorder/multiple allergies, Adrenal Insufficiency , Colitis, Food allergies, asthma, "small PFO" home o2. surgery- appy, ortho Social history: Employed. CONSTITUTIONAL: Polite and cooperative adult white female, awake and alert, no obvious distress HEENT: Atraumatic and normocephalic, PERRL, EOMI. Tympanic membranes clear. Oropharynx clear, no exudate and moist pink mucosa. No postpharyngeal edema. Uvula midline. No increased upper airway sounds. Airway patent. No lymphadenopathy. No meningismus. Cardiovascular: Normal S1/S2, regular rate, regular rhythm, without murmur rub or gallop. PULMONARY/CHEST: Symmetrical and nontender. Clear to auscultation bilaterally. Good air movement. No accessory muscle usage. ABDOMEN: Soft, nondistended, nontender, no rebound, no guarding, no peritoneal signs, no masses or organomegaly. No CVAT. EXTREMITIES: 2/2 pulses, strength 5/5, no deformities, no clubbing, no cyanosis or edema. NEUROLOGICAL: no focal neuro deficits. GCS 15. Speaking complete sentences. SKIN: Warm and dry, no erythema. no rash. Good capillary refill. (Maggi Teixeira) Constitutional: Initial Vital Signs O2 Sat (%) 100 09/24/17 11:26 O2 Delivery Mode Room Air O2 (L/minute) 2 Allergies/Adverse Reactions: adhesive tape Allergy (Verified 08/06/17 14:15) Hives aspirin Allergy (Verified 08/28/17 15:21) Anaphylaxis dapsone Allergy (Verified 08/03/17 14:04) severe anemia gluten Allergy (Verified 08/28/17 15:22) iron sucrose complex [From Venofer] Allergy (Verified 08/28/17 15:21) Anaphylaxis lactose Allergy (Verified 08/28/17 15:22) latex Allergy (Verified 08/28/17 15:21) Anaphylaxis levofloxacin [From Levaquin] Allergy (Verified 08/28/17 15:21) hives all over and swelling of tongue nabumetone [From Relafen] Allergy (Verified 08/28/17 15:21) hives all over and swelling of tongue peanut Allergy (Verified 09/02/17 12:16) perfume Allergy (Verified 08/28/17 15:22) throat will close up and sob povidone-iodine [From Betadine] Allergy (Verified 08/28/17 16:07) rash/hives soap [From Betadine] Allergy (Verified 08/28/17 16:07) Rash/hives soy Allergy (Verified 08/28/17 15:21) major gi issues, if in lotion she gets hives tree nut Allergy (Verified 09/02/17 12:15) cleaning chemicals Allergy (Uncoded 08/28/17 15:23) throat will close and sob STEROIDS Allergy (Uncoded 08/28/17 15:21) has to have benadryl first Home Medications: Medication Instructions Recorded Alendronate Sodium [Fosamax 70 MG 70 mg PO MO@0700 08/10/16 (*)] Cetirizine [ZyrTEC 10 mg (*)] 10 mg PO DAILY@12 08/10/16 Hydrocortisone [Cortef] 5 mg PO TID 08/10/16 Isosorbide Dinitrate [Isosorbide 15 mg PO TID 08/10/16 Dinitrate 10 mg (*)] Enoxaparin [Lovenox 80 MG (*)] 80 mg SQ BID #14 syr 06/15/17 Cholecalciferol Vit D3 [Vitamin D3 4,000 units PO DAILY 06/30/17 2000 units tab (OTC)] Cyanocobalamin [Vitamin B12 1,000 mcg IM Q14D 06/30/17 1000MCG/ML (*)] Fludrocortisone Acetate [Florinef] 0.3 mg PO DAILY 06/30/17 Montelukast Sodium [Singulair 10 10 mg PO BID 06/30/17 mg (*)] methylPREDNISolone SOD SUCC 125 mg IM DAILY PRN 06/30/17 [Solu-Medrol 125 mg (*)] Benadryl Own Pump 15 mg IV CONT 07/02/17 Brovana Nebulizer 1 each IH BID 07/02/17 Budesonide 1 mg IH BID 07/02/17 Cetirizine [ZyrTEC 10 mg (*)] 20 mg PO HS 07/02/17 Cromolyn Sodium 20 mg IH QID 07/02/17 Cromolyn Sodium [Nasalcrom] 1 inh NS BID 07/02/17 Domperidone 40 mg PO QID 07/02/17 Quercetin 500mg 500 mg PO QID 07/02/17 Potassium Cl [Klor-Con 20 meq (*)] 40 meq PO BID 08/03/17 Diltiazem HCl [Cartia XT 180mg] 180 mg PO DAILY 08/28/17 Levalbuterol 1.25 mg [Xopenex 1.25 mg IH QID 08/28/17 1.25MG Neb (*)] Levalbuterol Inhaler [Xopenex Hfa 2 puffs IH DAILY PRN 08/28/17 Inhaler (*)] Ondansetron HCl [Zofran] 4 mg IV Q6HRS PRN 08/28/17 Compounded Ranitidine Mary Grace. 10 ml PO QID 09/02/17 Dexamethasone [Decadron 4mg/ml inj 4 mg IJ AD PRN 09/02/17 (*)] Famotidine Own Pump 2 mg SQ CONT 09/02/17 Gastrocrom 2 each PO QID 09/02/17 Nitro Cream 1 simran TP DAILY 09/02/17 Nitroglycerin [Nitrostat 0.4 mg 0.4 mg SL Q5M PRN 09/02/17 (*)] Medical Decision Making ED Course/Re-evaluation: Vital signs stable upon arrival. No signs of airway compromise/respiratory distress/anaphylaxis. Patient given a 2nd round epinephrine, p.o. Pepcid, IV Ativan 1 mg 1200: Reassessed patient who reports that there is still some throat narrowing. She is requesting another dose of epinephrine as well as Benadryl. 1335: Reassessed patient; father at bedside; reports near baseline feels comfortable for discharge. This patient was seen under the supervision of my secondary supervising physician. I evaluated care for this patient independently. (Maggi Teixeira) I did not see this patient while she was in the emergency department. However her care was discussed with the PA while the patient was in the department. I agree with treatment plan and management (Yo Garcia) Differential Diagnosis: Differential diagnosis includes but is not limited to allergic reaction, anaphylaxis. (Maggi Teixeira) - Data Points Medications Given: Discontinued Medications Diphenhydramine HCl (Benadryl Injection) 50 mg IVP EDNOW ONE Stop: 09/24/17 13:34 Last Admin: 09/24/17 13:37 Dose: 50 mg Epinephrine HCl (Epinephrine) 0.3 mg IM EDNOW ONE Stop: 09/24/17 11:04 Last Admin: 09/24/17 11:14 Dose: 0.3 mg Famotidine (Pepcid) 40 mg PO EDNOW ONE Stop: 09/24/17 11:04 Last Admin: 09/24/17 11:11 Dose: 40 mg Sodium Chloride (Ns) 1,000 mls @ 0 mls/hr IV ONCE ONE; Wide Open PRN Reason: Protocol Stop: 09/24/17 11:04 Last Admin: 09/24/17 11:14 Dose: 1,000 mls Lorazepam (Ativan Injection) 1 mg IVP EDNOW ONE Stop: 09/24/17 11:04 Last Admin: 09/24/17 11:14 Dose: 1 mg Departure - Departure Disposition: Home, Routine, Self-Care Clinical Impression: Allergic reaction caused by a drug, Mast cell disease Condition: Good Instructions: Anaphylaxis (ED) Referrals: Caroline Diehl MD [Primary Care Provider] - As per Instructions
[2017-09-24] MEDS ORDERED: LORazepam 2 MG/ML INJ IVP ONE (11:03)
[2017-09-24] MEDS ORDERED: NS 1,000 ML IV ONE (11:03)
[2017-09-24] MEDS ORDERED: FAMOTIDINE 20 MG TAB PO ONE (11:03)
[2017-09-24 12:23] VITALS: O2SAT 99
[2017-09-24 13:42] VITALS: BP 124/92; PULSE 97; RESP 17
== END 2017-09-24 14:13 | disposition home or self-care (01) ==
LOC: EDUNIT#
DX: D47.02 Systemic mastocytosis (principal); T78.40XA Allergy, unspecified, initial encounter; J45.909 Unspecified asthma, uncomplicated; E86.9 Volume depletion, unspecified; Z87.891 Personal history of nicotine dependence; Z91.010 Allergy to peanuts; Z91.040 Latex allergy status
CPT/HCPCS: 96374; J0171; J1200; J2060

== ENCOUNTER → 2017-10-09 | Outpatient (CLI) | payer OTHER | LOC: FIMAGING 13:22 | PROVIDERS: ATTEND Allergy & Immunology Allergy | DX: M54.9 Dorsalgia, unspecified (principal) ==

== ENCOUNTER 2017-10-27 12:40 | Inpatient (IN) | payer OTHER ==
--- NOTE | 2017-10-27 14:30 | EDPHY ---
HPI/HX/ROS/PE/MDM Narrative: CHIEF COMPLAINT: Concerned about sepsis. HISTORY OF PRESENT ILLNESS: This patient is a 42 year old female with history of mast cell activation syndrome, scleroderma, adrenal insufficiency, and asthma presenting for evaluation of possible sepsis. She has been admitted several times recently for pneumonia complicated by klebsiella bacteremia and secondary port infections. She presents today with symptoms similar to her prior sepsis admission including bone pain, particularly in her hips. She has pain in her chest and left arm and states she thinks this is related to her mast cell activation syndrome. She has not noted any temperature over 99 degrees for the last three days. She has had more nausea than usual and takes IV Zofran at home every 4 hours. She has also noted increased fatigue. No fever, chills, cough, rhinorrhea , shortness of breath, palpitations, diarrhea, urinary complaints, headache, lightheadedness, confusion. REVIEW OF SYSTEMS: Aside from elements discussed in the HPI, a comprehensive 10-point review of systems was reviewed and is negative. PAST MEDICAL HISTORY: 1. Pneumonia 2. Bacteremia (Klebsiella) 3. Adrenal insufficiency secondary to steroid use 4. Asthma 5. Scleroderma 6. Ulcerative colitis 7. Endometriosis 8. Mast cell activation syndrome 9. Osteoporosis 10. Coronary artery vasospasm 11. Chronic anemia 12. History of kidney stones SOCIAL HISTORY: Parents at bedside. Former smoker. No drug or alcohol use. VITAL SIGNS: Reviewed by me GENERAL: Well-developed, well-nourished, resting comfortably in no respiratory distress. HEENT: Atraumatic. Eyes: No icterus, no injection. Mouth: moist mucous membranes. No erythema or lesions. Neck: supple with no adenopathy. LUNGS: Clear to auscultation bilaterally, no wheezes, rhonchi or rales. CARDIAC: Regular rate and rhythm, no rubs, murmurs or gallops. ABDOMEN: Soft, nontender, nondistended, bowel sounds normal. BACK: No CVA tenderness. EXTREMITIES: No trauma. No edema. Range of motion is normal throughout. NEURO: Alert and oriented, grossly nonfocal. SKIN: Warm and dry, no rash. PSYCHIATRIC: Normal mentation, no agitation. Portions of this note were transcribed by a medical massage therapist. I personally performed a history, physical exam, medical decision making, and confirmed accuracy of information the transcribed note. ED Course: 15:[address] Diehl. Given patient's complex past medical history as well as her prior episodes of septicemia, patient is quite concerned regarding her hip discomfort. Patient did have a cytokinase panel drawn by Dr. Diehl on October 22 which is quite reassuring with negative values throughout. Vital signs and exam in the emergency department or reassuring. Screening blood work including CBC, chemistries, lactic acid, procalcitonin were ordered. Blood cultures x2 were ordered. Patient's lab work is reassuring. Patient's course was discussed with Dr. Kristen Rider from Infectious Disease. She will be evaluated by Dr. Rider as well as by the hospitalist service, Dr. Mota, to establish a appropriate plan of care. MDM: Differential diagnoses for the patient's symptom complex was considered including but not limited to early septicemia, hip pain of unspecified etiology , autoimmune disorder, inflammatory disorder. - Data Points Imaging Results: Imaging Impressions Chest X-Ray 10/27/17 15:47 Impression: 1. No pneumonia 2. Double lumen central venous catheter remains in place. 3. Suspect constipation. Imaging: I viewed and interpreted images myself Laboratory Results: Laboratory Results 10/27/17 13:10 10/27/17 13:10 10/27/17 10/27/17 10/27/17 16:30 13:10 13:10 WBC RBC Hgb Hct MCV MCH MCHC RDW Plt Count MPV Neut % (Auto) Lymph % (Auto) [place] % (Auto) Eos % (Auto) Baso % (Auto) Nucleat RBC Rel Count Absolute Neuts (auto) Absolute Lymphs (auto) Absolute Monos (auto) Absolute Eos (auto) Absolute Basos (auto) Absolute Nucleated RBC Immature Gran % Immature Gran # PT 15.8 SEC H SEC (12.0-15.0) INR 1.24 H (0.83-1.16) APTT 37.5 SEC SEC (23.0-38.0) VBG Lactic Acid 0.6 mmol/L L mmol/L (0.7-2.1) Sodium 140 mEq/L mEq/L (135-145) Potassium 4.4 mEq/L mEq/L (3.5-5.2) Chloride 108 mEq/L mEq/L (97-110) Carbon Dioxide 22 mEq/l mEq/l (22-31) Anion Gap 10 mEq/L mEq/L (8-16) BUN 6 mg/dL L mg/dL (7-23) Creatinine 0.6 mg/dL mg/dL (0.6-1.0) Estimated GFR > 60 Glucose 109 mg/dL H mg/dL (70-100) Calcium 9.2 mg/dL mg/dL (8.5-10.4) Total Bilirubin 0.3 mg/dL mg/dL (0.1-1.4) Procalcitonin < 0.02 ng/mL L ng/mL (0.02-0.10) 10/27/17 13:10 WBC 4.35 10^3/uL 10^3/uL (3.80-9.50) RBC 4.21 10^6/uL 10^6/uL (4.18-5.33) Hgb 12.1 g/dL L g/dL (12.6-16.3) Hct 36.4 % L % (38.0-47.0) MCV 86.5 fL fL (81.5-99.8) MCH 28.7 pg pg (27.9-34.1) MCHC 33.2 g/dL g/dL (32.4-36.7) RDW 13.3 % % (11.5-15.2) Plt Count 260 10^3/uL 10^3/uL (150-400) MPV 12.4 fL H fL (8.7-11.7) Neut % (Auto) 50.1 % % (39.3-74.2) Lymph % (Auto) 39.1 % % (15.0-45.0) [place] % (Auto) 6.7 % % (4.5-13.0) Eos % (Auto) 2.5 % % (0.6-7.6) Baso % (Auto) 1.4 % % (0.3-1.7) Nucleat RBC Rel Count 0.0 % % (0.0-0.2) Absolute Neuts (auto) 2.18 10^3/uL 10^3/uL (1.70-6.50) Absolute Lymphs (auto) 1.70 10^3/uL 10^3/uL (1.00-3.00) Absolute Monos (auto) 0.29 10^3/uL L 10^3/uL (0.30-0.80) Absolute Eos (auto) 0.11 10^3/uL 10^3/uL (0.03-0.40) Absolute Basos (auto) 0.06 10^3/uL 10^3/uL (0.02-0.10) Absolute Nucleated RBC 0.00 10^3/uL 10^3/uL (0-0.01) Immature Gran % 0.2 % % (0.0-1.1) Immature Gran # 0.01 10^3/uL 10^3/uL (0.00-0.10) PT INR APTT VBG Lactic Acid Sodium Potassium Chloride Carbon Dioxide Anion Gap BUN Creatinine Estimated GFR Glucose Calcium Total Bilirubin Procalcitonin Medications Given: Discontinued Medications Fentanyl (Sublimaze) 100 mcg IVP EDNOW ONE Stop: 10/27/17 16:30 Last Admin: 10/27/17 16:37 Dose: 100 mcg Hydromorphone HCl (Dilaudid) 1 mg IVP EDNOW ONE Stop: 10/27/17 16:15 Last Admin: 10/27/17 16:38 Dose: Not Given Ondansetron HCl (Zofran) 4 mg IVP EDNOW ONE Stop: 10/27/17 16:30 Last Admin: 10/27/17 16:37 Dose: 4 mg General Time Seen by Provider: 10/27/17 14:22 Initial Vital Signs: Initial Vital Signs Temperature (C) 36.5 C 10/27/17 12:46 Heart Rate 86 10/27/17 12:46 Respiratory Rate 18 10/27/17 12:46 Blood Pressure 113/77 10/27/17 12:46 O2 Sat (%) 95 10/27/17 12:46 O2 Delivery Mode Room Air Allergies/Adverse Reactions: levofloxacin Allergy (Unknown, Unverified 10/28/17 15:47) hives all over and swelling of tongue nabumetone Allergy (Unknown, Unverified 10/28/17 15:47) hives all over and swelling of tongue povidone-iodine Allergy (Unknown, Unverified 10/28/17 15:47) rash/hives soap Allergy (Unknown, Unverified 10/28/17 15:47) Rash/hives adhesive tape Allergy (Verified 10/27/17 12:44) Hives aspirin Allergy (Verified 10/27/17 12:44) Anaphylaxis dapsone Allergy (Verified 10/27/17 12:44) severe anemia gluten Allergy (Verified 10/27/17 12:44) iron sucrose complex [From Venofer] Allergy (Verified 10/27/17 12:44) Anaphylaxis lactose Allergy (Verified 10/27/17 12:44) latex Allergy (Verified 10/27/17 12:44) Anaphylaxis peanut Allergy (Verified 10/27/17 12:44) perfume Allergy (Verified 10/27/17 12:44) throat will close up and sob soy Allergy (Verified 10/27/17 12:44) major gi issues, if in lotion she gets hives tree nut Allergy (Verified 10/27/17 12:44) iron sucrose complex Allergy (Unknown, Uncoded 10/28/17 15:47) Anaphylaxis cleaning chemicals Allergy (Uncoded 08/28/17 15:23) throat will close and sob STEROIDS Allergy (Uncoded 08/28/17 15:21) has to have benadryl first Home Medications: Medication Instructions Recorded Alendronate Sodium [Fosamax 70 MG 70 mg PO MO@0700 08/10/16 (*)] Cetirizine [ZyrTEC 10 mg (*)] 10 mg PO DAILY@12 08/10/16 Hydrocortisone [Cortef] 5 mg PO TIDMEAL 08/10/16 Cholecalciferol Vit D3 [Vitamin D3 2,000 units PO BID@07,1130 06/30/17 2000 units tab (OTC)] Cyanocobalamin [Vitamin B12 1,000 mcg IM Q14D 06/30/17 1000MCG/ML (*)] Montelukast Sodium [Singulair 10 10 mg PO BID@,17 06/30/17 mg (*)] methylPREDNISolone SOD SUCC 125 mg IM DAILY PRN 06/30/17 [Solu-Medrol 125 mg (*)] Benadryl Own Pump 15 mg IV CONT 07/02/17 Brovana Nebulizer 1 each IH BID 07/02/17 Budesonide 1 mg IH BID@,17 07/02/17 Cetirizine [ZyrTEC 10 mg (*)] 20 mg PO HS 07/02/17 Cromolyn Sodium 20 mg IH QID@07,1130,,07/02/17 Cromolyn Sodium [Nasalcrom] 1 inh NS BID 07/02/17 Domperidone 40 mg PO QID@07,1129,,07/02/17 Quercetin 500mg 500 mg PO QID@07,1129,,07/02/17 Diltiazem HCl [Cartia XT 180mg] 180 mg PO DAILY@07 08/28/17 Levalbuterol 1.25 mg [Xopenex 1.25 mg IH Q8H 08/28/17 1.25MG Neb (*)] Levalbuterol Inhaler [Xopenex Hfa 2 puffs IH Q4H PRN 08/28/17 Inhaler (*)] Ondansetron HCl [Zofran] 4 mg IV Q6HRS PRN 08/28/17 Compounded Ranitidine Mary Grace. 5 ml PO QID@07,1129,,09/02/17 Famotidine Own Pump 2 mg SQ CONT 09/02/17 Gastrocrom 2 each PO QID@07,1129,,09/02/17 Nitro Cream 1 simran TP DAILY 09/02/17 Nitroglycerin [Nitrostat 0.4 mg 0.4 mg SL Q5M PRN 09/02/17 (*)] Dabigatran Etexilate Mesylate 150 mg PO BID@,10/27/17 [Pradaxa] Gabapentin [Neurontin 300 MG (*)] 300 mg PO BID@1129,10/27/17 Isosorbide Dinitrate [Isosorbide 20 mg PO TIDNITRATE 10/27/17 Dinitrate 20 mg (*)] fentaNYL [Duragesic 12 MCG Patch 12 mcg TD Q72H 10/27/17 (*)] traMADol [Ultram 50 mg (*)] 100 mg PO BID PRN 10/27/17 Nedocromil Ophth Mary Grace 1 drop EACHEYE BID 10/28/17 Departure - Departure Disposition: [facility] Acute Clinical Impression: Bilateral hip pain Condition: Good Report Scribed for: Mitra Patterson Report Scribed by: Maru Raza Date of Report: 10/27/17 Time of Report: 14:30
[2017-10-27 16:08] LABS: PLATELET COUNT 260 10^3/uL (150-400)
[2017-10-27] MEDS ORDERED: HYDROmorphONE/DILAUDID 2 MG/ML INJ IVP ONE (16:14)
[2017-10-27 16:17] LABS: INR 1.24 (0.83-1.16); PROTIME(PATIENT) 15.8 SEC (12.0-15.0)
[2017-10-27] MEDS ORDERED: fentaNYL 100 MCG/2 ML INJ IVP ONE ×2 (16:29→21:30)
[2017-10-27] MEDS ORDERED: ONDANSETRON 4 MG/2 ML VIAL IVP ONE (16:29)
[2017-10-27] MEDS ORDERED: ONDANSETRON DISINTEGRATING 4 MG TAB PO PRN (18:35)
[2017-10-27] MEDS ORDERED: ACETAMINOPHEN 325 MG TAB PO PRN (18:35)
--- NOTE | 2017-10-27 19:13 | GHP ---
[f rep st] HISTORY AND PHYSICAL DATE OF ADMISSION: 10/27/2017 CHIEF COMPLAINT: Mast cell activation, requiring continuous IV infusions, adrenal insufficiency, and recent Klebsiella bacteremia. Verification Manager: Dr. Diehl. 43 y/o F with h/o mast cell activation syndrome, adrenal insufficiency, and h/o recurrent Klebsiella bacteremia thought to be from Bettencourt/MediPort site. Hospitalized [facility] for bacteremia and 2 weeks IV antibiotics. She called Dr. Diehl today with increased hip pain, which she had before her prior bacteremic episodes. Pain in both hips feels like hot poker. Had shaking with the pain, but not rigors as she has had these in the past. c/o chronic intermittent left chest pain that radiates to her arm that has been occurring more frequently. No shortness of breath, numbness, or tingling. She had a temperature of 99, no fevers. Some chills and nausea for the past 4-5 days relieved with Zofran. She has noticed increased fatigue. Denies any cough, dysuria, lightheadedness, or confusion. Has bettencourt-catheter in place since Aug that is working well. REVIEW OF SYSTEMS: I completed a 10-point review of systems, negative, except as noted in the HPI. PAST MEDICAL HISTORY: 1. Bacteremia Klebsiella x2, most recently in July 2017. 2. Adrenal insufficiency secondary to steroids. 3. Asthma. 4. Scleroderma. 5. Ulcerative colitis, in remission. 6. Endometriosis. 7. Mast cell activation syndrome. 8. Osteoporosis. 9. Coronary artery vasospasm. 10. Chronic anemia. 11. History of kidney stones. 12. History of pulmonary embolisms and DVTs, on Pradaxa. PAST SURGICAL HISTORY: 1. Sinus surgery, right wrist, elbow, left heel and ankle, 2 laparoscopic surgeries for ovarian cysts. 2. Appendectomy. 3. Two Bettencourt catheter placements, port placement and removal. 4. Chest wall abscess I&D 08/2017 FAMILY HISTORY: Paternal grandfather with an PR. Paternal grandmother with breast cancer. Maternal grandpa with cancer. SOCIAL HISTORY: Lives in [place]. Has 4 roommates. No illicits, tobacco, or alcohol. PHYSICAL EXAMINATION: VITAL SIGNS: Temperature 36.5, blood pressure 113/72, heart rate in the 80s, respiration rate 18, 95% on room air. GENERAL: Fatigued- appearing, but no acute distress. HEENT: PERRLA. Moist mucous membranes. CV : Regular rate and rhythm. No murmurs, gallops, or rubs. LUNGS: Clear. No crackles. ABDOMEN: Soft, nontender, nondistended. Positive bowel sounds. : No [place]. MUSCULOSKELETAL: No erythema, tenderness, or swelling over bilateral hips. She has full range of motion. No pain with flexion or extension. Bettencourt catheter in place without erythema, warmth or tenderness. NEURO: 2 through 12 intact. PSYCH: Alert and oriented x3. LABS: WBCs 4, hemoglobin 12, hematocrit 36, platelets 260. INR is 1.2. PT is 15. Lactate is 0.6. Sodium 140, potassium 4.4, chloride 108, carbon dioxide 22 , creatinine 0.6, glucose 109, total bilirubin 0.3. Procalcitonin less than 0.02. Blood cultures are pending from both peripheral and the ports. Chest x-ray: No evidence of effusion or pneumonia. She had a sacroiliac joint x-ray, 10/14, that was normal. ASSESSMENT AND PLAN: 1. Mast cell activation syndrome: followed closely by Dr. Diehl. Continue home Benadryl and famotidine infusions. 2. Asthma: Resume inhalers. 3. Concern for recurrent Klebsiella bacteremia: afebrile and no leukocytosis. Normal lactate and procalcitonin. I had lengthy conversation with patient, her parents. Spoke with Dr. Diehl on phone. I expressed that everything was normal and blood cultures drawn. Family was adamant that she should be observed overnight. Dr. Diehl will contact the pt for close FU. 4. History of pulmonary embolism/deep vein thrombosis: Pradaxa. 5. Nausea: Zofran as needed. 6. History of adrenal insufficiency: Labs and blood pressure are stable here. Cont home steroids. 7. Hip pain: appears to be chronic. Xray 10/14 was normal. Full ROM, no signs of infection on exam. Consider outpatient imaging. 8. Diet: Regular. 9. DVT prophylaxis: On Pradaxa. Disposition: observation admission for concern of hip pain, possible sepsis. She can likely discharge in the morning. Time spent on visit: 75 min reviewing records, examining patient and counseling family on DC plan. Discussed case with Dr. Diehl. /[id number]/MODL MTDD
[2017-10-27] MEDS: ONDANSETRON 4 MG/2 ML VIAL IVP PRN (21:04)
[2017-10-28] MEDS: ONDANSETRON 4 MG/2 ML VIAL IVP PRN ×4 (08:28→22:47)
[2017-10-28] MEDS ORDERED: methylPREDNISolone SOD SUCC 125 MG/2 ML VIAL IM PRN (08:40)
[2017-10-28] MEDS ORDERED: NITROGLYCERIN 0.4 MG BTL SL PRN (08:40)
[2017-10-28] MEDS ORDERED: LEVALBUTEROL INHALER 200 PUFFS/15 GM MDI IH PRN (08:40)
[2017-10-28] MEDS ORDERED: NON-FORMULARY NEW DRUG (Ondansetron Hcl [Zofran] 4 MG) IV PRN (08:40)
[2017-10-28] MEDS ORDERED: fentaNYL 12 MCG PATCH TD SCH (08:45)
[2017-10-28] MEDS ORDERED: FAMOTIDINE IV SCH (08:45)
[2017-10-28] MEDS ORDERED: [UNRECOGNIZED DRUG - OTHER] IV SCH (08:45)
[2017-10-28] MEDS ORDERED: LEVALBUTEROL 1.25 MG/3 ML DEYVIAL IH SCH ×2 (09:00→16:00)
[2017-10-28] MEDS ORDERED: MONTELUKAST SODIUM 10 MG TAB PO SCH (09:45)
[2017-10-28] MEDS ORDERED: DABIGATRAN ETEXILATE MESYL 150 MG CAP PO SCH ×2 (09:45→17:00)
[2017-10-28] MEDS: CHOLECALCIFEROL VIT D3 2,000 UNITS TAB/CAP PO SCH (09:45)
[2017-10-28] MEDS ORDERED: ONDANSETRON 4 MG/2 ML VIAL IV PRN (09:57)
[2017-10-28] MEDS ORDERED: NS IV SCH (10:00)
[2017-10-28] MEDS ORDERED: DIPHENHYDRAMINE IV SCH (10:00)
[2017-10-28] MEDS: fentaNYL 100 MCG/2 ML INJ IVP PRN ×4 (10:30→22:45)
[2017-10-28] MEDS ORDERED: ISOSORBIDE DINITRATE 20 MG TAB PO SCH (11:00)
[2017-10-28] MEDS ORDERED: DIPHENHYDRAMINE IV PRN (11:00)
[2017-10-28] MEDS ORDERED: NS IV PRN (11:00)
[2017-10-28] MEDS: CROMOLYN SODIUM NS SCH (11:07)
[2017-10-28] MEDS: NITRO TP SCH (11:09)
[2017-10-28] MEDS: BUDESONIDE 1 MG/2 ML IH SCH ×2 (11:14→17:33)
[2017-10-28] MEDS: ARFORMOTEROL 15 MCG/2 ML IH SCH ×2 (11:15→17:32)
[2017-10-28] MEDS: CROMOLYN SODIUM 20 MG/2 ML IH SCH ×3 (11:37→21:02)
[2017-10-28] MEDS: DOMPERIDONE PO SCH ×3 (11:58→21:48)
[2017-10-28] MEDS: GABAPENTIN 300 MG CAP PO SCH ×2 (11:59→21:49)
[2017-10-28] MEDS: CROMOLYN PO SCH ×3 (11:59→21:50)
[2017-10-28] MEDS ORDERED: HYDROCORTISONE 10 MG TAB PO SCH (12:00)
[2017-10-28] MEDS: ISOSORBIDE DINITRATE 10 MG TAB PO SCH ×2 (12:02→18:17)
[2017-10-28] MEDS: QUERCETIN 500 MG PO SCH ×3 (12:03→21:53)
[2017-10-28] MEDS: CETIRIZINE 10 MG TAB PO SCH ×3 (12:04→21:48)
[2017-10-28] MEDS: HYDROCORTISONE 5 MG PO SCH ×2 (12:09→18:19)
[2017-10-28] MEDS: RANITIDINE PO SCH ×3 (12:12→21:59)
--- NOTE | 2017-10-28 13:14 | ASMTCMCOM ---
CM Note CM Note Notes: Patient admitted for hip pain, which is concerning given her history of recurrent Klebsiella bacteremia from her [place] port site. Blood cultures were drawn. Patient is normally independent in her ADLs. She has a home RN through [facility] for port care. PT has recommended home PT, and [facility] has agreed to accept. Patient will likely discharge home today or tomorrow when her pain is adequately mangaged. Date Signed: 10/28/2017 01:13 PM Electronically Signed By:Judith Gaxiola RN
--- NOTE | 2017-10-28 13:51 | HOSPPROG ---
Hospitalist Progress Note Assessment/Plan: #Bilateral Hip Pain, acute on chronic -etiology unclear -spoke with her assistant auditor, will obtain MRI to r/o osteonecrosis given hx of prolonged steroid use -PT/OT -Pain mgmt #Mast cell activation syndrome -cont home meds #Adrenal insufficiency #Hx of VTE, on Pradaxa Plan: change to inpatient cont home meds check MRI per above PT/OT Pain mgmt, I have provided IV Fentanyl Subjective: still with bilateral hip pain. afebrile. no n/v/d. no resp symptoms Objective: Vital Signs Temp Pulse Resp BP Pulse Ox 36.7 C 75 17 104/72 96 10/28/17 08:00 10/28/17 11:16 10/28/17 11:16 10/28/17 12:02 10/28/17 11:16 10/27/17 10/28/17 10/29/17 05:59 05:59 05:59 Output Total 1000 Balance -1000 PT 15.8 SEC (12.0-15.0) H 10/27/17 13:10 INR 1.24 (0.83-1.16) H 10/27/17 13:10 - Physical Exam Constitutional: no apparent distress Eyes: PERRL, EOMI Ears, Nose, Mouth, Throat: moist mucous membranes, hearing normal, ears appear normal Cardiovascular: regular rate and rhythym, No edema Respiratory: no respiratory distress, no rales or rhonchi, clear to auscultation Gastrointestinal: normoactive bowel sounds, soft, non-tender abdomen Genitourinary: No no bladder fullness Skin: warm Psychiatric: interacting appropriately, not anxious, not encephalopathic Lymph, Heme, Immunologic: No petechiae ICD10 Worksheet Patient Problems: Problems Problem Status Onset Bilateral hip pain Acute Chest pain Acute Hypokalemia Acute Mast cell activation Acute
--- NOTE | 2017-10-28 14:50 | PDMN ---
Medical Necessity Medical necessity: ongoing hip pain- unclear etiology, with need for further monitoring, eval and tx. > 2 midnights in pt with complex past med hx including, mast cell activation syndrome, adrenal insufficiency, recent Klebsiella bacteremia, PE's, DVT's.
[2017-10-28] MEDS: DABIGATRAN ETEXILATE MESYL 75 MG CAP PO SCH (18:17)
[2017-10-28] MEDS: MONTELUKAST SODIUM 10 MG TAB PO SCH (18:18)
--- NOTE | 2017-10-28 19:14 | PCMIDPN ---
Assessment/Plan: Pharmacy contacted us 7pm due to interaction b/t mast cell disease and vancomycin + high dose vancomycin ordered by hospitalist. Patient know to me and ID service for past port infection with Klebsiella Reviewed vitals and they are normal. BCID indicates CoNS in 1/2 sets in set drawn from port Called patient, port appears normal. She continues to have malaise, hip pain, progressively worsening over last several days. Explained that we are going to repeat blood cultures and hold antibiotics until we get more info. ID to see and evaluate fully tomorrow. Communicated plan tonight to RNNataliya. Objective: Vital Signs Temp Pulse Resp BP Pulse Ox 36.5 C 66 18 117/83 H 100 10/28/17 16:50 10/28/17 17:33 10/28/17 17:33 10/28/17 18:17 10/28/17 17:33 10/27/17 10/28/17 10/29/17 05:59 05:59 05:59 Output Total 1000 Balance -1000 ICD10 Worksheet Patient Problems: Problems Problem Status Onset Bilateral hip pain Acute Chest pain Acute Hypokalemia Acute Mast cell activation Acute
[2017-10-28] MEDS: PROMETHAZINE HCL 25 MG/ML INJ IVP PRN (21:08)
[2017-10-28] MEDS: LEVALBUTEROL 1.25 MG/3 ML DEYVIAL IH SCH (21:44)
[2017-10-28] MEDS: [UNRECOGNIZED DRUG - OTHER] EACHEYE SCH (21:52)
[2017-10-29] MEDS: FAMOTIDINE 20 MG/NACL 50 ML IV PRN ×3 (00:12→20:13)
[2017-10-29] MEDS: NS 1,000 ML IV SCH ×3 (00:13→20:13)
[2017-10-29] MEDS: fentaNYL 100 MCG/2 ML INJ IVP PRN ×5 (02:54→20:03)
[2017-10-29] MEDS: PROMETHAZINE HCL 25 MG/ML INJ IVP PRN ×4 (02:54→21:42)
[2017-10-29] MEDS: ARFORMOTEROL 15 MCG/2 ML IH SCH ×2 (06:00→18:10)
[2017-10-29] MEDS: CROMOLYN SODIUM 20 MG/2 ML IH SCH ×4 (06:01→21:01)
[2017-10-29] MEDS: LEVALBUTEROL 1.25 MG/3 ML DEYVIAL IH SCH ×4 (06:01→21:01)
[2017-10-29] MEDS: ONDANSETRON 4 MG/2 ML VIAL IVP PRN (06:44)
[2017-10-29] MEDS: RANITIDINE PO SCH ×4 (06:44→21:42)
[2017-10-29] MEDS: CHOLECALCIFEROL VIT D3 2,000 UNITS TAB/CAP PO SCH ×2 (06:46→12:09)
[2017-10-29] MEDS: DILTIAZEM HCL PO SCH (06:48)
[2017-10-29] MEDS: DOMPERIDONE PO SCH ×4 (06:48→21:44)
[2017-10-29] MEDS: DABIGATRAN ETEXILATE MESYL 75 MG CAP PO SCH ×2 (06:48→17:13)
[2017-10-29] MEDS: CROMOLYN PO SCH ×4 (06:49→21:44)
[2017-10-29] MEDS: ISOSORBIDE DINITRATE 10 MG TAB PO SCH ×3 (06:49→17:12)
[2017-10-29] MEDS: QUERCETIN 500 MG PO SCH ×4 (06:51→21:45)
[2017-10-29] MEDS: MONTELUKAST SODIUM 10 MG TAB PO SCH ×2 (06:51→17:14)
[2017-10-29] MEDS: HYDROCORTISONE 5 MG PO SCH ×3 (06:53→17:16)
[2017-10-29] MEDS: CROMOLYN SODIUM NS SCH ×2 (06:56→08:31)
[2017-10-29] MEDS: BUDESONIDE 1 MG/2 ML IH SCH ×2 (08:29→18:10)
[2017-10-29] MEDS: [UNRECOGNIZED DRUG - OTHER] EACHEYE SCH ×2 (08:32→21:45)
[2017-10-29] MEDS: NITRO TP SCH (08:32)
[2017-10-29] MEDS ORDERED: methylPREDNISolone SOD SUCC 125 MG/2 ML VIAL IVP PRN (10:33)
--- NOTE | 2017-10-29 10:47 | PCMIDPN ---
Assessment/Plan: Assessment: Called for positive blood culture. Patient known very well to our service from Klebsiella infection of a buried port last year. The 2nd set of initial blood cultures is not growing any bacteria at this point. Repeat 2 sets of blood cultures are also no growth to date. Patient is afebrile. She has no leukocytosis or left shift. Her left hip pain is adequately explained by stress fracture found on MRI of the left side of the sacrum. No reason for antibiotics at this point. We will continue to monitor cultures. We will sign off at this point. If cultures grow out later we will reconvene on the matter. Plan: 1. Continue to observe off antibiotics. 2. We will sign off at this point. Call with further questions. New 10/29/17 10:44 Subjective: Patient is resting in her hospital bed. No fevers or chills overnight. Continues to have left hip pain. Objective: No antibiotics Vital Signs Temp Pulse Resp BP Pulse Ox 36.4 C 84 17 111/82 H 99 10/29/17 07:19 10/29/17 07:19 10/29/17 07:19 10/29/17 07:19 10/29/17 07:19 10/28/17 10/29/17 10/30/17 05:59 05:59 05:59 Intake Total 2000 Output Total 1000 Balance -1000 1999 - Physical Exam General Appearance: WD/WN, alert, no apparent distress Skin: normal color, warm/dry, No rash Neuro/Psych: alert, normal mood/affect, oriented x 3 ICD10 Worksheet Patient Problems: Problems Problem Status Onset Bilateral hip pain Acute Chest pain Acute Hypokalemia Acute Mast cell activation Acute
[2017-10-29] MEDS: ONDANSETRON 4 MG/2 ML VIAL IV PRN ×2 (11:32→20:03)
[2017-10-29] MEDS: GABAPENTIN 300 MG CAP PO SCH ×2 (12:09→21:44)
[2017-10-29] MEDS: CETIRIZINE 10 MG TAB PO SCH (12:10)
--- NOTE | 2017-10-29 12:53 | HOSPPROG ---
Hospitalist Progress Note Assessment/Plan: #Grade 4, Left Sacral Stress or insufficiency fracture #Small partial tear Anterior/Superior labrum #Bilateral Hip Pain, acute on chronic #+1/2 blood culture, Staph Coag Neg, likely contaminant -no need for abx -ID has signed off #Mast cell activation syndrome -cont home meds #Adrenal insufficiency, home meds, IVF #Hx of VTE, on Pradaxa Plan: Ortho consult, await reccs cont pain mgmt cont home infusions cont home meds no need for abx PT/OT Subjective: no cp or sob. no n/v. still with bilateral hip pain. Objective: Vital Signs Temp Pulse Resp BP Pulse Ox 36.4 C 75 16 111/82 H 95 10/29/17 07:19 10/29/17 11:36 10/29/17 11:36 10/29/17 12:08 10/29/17 11:36 10/28/17 10/29/17 10/30/17 05:59 05:59 05:59 Intake Total 2000 Output Total 1000 Balance -1000 2000 PT 15.8 SEC (12.0-15.0) H 10/27/17 13:10 INR 1.24 (0.83-1.16) H 10/27/17 13:10 - Physical Exam Constitutional: no apparent distress Eyes: PERRL, EOMI Ears, Nose, Mouth, Throat: moist mucous membranes, hearing normal, ears appear normal Cardiovascular: regular rate and rhythym, No edema Respiratory: no respiratory distress, no rales or rhonchi, clear to auscultation Gastrointestinal: normoactive bowel sounds Skin: warm Neurologic: AAOx3 Psychiatric: interacting appropriately, not anxious, not encephalopathic, thought process linear Lymph, Heme, Immunologic: No petechiae ICD10 Worksheet Patient Problems: Problems Problem Status Onset Bilateral hip pain Acute Chest pain Acute Hypokalemia Acute Mast cell activation Acute
--- NOTE | 2017-10-29 14:21 | GCON ---
[f rep st] CONSULTATION ORTHOPEDIC CONSULT NOTE CHIEF COMPLAINT: Left hip and lumbar back pain. HPI: Patient is a 42-year-old female with a 1-week history of left hip and lumbar back pain. She states that she developed sharp pain in her hip on the posterior aspect and in her lumbar spine. She is able to bear weight. However , she does have increased pain with weightbearing activities. The patient does have chronic steroid use due to multiple diseases, including mast cell activation, ulcerative colitis, scleroderma. She states that she denies any falls or traumas on the left hip. She denies any fevers, chills, shortness of breath, headache, or confusion. She was admitted to the hospital due to multiple pneumonia-complicated infections. We are consulted to see her for her left hip pain and MRI results that show a grade 4 stress fracture or insufficiency fracture of the left sacrum and small labrum tear in the left hip. PAST MEDICAL HISTORY: Pneumonia, bacteremia, adrenal insufficiency secondary to steroid use, asthma, scleroderma, ulcerative colitis, endometriosis, mast cell activation syndrome, osteoporosis, coronary artery vasospasms, chronic anemia, history of kidney stones. CURRENT MEDICATIONS: Please see medication list in patient's chart. SOCIAL HISTORY: Patient is a former smoker. No drug or alcohol use. REVIEW OF SYSTEMS: A 10-point review was done. Negative for any other complaints, concerns, or history except for what was noted in the HPI. FAMILY HISTORY: Noncontributory. PHYSICAL EXAM: GENERAL: Pleasant, NAD. HEENT: NC/AT, EOMI, PERRLA. Ears and nares patent without discharge. Oropharynx is clear. NECK: Nontender to palpation, full range of motion. MUSCULOSKELETAL: Exam of the left hip. She has slight pain with internal and external rotation. Tenderness to palpation over the left SI joint. Pain with a straight leg raise on the left side. Normal sensation to light touch in the left lower extremity. Calf is soft and nontender. She is able to move all 5 toes. Distal pulses present left lower extremity. SKIN: Warm, dry, and intact. NEUROLOGIC: Nonfocal. No deficits noted. PSYCHIATRIC: Alert and oriented x3. Appropriate mood and affect. IMAGING: MRI of the left hip reviewed and shows a grade 4 stress fracture or insufficiency fracture of the left sacrum and a small partial tear of the anterior superior labrum. IMPRESSION: Left hip pain, small partial tear of the labrum and left sacrum stress fracture or insufficiency fracture. PLAN: Patient was seen and examined, and it was reviewed and discussed with Dr. Vides. At this point, we would recommend, for definitive treatment, a spine consult for further evaluation and treatment of the sacral fracture. In regard to the left hip partial tear of the labrum, we could see her back in the office outpatient for further treatment. Conservative treatment was discussed, including rest, ice, and the use of pain medicine to help with the discomfort. All questions were answered to the patient's satisfaction. /[id number]/MODL MTDD
[2017-10-30] MEDS: fentaNYL 100 MCG/2 ML INJ IVP PRN ×6 (00:08→23:27)
[2017-10-30] MEDS: ONDANSETRON 4 MG/2 ML VIAL IV PRN ×4 (00:08→23:27)
[2017-10-30] MEDS: CROMOLYN SODIUM NS SCH ×3 (02:25→22:16)
[2017-10-30] MEDS: PROMETHAZINE HCL 25 MG/ML INJ IVP PRN ×3 (04:14→17:59)
[2017-10-30] MEDS: ARFORMOTEROL 15 MCG/2 ML IH SCH ×2 (06:21→16:06)
[2017-10-30] MEDS: LEVALBUTEROL 1.25 MG/3 ML DEYVIAL IH SCH ×4 (06:21→21:18)
[2017-10-30] MEDS: CROMOLYN SODIUM 20 MG/2 ML IH SCH ×4 (06:21→21:18)
[2017-10-30] MEDS: BUDESONIDE 1 MG/2 ML IH SCH ×2 (06:22→16:05)
[2017-10-30] MEDS: RANITIDINE PO SCH ×4 (06:24→22:21)
[2017-10-30] MEDS: FAMOTIDINE 20 MG/NACL 50 ML IV PRN ×2 (06:25→16:35)
[2017-10-30] MEDS: NS 1,000 ML IV SCH ×2 (06:25→19:46)
[2017-10-30] MEDS: DIPHENHYDRAMINE IV SCH ×2 (06:25→20:18)
[2017-10-30] MEDS: D5W IV SCH ×2 (06:25→20:18)
[2017-10-30] MEDS: DILTIAZEM HCL PO SCH (06:32)
[2017-10-30] MEDS: DOMPERIDONE PO SCH ×4 (06:32→22:16)
[2017-10-30] MEDS: DABIGATRAN ETEXILATE MESYL 75 MG CAP PO SCH ×2 (06:32→16:28)
[2017-10-30] MEDS: CHOLECALCIFEROL VIT D3 2,000 UNITS TAB/CAP PO SCH ×2 (06:32→11:09)
[2017-10-30] MEDS: CROMOLYN PO SCH ×4 (06:33→22:14)
[2017-10-30] MEDS: ISOSORBIDE DINITRATE 10 MG TAB PO SCH ×3 (06:33→16:29)
[2017-10-30] MEDS: MONTELUKAST SODIUM 10 MG TAB PO SCH ×2 (06:34→16:30)
[2017-10-30] MEDS: HYDROCORTISONE 5 MG PO SCH ×3 (06:34→16:29)
[2017-10-30] MEDS: QUERCETIN 500 MG PO SCH ×4 (06:34→22:17)
[2017-10-30] MEDS ORDERED: CYANO/VITAMIN B12 1000 MCG/ML VIAL IM SCH (09:00)
[2017-10-30] MEDS: [UNRECOGNIZED DRUG - OTHER] EACHEYE SCH ×2 (09:30→22:18)
[2017-10-30] MEDS: NITRO TP SCH (09:35)
[2017-10-30] MEDS: CETIRIZINE 10 MG TAB PO SCH ×2 (11:05→22:15)
[2017-10-30] MEDS: GABAPENTIN 300 MG CAP PO SCH ×3 (11:09→22:20)
[2017-10-30] MEDS ORDERED: fentaNYL 50 MCG PATCH TD SCH (12:23)
--- NOTE | 2017-10-30 12:28 | HOSPPROG ---
Hospitalist Progress Note Assessment/Plan: #Grade 4, Left Sacral Stress or insufficiency fracture -Per Ortho, they recommend Neuro Surgery eval which I will consult #Small partial tear Anterior/Superior labrum -evaluated by Ortho. No surgical intervention recommended. They recommend outpatient follow up #Bilateral Hip Pain Left worse than right, acute on chronic reported. Chronic pain Syndrome -likely due to sacral fx and labrum tear -Increase Fentanyl patch to 50mcg -cont IV Fentany as is -Increase Gabapenting -Goal is to decrease short acting meds which we can attempt tomorrow. 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 no fever. ortho is recommending NS eval Objective: Vital Signs Temp Pulse Resp BP Pulse Ox 36.7 C 80 16 118/70 97 10/30/17 12:05 10/30/17 12:05 10/30/17 12:05 10/30/17 12:05 10/30/17 12:05 10/29/17 10/30/17 10/31/17 05:59 05:59 05:59 Intake Total 1999 3320 Balance 1999 3320 PT 15.8 SEC (12.0-15.0) H 10/27/17 13:10 INR 1.24 (0.83-1.16) H 10/27/17 13:10 - Physical Exam Constitutional: no apparent distress Eyes: PERRL, EOMI Ears, Nose, Mouth, Throat: moist mucous membranes, hearing normal Cardiovascular: regular rate and rhythym, No edema Respiratory: no respiratory distress, no rales or rhonchi, clear to auscultation Gastrointestinal: normoactive bowel sounds, soft, non-tender abdomen Genitourinary: no bladder fullness Skin: warm Neurologic: AAOx3, No facial droop Psychiatric: interacting appropriately, not anxious, not encephalopathic, thought process linear Lymph, Heme, Immunologic: No petechiae ICD10 Worksheet Patient Problems: Problems Problem Status Onset Bilateral hip pain Acute Chest pain Acute Hypokalemia Acute Mast cell activation Acute
--- NOTE | 2017-10-30 14:51 | ASMTCMCOM ---
CM Note CM Note Notes: Reviewed chart regarding discharge plan of care, pt's progress. Per MD notes, pt diagnosed with a left sacral stress or insufficiency fracture. Neurosurgery to consult. Ortho recommending outpt follow up. Pt previously set up with [facility] ([facility]) for PT services. Per prior CM notes, pt open with [facility] (RN services) prior to admit for IV Benadryl and port management. Pt lives in [place] with several roommates and good support. Call received from SOFIA Villatoro with [facility] - updates provided. Per Shauna, likely unable to staff pt for discharge today. Spoke with SOFIA Barragan - per [place], pt not ready for discharge today, pt will likely d/c over the weekend. Updates provided to Naomie with [facility] and Shauna with [facility]. CM to alert/fax both companies when final discharge orders are received. CM will continue to follow. Current Discharge Plan: [facility] (RN) and [facility] (PT) Date Signed: 10/30/2017 02:50 PM Electronically Signed By:Carolyn Bojorquez RN
--- NOTE | 2017-10-30 20:53 | GCON ---
[f rep st] CONSULTATION HOSPITAL COURSE, HISTORY, AND MAJOR MEDICAL FINDINGS: Ms. Moni Campoverde is a 42- year-old female who presented to the emergency room on 10/27/2017 with acute low back pain. She does have a history of mast cell activation requiring IV infusions, adrenal insufficiency, and recent Klebsiella bacteremia. She was complaining of pain in her hips upon admission. She was seen in consultation by Orthopedics where she was diagnosed with a small partial tear of the labrum and also a sacral insufficiency fracture was noted and spine surgery was asked to be consulted for this. She states that her pain started spontaneously. She denies any recent falls. She does have known osteoporosis, given her chronic steroid use and history of osteoporosis. She denies any leg numbness, tingling, pain, or weakness. She also has a history of degenerative disk disease in the back. REVIEW OF SYSTEMS: Review of systems is negative other than what is stated in the HPI. Please see pertinent negatives, pertinent positives. PAST MEDICAL HISTORY: Significant for mast cell activation, osteoporosis, asthma, scleroderma, ulcerative colitis, endometriosis, coronary artery vasospasm, chronic anemia, kidney stones, pulmonary embolisms, and DVTs. Bacteremia Klebsiella. MEDICATION: She is currently on Pradaxa. PAST SURGICAL HISTORY: Significant for sinus surgery. Surgery to her right wrist, elbow, left heel, and ankle. Laparoscopic surgery for ovarian cyst. Appendectomy. Otero catheters and chest wall I and D. FAMILY HISTORY: Significant for her grandfather who had an AZ, her grandmother who had breast cancer, and her maternal grandfather had pancreatic cancer. SOCIAL HISTORY: The patient lives in [place] with several roommates. She quit smoking in her teens and she does not use any alcohol or illicit drugs. ALLERGIES: Levothyroxine, nabumetone, iodine, soap. HOME MEDICATIONS: Include: Fosamax 70 mg 1 p.o. q., Brovana inhaler, Zyrtec 10 mg daily. Vitamin D3, ranitidine, Cromolyn sodium inhaler, vitamin B12. Pradaxa 75 mg 2 p.o. twice daily, diltiazem, domperidone, famotidine, fentanyl patch. Gabapentin, Gastrium, hydrocortisone, isosorbide dinitrate, Xopenex inhaler. Methylprednisolone daily, Singulair, nitroglycerin tabs, p.r.n. Zofran and tramadol 50 mg 1 p.o. daily. PHYSICAL EXAMINATION: VITAL SIGNS: BP is 117/89. Heart rate is 71. She is 100% on 3 L nasal cannula. Temp is 36.7. GENERAL: The patient is in no acute distress. She is alert and oriented. She answered questions appropriately and affect is appropriate to given situation. Cranial nerves 2-12 are grossly intact. EOMI and PERRLA. The patient is 5/5 and equal in her bilateral upper and bilateral lower extremities including her deltoids, triceps, biceps, wrist flexors, extensors, interossei, intrinsic website designer , iliopsoas hamstrings, quadriceps, plantar flexion, dorsiflexion, EHL. Sensation is intact in bilateral upper and bilateral lower extremities. DIAGNOSTIC REVIEW: Patient underwent MRI of her hip which demonstrated sacral insufficiency fracture. ASSESSMENT: 1. Ms. Moni Campoverde is a 42-year-old female with history of low back pain, sacral pain, and osteoporosis who was recently diagnosed with a sacral insufficiency fracture. I did discuss with the patient that conservative treatment could be managed such as a donut, limiting pressure to the sacrum. Can also pursue a sacroplasty with Interventional Radiology. The patient is on Pradaxa and does have many allergies, so she has some concerns about the contents of the cement. We will defer to Interventional Radiology about whether the procedure is possible with her Pradaxa or whether that will need to be held. There was no acute neurosurgical intervention indicated. The patient was seen both by Dr. Peck and myself. 2. Would optimize pain management. 3. Physical therapy/occupational therapy as tolerated. If the patient develops any new or worsening symptoms, any change in neurologic or motor exam, please notify Neurosurgery. /[id number]/MODL MTDD
[2017-10-31] MEDS: PROMETHAZINE HCL 25 MG/ML INJ IVP PRN ×3 (00:57→17:32)
[2017-10-31] MEDS: FAMOTIDINE 20 MG/NACL 50 ML IV PRN ×3 (02:31→20:48)
[2017-10-31] MEDS: ARFORMOTEROL 15 MCG/2 ML IH SCH ×2 (05:36→21:28)
[2017-10-31] MEDS: CROMOLYN SODIUM 20 MG/2 ML IH SCH ×4 (05:37→21:20)
[2017-10-31] MEDS: BUDESONIDE 1 MG/2 ML IH SCH ×2 (05:37→21:23)
[2017-10-31] MEDS: LEVALBUTEROL 1.25 MG/3 ML DEYVIAL IH SCH ×4 (05:37→21:20)
[2017-10-31] MEDS: ONDANSETRON 4 MG/2 ML VIAL IV PRN ×3 (06:05→22:12)
[2017-10-31] MEDS: fentaNYL 100 MCG/2 ML INJ IVP PRN ×2 (06:06→18:17)
[2017-10-31] MEDS: NS 1,000 ML IV SCH (08:28)
[2017-10-31] MEDS: ISOSORBIDE DINITRATE 10 MG TAB PO SCH ×4 (08:34→17:39)
[2017-10-31] MEDS: DOMPERIDONE PO SCH ×4 (08:35→22:09)
[2017-10-31] MEDS: DABIGATRAN ETEXILATE MESYL 75 MG CAP PO SCH (08:35)
[2017-10-31] MEDS: HYDROCORTISONE 5 MG PO SCH ×3 (08:35→17:41)
[2017-10-31] MEDS: CROMOLYN PO SCH ×4 (08:36→22:03)
[2017-10-31] MEDS: [UNRECOGNIZED DRUG - OTHER] EACHEYE SCH ×2 (08:37→22:04)
[2017-10-31] MEDS: QUERCETIN 500 MG PO SCH ×4 (08:38→22:09)
[2017-10-31] MEDS: DILTIAZEM HCL PO SCH (08:40)
[2017-10-31] MEDS: CHOLECALCIFEROL VIT D3 2,000 UNITS TAB/CAP PO SCH ×2 (08:41→12:28)
[2017-10-31] MEDS: MONTELUKAST SODIUM 10 MG TAB PO SCH ×2 (08:42→17:41)
[2017-10-31] MEDS: CROMOLYN SODIUM NS SCH ×2 (08:44→22:09)
[2017-10-31] MEDS: GABAPENTIN 300 MG CAP PO SCH ×3 (08:44→22:10)
[2017-10-31] MEDS: NITRO TP SCH (08:45)
[2017-10-31] MEDS: RANITIDINE PO SCH ×4 (08:48→22:05)
[2017-10-31] MEDS: DIPHENHYDRAMINE IV SCH ×2 (10:23→22:19)
[2017-10-31] MEDS: D5W IV SCH ×2 (10:23→22:19)
[2017-10-31] MEDS: CETIRIZINE 10 MG TAB PO SCH ×2 (12:29→22:08)
--- NOTE | 2017-10-31 12:52 | NEUSURGPN ---
Assessment/Plan: 42F osteoporosis from chronic steriod use for tx of mast cell activation syndrome with pelvic pain and sacral insufficiency fx. Neuro intact Pain managment-per medicine team Pt would like to undergo sacroplasty with IR on Thursday, other options would be conservative tx with donut for pressure relief Pt will speak to IR team about possible allergies to cement, I was not able to enlighten her on specific ingredients. NS will follow along peripherally at this point dw Dr. Peck. Subjective: complaint of continued pain, particularly when bearing weight, no weakness, bowel/bladder changes, numbness. Objective: NAD, resting in bed VSS AAOx3 EOMI, PEARLA cnii-xii grossly intact MAEx4, 5/5, a little pain limited in left HF SILT - Physician Discussed Patient with : [facility] Physical Exam - Vitals, I&O, Labs I and O 10/30/17 10/31/17 11/01/17 05:59 05:59 05:59 Intake Total 3320 2047 1847 Balance 3320 2047 1847 Intake: Oral (ml) 1650 800 550 IV Intake (ml) 1297 IV Infused (ml) 1670 1247 Famotidine 20 mg/NaCl 50 50 58 ml @ 5 mls/hr IV CONT PRN Rx#:[id number] Ns 1,000 ml @ 75 mls/hr 1538 1102 IV CONT SABINA Rx#: [id number] diphenhydrAMINE 200 mg In 82 87 D5w 100 ml @ 7.5 mls/hr IV CONT SABINA Rx#: [id number] Other: Number of Voids Toilet 4 3 Vital Signs Temp Pulse Resp BP Pulse Ox 36.5 C 75 14 116/77 100 10/31/17 12:00 10/31/17 12:00 10/31/17 12:00 10/31/17 12:27 10/31/17 12:00 ICD10 Worksheet Patient Problems: Problems Problem Status Onset Bilateral hip pain Acute Chest pain Acute Hypokalemia Acute Mast cell activation Acute
--- NOTE | 2017-10-31 14:23 | HOSPPROG ---
Hospitalist Progress Note Assessment/Plan: #Grade 4, Left Sacral Stress or insufficiency fracture -Per Ortho, they recommend Neuro Surgery and they have evaluated the pt and they recommend either conservative mgmt vs Sacroplasty. The pt is choosing Sacroplasty and this will be done on Thursday. Pradaxa is being held. #Small partial tear Anterior/Superior labrum -evaluated by Ortho. No surgical intervention recommended. They recommend outpatient follow up #Bilateral Hip Pain Left worse than right, acute on chronic reported. 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 she is requesting a scopolamine patch. Objective: Vital Signs Temp Pulse Resp BP Pulse Ox 36.5 C 75 14 116/77 100 10/31/17 12:00 10/31/17 12:00 10/31/17 12:00 10/31/17 12:27 10/31/17 12:00 10/30/17 10/31/17 11/01/17 05:59 05:59 05:59 Intake Total 3320 2047 1847 Balance 3320 2047 1847 PT 15.8 SEC (12.0-15.0) H 10/27/17 13:10 INR 1.24 (0.83-1.16) H 10/27/17 13:10 - Physical Exam Constitutional: no apparent distress Eyes: PERRL, EOMI Ears, Nose, Mouth, Throat: moist mucous membranes, hearing normal Cardiovascular: regular rate and rhythym Respiratory: no respiratory distress, no rales or rhonchi, clear to auscultation Gastrointestinal: normoactive bowel sounds, soft, non-tender abdomen Genitourinary: no bladder fullness Skin: warm Neurologic: AAOx3 Psychiatric: interacting appropriately Lymph, Heme, Immunologic: No petechiae ICD10 Worksheet Patient Problems: Problems Problem Status Onset Bilateral hip pain Acute Chest pain Acute Hypokalemia Acute Mast cell activation Acute
[2017-10-31] MEDS ORDERED: fentaNYL 50 MCG PATCH TD SCH (14:28)
[2017-10-31] MEDS ORDERED: fentaNYL 25 MCG PATCH TD SCH (14:45)
[2017-10-31] MEDS: SCOPOLAMINE HYDROBROMIDE 1 MG/3 DAYS PATCH TD SCH (15:32)
[2017-11-01] MEDS: PROMETHAZINE HCL 25 MG/ML INJ IVP PRN ×3 (01:14→21:44)
[2017-11-01] MEDS: fentaNYL 100 MCG/2 ML INJ IVP PRN ×4 (01:14→21:44)
[2017-11-01] MEDS: FAMOTIDINE 20 MG/NACL 50 ML IV PRN ×2 (06:15→17:03)
[2017-11-01] MEDS: LEVALBUTEROL 1.25 MG/3 ML DEYVIAL IH SCH ×4 (06:26→20:59)
[2017-11-01] MEDS: CROMOLYN SODIUM 20 MG/2 ML IH SCH ×4 (06:26→20:59)
[2017-11-01] MEDS: BUDESONIDE 1 MG/2 ML IH SCH ×3 (06:28→21:00)
[2017-11-01] MEDS: ARFORMOTEROL 15 MCG/2 ML IH SCH ×2 (06:28→21:00)
[2017-11-01] MEDS: ONDANSETRON 4 MG/2 ML VIAL IV PRN ×2 (07:41→13:59)
[2017-11-01] MEDS ORDERED: LEVALBUTEROL 0.63 MG/3 ML DEYVIAL ONE (10:29)
[2017-11-01] MEDS: CHOLECALCIFEROL VIT D3 2,000 UNITS TAB/CAP PO SCH ×2 (11:19→11:24)
[2017-11-01] MEDS: RANITIDINE PO SCH ×4 (11:20→21:44)
[2017-11-01] MEDS: DOMPERIDONE PO SCH ×3 (11:23→21:55)
[2017-11-01] MEDS: [UNRECOGNIZED DRUG - OTHER] EACHEYE SCH ×2 (11:24→21:56)
[2017-11-01] MEDS: GABAPENTIN 300 MG CAP PO SCH ×3 (11:25→21:58)
[2017-11-01] MEDS: MONTELUKAST SODIUM 10 MG TAB PO SCH ×2 (11:26→17:12)
[2017-11-01] MEDS: CROMOLYN PO SCH ×4 (11:26→21:58)
[2017-11-01] MEDS: QUERCETIN 500 MG PO SCH ×4 (11:27→21:56)
[2017-11-01] MEDS: HYDROCORTISONE 5 MG PO SCH ×3 (11:27→17:12)
[2017-11-01] MEDS: ISOSORBIDE DINITRATE 10 MG TAB PO SCH ×3 (11:28→17:11)
[2017-11-01] MEDS: CETIRIZINE 10 MG TAB PO SCH ×2 (11:31→21:56)
[2017-11-01] MEDS: NITRO TP SCH (11:32)
[2017-11-01] MEDS: DIPHENHYDRAMINE IV SCH (13:25)
[2017-11-01] MEDS: D5W IV SCH (13:25)
[2017-11-01] MEDS: NS 1,000 ML IV SCH (13:29)
[2017-11-01] MEDS: CROMOLYN SODIUM NS SCH ×2 (13:35→21:58)
--- NOTE | 2017-11-01 14:12 | HOSPPROG ---
Hospitalist Progress Note Assessment/Plan: #Grade 4, Left Sacral Stress or insufficiency fracture -Per Ortho, they recommend Neuro Surgery and they have evaluated the pt and they recommend either conservative mgmt vs Sacroplasty. The pt is choosing Sacroplasty and this will be done on Thursday per Dr. Gonsales (she is not on service until Thursday). Pradaxa is being held. #Small partial tear Anterior/Superior labrum -evaluated by Ortho. No surgical intervention recommended. They recommend outpatient follow up #Bilateral Hip Pain Left worse than right, acute on chronic reported. Chronic pain Syndrome -likely due to sacral fx and labrum tear -cont Fentany Patch to 25mcg today. She did not tolerate the 50mcg patch -Decrease Fentanyl IV to 25 q 6 prn. -Cont Gabapenin which was increased recently. If further pain mgmt needed, would increase Gabapentin again. 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 Pain is well controlled. She has been receiving 25 of Fentanyl prn and not needing 50. Objective: Vital Signs Temp Pulse Resp BP Pulse Ox 36.6 C 76 16 101/73 96 11/01/17 07:53 11/01/17 10:34 11/01/17 10:34 11/01/17 07:53 11/01/17 10:34 10/31/17 11/01/17 11/02/17 05:59 05:59 05:59 Intake Total 2046 1846 500 Balance 2046 1846 500 PT 15.8 SEC (12.0-15.0) H 10/27/17 13:10 INR 1.24 (0.83-1.16) H 10/27/17 13:10 - Physical Exam Constitutional: no apparent distress, not in pain Eyes: PERRL, EOMI Ears, Nose, Mouth, Throat: moist mucous membranes, hearing normal, ears appear normal Cardiovascular: regular rate and rhythym, no murmur, rub, or gallop Respiratory: no respiratory distress, no rales or rhonchi, clear to auscultation Gastrointestinal: normoactive bowel sounds, soft, non-tender abdomen Skin: warm Neurologic: AAOx3 Psychiatric: interacting appropriately, not anxious, not encephalopathic Lymph, Heme, Immunologic: No petechiae ICD10 Worksheet Patient Problems: Problems Problem Status Onset Bilateral hip pain Acute Chest pain Acute Hypokalemia Acute Mast cell activation Acute
[2017-11-01] MEDS ORDERED: PATCH REMOVAL 1 EA PATCH TD ONE (14:24)
[2017-11-01] MEDS: DILTIAZEM HCL PO SCH (15:12)
[2017-11-01] MEDS: traMADol 50 MG TAB PO PRN (17:08)
[2017-11-02] MEDS: DIPHENHYDRAMINE IV SCH ×2 (04:06→17:04)
[2017-11-02] MEDS: D5W IV SCH ×2 (04:06→17:04)
[2017-11-02] MEDS: FAMOTIDINE 20 MG/NACL 50 ML IV PRN ×2 (04:06→17:07)
[2017-11-02] MEDS: LEVALBUTEROL 1.25 MG/3 ML DEYVIAL IH SCH ×4 (06:02→22:02)
[2017-11-02] MEDS: BUDESONIDE 1 MG/2 ML IH SCH ×2 (06:03→16:13)
[2017-11-02] MEDS: ARFORMOTEROL 15 MCG/2 ML IH SCH ×2 (06:06→22:01)
[2017-11-02] MEDS: CROMOLYN SODIUM 20 MG/2 ML IH SCH ×4 (06:07→22:02)
[2017-11-02] MEDS ORDERED: ALENDRONATE SODIUM 70 MG TAB PO SCH (07:00)
[2017-11-02] MEDS: CROMOLYN SODIUM NS SCH ×2 (07:59→21:31)
[2017-11-02] MEDS: MONTELUKAST SODIUM 10 MG TAB PO SCH ×2 (08:00→16:55)
[2017-11-02] MEDS: QUERCETIN 500 MG PO SCH ×4 (08:00→21:30)
[2017-11-02] MEDS: CROMOLYN PO SCH ×4 (08:01→21:27)
[2017-11-02] MEDS: CHOLECALCIFEROL VIT D3 2,000 UNITS TAB/CAP PO SCH ×2 (08:01→12:24)
[2017-11-02] MEDS: DOMPERIDONE PO SCH ×4 (08:01→21:28)
[2017-11-02] MEDS: ISOSORBIDE DINITRATE 10 MG TAB PO SCH ×3 (08:03→16:56)
[2017-11-02] MEDS: HYDROCORTISONE 5 MG PO SCH ×3 (08:06→16:56)
[2017-11-02] MEDS: ONDANSETRON 4 MG/2 ML VIAL IV PRN ×3 (08:23→21:04)
[2017-11-02] MEDS: fentaNYL 100 MCG/2 ML INJ IVP PRN ×3 (08:23→21:04)
[2017-11-02] MEDS: DILTIAZEM HCL PO SCH (09:27)
[2017-11-02] MEDS: RANITIDINE PO SCH ×4 (09:28→21:20)
[2017-11-02] MEDS: [UNRECOGNIZED DRUG - OTHER] EACHEYE SCH ×2 (09:44→21:29)
[2017-11-02] MEDS: GABAPENTIN 300 MG CAP PO SCH ×3 (09:44→21:32)
[2017-11-02] MEDS: NITRO TP SCH (09:44)
--- NOTE | 2017-11-02 11:33 | NEUSURGPN ---
Assessment/Plan: 42F osteoporosis from chronic steriod use for tx of mast cell activation syndrome with pelvic pain and sacral insufficiency fx. Neuro intact Pain managment-per medicine team Pt would like to undergo sacroplasty with IR and is scheduled, Dr Peck spoke with IR on Monday 10/30. Other options would be conservative tx with donut for pressure relief Pt will speak to IR team about post procedure limitations and recovery. She has questions for anesthesia as well. NS will follow along peripherally at this point Patient has some chronic left leg symptoms and will fu up with us in the office as out patient Subjective: Awaiting IR procedure Objective: AAOx3 EOMI, PEARLA cnii-xii grossly intact MAEx4, 5/5 aside from left TA 4/5 Sensation intact to light touch BLE Neuro Check Frequency: per routine Urinary Catheter in Place: No - Physician Discussed Patient with : [facility] Physical Exam - Vitals, I&O, Labs I and O 11/01/17 11/02/17 11/03/17 05:59 05:59 05:59 Intake Total 1847 1000 Balance 1847 1000 Intake: Oral (ml) 550 1000 IV Intake (ml) 1297 Other: Intake Quantity Yes Yes Sufficient Number of Voids Toilet 2 1 Number of Stools Toilet 1 Vital Signs Temp Pulse Resp BP Pulse Ox 36.5 C 79 16 113/88 H 95 11/02/17 07:36 11/02/17 07:36 11/02/17 07:36 11/02/17 08:03 11/02/17 07:36 ICD10 Worksheet Patient Problems: Problems Problem Status Onset Bilateral hip pain Acute Chest pain Acute Hypokalemia Acute Mast cell activation Acute
[2017-11-02] MEDS: CETIRIZINE 10 MG TAB PO SCH ×2 (12:26→21:27)
--- NOTE | 2017-11-02 15:12 | SOAPPROG ---
SOAP Progress Note Assessment/Plan: Assessment: LT sacral fracture: edema pattern and unilaterality on MRI raised question of mass, which is dis-proven by CT. After review with patient and imaging nurse, general anesthesia is felt to be safer for patient due to multiple co-morbidities, allergies, and medication. Plan: CT guided sacroplasty scheduled for 2:30 pm tomorrow with GA. This was discussed with patient today. 11/02/17 15:10 Subjective: LT sacral pain controlled. Objective: Vital Signs Temp Pulse Resp BP Pulse Ox 36.5 C 73 16 113/88 H 100 11/02/17 07:36 11/02/17 11:19 11/02/17 11:19 11/02/17 12:27 11/02/17 11:19 11/01/17 11/02/17 11/03/17 05:59 05:59 05:59 Intake Total 1847 1000 Balance 1847 1000 PT 15.8 SEC (12.0-15.0) H 10/27/17 13:10 INR 1.24 (0.83-1.16) H 10/27/17 13:10 CT pelvis ordered and reviewed, confirmed fracture. ICD10 Worksheet Patient Problems: Problems Problem Status Onset Bilateral hip pain Acute Chest pain Acute Hypokalemia Acute Mast cell activation Acute
--- NOTE | 2017-11-02 17:07 | ASMTCMCOM ---
CM Note CM Note Notes: Plan remains d/c with [facility] (home infusion) and [facility] (PT). Naomie with [facility] states they will require an order stating "continue home infusion as previous" or similar. Date Signed: 11/02/2017 05:07 PM Electronically Signed By:KEVIN Currie
--- NOTE | 2017-11-02 19:47 | HOSPPROG ---
Hospitalist Progress Note Assessment/Plan: #Sacral fracture -Dr Gonsales evaluated and plan for sacroplasty under GA tomorrow #Acute on chronic pain: increase patch to 37.5mcg #Mast cell activation: Benadryl/famotidine pump #Coag neg staph: 1/2 cultures. No treatment indicated #Adrenal insufficiency: Cortef #h/o VTE: hold AC for procedure #Asthma: cont inhalers #Partial labrum tear #Chronic steroid use: Vitamin D #Diet: NPO at [place] #Disp: cont inpatient admission for sacroplasty, Pain control Subjective: pain controlled with patch and IV Fentanyl Objective: Vital Signs Temp Pulse Resp BP Pulse Ox 36.6 C 69 16 98/72 L 95 11/02/17 15:44 11/02/17 16:17 11/02/17 16:17 11/02/17 16:56 11/02/17 16:17 11/01/17 11/02/17 11/03/17 05:59 05:59 05:59 Intake Total 1847 1000 2096 Balance 1847 1000 2096 PT 15.8 SEC (12.0-15.0) H 10/27/17 13:10 INR 1.24 (0.83-1.16) H 10/27/17 13:10 - Physical Exam Constitutional: no apparent distress Eyes: PERRL Ears, Nose, Mouth, Throat: moist mucous membranes Cardiovascular: regular rate and rhythym Respiratory: no respiratory distress Gastrointestinal: normoactive bowel sounds Genitourinary: no bladder fullness Musculoskeletal: other (TTP left sacrum, hip) Neurologic: AAOx3, CN II-XII Intact ICD10 Worksheet Patient Problems: Problems Problem Status Onset Mast cell activation Acute Chest pain Acute Hypokalemia Acute Bilateral hip pain Acute
[2017-11-02] MEDS ORDERED: fentaNYL 12 MCG PATCH TD SCH (20:00)
[2017-11-02] MEDS: fentaNYL 25 MCG PATCH TD SCH (21:14)
[2017-11-03] MEDS: FAMOTIDINE 20 MG/NACL 50 ML IV PRN ×2 (04:38→20:17)
[2017-11-03] MEDS: fentaNYL 100 MCG/2 ML INJ IVP PRN ×8 (04:46→18:50)
[2017-11-03] MEDS: ONDANSETRON 4 MG/2 ML VIAL IV PRN ×3 (04:46→22:01)
[2017-11-03] MEDS: PROMETHAZINE HCL 25 MG/ML INJ IVP PRN ×2 (05:34→18:50)
[2017-11-03] MEDS: DIPHENHYDRAMINE IV SCH ×2 (05:37→20:06)
[2017-11-03] MEDS: D5W IV SCH ×2 (05:37→20:06)
[2017-11-03] MEDS: LEVALBUTEROL 1.25 MG/3 ML DEYVIAL IH SCH ×4 (06:25→21:15)
[2017-11-03] MEDS: GABAPENTIN 300 MG CAP PO SCH ×2 (07:29→20:13)
[2017-11-03] MEDS: CROMOLYN PO SCH ×4 (07:30→21:54)
[2017-11-03] MEDS: DOMPERIDONE PO SCH ×4 (07:30→22:01)
[2017-11-03] MEDS: DILTIAZEM HCL PO SCH (07:31)
[2017-11-03] MEDS: QUERCETIN 500 MG PO SCH ×4 (07:31→21:53)
[2017-11-03] MEDS: HYDROCORTISONE 5 MG PO SCH ×3 (07:31→20:12)
[2017-11-03] MEDS: MONTELUKAST SODIUM 10 MG TAB PO SCH ×2 (07:32→20:12)
[2017-11-03] MEDS: CHOLECALCIFEROL VIT D3 2,000 UNITS TAB/CAP PO SCH ×2 (07:32→11:52)
[2017-11-03] MEDS: [UNRECOGNIZED DRUG - OTHER] EACHEYE SCH ×2 (07:33→21:54)
[2017-11-03] MEDS: ISOSORBIDE DINITRATE 10 MG TAB PO SCH ×3 (07:33→20:12)
[2017-11-03] MEDS: NITRO TP SCH (07:39)
[2017-11-03] MEDS: RANITIDINE PO SCH ×4 (07:41→21:55)
[2017-11-03] MEDS: CROMOLYN SODIUM 20 MG/2 ML IH SCH ×4 (08:50→21:16)
[2017-11-03] MEDS: BUDESONIDE 1 MG/2 ML IH SCH ×2 (08:52→17:31)
[2017-11-03] MEDS: ARFORMOTEROL 15 MCG/2 ML IH SCH ×2 (08:52→21:15)
[2017-11-03] MEDS: CETIRIZINE 10 MG TAB PO SCH ×3 (11:51→21:54)
--- NOTE | 2017-11-03 12:52 | HOSPPROG ---
Hospitalist Progress Note Assessment/Plan: #Sacral fracture -Dr Gonsales evaluated and plan for sacroplasty under GA today #Acute on chronic pain: increase patch to 37.5mcg today #Mast cell activation: Benadryl/famotidine pump #Coag neg staph: 1/2 cultures. No treatment indicated #Adrenal insufficiency: Cortef #h/o VTE: hold AC for procedure #Asthma: cont inhalers #Partial labrum tear: outpatient Ortho FU #Nausea: scopolamine patch #Chronic steroid use: Vitamin D #Diet: NPO at [place] #Disp: cont inpatient admission for sacroplasty, Pain control. Can DC tomorrow Subjective: pain controlled Objective: Vital Signs Temp Pulse Resp BP Pulse Ox 36.8 C 65 18 103/70 100 11/03/17 08:00 11/03/17 08:54 11/03/17 08:54 11/03/17 08:00 11/03/17 08:54 Microbiology 10/28/17 21:35 Blood Culture - Final Blood 10/28/17 21:35 Blood Culture - Final Blood 11/02/17 11/03/17 11/04/17 05:59 05:59 05:59 Intake Total 1000 2307.4 116.3 Balance 1000 2307.4 116.3 PT 15.8 SEC (12.0-15.0) H 10/27/17 13:10 INR 1.24 (0.83-1.16) H 10/27/17 13:10 - Physical Exam Constitutional: no apparent distress Eyes: PERRL Ears, Nose, Mouth, Throat: moist mucous membranes Cardiovascular: regular rate and rhythym, no murmur, rub, or gallop Respiratory: no respiratory distress, No no rales or rhonchi Gastrointestinal: normoactive bowel sounds Genitourinary: no bladder fullness, No delcid in urethra Skin: warm Musculoskeletal: other (RUE chest catheter with no redness, swelling or pain) Neurologic: AAOx3 Psychiatric: interacting appropriately ICD10 Worksheet Patient Problems: Problems Problem Status Onset Bilateral hip pain Acute Chest pain Acute Hypokalemia Acute Mast cell activation Acute
[2017-11-03] MEDS ORDERED: PROPOFOL 200 MG/20 ML VIAL ONE (14:08)
[2017-11-03] MEDS ORDERED: ROCURONIUM 100 MG/10 ML VIAL ONE (14:13)
[2017-11-03] MEDS ORDERED: SUCCINYLCHOLINE CHLORIDE 200 MG/10 ML VIAL ONE (14:13)
--- NOTE | 2017-11-03 14:20 | PDANEPAE ---
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 chronic bronchitis. hx of multiple pe's. abram positive - Neurologic History Hx Cerebrovascular Accident: No Hx Seizures: Yes Hx Dementia: No Neurologic History Comment: 2 seizures as child - Endocrine History Hx Diabetes: No - Renal History Hx Renal Disorders: Yes Renal History Comment: hx of kidney stones - Liver History Hx Hepatic Disorders: No - Neurological & Psychiatric Hx Hx Neurological and Psychiatric Disorders: No - Cancer History Hx Cancer: No - Congenital Disorder History Hx Congenital Disorders: No - GI History Hx Gastrointestinal Disorders: Yes Gastrointestinal History Comment: reflux. ulcerative colitis- currently in remission. gastroparesis - Other Health History Other Health History: wears glasses/ contacts. very sensitive skin- gets rashes easily. bruises easily. mastocytosis, adrenal insufficiency - Chronic Pain History Chronic Pain: No - Surgical History Prior Surgeries: 08/06/17 I&D of chest with Dr. Woodruff. 07/02/17 port removed and bettencourt placed with yovany. 07/02/17 port placed with Yovany. right elbow surgery to repair tendon. right wrist carpal tunnel. 2 laparoscopies for endometriosis and cysts. sinus surgery. appy surgery. left ankle surgery ANE Review of Systems Review of Systems: - Exercise capacity Exercise capacity: limited by disability ANE Patient History - Allergies Allergies/Adverse Reactions: levofloxacin Allergy (Unknown, Unverified 10/28/17 15:47) hives all over and swelling of tongue nabumetone Allergy (Unknown, Unverified 10/28/17 15:47) hives all over and swelling of tongue povidone-iodine Allergy (Unknown, Unverified 10/28/17 15:47) rash/hives soap Allergy (Unknown, Unverified 10/28/17 15:47) Rash/hives adhesive tape Allergy (Verified 10/27/17 12:44) Hives aspirin Allergy (Verified 10/27/17 12:44) Anaphylaxis dapsone Allergy (Verified 10/27/17 12:44) severe anemia gluten Allergy (Verified 10/27/17 12:44) iron sucrose complex [From Venofer] Allergy (Verified 10/27/17 12:44) Anaphylaxis lactose Allergy (Verified 10/27/17 12:44) latex Allergy (Verified 10/27/17 12:44) Anaphylaxis peanut Allergy (Verified 10/27/17 12:44) perfume Allergy (Verified 10/27/17 12:44) throat will close up and sob soy Allergy (Verified 10/27/17 12:44) major gi issues, if in lotion she gets hives tree nut Allergy (Verified 10/27/17 12:44) iron sucrose complex Allergy (Unknown, Uncoded 10/28/17 15:47) Anaphylaxis cleaning chemicals Allergy (Uncoded 08/28/17 15:23) throat will close and sob STEROIDS Allergy (Uncoded 08/28/17 15:21) has to have benadryl first - Home Medications Home Medications: Alendronate Sodium [Fosamax 70 MG (*)] 70 mg PO MO@0700 08/10/16 [Last Taken 04/06] Cetirizine [ZyrTEC 10 mg (*)] 10 mg PO DAILY@12 08/10/16 [Last Taken 10/27/17] Hydrocortisone [Cortef] 5 mg PO TIDMEAL 08/10/16 [Last Taken 10/27/17] Cholecalciferol Vit D3 [Vitamin D3 2000 units tab (OTC)] 2,000 units PO BID@07, 1130 06/30/17 [Last Taken 10/27/17] Cyanocobalamin [Vitamin B12 1000MCG/ML (*)] 1,000 mcg IM Q14D 06/30/17 [Last Taken 10/16/17] Montelukast Sodium [Singulair 10 mg (*)] 10 mg PO BID@,17 06/30/17 [Last Taken 09/02/17] methylPREDNISolone SOD SUCC [Solu-Medrol 125 mg (*)] 125 mg IM DAILY PRN [Last Taken 10/13/17] Benadryl Own Pump 15 mg IV CONT 07/02/17 [Last Taken 10/27/17] Brovana Nebulizer 1 each IH BID 07/02/17 [Last Taken 10/27/17] Budesonide 1 mg IH BID@,07/02/17 [Last Taken 10/27/17 09:00] Cetirizine [ZyrTEC 10 mg (*)] 20 mg PO HS 07/02/17 [Last Taken 10/26/17] Cromolyn Sodium 20 mg IH QID@,1129,,07/02/17 [Last Taken 10/27/17 11:30] Cromolyn Sodium [Nasalcrom] 1 inh NS BID 07/02/17 [Last Taken 09/02/17] Domperidone 40 mg PO QID@,1129,,07/02/17 [Last Taken 10/27/17 17:00] Quercetin 500mg 500 mg PO QID@,1129,,07/02/17 [Last Taken 09/02/17] Diltiazem HCl [Cartia XT 180mg] 180 mg PO DAILY@08/28/17 [Last Taken 10/27/17 ] Levalbuterol 1.25 mg [Xopenex 1.25MG Neb (*)] 1.25 mg IH Q8H 08/28/17 [Last Taken 09/01/17 21:00] Levalbuterol Inhaler [Xopenex Hfa Inhaler (*)] 2 puffs IH Q4H PRN 08/28/17 [ Last Taken Unknown] Ondansetron HCl [Zofran] 4 mg IV Q6HRS PRN 08/28/17 [Last Taken 09/01/17 21:00] Compounded Ranitidine Mary Grace. 5 ml PO QID@07,1129,,09/02/17 [Last Taken 17:00] Famotidine Own Pump 2 mg SQ CONT 09/02/17 [Last Taken 10/27/17] Gastrocrom 2 each PO QID@07,1130,,09/02/17 [Last Taken 09/02/17] Nitro Cream 1 simran TP DAILY 09/02/17 [Last Taken Unknown] Nitroglycerin [Nitrostat 0.4 mg (*)] 0.4 mg SL Q5M PRN 09/02/17 [Last Taken Unknown] Dabigatran Etexilate Mesylate [Pradaxa] 150 mg PO BID@07,17 10/27/17 [Last Taken 10/27/17 17:00] Gabapentin [Neurontin 300 MG (*)] 300 mg PO BID@1130,21 10/27/17 [Last Taken 05/06 11:30] Isosorbide Dinitrate [Isosorbide Dinitrate 20 mg (*)] 20 mg PO TIDNITRATE [Last Taken 10/27/17] fentaNYL [Duragesic 12 MCG Patch (*)] 12 mcg TD Q72H 10/27/17 [Last Taken Unknown] traMADol [Ultram 50 mg (*)] 100 mg PO BID PRN 10/27/17 [Last Taken 10/27/17] Nedocromil Ophth Mary Grace 1 drop EACHEYE BID 10/28/17 [Last Taken 10/27/17] - NPO status NPO Status: no food or drink >8 hours - Anes Hx Anes Hx: no prior problems - Smoking Hx Smoking Status: Former smoker - Family Anes Hx Family Anes Hx: none Family Hx Anesthesia Complications: none ANE Labs/Vital Signs - Labs Result Diagrams: 10/27/17 13:10 10/27/17 13:10 - Vital Signs Blood Pressure: 103/70 Heart Rate: 68 Respiratory Rate: 15 O2 Sat (%): 95 Height: 177.8 cm Weight: 74.843 kg ANE Physical Exam - Airway Neck exam: FROM Mallampati Score: Class 1 - Pulmonary Pulmonary: no respiratory distress - Cardiovascular Cardiovascular: regular rate and rhythym - ASA Status ASA Status: III ANE Anesthesia Plan Anesthesia Plan: general endotracheal anesthesia
[2017-11-03] MEDS ORDERED: PATCH REMOVAL 1 EA PATCH TD SCH (14:24)
[2017-11-03] MEDS ORDERED: MIDAZOLAM 2 MG/2 ML VIAL ONE (14:32)
[2017-11-03] MEDS ORDERED: fentaNYL 100 MCG/2 ML INJ ONE ×3 (14:32→17:18)
[2017-11-03] MEDS ORDERED: fentaNYL 25 MCG PATCH TD SCH (14:45)
[2017-11-03] MEDS ORDERED: PATCH REMOVAL 1 EA PATCH TD ONE (15:00)
[2017-11-03] MEDS: CROMOLYN SODIUM NS SCH ×2 (16:10→21:55)
--- NOTE | 2017-11-03 16:21 | PDRADPN ---
Radiology Procedure Note Date of Procedure: 11/03/17 Radiologist: Zaynab Gonsales Anesthesia: GET(General Endotracheal) Pre-op Diagnosis: SACRAL FRACTURE Post-op Diagnosis: SAME Indication: SEVERE PAIN Procedure: CT GUIDED SACROPLASTY Finding(s): 10CC CEMENT DELIVERED INTO BILATERAL SACRUM Inf/Abcess present in the surg proc area at time of surgery?: No Complications: NONE
[2017-11-03] MEDS ORDERED: PROMETHAZINE HCL 25 MG/ML INJ IVP PRN (16:39)
[2017-11-03] MEDS ORDERED: HYDROCODONE/APAP 5/325 TAB PO PRN (16:39)
[2017-11-03] MEDS ORDERED: ACETAMINOPHEN 500 MG TAB PO PRN (16:39)
[2017-11-03] MEDS ORDERED: ALBUTEROL 3 ML DEYVIAL IH PRN (16:39)
[2017-11-03] MEDS ORDERED: LABETALOL HCL 5 MG/ML 20 ML MDV IVP PRN (16:39)
[2017-11-03] MEDS ORDERED: oxyCODONE IR 5 MG TAB PO PRN (16:39)
[2017-11-03] MEDS ORDERED: HYDROmorphONE/DILAUDID 1 MG/ML INJ IVP PRN (16:39)
[2017-11-03] MEDS ORDERED: NALOXONE HCL 0.4 MG/ML INJ IVP PRN (16:39)
[2017-11-03] MEDS ORDERED: DEXAMETHASONE 4 MG/ML VIAL IVP PRN (16:39)
--- NOTE | 2017-11-03 16:42 | POSTANESTH ---
Post Anesthetic Evaluation Cardiovascular Status: Similar to Pre-Op Cond Respiratory Status: Similar to Pre-op Cond. Level of Consciousness/Mental Status: Can Participate in Eval, Mildly Sleepy, Arousable Pain Control: Inadeq, Add Tx Required Nausea/Vomiting Control: Adequate, Prn Tx Ordered Complications Possibly Related to Anesthesia: None Noted
[2017-11-03] MEDS ORDERED: ONDANSETRON 4 MG/2 ML VIAL ONE ×2 (17:18→17:24)
[2017-11-03] MEDS: ONDANSETRON 4 MG/2 ML VIAL IVP PRN ×2 (17:21→17:31)
[2017-11-03] MEDS ORDERED: LIDOCAINE 2% 2 ML INJ ONE (17:24)
[2017-11-03] MEDS ORDERED: DEXAMETHASONE 10 MG/ML VIAL ONE (17:24)
--- NOTE | 2017-11-03 18:43 | SOAPPROG ---
SOAP Progress Note Assessment/Plan: Assessment: LT sacral fracture: edema pattern and unilaterality on MRI raised question of mass, which is dis-proven by CT. After review with patient and imaging nurse, general anesthesia is felt to be safer for patient due to multiple co-morbidities, allergies, and medication. Plan: CT guided sacroplasty scheduled for 2:30 pm tomorrow with GA. This was discussed with patient today. 11/02/17 15:10 11/03/17 18:42 1. Post sacroplasty: doing well. 2. Very soft bone encountered during procedure suggesting significant osteoporosis. Discussed with patient. ? need to change Fosamax? 3. Encouraged ambulation as soon as possible. Subjective: Has not gotten out of bed yet, but can tell the deep stabbing pain is gone. Some incisional pain. Objective: Vital Signs Temp Pulse Resp BP Pulse Ox 36.8 C 72 15 109/80 97 11/03/17 18:09 11/03/17 18:09 11/03/17 18:09 11/03/17 18:09 11/03/17 18:09 Microbiology 10/28/17 21:35 Blood Culture - Final Blood 10/28/17 21:35 Blood Culture - Final Blood 11/02/17 11/03/17 11/04/17 05:59 05:59 05:59 Intake Total 1000 2307.4 1293.0 Output Total 5 Balance 1000 2307.4 1288.0 PT 15.8 SEC (12.0-15.0) H 10/27/17 13:10 INR 1.24 (0.83-1.16) H 10/27/17 13:10 Dressing site clean. Patient does not appear to be in distress. ICD10 Worksheet Patient Problems: Problems Problem Status Onset Bilateral hip pain Acute Chest pain Acute Hypokalemia Acute Mast cell activation Acute
[2017-11-03] MEDS: SCOPOLAMINE HYDROBROMIDE 1 MG/3 DAYS PATCH TD SCH (18:50)
[2017-11-03] MEDS: traMADol 50 MG TAB PO PRN (20:17)
[2017-11-04] MEDS: fentaNYL 100 MCG/2 ML INJ IVP PRN ×3 (04:58→18:11)
[2017-11-04] MEDS: ONDANSETRON 4 MG/2 ML VIAL IV PRN ×3 (05:01→18:16)
[2017-11-04] MEDS: BUDESONIDE 1 MG/2 ML IH SCH ×2 (05:40→17:43)
[2017-11-04] MEDS: LEVALBUTEROL 1.25 MG/3 ML DEYVIAL IH SCH ×4 (05:40→21:26)
[2017-11-04] MEDS: CROMOLYN SODIUM 20 MG/2 ML IH SCH ×4 (05:41→21:26)
[2017-11-04] MEDS: ARFORMOTEROL 15 MCG/2 ML IH SCH ×2 (05:43→21:29)
[2017-11-04] MEDS: MONTELUKAST SODIUM 10 MG TAB PO SCH ×2 (05:48→17:35)
[2017-11-04] MEDS: DILTIAZEM HCL PO SCH (05:49)
[2017-11-04] MEDS: QUERCETIN 500 MG PO SCH ×4 (05:49→20:41)
[2017-11-04] MEDS: DOMPERIDONE PO SCH ×4 (05:50→20:43)
[2017-11-04] MEDS: CROMOLYN PO SCH ×4 (05:51→20:38)
[2017-11-04] MEDS: CHOLECALCIFEROL VIT D3 2,000 UNITS TAB/CAP PO SCH ×2 (05:51→08:39)
[2017-11-04] MEDS: RANITIDINE PO SCH ×4 (05:52→20:56)
[2017-11-04] MEDS: GABAPENTIN 300 MG CAP PO SCH ×4 (05:58→22:28)
[2017-11-04] MEDS: ISOSORBIDE DINITRATE 10 MG TAB PO SCH ×3 (08:39→17:28)
[2017-11-04] MEDS: HYDROCORTISONE 5 MG PO SCH ×3 (08:39→17:31)
[2017-11-04] MEDS: traMADol 50 MG TAB PO PRN ×3 (08:43→20:54)
[2017-11-04] MEDS: D5W IV SCH ×2 (08:50→21:06)
[2017-11-04] MEDS: DIPHENHYDRAMINE IV SCH ×2 (08:50→21:06)
[2017-11-04] MEDS ORDERED: DABIGATRAN ETEXILATE MESYL 150 MG CAP PO SCH (12:15)
[2017-11-04] MEDS: [UNRECOGNIZED DRUG - OTHER] EACHEYE SCH ×2 (13:02→20:57)
[2017-11-04] MEDS: NITRO TP SCH (13:05)
[2017-11-04] MEDS: CROMOLYN SODIUM NS SCH ×2 (13:05→23:03)
--- NOTE | 2017-11-04 13:15 | HOSPPROG ---
Hospitalist Progress Note Assessment/Plan: 42y female with c/o pain. First encounter, chart reviewed. D/W RN. #Sacral fracture -Post CT guided sacroplasty under GA with Dr Gonsales -pain better #Acute on chronic pain: - increase patch to 37.5mcg yesterday -will add ultram 50 Q12 to her dose of 100mg Q12, alternating -D/W pharmacy #Mast cell activation: -Benadryl/famotidine pump #Coag neg staph: -1/2 cultures. No treatment indicated #Adrenal insufficiency: -Cortef #h/o VTE: -hold AC for procedure will restart today #Asthma: -cont inhalers #Partial labrum tear: -outpatient Ortho FU #Nausea: -scopolamine patch #Chronic steroid use: -Vitamin D #Diet: regular #Disp: cont inpatient admission for Pain control. Can DC tomorrow Subjective: Up in bed. Feeling a bit better. Less pain but needing more relief. Objective: Vital Signs Temp Pulse Resp BP Pulse Ox 36.9 C 70 14 105/72 96 11/04/17 08:16 11/04/17 12:27 11/04/17 12:27 11/04/17 08:39 11/04/17 12:27 Microbiology 10/28/17 21:35 Blood Culture - Final Blood 10/28/17 21:35 Blood Culture - Final Blood 11/03/17 11/04/17 11/05/17 05:59 05:59 05:59 Intake Total 2307.4 1293.0 Output Total 5 Balance 2307.4 1288.0 PT 15.8 SEC (12.0-15.0) H 10/27/17 13:10 INR 1.24 (0.83-1.16) H 10/27/17 13:10 - Physical Exam Constitutional: appears nourished, chronically ill appearing, uncomfortable Eyes: PERRL, anicteric sclera, EOMI Ears, Nose, Mouth, Throat: moist mucous membranes, hearing normal, ears appear normal Cardiovascular: regular rate and rhythym, No JVD, No edema Respiratory: no respiratory distress, no rales or rhonchi, clear to auscultation Gastrointestinal: normoactive bowel sounds, No tenderness, No ascites Skin: warm, normal color, No mottled Musculoskeletal: no joint effusions, joint tenderness, pain with ROM, generalized weakness Neurologic: AAOx3 Psychiatric: interacting appropriately, not anxious, not encephalopathic, thought process linear ICD10 Worksheet Patient Problems: Problems Problem Status Onset Mast cell activation Acute Chest pain Acute Hypokalemia Acute Bilateral hip pain Acute
[2017-11-04] MEDS ORDERED: DABIGATRAN ETEXILATE MESYL 75 MG CAP PO SCH (15:00)
[2017-11-04] MEDS: DABIGATRAN ETEXILATE MESYL 75 MG CAP PO SCH (17:29)
[2017-11-04] MEDS: CETIRIZINE 10 MG TAB PO SCH (20:37)
[2017-11-04] MEDS: FAMOTIDINE 20 MG/NACL 50 ML IV PRN (22:28)
[2017-11-05] MEDS: RANITIDINE PO SCH (04:33)
[2017-11-05] MEDS: traMADol 50 MG TAB PO PRN (06:33)
[2017-11-05] MEDS: CHOLECALCIFEROL VIT D3 2,000 UNITS TAB/CAP PO SCH (06:34)
[2017-11-05] MEDS: QUERCETIN 500 MG PO SCH (06:36)
[2017-11-05] MEDS: MONTELUKAST SODIUM 10 MG TAB PO SCH (06:36)
[2017-11-05] MEDS: DABIGATRAN ETEXILATE MESYL 75 MG CAP PO SCH (06:37)
[2017-11-05] MEDS: DOMPERIDONE PO SCH (06:38)
[2017-11-05] MEDS: CROMOLYN PO SCH (06:39)
[2017-11-05] MEDS: DILTIAZEM HCL PO SCH (06:42)
[2017-11-05] MEDS: HYDROCORTISONE 5 MG PO SCH (08:00)
[2017-11-05] MEDS: ISOSORBIDE DINITRATE 10 MG TAB PO SCH (08:05)
[2017-11-05] MEDS: GABAPENTIN 300 MG CAP PO SCH (08:07)
[2017-11-05] MEDS: NITRO TP SCH (08:08)
[2017-11-05] MEDS: [UNRECOGNIZED DRUG - OTHER] EACHEYE SCH (08:09)
[2017-11-05 08:10] VITALS: BP 123/88
[2017-11-05] MEDS: LEVALBUTEROL 1.25 MG/3 ML DEYVIAL IH SCH (08:19)
[2017-11-05] MEDS: CROMOLYN SODIUM 20 MG/2 ML IH SCH (08:19)
[2017-11-05] MEDS: ARFORMOTEROL 15 MCG/2 ML IH SCH (08:19)
[2017-11-05] MEDS: fentaNYL 25 MCG PATCH TD SCH ×2 (08:21→11:10)
[2017-11-05] MEDS: BUDESONIDE 1 MG/2 ML IH SCH (08:39)
[2017-11-05] MEDS: FAMOTIDINE 20 MG/NACL 50 ML IV PRN (09:08)
--- NOTE | 2017-11-05 11:03 | PDIAF ---
- Diagnosis Diagnosis: sacral fx Code Status: Full Code - Medication Management Discharge Medications: Medications to Continue on Transfer Alendronate Sodium [Fosamax 70 MG (*)] 70 mg PO MO@0700 08/10/16 [Last Taken 04/06] Cetirizine [ZyrTEC 10 mg (*)] 10 mg PO DAILY@12 08/10/16 [Last Taken 10/27/17] Hydrocortisone [Cortef] 5 mg PO TIDMEAL 08/10/16 [Last Taken 10/27/17] Cholecalciferol Vit D3 [Vitamin D3 2000 units tab (OTC)] 2,000 units PO BID@07, 1130 06/30/17 [Last Taken 10/27/17] Cyanocobalamin [Vitamin B12 1000MCG/ML (*)] 1,000 mcg IM Q14D 06/30/17 [Last Taken 10/16/17] Montelukast Sodium [Singulair 10 mg (*)] 10 mg PO BID@,17 06/30/17 [Last Taken 09/02/17] methylPREDNISolone SOD SUCC [Solu-Medrol 125 mg (*)] 125 mg IM DAILY PRN [Last Taken 10/13/17] Benadryl Own Pump 15 mg IV CONT 07/02/17 [Last Taken 10/27/17] Brovana Nebulizer 1 each IH BID 07/02/17 [Last Taken 10/27/17] Budesonide 1 mg IH BID@,17 07/02/17 [Last Taken 10/27/17 09:00] Cetirizine [ZyrTEC 10 mg (*)] 20 mg PO HS 07/02/17 [Last Taken 10/26/17] Cromolyn Sodium 20 mg IH QID@,1129,,07/02/17 [Last Taken 10/27/17 11:30] Cromolyn Sodium [Nasalcrom] 1 inh NS BID 07/02/17 [Last Taken 09/02/17] Domperidone 40 mg PO QID@07,1129,,07/02/17 [Last Taken 10/27/17 17:00] Quercetin 500mg 500 mg PO QID@,1129,,07/02/17 [Last Taken 09/02/17] Diltiazem HCl [Cartia XT 180mg] 180 mg PO DAILY@07 08/28/17 [Last Taken 10/27/17 ] Levalbuterol 1.25 mg [Xopenex 1.25MG Neb (*)] 1.25 mg IH Q8H 08/28/17 [Last Taken 09/01/17 21:00] Levalbuterol Inhaler [Xopenex Hfa Inhaler (*)] 2 puffs IH Q4H PRN 08/28/17 [ Last Taken Unknown] Ondansetron HCl [Zofran] 4 mg IV Q6HRS PRN 08/28/17 [Last Taken 09/01/17 21:00] Compounded Ranitidine Mary Grace. 5 ml PO QID@07,0,,09/02/17 [Last Taken 17:00] Famotidine Own Pump 2 mg SQ CONT 09/02/17 [Last Taken 10/27/17] Gastrocrom 2 each PO QID@07,1130,,09/02/17 [Last Taken 09/02/17] Nitro Cream 1 simran TP DAILY 09/02/17 [Last Taken Unknown] Nitroglycerin [Nitrostat 0.4 mg (*)] 0.4 mg SL Q5M PRN 09/02/17 [Last Taken Unknown] Dabigatran Etexilate Mesylate [Pradaxa] 150 mg PO BID@07,10/27/17 [Last Taken 10/27/17 17:00] Gabapentin [Neurontin 300 MG (*)] 300 mg PO BID@1129,10/27/17 [Last Taken 05/06 11:30] Isosorbide Dinitrate [Isosorbide Dinitrate 20 mg (*)] 20 mg PO TIDNITRATE [Last Taken 10/27/17] traMADol [Ultram 50 mg (*)] 100 mg PO BID PRN 10/27/17 [Last Taken 10/27/17] Nedocromil Ophth Mary Grace 1 drop EACHEYE BID 10/28/17 [Last Taken 10/27/17] Acetaminophen [Tylenol 325mg (*)] 650 mg PO Q4HRS PRN tab 11/05/17 [Last Taken Unknown] Patch Removal 1 ea TD Q72H patch 11/05/17 [Last Taken Unknown] Scopolamine Hydrobromide [Scopolamine Patch] 1 patch TD Q72H #4 patch 11/05/17 [ Last Taken Unknown] fentaNYL [Duragesic 25 MCG Patch (*)] 25 mcg TD Q3D #1 patch 11/05/17 [Last Taken Unknown] Additional Medication Instructions: continues infusions of benadryl and pepcid Discharge Medications: Refer to the Discharge Home Medication list for PRN reason. - Orders Services needed: Home Care, Physical Therapy Home Care Face to Face: I certify that this patient was under my care and that I had the required [id number] encounter meeting the encounter requirements on the discharge day. My findings support the fact that the patient is homebound as defined in Home Care Face to Face Continued: CMS Chapter 7 Medicare Benefits Manual 30.1.1 , The condition of the patient is such that there exists a normal inability to leave home and consequently, leaving home would require a considerable and taxing effort. Isolation Type: None Diet Recommendation: no restrictions on diet Additional Instructions: Follow up with pain specialist and rheum. - Follow Up Care Current Providers and Referrals: Caroline Diehl MD [Primary Care Provider] - As per Instructions Ernie Peck MD [Medical Doctor] - follow up as scheduled (FU in 2-4 weeks)
[2017-11-05] MEDS: SCOPOLAMINE HYDROBROMIDE 1 MG/3 DAYS PATCH TD SCH (11:08)
--- NOTE | 2017-11-05 11:17 | ASMTCMCOM ---
CM Note CM Note Notes: Chart reviewed. Patient has been medically cleared for discharge to home. [facility] notified as well as [facility] home infusion services. Met with patient to confirm these are correct. Final orders via allscripts. CM available should other needs arise. Plan home with [facility] and infusion services. Date Signed: 11/05/2017 11:16 AM Electronically Signed By:Kristina Scott RN
--- NOTE | 2017-11-05 14:06 | GDS ---
[f rep st] DISCHARGE SUMMARY DISCHARGE DIAGNOSES: 1. Sacral fracture. 2. Eftdg-eg-uywewag pain. 3. Mast cell activation. 4. Adrenal insufficiency. 5. History of venous thromboembolism. 6. History of asthma. 7. Partial labrum tear. 8. Nausea. 9. Chronic steroid use. CONSULTATIONS: 1. Interventional Radiology. 2. Infectious Disease. 3. Neurosurgery. STUDIES AND PROCEDURES: 1. Lower extremity MRI. 2. Sacral joint CT. 3. Pelvic CT. PHYSICAL EXAM: GENERAL: Patient is alert VITAL SIGNS: Afebrile at 36.8, pulse 65, respiratory rat e 16, blood pressure is 121/92. She is saturating 95% on room air. I have seen and evaluated the skyler carrillo on the day of discharge. HOSPITAL COURSE: Patient is a 42-year-old female who presented to the emergency room with complaints of pain. She was evaluated and diagnosed with: 1. Sacral fracture. During this hospitalization, she received a CT-guided sacroplasty under general anesthesia. She has responded well to this procedure. This procedure was performed by Dr. Gonsales of [facility]. Her pain is significantly improved. 2. [id number] pain. The patient's fentanyl patch has been increased to 37.5, and Ultram has b een added to her pain regimen. Her pain is controlled better today prior to disposition. 3. History of mast cell activation. She will continue her Benadryl and Pepcid pumps. 4. Adrenal insufficiency. She has been given replacement. 5. History of VTE. She has been restarted on her Pradaxa. This was held for her procedure. 6. Partial labrum tear. She will follow up in the outpatient setting with Orthopedics. 7. Nausea. Scopolamine patch has been provided. 8. Osteopenia. She will follow in the outpatient setting with her primary care physician and Endocr inology to make adjustments to her medication regimen. DISPOSITION: The patient will be discharged home independently with her family. She will receive [facility] physical therapy. Followup will be with her primary care physician, Dr. Caroline Diehl, as well as Dr. 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 I have spent greater than 35 minutes in the care, coordination, and management of this patient's disp osition. /[id number]/MODL
== END 2017-11-05 11:28 | disposition home health service (06) | DRG 516 ==
LOC: OBSVTOIN 18:35 → F1N 20:30 → F3N 10-30 19:20
PROVIDERS: ADMIT Internal Medicine; ATTEND Internal Medicine
PROC: 0SU Lower Joints, Supplement (ICD-10-PCS; principal; 2017-11-03 14:30)
DX: M80.08XA Age-related osteoporosis with current pathological fracture, vertebra(e), initial encounter for fracture (principal); E27.40 Unspecified adrenocortical insufficiency; M24.852 Other specific joint derangements of left hip, not elsewhere classified; D89.40 Mast cell activation, unspecified; G89.29 Other chronic pain; R11.0 Nausea; J45.909 Unspecified asthma, uncomplicated; G47.33 Obstructive sleep apnea (adult) (pediatric); Z79.52 Long term (current) use of systemic steroids; Z86.711 Personal history of pulmonary embolism; Z86.718 Personal history of other venous thrombosis and embolism; Z79.01 Long term (current) use of anticoagulants
CPT/HCPCS: 96374; 97116-GP; 97161-GP; 97530-GP; G0378; J0330; J0696; J1100; J1170; J1200; J2250; J2405; J2550; J2704; J3010; J3420

== ENCOUNTER → 2017-11-20 | Outpatient (CLI) | payer OTHER | LOC: FIMAGING 11:47 | PROVIDERS: ATTEND Allergy & Immunology Allergy | DX: M84.48XD Pathological fracture, other site, subsequent encounter for fracture with routine healing (principal); M51.37 Other intervertebral disc degeneration, lumbosacral region; M53.3 Sacrococcygeal disorders, not elsewhere classified; Z98.890 Other specified postprocedural states ==

== ENCOUNTER → 2017-12-05 | Outpatient (CLI) | payer OTHER | LOC: FIMAGING 11:05 | PROVIDERS: ATTEND Radiology Diagnostic Radiology | DX: M51.37 Other intervertebral disc degeneration, lumbosacral region (principal) ==

== ENCOUNTER → 2018-01-01 | Outpatient (CLI) | payer OTHER | LOC: CIMAGING 14:58 | PROVIDERS: ATTEND Allergy & Immunology Allergy | DX: M79.89 Other specified soft tissue disorders (principal); R22.43 Localized swelling, mass and lump, lower limb, bilateral | CPT/HCPCS: 93970-PO ==

== ENCOUNTER → 2018-01-11 | Outpatient (CLI) | payer OTHER | LOC: BMCIMAGING 12:46 | PROVIDERS: ATTEND Allergy & Immunology Allergy | DX: R07.9 Chest pain, unspecified (principal); Z95.818 Presence of other cardiac implants and grafts ==

== ENCOUNTER → 2018-01-14 | Outpatient (CLI) | payer OTHER | LOC: FIMAGING 09:06 | PROVIDERS: ATTEND Physician Assistant | DX: M25.552 Pain in left hip (principal); Z87.81 Personal history of (healed) traumatic fracture | CPT/HCPCS: A9503 ==

== ENCOUNTER → 2018-03-11 | Outpatient (CLI) | payer OTHER | LOC: FIMAGING 11:23 | PROVIDERS: ATTEND Physician Assistant | DX: Z13.820 Encounter for screening for osteoporosis (principal); M85.89 Other specified disorders of bone density and structure, multiple sites; Z82.62 Family history of osteoporosis; Z92.241 Personal history of systemic steroid therapy; Z87.81 Personal history of (healed) traumatic fracture ==

== ENCOUNTER → 2018-04-06 | Outpatient (CLI) | payer OTHER | LOC: FIMAGING 16:03 | PROVIDERS: ATTEND Allergy & Immunology Allergy | DX: Z45.2 Encounter for adjustment and management of vascular access device (principal) | CPT/HCPCS: Q9967 ==

== ENCOUNTER 2018-04-12 09:20 | Day surgery (SDC) | payer OTHER ==
[2018-04-12] MEDS ORDERED: fentaNYL 100 MCG/2 ML INJ IVP PRN ×2 (10:31→11:38)
[2018-04-12] MEDS ORDERED: FLUMAZENIL 0.5 MG/5 ML MDV IVP PRN ×2 (10:31→11:38)
[2018-04-12] MEDS ORDERED: NALOXONE HCL 0.4 MG/ML INJ IVP PRN ×2 (10:31→11:38)
[2018-04-12] MEDS ORDERED: MIDAZOLAM 2 MG/2 ML VIAL IVP PRN ×2 (10:31→11:38)
[2018-04-12] MEDS ORDERED: MEPERIDINE 25 MG/ML SYR IVP PRN ×2 (10:31→11:38)
[2018-04-12] MEDS ORDERED: NS 1,000 ML IV SCH ×2 (10:45→11:45)
[2018-04-12 11:41] LABS: INR 0.93 (0.83-1.16); PROTIME(PATIENT) 12.7 SEC (12.0-15.0)
--- NOTE | 2018-04-12 12:03 | PDPROPOC ---
Sedation Plan of Care Sedation Plan of Care: vital signs stable, mental status noted, patient educated of risks, benefits, alternatives, patient can tolerate sedation ASA Classification: ASA 2 Planned drugs: fentanyl, midazolam Mallampati Score: Class 2 Mallampati Reference Image: Patient passed 3-3-2 rule?: Yes
[2018-04-12] MEDS ORDERED: ONDANSETRON 4 MG/2 ML VIAL ONE (12:04)
[2018-04-12] MEDS ORDERED: LIDOCAINE 1% 300 MG/30 ML SDV ONE (12:39)
[2018-04-12] MEDS ORDERED: ONDANSETRON 4 MG/2 ML VIAL IVP PRN (13:29)
[2018-04-12] MEDS ORDERED: ACETAMINOPHEN 325 MG TAB PO PRN (13:29)
--- NOTE | 2018-04-12 13:32 | PDRADPN ---
Radiology Procedure Note Date of Procedure: 04/12/18 Radiologist: Zaynab Gonsales Anesthesia: IV Sedation Pre-op Diagnosis: mast cell activation Post-op Diagnosis: same Indication: needs constant infusion; existing Otero doesn't draw anymore Procedure: Otero exchange Inf/Abcess present in the surg proc area at time of surgery?: No
[2018-04-12] MEDS ORDERED: ONDANSETRON 4 MG/2 ML VIAL IVP ONE (14:00)
[2018-04-12 15:13] VITALS: BP 125/90
== END 2018-04-12 15:00 | disposition home or self-care (01) ==
LOC: FIMAGING 09:20
PROVIDERS: ATTEND Radiology Diagnostic Radiology
PROC: 0JP Subcutaneous Tissue and Fascia, Removal (ICD-10-PCS; principal; 2018-04-12 13:02)
PROC: 02HV33Z Insertion of Infusion Device into Superior Vena Cava, Percutaneous Approach (ICD-10-PCS; principal; 2018-04-12 13:02)
DX: Z45.2 Encounter for adjustment and management of vascular access device (principal)
CPT/HCPCS: C1750; J1200; J2250; J2405; J3010

== ENCOUNTER 2018-04-17 17:39 | Observation (INO) | payer OTHER ==
[2018-04-17] MEDS ORDERED: ACETAMINOPHEN 325 MG TAB PO ONE (18:20)
--- NOTE | 2018-04-17 18:44 | EDPHY ---
H & P Stated Complaint: recent chest line change on port. 3 days of not feeling well Time Seen by Provider: 04/17/18 17:56 HPI/ROS: CHIEF COMPLAINT: Fever HISTORY OF PRESENT ILLNESS: 42-year-old female with mast cell activation syndrome presents with fever. Otero catheter was changed on 04/12/2018. Doing well initially, but yesterday developed some tenderness over the central line insertion area. Today she noticed a small amount of drainage on the dressing. Low-grade fever of 99.8 started this afternoon. Associated with achiness in her hips. Similar to prior episodes of sepsis. Also thinks she might be coming down with a cold. No cough. REVIEW OF SYSTEMS: complete 10 point ROS reviewed and is negative except for the noted elements in the HPI - Personal History LMP (Females 10-55): Post Menopausal Current Tetanus/Diphtheria Vaccine: Yes Current Tetanus Diphtheria and Acellular Pertussis (TDAP): Yes Tetanus Vaccine Date: LAST 10 YRS - Medical/Surgical History Hx Asthma: Yes Hx Chronic Respiratory Disease: No Hx Diabetes: No Hx Cardiac Disease: Yes Hx Renal Disease: No Hx Cirrhosis: No Hx Alcoholism: No Hx HIV/AIDS: No Hx Splenectomy or Spleen Trauma: No Other PMH: medical- mast cell activation disorder/multiple allergies, Adrenal Insufficiency, Colitis, Food allergies, asthma, "small PFO" home o2, PE, DVT. surgery- appy, ortho-back/hip pain, DVT, gastroperisis - Social History Smoking Status: Former smoker - Physical Exam Exam: General Appearance: Alert, pleasant, nontoxic-appearing Eyes: Pupils equal and round, no conjunctival pallor or injection ENT, Mouth: Mucous membranes moist Neck: Normal inspection Chest: Right anterior chest wall-central line in place, tenderness over the line site with erythema adjacent to the central line, a few mm in diameter, no fluctuance. There is a small amount of drainage on the dressing. Respiratory: Lungs are clear to auscultation Cardiovascular: Regular rate and rhythm Gastrointestinal: Abdomen is soft and nontender Neurological: A&O, nonfocal, normal gait Skin: Warm and dry Extremities: Nontender, no pedal edema Psychiatric: Mood and affect normal Constitutional: Initial Vital Signs Temperature (C) 37.4 C 04/17/18 17:46 Heart Rate 100 04/17/18 17:46 Respiratory Rate 16 09/29/18 17:46 Blood Pressure 140/89 H 04/17/18 17:46 O2 Sat (%) 95 04/17/18 17:46 O2 Delivery Mode Room Air Allergies/Adverse Reactions: levofloxacin Allergy (Unknown, Verified 04/17/18 17:52) hives all over and swelling of tongue nabumetone Allergy (Unknown, Verified 04/17/18 17:52) hives all over and swelling of tongue povidone-iodine Allergy (Unknown, Verified 04/17/18 17:52) rash/hives soap Allergy (Unknown, Verified 04/17/18 17:52) Rash/hives adhesive tape Allergy (Verified 04/17/18 17:52) Hives aspirin Allergy (Verified 04/17/18 17:52) Anaphylaxis dapsone Allergy (Verified 04/17/18 17:52) severe anemia gluten Allergy (Verified 04/17/18 17:52) iron sucrose complex [From Venofer] Allergy (Verified 04/17/18 17:52) Anaphylaxis lactose Allergy (Verified 04/17/18 17:52) latex Allergy (Verified 04/17/18 17:53) Anaphylaxis peanut Allergy (Verified 04/17/18 17:53) perfume Allergy (Verified 04/17/18 17:53) throat will close up and sob soy Allergy (Verified 04/17/18 17:53) major gi issues, if in lotion she gets hives tree nut Allergy (Verified 04/17/18 17:53) iron sucrose complex Allergy (Unknown, Uncoded 04/17/18 17:53) Anaphylaxis cleaning chemicals Allergy (Uncoded 04/17/18 17:53) throat will close and sob STEROIDS Allergy (Uncoded 04/17/18 17:53) has to have benadryl first Home Medications: Medication Instructions Recorded Cetirizine [ZyrTEC 10 mg (*)] 10 mg PO DAILY@12 08/10/16 Hydrocortisone [Cortef] 5 mg PO TIDMEAL 08/10/16 Cholecalciferol Vit D3 [Vitamin D3 4,000 units PO DAILY 06/30/17 2000 units tab (OTC)] Cyanocobalamin [Vitamin B12 1,000 mcg IM Q14D 06/30/17 1000MCG/ML (*)] Montelukast Sodium [Singulair 10 20 mg PO BID@06/30/17 mg (*)] methylPREDNISolone SOD SUCC 125 mg IM DAILY PRN 06/30/17 [Solu-Medrol 125 mg (*)] Benadryl Own Pump 15 mg IV CONT 07/02/17 Budesonide 1 mg IH BID@,07/02/17 Cetirizine [ZyrTEC 10 mg (*)] 20 mg PO HS 07/02/17 Cromolyn Sodium 20 mg IH QID@,1129,,07/02/17 Domperidone 40 mg PO QID@,1129,,07/02/17 Quercetin 500mg 500 mg PO QID@,1129,,07/02/17 Diltiazem HCl [Cartia XT 180mg] 180 mg PO DAILY@08/28/17 Levalbuterol 1.25 mg [Xopenex 1.25 mg IH Q8H PRN 08/28/17 1.25MG Neb (*)] Levalbuterol Inhaler [Xopenex Hfa 2 puffs IH Q4H PRN 08/28/17 Inhaler (*)] Ondansetron HCl [Zofran] 4 mg IV Q6HRS PRN 08/28/17 Compounded Ranitidine Mary Grace. 5 ml PO QID@,1129,,09/02/17 Famotidine Own Pump 2 mg IV CONT 09/02/17 Gastrocrom 200 mg PO QID@,1129,,09/02/17 Nitro Cream 1 simran TP DAILY PRN 09/02/17 Nitroglycerin [Nitrostat 0.4 mg 0.4 mg SL Q5M PRN 09/02/17 (*)] Gabapentin [Neurontin 300 MG (*)] 600 mg PO TID 10/27/17 Isosorbide Dinitrate [Isosorbide 20 mg PO TIDNITRATE 10/27/17 Dinitrate 20 mg (*)] traMADol [Ultram 50 mg (*)] 100 mg PO TID PRN 10/27/17 fentaNYL [Duragesic 25 MCG Patch 25 mcg TD Q3D #1 patch 11/05/17 (*)] Hydroxychloroquine Sulfate 200 mg PO DAILY 02/04/18 [Plaquenil 200 mg (*)] Promethazine HCl [Phenergan 25 mg IV Q6 PRN 02/04/18 Injection] Alocril 1 drop EACHEYE BID 04/08/18 Dabigatran Etexilate Mesylate 150 mg PO BID 04/08/18 [Pradaxa] Iv Hydration 2 l IV DAILY 04/08/18 Melatonin 10 mg PO HS 04/08/18 Potassium Chloride [Klor-Con] 40 meq PO DAILY 04/08/18 Tiotropium Inhaler [Spiriva 2 inh IH DAILY 04/08/18 Inhaler (RX)] Acetaminophen [Tylenol 325mg (*)] 650 mg PO Q4HRS PRN tab 04/18/18 Medical Decision Making - Diagnostics Imaging Results: Chest x-ray reveals no acute disease Imaging: I viewed and interpreted images myself ED Course/Re-evaluation: This patient presents with a possible central line infection. Exam reveals minimal surrounding erythema, which could be early cellulitis. She does not meet sepsis criteria and initial lactate is normal. Given that she feels this is an early episode of sepsis, and requests admission, I will obtain blood cultures and treat her with IV antibiotics. IV Ancef 1 g given. The hospitalist service was consulted for admission. Differential Diagnosis: Includes though not limited to cellulitis, bacteremia, pneumonia, urinary tract infection - Data Points Laboratory Results: Laboratory Results 04/17/18 18:55 04/17/18 18:55 Microbiology Results: MICROBIOLOGY 04/17/18 18:40 Chest - Swab Gram Stain - Final 04/17/18 18:40 Chest - Swab Wound Culture - Preliminary Medications Given: Discontinued Medications Acetaminophen (Tylenol) 650 mg PO EDNOW ONE Stop: 04/17/18 18:21 Last Admin: 04/17/18 19:04 Dose: 650 mg Budesonide (Budesonide 0.5mg/2ml Neb) 1 mg IH BID@0700,1700 [facility] Stop: 10/15/18 06:59 Last Admin: 04/18/18 08:17 Dose: 1 mg Cetirizine HCl (Zyrtec) 10 mg PO DAILY@12 [facility] Stop: 10/15/18 11:59 Last Admin: 04/18/18 12:18 Dose: Not Given Cholecalciferol (Vitamin D) 4,000 units PO DAILY [facility] Stop: 10/15/18 08:59 Last Admin: 04/18/18 08:12 Dose: 4,000 units Dabigatran (Pradaxa) 150 mg PO BID [facility] Stop: 10/15/18 08:59 Last Admin: 04/18/18 10:59 Dose: Not Given Dabigatran (Pradaxa) 150 mg PO BID [facility] Stop: 10/15/18 08:59 Last Admin: 04/18/18 10:53 Dose: 150 mg Diltiazem HCl (Cardizem Er Q24hr) 180 mg PO DAILY@0700 [facility] Stop: 10/15/18 06:59 Last Admin: 04/18/18 10:53 Dose: 180 mg Fentanyl (Sublimaze) 25 mcg IVP ONCE ONE Stop: 04/17/18 22:00 Last Admin: 04/17/18 22:44 Dose: 25 mcg Hydrocortisone (Cortef) 5 mg PO TIDMEAL [facility] Stop: 10/15/18 07:59 Last Admin: 04/18/18 08:13 Dose: 5 mg Hydroxychloroquine Sulfate (Plaquenil) 200 mg PO DAILY [facility] PRN Reason: Protocol Stop: 05/18/18 08:59 Last Admin: 04/18/18 08:13 Dose: 200 mg Cefazolin Sodium/Dextrose (Ancef 1 Gm (Premix)) 50 mls @ 200 mls/hr IV EDNOW ONE PRN Reason: Protocol Stop: 04/17/18 19:29 Last Admin: 04/17/18 19:32 Dose: 50 mls Cefazolin Sodium/Dextrose (Ancef 1 Gm (Premix)) 50 mls @ 200 mls/hr IV Q8HRS [facility] PRN Reason: Protocol Stop: 05/18/18 00:14 Last Admin: 04/18/18 05:43 Dose: 50 mls Isosorbide Dinitrate (Isosorbide Dinitrate) 20 mg PO TIDNITRATE [facility] Stop: 10/15/18 06:59 Last Admin: 04/18/18 12:20 Dose: Not Given Miscellaneous Medication (Alocril) 1 drop EACHEYE BID [facility] Stop: 10/15/18 08:59 Last Admin: 04/18/18 11:17 Dose: Not Given Miscellaneous Medication (Compounded Ranitidine Mary Grace.) 5 ml PO QID@07,1130,17, 21 [facility] Stop: 10/15/18 06:59 Last Admin: 04/18/18 12:18 Dose: Not Given Miscellaneous Medication (Cromolyn Sodium [Cromolyn Sodium]) 20 mg IH QID@, 1129,, [facility] Stop: 10/15/18 06:59 Last Admin: 04/18/18 12:19 Dose: Not Given Miscellaneous Medication (Domperidone) 40 mg PO QID@,1129,, [facility] Stop: 10/15/18 06:59 Last Admin: 04/18/18 10:54 Dose: 40 mg Miscellaneous Medication (Gastrocrom) 200 mg PO QID@,1129,, [facility] Stop: 10/15/18 06:59 Last Admin: 04/18/18 07:49 Dose: 200 mg Miscellaneous Medication (Quercetin 500mg) 500 mg PO QID@,1129,, [facility] Stop: 10/15/18 06:59 Last Admin: 04/18/18 10:51 Dose: 500 mg Miscellaneous Medication (Melatonin 10mg) 1 tab PO HS [facility] Stop: 10/14/18 23:29 Last Admin: 04/17/18 23:35 Dose: 10 mg Miscellaneous Medication (Gabapentin 600mg Tablets) 1 tab PO TID [facility] Stop: 10/14/18 23:29 Last Admin: 04/18/18 08:26 Dose: 600 mg Montelukast Sodium (Singulair) 20 mg PO BID@ [facility] Stop: 10/15/18 06:59 Last Admin: 04/18/18 08:15 Dose: 20 mg Ondansetron HCl (Zofran) 4 mg IVP Q6 PRN PRN Reason: Nausea/Vomiting, Use 1st Stop: 10/14/18 21:23 Last Admin: 04/18/18 08:03 Dose: 4 mg Potassium Chloride (Klor Packets) 40 meq PO DAILY [facility] Stop: 10/15/18 08:59 Last Admin: 04/18/18 11:17 Dose: Not Given Potassium Chloride (Klor-Con) 20 meq PO DAILY [facility] Stop: 10/15/18 10:29 Last Admin: 04/18/18 11:01 Dose: 20 meq Promethazine HCl (Phenergan) 25 mg IV Q6 PRN PRN Reason: Nausea/Vomiting, Use 1st Stop: 10/14/18 21:23 Last Admin: 04/18/18 10:17 Dose: 25 mg Tiotropium [place] (Spiriva Handihaler) 18 mcg IH DAILY [facility] Stop: 10/15/18 08:59 Last Admin: 04/18/18 10:30 Dose: Not Given Departure - Departure Disposition: [facility]patient Acute Clinical Impression: Cellulitis Qualifiers: Site of cellulitis: trunk Site of cellulitis of trunk: chest wall Qualified Code(s): L03.313 - Cellulitis of chest wall Condition: Good
[2018-04-17 19:11] LABS: PLATELET COUNT 324 10^3/uL (150-400)
[2018-04-17] MEDS ORDERED: ACETAMINOPHEN 325 MG TAB PO PRN (20:40)
[2018-04-17] MEDS ORDERED: ONDANSETRON DISINTEGRATING 4 MG TAB PO PRN (20:40)
[2018-04-17] MEDS ORDERED: ONDANSETRON 4 MG/2 ML VIAL IVP PRN (20:40)
--- NOTE | 2018-04-17 20:49 | PDGENHP ---
History and Physical - Chief Complaint Fever - History of Present Illness Moni Campoverde is a 42-year-old female with mast cell activation syndrome who presents to [facility] with CC of fever. She reports that she had her Otero catheter changed on 04/12/2018 and felt well until yesterday when she developed tenderness over the central line insertion area. Today she reports a small amount of yellow drainage on the dressing as well. She states she had a temperature of 99.8 this afternoon. She reports feeling increasingly weak over the past few days. She has had muscle aches as well as soreness in her hips bilaterally. She denies cough, diarrhea, dysuria, CP, SOB, n/v, edema. History Information - Allergies/Home Medication List Allergies/Adverse Reactions: levofloxacin Allergy (Unknown, Verified 04/17/18 17:52) hives all over and swelling of tongue nabumetone Allergy (Unknown, Verified 04/17/18 17:52) hives all over and swelling of tongue povidone-iodine Allergy (Unknown, Verified 04/17/18 17:52) rash/hives soap Allergy (Unknown, Verified 04/17/18 17:52) Rash/hives adhesive tape Allergy (Verified 04/17/18 17:52) Hives aspirin Allergy (Verified 04/17/18 17:52) Anaphylaxis dapsone Allergy (Verified 04/17/18 17:52) severe anemia gluten Allergy (Verified 04/17/18 17:52) iron sucrose complex [From Venofer] Allergy (Verified 04/17/18 17:52) Anaphylaxis lactose Allergy (Verified 04/17/18 17:52) latex Allergy (Verified 04/17/18 17:53) Anaphylaxis peanut Allergy (Verified 04/17/18 17:53) perfume Allergy (Verified 04/17/18 17:53) throat will close up and sob soy Allergy (Verified 04/17/18 17:53) major gi issues, if in lotion she gets hives tree nut Allergy (Verified 04/17/18 17:53) iron sucrose complex Allergy (Unknown, Uncoded 04/17/18 17:53) Anaphylaxis cleaning chemicals Allergy (Uncoded 04/17/18 17:53) throat will close and sob STEROIDS Allergy (Uncoded 04/17/18 17:53) has to have benadryl first Home Medications: Cetirizine [ZyrTEC 10 mg (*)] 10 mg PO DAILY@12 08/10/16 [Last Taken 04/17/18 12 :00] Hydrocortisone [Cortef] 5 mg PO TIDMEAL 08/10/16 [Last Taken 04/17/18 12:00] Cholecalciferol Vit D3 [Vitamin D3 2000 units tab (OTC)] 4,000 units PO DAILY [Last Taken 04/17/18] Cyanocobalamin [Vitamin B12 1000MCG/ML (*)] 1,000 mcg IM Q14D 06/30/17 [Last Taken 04/09/18] Montelukast Sodium [Singulair 10 mg (*)] 20 mg PO BID@,06/30/17 [Last Taken 04/17/18 07:00] methylPREDNISolone SOD SUCC [Solu-Medrol 125 mg (*)] 125 mg IM DAILY PRN [Last Taken 04/02/18] Benadryl Own Pump 15 mg IV CONT 07/02/17 [Last Taken 04/17/18] Budesonide 1 mg IH BID@,07/02/17 [Last Taken 04/17/18 07:00] Cetirizine [ZyrTEC 10 mg (*)] 20 mg PO HS 07/02/17 [Last Taken 04/11/18] Cromolyn Sodium 20 mg IH QID@07,0,,07/02/17 [Last Taken 04/17/18 12:00] Domperidone 40 mg PO QID@07,0,,07/02/17 [Last Taken 04/17/18 12:00] Quercetin 500mg 500 mg PO QID@07,1130,,07/02/17 [Last Taken 04/17/18] Diltiazem HCl [Cartia XT 180mg] 180 mg PO DAILY@08/28/17 [Last Taken 04/17/18 ] Levalbuterol 1.25 mg [Xopenex 1.25MG Neb (*)] 1.25 mg IH Q8H PRN 08/28/17 [Last Taken 04/09/18] Levalbuterol Inhaler [Xopenex Hfa Inhaler (*)] 2 puffs IH Q4H PRN 08/28/17 [ Last Taken 04/09/18] Ondansetron HCl [Zofran] 4 mg IV Q6HRS PRN 08/28/17 [Last Taken 04/12/18] Compounded Ranitidine Mary Grace. 5 ml PO QID@,0,,09/02/17 [Last Taken 12:00] Famotidine Own Pump 2 mg IV CONT 09/02/17 [Last Taken 04/12/18] Gastrocrom 40 mg PO QID@,1130,,09/02/17 [Last Taken 04/17/18 12:00] Nitro Cream 1 simran TP DAILY PRN 09/02/17 [Last Taken 04/11/18] Nitroglycerin [Nitrostat 0.4 mg (*)] 0.4 mg SL Q5M PRN 09/02/17 [Last Taken 05/06] Gabapentin [Neurontin 300 MG (*)] 600 mg PO TID 10/27/17 [Last Taken 04/12/18] Isosorbide Dinitrate [Isosorbide Dinitrate 20 mg (*)] 20 mg PO TIDNITRATE [Last Taken 04/17/18 12:00] traMADol [Ultram 50 mg (*)] 100 mg PO TID PRN 10/27/17 [Last Taken 04/12/18] Hydroxychloroquine Sulfate [Plaquenil 200 mg (*)] 200 mg PO DAILY 02/04/18 [ Last Taken 04/17/18] Promethazine HCl [Phenergan Injection (RX)] 25 mg IV Q6 PRN 02/04/18 [Last Taken 04/12/18] Alocril 1 drop EACHEYE BID 04/08/18 [Last Taken 04/17/18 09:00] Dabigatran Etexilate Mesylate [Pradaxa] 150 mg PO BID 04/08/18 [Last Taken 04/17 09:00] Iv Hydration 2 l IV DAILY 04/08/18 [Last Taken 04/11/18] Melatonin 10 mg PO HS 04/08/18 [Last Taken 04/16/18] Potassium Chloride [Klor-Con] 40 meq PO DAILY 04/08/18 [Last Taken 04/17/18] Tiotropium Inhaler [Spiriva Inhaler] 2 inh IH DAILY 04/08/18 [Last Taken ] I have personally reviewed and updated: family history, medical history, social history, surgical history - Past Medical History Additional medical history: mast cell activation syndrome with chronic benadryl pump, adrenal insufficiency on chronic steroid therapy, asthma severe persistent , coronary artery vasospasm, CREAST, hx PE/DVTs on chronic anticoagulation with lovenox, chronic sinusitis, PFO, diaphragm paresis, chronic iron deficiency anemia, b12 deficiency, vocal cord dysfunction - Surgical History Additional surgical history: PICC/PORT, appy, laporoscopy for ovairian cysts with findings of endometriosis, right wrist, right elbow, left heel, left ankle rconstruction - Family History Additional family history: sister - Gestational DM,thyroid dysfunction. no fhx mast cell dysfunction, autoimmune disease or CAD - Social History Smoking Status: Former smoker Additional social history: patient is disabled. COR - FULL. father Yogesh Campoverde is MDPOA. Review of Systems Review of Systems: ROS: 10pt was reviewed & negative except for what was stated in HPI & below Physical Exam Physical Exam: Temp Pulse Resp BP Pulse Ox 36.8 C 84 16 124/90 H 94 04/17/18 20:30 04/17/18 20:30 04/17/18 20:30 04/17/18 20:30 04/17/18 20:30 Constitutional: no apparent distress Eyes: PERRL Ears, Nose, Mouth, Throat: moist mucous membranes Cardiovascular: regular rate and rhythym Respiratory: no respiratory distress, clear to auscultation Gastrointestinal: soft, non-tender abdomen Genitourinary: no bladder tenderness Skin: warm Musculoskeletal: no muscle tenderness Neurologic: AAOx3 Psychiatric: interacting appropriately Lab Data & Imaging Review 04/17/18 18:55 04/17/18 18:55 WBC 6.30 10^3/uL (3.80-9.50) 04/17/18 18:55 RBC 3.85 10^6/uL (4.18-5.33) L 04/17/18 18:55 Hgb 10.6 g/dL (12.6-16.3) L 04/17/18 18:55 Hct 32.8 % (38.0-47.0) L 04/17/18 18:55 MCV 85.2 fL (81.5-99.8) 04/17/18 18:55 MCH 27.5 pg (27.9-34.1) L 04/17/18 18:55 MCHC 32.3 g/dL (32.4-36.7) L 04/17/18 18:55 RDW 15.4 % (11.5-15.2) H 04/17/18 18:55 Plt Count 324 10^3/uL (150-400) 04/17/18 18:55 MPV 10.1 fL (8.7-11.7) 04/17/18 18:55 Neut % (Auto) 45.1 % (39.3-74.2) 04/17/18 18:55 Lymph % (Auto) 37.6 % (15.0-45.0) 04/17/18 18:55 [place] % (Auto) 9.0 % (4.5-13.0) 04/17/18 18: Eos % (Auto) 6.7 % (0.6-7.6) 04/17/18 18:55 Baso % (Auto) 1.3 % (0.3-1.7) 04/17/18 18:55 Nucleat RBC Rel Count 0.0 % (0.0-0.2) 04/17/18 18:55 Absolute Neuts (auto) 2.84 10^3/uL (1.70-6.50) 04/17/18 18:55 Absolute Lymphs (auto) 2.37 10^3/uL (1.00-3.00) 04/17/18 18:55 Absolute Monos (auto) 0.57 10^3/uL (0.30-0.80) 04/17/18 18:55 Absolute Eos (auto) 0.42 10^3/uL (0.03-0.40) H 04/17/18 18:55 Absolute Basos (auto) 0.08 10^3/uL (0.02-0.10) 04/17/18 18:55 Absolute Nucleated RBC 0.00 10^3/uL (0-0.01) 04/17/18 18:55 Immature Gran % 0.3 % (0.0-1.1) 04/17/18 18:55 Immature Gran # 0.02 10^3/uL (0.00-0.10) 04/17/18 18:55 VBG Lactic Acid 0.7 mmol/L (0.7-2.1) 04/17/18 18:55 Sodium 139 mEq/L (135-145) 04/17/18 18:55 Potassium 4.2 mEq/L (3.3-5.0) 04/17/18 18:55 Chloride 106 mEq/L (97-110) 04/17/18 18:55 Carbon Dioxide 27 mEq/l (22-31) 04/17/18 18:55 Anion Gap 6 mEq/L (8-16) L 04/17/18 18:55 BUN 11 mg/dL (7-23) 04/17/18 18:55 Creatinine 0.6 mg/dL (0.6-1.0) 04/17/18 18:55 Estimated GFR > 60 04/17/18 18:55 Glucose 91 mg/dL (70-100) 04/17/18 18:55 Calcium 8.7 mg/dL (8.5-10.4) 04/17/18 18:55 Urine Color COLORLESS 04/17/18 20:20 Urine Appearance CLEAR 04/17/18 20:20 Urine pH 7.0 (5.0-7.5) 04/17/18 20:20 Ur Specific [place] 1.003 (1.002-1.030) 04/17/18 20:20 Urine Protein NEGATIVE (NEGATIVE) 04/17/18 20:20 Urine Ketones NEGATIVE (NEGATIVE) 04/17/18 20:20 Urine Blood NEGATIVE (NEGATIVE) 04/17/18 20:20 Urine Nitrate NEGATIVE (NEGATIVE) 04/17/18 20:20 Urine Bilirubin NEGATIVE (NEGATIVE) 04/17/18 20:20 Urine Urobilinogen NEGATIVE EU (0.2-1.0) 04/17/18 20:20 Ur Leukocyte Esterase NEGATIVE (NEGATIVE) 04/17/18 20:20 Urine Glucose NEGATIVE (NEGATIVE) 04/17/18 20:20 Visualized and Interpreted Chest x-ray results: Yes Chest X-Ray results: no infiltrate Assessment & Plan Assessment: Fever - Measured at home, patient with concern for infxn at [place] site - Tmax 37.4 in ED, no leukocytosis, LA WNL - Mild erythema around Otero on exam - Blood and wound cultures collected in ED - S/p dose of Cefazolin in ED, will continue for now pending blood culture data - If no fevers and negative blood cultures, d/c abx and observe Mass Cell Activation - Continue home medications Hx of DVT, PE - Continue home Pradaxa Adrenal Insufficiency - Continue home Hydrocortisone, Methylprednisilone FEN: PRN DVT Ppx: SCDs Diet: Regular Code: FULL Dispo: Admit to Observation
[2018-04-17] MEDS ORDERED: methylPREDNISolone SOD SUCC 125 MG/2 ML VIAL IM PRN (21:24)
[2018-04-17] MEDS ORDERED: NITROGLYCERIN 0.4 MG BTL SL PRN (21:24)
[2018-04-17] MEDS ORDERED: LEVALBUTEROL INHALER 200 PUFFS/15 GM MDI IH PRN (21:24)
[2018-04-17] MEDS ORDERED: traMADol 50 MG TAB PO PRN (21:24)
[2018-04-17] MEDS ORDERED: PROMETHAZINE HCL 25 MG/ML INJ IV PRN (21:24)
[2018-04-17] MEDS ORDERED: NITROGLYCERIN 2% 30 GM OINT TP PRN (21:24)
[2018-04-17] MEDS ORDERED: LEVALBUTEROL 1.25 MG/3 ML DEYVIAL IH PRN (21:24)
[2018-04-17] MEDS ORDERED: [UNRECOGNIZED DRUG - OTHER] IV SCH (21:30)
[2018-04-17] MEDS ORDERED: FAMOTIDINE IV SCH (21:30)
[2018-04-17] MEDS ORDERED: fentaNYL 100 MCG/2 ML INJ IVP ONE (21:59)
[2018-04-17] MEDS ORDERED: GABAPENTIN 300 MG CAP PO SCH (22:00)
[2018-04-17] MEDS ORDERED: MELATONIN 3 MG TAB PO SCH (22:30)
[2018-04-17] MEDS: ONDANSETRON 4 MG/2 ML VIAL IVP PRN (22:45)
[2018-04-18] MEDS ORDERED: BUDESONIDE 0.5 MG/2 ML AMPUL.NEB IH SCH (07:00)
[2018-04-18] MEDS ORDERED: RANITIDINE PO SCH (07:00)
[2018-04-18] MEDS ORDERED: QUERCETIN 500 MG PO SCH (07:00)
[2018-04-18] MEDS ORDERED: MONTELUKAST SODIUM 10 MG TAB PO SCH (07:00)
[2018-04-18] MEDS ORDERED: CROMOLYN SODIUM 100 MG/5 ML PO SCH (07:00)
[2018-04-18] MEDS ORDERED: DILTIAZEM CD 180 MG CAP PO SCH (07:00)
[2018-04-18] MEDS ORDERED: DOMPERIDONE PO SCH (07:00)
[2018-04-18] MEDS ORDERED: HYDROCORTISONE 10 MG TAB PO SCH (08:00)
[2018-04-18] MEDS: ONDANSETRON 4 MG/2 ML VIAL IVP PRN (08:03)
[2018-04-18] MEDS: ISOSORBIDE DINITRATE 20 MG TAB PO SCH ×2 (08:16→12:20)
[2018-04-18 08:55] VITALS: BP 115/82
[2018-04-18] MEDS ORDERED: DABIGATRAN ETEXILATE MESYL 150 MG CAP PO SCH (09:00)
[2018-04-18] MEDS ORDERED: CHOLECALCIFEROL VIT D3 2,000 UNITS TAB/CAP PO SCH (09:00)
[2018-04-18] MEDS ORDERED: [UNRECOGNIZED DRUG - OTHER] IV SCH (09:00)
[2018-04-18] MEDS ORDERED: POTASSIUM CL 20 MEQ PKT PO SCH (09:00)
[2018-04-18] MEDS ORDERED: HYDROXYCHLOROQUINE SULFATE 200 MG TAB PO SCH (09:00)
[2018-04-18] MEDS ORDERED: ALOCRIL EACHEYE SCH (09:00)
[2018-04-18] MEDS ORDERED: TIOTROPIUM INHALER 18 MCG/DOSE 5 DOSE/MDI IH SCH (09:00)
[2018-04-18] MEDS: CROMOLYN SODIUM IH SCH ×2 (09:54→12:19)
[2018-04-18] MEDS ORDERED: POTASSIUM CL 20 MEQ TAB PO SCH (10:30)
--- NOTE | 2018-04-18 10:32 | PDIAF ---
- Diagnosis Diagnosis: weakness Code Status: Full Code - Medication Management Discharge Medications: Medications to Continue on Transfer Cetirizine [ZyrTEC 10 mg (*)] 10 mg PO DAILY@12 08/10/16 [Last Taken 04/17/18 12 :00] Hydrocortisone [Cortef] 5 mg PO TIDMEAL 08/10/16 [Last Taken 04/17/18 12:00] Cholecalciferol Vit D3 [Vitamin D3 2000 units tab (OTC)] 4,000 units PO DAILY [Last Taken 04/17/18] Cyanocobalamin [Vitamin B12 1000MCG/ML (*)] 1,000 mcg IM Q14D 06/30/17 [Last Taken 04/09/18] Montelukast Sodium [Singulair 10 mg (*)] 20 mg PO BID@06/30/17 [Last Taken 04/17/18 07:00] methylPREDNISolone SOD SUCC [Solu-Medrol 125 mg (*)] 125 mg IM DAILY PRN [Last Taken 04/02/18] Benadryl Own Pump 15 mg IV CONT 07/02/17 [Last Taken 04/17/18] Budesonide 1 mg IH BID@07/02/17 [Last Taken 04/17/18 07:00] Cetirizine [ZyrTEC 10 mg (*)] 20 mg PO HS 07/02/17 [Last Taken 04/11/18] Cromolyn Sodium 20 mg IH QID@,1129,,07/02/17 [Last Taken 04/17/18 12:00] Domperidone 40 mg PO QID@,1129,,07/02/17 [Last Taken 04/17/18 12:00] Quercetin 500mg 500 mg PO QID@,0,,07/02/17 [Last Taken 04/17/18] Diltiazem HCl [Cartia XT 180mg] 180 mg PO DAILY@08/28/17 [Last Taken 04/17/18 ] Levalbuterol 1.25 mg [Xopenex 1.25MG Neb (*)] 1.25 mg IH Q8H PRN 08/28/17 [Last Taken 04/09/18] Levalbuterol Inhaler [Xopenex Hfa Inhaler (*)] 2 puffs IH Q4H PRN 08/28/17 [ Last Taken 04/09/18] Ondansetron HCl [Zofran] 4 mg IV Q6HRS PRN 08/28/17 [Last Taken 04/12/18] Compounded Ranitidine Mary Grace. 5 ml PO QID@07,1130,,09/02/17 [Last Taken 12:00] Famotidine Own Pump 2 mg IV CONT 09/02/17 [Last Taken 04/12/18] Gastrocrom 200 mg PO QID@07,1130,,09/02/17 [Last Taken 04/17/18 12:00] Nitro Cream 1 simran TP DAILY PRN 09/02/17 [Last Taken 04/11/18] Nitroglycerin [Nitrostat 0.4 mg (*)] 0.4 mg SL Q5M PRN 09/02/17 [Last Taken 05/06] Gabapentin [Neurontin 300 MG (*)] 600 mg PO TID 10/27/17 [Last Taken 04/12/18] Isosorbide Dinitrate [Isosorbide Dinitrate 20 mg (*)] 20 mg PO TIDNITRATE [Last Taken 04/17/18 12:00] traMADol [Ultram 50 mg (*)] 100 mg PO TID PRN 10/27/17 [Last Taken 04/12/18] fentaNYL [Duragesic 25 MCG Patch (*)] 25 mcg TD Q3D #1 patch 11/05/17 [Last Taken 04/11/18] Hydroxychloroquine Sulfate [Plaquenil 200 mg (*)] 200 mg PO DAILY 02/04/18 [ Last Taken 04/17/18] Promethazine HCl [Phenergan Injection] 25 mg IV Q6 PRN 02/04/18 [Last Taken ] Alocril 1 drop EACHEYE BID 04/08/18 [Last Taken 04/17/18 09:00] Dabigatran Etexilate Mesylate [Pradaxa] 150 mg PO BID 04/08/18 [Last Taken 04/17 09:00] Iv Hydration 2 l IV DAILY 04/08/18 [Last Taken 04/11/18] Melatonin 10 mg PO HS 04/08/18 [Last Taken 04/16/18] Potassium Chloride [Klor-Con] 40 meq PO DAILY 04/08/18 [Last Taken 04/17/18] Tiotropium Inhaler [Spiriva Inhaler (RX)] 2 inh IH DAILY 04/08/18 [Last Taken ] Acetaminophen [Tylenol 325mg (*)] 650 mg PO Q4HRS PRN tab 04/18/18 [Last Taken Unknown] Discharge Medications: Refer to the Discharge Home Medication list for PRN reason. PICC Care - Routine: N/A - Orders Services needed: Home Care, Registered Nurse Home Care Face to Face: I certify that this patient was under my care and that I had the required [id number] encounter meeting the encounter requirements on the discharge day. My findings support the fact that the patient is homebound as defined in Home Care Face to Face Continued: CMS Chapter 7 Medicare Benefits Manual 30.1.1 , The condition of the patient is such that there exists a normal inability to leave home and consequently, leaving home would require a considerable and taxing effort. Isolation Type: None - Follow Up Care Current Providers and Referrals: Caroline Diehl MD [Primary Care Provider] - As per Instructions
[2018-04-18] MEDS ORDERED: DABIGATRAN ETEXILATE MESYL 75 MG CAP PO SCH (10:45)
--- NOTE | 2018-04-18 11:28 | ASMTCMCOM ---
CM Note CM Note Notes: Pt is a 42 y/o female admitted for a fever. Pt is being discharged today. Pt will resume her services w/ [facility]. Resumption of care orders sent to [facility]. CM available for changes. Plan: [facility] for continuous bendryl and pepcid Date Signed: 04/18/2018 11:28 AM Electronically Signed By:MAGUI Fair
[2018-04-18] MEDS ORDERED: CETIRIZINE 10 MG TAB PO SCH ×2 (12:00→21:00)
--- NOTE | 2018-04-18 14:19 | GDS ---
DISCHARGE DIAGNOSES: 1. Subjective fever. 2. History of mast cell activation. 3. History of deep vein thrombosis, pulmonary embolus. 4. History of adrenal insufficiency. PHYSICAL EXAM: GENERAL: The patient is alert. VITAL SIGNS: Afebrile at 36.4. Pulse is 84. Respi ratory rate is 18. Blood pressure is 115/82. She is saturating 99% on 2 L. I have seen and evaluat ed the patient on the day of discharge. HOSPITAL COURSE: The patient is a 42-year-old female who presented to the emergency room with compla ints of concern for infection and fever. She was evaluated during this hospitalization. Blood cultu res were taken as well as wound culture of her Otero. No growth has been demonstrated thus far. T he patient has been afebrile during this hospitalization. She will be discharged home to follow up i n the outpatient setting with her primary care provider, Dr. Caroline Diehl. Will continue her mast c ell activation treatment as well as her DVT and PE treatment at the time of disposition. PENDING STUDIES: Include blood culture results. DISCHARGE MEDICATIONS: I have not adjusted the patient's previously prescribed home medications to t he best of my knowledge. Home care has been continued. I reviewed the patient's disposition with [facility]. /[id number]/MODL
--- NOTE | 2018-04-18 15:50 | ASDISCHSUM ---
Discharge Information Plan Status:IV ABX/Infusion Medically Cleared to Leave:04/18/2018 Discharge Date:04/18/2018 12:19 PM D/C Disposition: [facility] D/C Disposition:[id number] Projected Discharge Date:04/18/2018 11:00 AM Transportation at D/C: Discharge Delay Reason: Follow-Up Date:04/18/2018 11:00 AM Discharge Slot: Final Diagnosis: Placement Information Referral Type:Home Infusion Referral ID:[id number] Provider Name:[facility] ([facility] Address 1:[address] Address 2: City:[place] Selection Factors: State:[place] Patient Contact Information Contact Name:HUA Relationship:Friend Address:[address] City:[place] Alternate Phone: State/Zip Code:[place] [address] Email: Financial Information Financial Class:[employer] Primary Plan Desc:[employer] [facility] Primary Plan Number:[id number] Secondary Plan Desc: Secondary Plan Number: Assessment Information [facility] Progress Note CM Note CM Note Notes: Pt is a 42 y/o female admitted for a fever. Pt is being discharged today. Pt will resume her services w/ [facility]. [facility] CM available for changes. Plan: [facility] for continuous bendryl and pepcid Date Signed: 04/18/2018 11:28 AM Electronically Signed By:MAGUI Fair Intervention Information
[2018-04-20] MEDS ORDERED: fentaNYL 25 MCG PATCH TD SCH (08:00)
[2018-04-30] MEDS ORDERED: CYANO/VITAMIN B12 1000 MCG/ML VIAL IM SCH (08:00)
== END 2018-04-18 12:19 | disposition home health service (06) ==
LOC: F3E 20:47
PROVIDERS: ADMIT Internal Medicine; ATTEND Internal Medicine
DX: R50.9 Fever, unspecified (principal); D89.40 Mast cell activation, unspecified; E27.40 Unspecified adrenocortical insufficiency; J45.909 Unspecified asthma, uncomplicated; Z99.81 Dependence on supplemental oxygen; Z86.711 Personal history of pulmonary embolism; Z86.718 Personal history of other venous thrombosis and embolism; Z79.52 Long term (current) use of systemic steroids; Z79.01 Long term (current) use of anticoagulants
CPT/HCPCS: 96374; G0378; J0690; J2405; J2550; J3010; J7626

== ENCOUNTER 2018-05-12 09:12 | Day surgery (SDC) | payer OTHER ==
[2018-05-12] MEDS ORDERED: NALOXONE HCL 0.4 MG/ML INJ IVP PRN (09:55)
[2018-05-12] MEDS ORDERED: MEPERIDINE 25 MG/ML SYR IVP PRN (09:55)
[2018-05-12] MEDS ORDERED: fentaNYL 100 MCG/2 ML INJ IVP PRN (09:55)
[2018-05-12] MEDS ORDERED: MIDAZOLAM 2 MG/2 ML VIAL IVP PRN (09:55)
[2018-05-12] MEDS ORDERED: FLUMAZENIL 0.5 MG/5 ML MDV IVP PRN (09:55)
[2018-05-12] MEDS ORDERED: NS 1,000 ML IV SCH (10:00)
[2018-05-12] MEDS ORDERED: ONDANSETRON 4 MG/2 ML VIAL ONE (10:08)
[2018-05-12 10:14] LABS: PLATELET COUNT 262 10^3/uL (150-400)
[2018-05-12 10:24] LABS: INR 0.94 (0.83-1.16); PROTIME(PATIENT) 12.8 SEC (12.0-15.0)
[2018-05-12] MEDS ORDERED: ONDANSETRON 4 MG/2 ML VIAL IVP ONE (10:30)
[2018-05-12] MEDS ORDERED: fentaNYL 100 MCG/2 ML INJ ONE ×2 (11:32→12:39)
--- NOTE | 2018-05-12 12:38 | PDRADPRE ---
Radiology History & Physical Indication for procedure: other (Mast cell; Plan for BMB) Significant medical history: other Home medications: Cetirizine [ZyrTEC 10 mg (*)] 10 mg PO DAILY@12 08/10/16 [Last Taken 04/17/18 12 :00] Hydrocortisone [Cortef] 5 mg PO TIDMEAL 08/10/16 [Last Taken 05/12/18] Cholecalciferol Vit D3 [Vitamin D3 2000 units tab (OTC)] 4,000 units PO DAILY [Last Taken 05/12/18] Cyanocobalamin [Vitamin B12 1000MCG/ML (*)] 1,000 mcg IM Q14D 06/30/17 [Last Taken 05/08/18] Montelukast Sodium [Singulair 10 mg (*)] 20 mg PO BID@06/30/17 [Last Taken 05/12/18 07:00] methylPREDNISolone SOD SUCC [Solu-Medrol 125 mg (*)] 125 mg IM DAILY PRN [Last Taken 04/02/18] Benadryl Own Pump 15 mg IV CONT 07/02/17 [Last Taken 05/12/18 10:37] Budesonide 1 mg IH BID@07/02/17 [Last Taken 05/11/18] Cetirizine [ZyrTEC 10 mg (*)] 20 mg PO HS 07/02/17 [Last Taken 05/11/18] Cromolyn Sodium 20 mg IH QID@,1129,,07/02/17 [Last Taken 05/11/18] Domperidone 40 mg PO QID@,0,,07/02/17 [Last Taken 05/12/18] Quercetin 500mg 500 mg PO QID@,1130,,07/02/17 [Last Taken 05/12/18] Diltiazem HCl [Cartia XT 180mg] 180 mg PO DAILY@08/28/17 [Last Taken 05/12/18 ] Levalbuterol 1.25 mg [Xopenex 1.25MG Neb (*)] 1.25 mg IH Q8H PRN 08/28/17 [Last Taken 04/09/18] Levalbuterol Inhaler [Xopenex Hfa Inhaler (*)] 2 puffs IH Q4H PRN 08/28/17 [ Last Taken 04/09/18] Ondansetron HCl [Zofran] 4 mg IV Q6HRS PRN 08/28/17 [Last Taken 05/12/18] Compounded Ranitidine Mary Grace. 5 ml PO QID@07,1130,,09/02/17 [Last Taken ] Famotidine Own Pump 2 mg IV CONT 09/02/17 [Last Taken 05/12/18] Gastrocrom 200 mg PO QID@07,1130,,09/02/17 [Last Taken 05/12/18] Nitro Cream 1 simran TP DAILY PRN 09/02/17 [Last Taken 04/11/18] Nitroglycerin [Nitrostat 0.4 mg (*)] 0.4 mg SL Q5M PRN 09/02/17 [Last Taken 05/06] Gabapentin [Neurontin 300 MG (*)] 600 mg PO TID 10/27/17 [Last Taken 05/12/18] Isosorbide Dinitrate [Isosorbide Dinitrate 20 mg (*)] 20 mg PO TIDNITRATE [Last Taken 05/12/18] traMADol [Ultram 50 mg (*)] 100 mg PO TID PRN 10/27/17 [Last Taken 05/12/18 07: 00] Hydroxychloroquine Sulfate [Plaquenil 200 mg (*)] 200 mg PO DAILY 02/04/18 [ Last Taken 05/12/18] Promethazine HCl [Phenergan Injection] 25 mg IV Q6 PRN 02/04/18 [Last Taken 06:30] Alocril 1 drop EACHEYE BID 04/08/18 [Last Taken 05/12/18] Dabigatran Etexilate Mesylate [Pradaxa] 150 mg PO BID 04/08/18 [Last Taken 05/09] Iv Hydration 2 l IV DAILY 04/08/18 [Last Taken 04/11/18] Melatonin 10 mg PO HS 04/08/18 [Last Taken 05/11/18] Potassium Chloride [Klor-Con] 40 meq PO DAILY 04/08/18 [Last Taken 05/11/18] Tiotropium Inhaler [Spiriva Inhaler (RX)] 2 inh IH DAILY 04/08/18 [Last Taken ] Allergies/Adverse Reactions: levofloxacin Allergy (Unknown, Verified 04/17/18 17:52) hives all over and swelling of tongue nabumetone Allergy (Unknown, Verified 04/17/18 17:52) hives all over and swelling of tongue povidone-iodine Allergy (Unknown, Verified 04/17/18 17:52) rash/hives soap Allergy (Unknown, Verified 04/17/18 17:52) Rash/hives adhesive tape Allergy (Verified 04/17/18 17:52) Hives aspirin Allergy (Verified 04/17/18 17:52) Anaphylaxis dapsone Allergy (Verified 04/17/18 17:52) severe anemia gluten Allergy (Verified 04/17/18 17:52) iron sucrose complex [From Venofer] Allergy (Verified 04/17/18 17:52) Anaphylaxis lactose Allergy (Verified 04/17/18 17:52) latex Allergy (Verified 04/17/18 17:53) Anaphylaxis peanut Allergy (Verified 04/17/18 17:53) perfume Allergy (Verified 04/17/18 17:53) throat will close up and sob soy Allergy (Verified 04/17/18 17:53) major gi issues, if in lotion she gets hives tree nut Allergy (Verified 04/17/18 17:53) iron sucrose complex Allergy (Unknown, Uncoded 04/17/18 17:53) Anaphylaxis cleaning chemicals Allergy (Uncoded 04/17/18 17:53) throat will close and sob STEROIDS Allergy (Uncoded 04/17/18 17:53) has to have benadryl first Mental status: A&Ox3 Heart exam: regular rate and rhythm Lungs exam: clear to auscultation Mallampati Score: Class 2
[2018-05-12] MEDS ORDERED: MIDAZOLAM 2 MG/2 ML VIAL ONE (12:39)
--- NOTE | 2018-05-12 13:59 | PDRADPN ---
Radiology Procedure Note Date of Procedure: 05/12/18 Radiologist: Zaire Miller Anesthesia: IV Sedation Pre-op Diagnosis: Mast cell activation Post-op Diagnosis: Mast cell activation Indication: Mast cell activation Procedure: BMB Finding(s): Fluoro guided BMB Inf/Abcess present in the surg proc area at time of surgery?: No EBL: Minimal
[2018-05-12 14:12] VITALS: BP 114/79
== END 2018-05-12 14:30 | disposition home or self-care (01) ==
LOC: FIMAGING 09:12
PROVIDERS: ATTEND Radiology Vascular & Interventional Radiology
PROC: BQ111ZZ Fluoroscopy of Left Hip using Low Osmolar Contrast (ICD-10-PCS; principal; 2018-05-12 13:32)
PROC: 079T3ZX Drainage of Bone Marrow, Percutaneous Approach, Diagnostic (ICD-10-PCS; principal; 2018-05-12 13:32)
PROC: 07DR3ZX Extraction of Iliac Bone Marrow, Percutaneous Approach, Diagnostic (ICD-10-PCS; principal; 2018-05-12 13:32)
DX: D89.40 Mast cell activation, unspecified (principal); D50.8 Other iron deficiency anemias; M34.9 Systemic sclerosis, unspecified; Z86.718 Personal history of other venous thrombosis and embolism
CPT/HCPCS: 85060-90; 88184-90; 88185-91; 88237-90; 88262-90; J1200; J2250; J2405; J3010

== ENCOUNTER → 2018-05-17 | Outpatient (CLI) | payer OTHER | LOC: FIMAGING 11:30 | PROVIDERS: ATTEND Allergy & Immunology Allergy | DX: M51.36 Other intervertebral disc degeneration, lumbar region (principal); M47.816 Spondylosis without myelopathy or radiculopathy, lumbar region; Z98.890 Other specified postprocedural states ==

== ENCOUNTER → 2018-06-16 | Outpatient (CLI) | payer OTHER ==
[~2018-06-16] MED LIST changes: +IOPAMIDOL (ISOVUE-300) 100 ML BTL ONE; -IOPAMIDOL (ISOVUE-300) 150 ML BTL ONE
== END ==
LOC: CIMAGING 09:19
PROVIDERS: ATTEND Allergy & Immunology Allergy
DX: K59.00 Constipation, unspecified (principal); N20.0 Calculus of kidney; R93.89 Abnormal findings on diagnostic imaging of other specified body structures
CPT/HCPCS: 74177-PO; Q9967

== ENCOUNTER → 2018-07-14 | Outpatient (CLI) | payer OTHER | END | disposition home or self-care (01) | LOC: FIMAGING 15:50 | PROVIDERS: ATTEND Allergy & Immunology Allergy | DX: R07.9 Chest pain, unspecified (principal); R06.02 Shortness of breath ==

== ENCOUNTER 2018-07-15 17:57 | Emergency (ER) | payer OTHER ==
--- NOTE | 2018-07-15 18:08 | EDPHY ---
H & P Stated Complaint: CP, SOB Time Seen by Provider: 07/15/18 18:07 HPI/ROS: CHIEF COMPLAINT: Chest pain, shortness of breath,"pain all over" HISTORY OF PRESENT ILLNESS: The patient presents to the ED with several days of chest pain, shortness of breath and "pain all over." Patient has a history of a mast cell disorder and is on a chronic Benadryl infusion through Otero catheter. The patient was seen her specialist at [facility] and reportedly had a normal EKG. She was told to come to the ED for any worsening chest pain. Additionally the patient has been having difficulty sleeping secondary to pain in all of her joints. She has also been having some mild shortness of breath and chest pain. The patient had a chest x-ray performed yesterday which demonstrated no acute findings. Patient denies any history of fall or trauma. She denies fever. She has been compliant with her typical medications for her mast cell disorder. REVIEW OF SYSTEMS: A comprehensive 10 point review of systems is otherwise negative aside from elements mentioned in the history of present illness. Source: Patient - Personal History LMP (Females 10-55): Now Current Tetanus/Diphtheria Vaccine: Yes Current Tetanus Diphtheria and Acellular Pertussis (TDAP): Yes Tetanus Vaccine Date: LAST 10 YRS - Medical/Surgical History Hx Asthma: Yes Hx Chronic Respiratory Disease: No Hx Diabetes: No Hx Cardiac Disease: Yes Hx Renal Disease: No Hx Cirrhosis: No Hx Alcoholism: No Hx HIV/AIDS: No Hx Splenectomy or Spleen Trauma: No Other PMH: medical- mast cell activation disorder/multiple allergies, Adrenal Insufficiency, Colitis, Food allergies, asthma, "small PFO" home o2, PE, DVT. surgery- appy, ortho-back/hip pain, DVT, gastroperisis - Social History Smoking Status: Former smoker - Physical Exam Exam: General Appearance: Alert, no distress Eyes: Pupils equal and round no pallor or injection ENT, Mouth: Mucous membranes moist Respiratory: There are no retractions, lungs are clear to auscultation, Otero catheter Cardiovascular: Regular rate and rhythm Gastrointestinal: Abdomen is soft and nontender, no masses, bowel sounds normal Neurological: A&O, normal motor function, normal sensory exam, normal cranial nerves Skin: Warm and dry, no rashes Musculoskeletal: Neck is supple nontender Extremities: symmetrical, full range of motion Constitutional: Initial Vital Signs Temperature (C) 37.2 C 07/15/18 18:02 Heart Rate 110 H 07/15/18 18:02 Respiratory Rate 16 07/15/18 18:02 Blood Pressure 123/91 H 07/15/18 18:02 O2 Sat (%) 96 07/15/18 18:02 O2 Delivery Mode Room Air Allergies/Adverse Reactions: levofloxacin Allergy (Unknown, Verified 07/15/18 18:01) hives all over and swelling of tongue nabumetone Allergy (Unknown, Verified 07/15/18 18:) hives all over and swelling of tongue povidone-iodine Allergy (Unknown, Verified 07/15/18 18:) rash/hives soap Allergy (Unknown, Verified 07/15/18 18:) Rash/hives adhesive tape Allergy (Verified 07/15/18 18:) Hives aspirin Allergy (Verified 07/15/18 18:) Anaphylaxis dapsone Allergy (Verified 07/15/18 18:01) severe anemia gluten Allergy (Verified 07/15/18 18:) iron sucrose complex [From Venofer] Allergy (Verified 07/15/18 18:01) Anaphylaxis lactose Allergy (Verified 07/15/18 18:01) latex Allergy (Verified 07/15/18 18:) Anaphylaxis peanut Allergy (Verified 07/15/18 18:) perfume Allergy (Verified 07/15/18 18:01) throat will close up and sob soy Allergy (Verified 07/15/18 18:01) major gi issues, if in lotion she gets hives tree nut Allergy (Verified 07/15/18 18:01) iron sucrose complex Allergy (Unknown, Uncoded 07/15/18 18:01) Anaphylaxis cleaning chemicals Allergy (Uncoded 07/15/18 18:01) throat will close and sob STEROIDS Allergy (Uncoded 07/15/18 18:01) has to have benadryl first Home Medications: Medication Instructions Recorded Cetirizine [ZyrTEC 10 mg (*)] 10 mg PO DAILY@12 08/10/16 Hydrocortisone [Cortef] 5 mg PO TIDMEAL 08/10/16 Cholecalciferol Vit D3 [Vitamin D3 4,000 units PO DAILY 06/30/17 2000 units tab (OTC)] Cyanocobalamin [Vitamin B12 1,000 mcg IM Q14D 06/30/17 1000MCG/ML (*)] Montelukast Sodium [Singulair 10 20 mg PO BID@,06/30/17 mg (*)] methylPREDNISolone SOD SUCC 125 mg IM DAILY PRN 06/30/17 [Solu-Medrol 125 mg (*)] Benadryl Own Pump 15 mg IV CONT 07/02/17 Budesonide 1 mg IH BID@,17 07/02/17 Cetirizine [ZyrTEC 10 mg (*)] 20 mg PO HS 07/02/17 Cromolyn Sodium 20 mg IH QID@,1129,,07/02/17 Domperidone 40 mg PO QID@,1129,,07/02/17 Quercetin 500mg 500 mg PO QID@,1129,,07/02/17 Diltiazem HCl [Cartia XT 180mg] 180 mg PO DAILY@07 08/28/17 Levalbuterol 1.25 mg [Xopenex 1.25 mg IH Q8H PRN 08/28/17 1.25MG Neb (*)] Levalbuterol Inhaler [Xopenex Hfa 2 puffs IH Q4H PRN 08/28/17 Inhaler (*)] Ondansetron HCl [Zofran] 4 mg IV Q6HRS PRN 08/28/17 Compounded Ranitidine Mary Grace. 5 ml PO QID@07,1129,,09/02/17 Famotidine Own Pump 2 mg IV CONT 09/02/17 Gastrocrom 200 mg PO QID@07,1129,,09/02/17 Nitro Cream 1 simran TP DAILY PRN 09/02/17 Nitroglycerin [Nitrostat 0.4 mg 0.4 mg SL Q5M PRN 09/02/17 (*)] Gabapentin [Neurontin 300 MG (*)] 600 mg PO TID 10/27/17 Isosorbide Dinitrate [Isosorbide 20 mg PO TIDNITRATE 10/27/17 Dinitrate 20 mg (*)] traMADol [Ultram 50 mg (*)] 100 mg PO TID PRN 10/27/17 fentaNYL [Duragesic 25 MCG Patch 25 mcg TD Q3D #1 patch 11/05/17 (*)] Hydroxychloroquine Sulfate 200 mg PO DAILY 02/04/18 [Plaquenil 200 mg (*)] Promethazine HCl [Phenergan 25 mg IV Q6 PRN 02/04/18 Injection] Alocril 1 drop EACHEYE BID 04/08/18 Dabigatran Etexilate Mesylate 150 mg PO BID 04/08/18 [Pradaxa] Iv Hydration 2 l IV DAILY 04/08/18 Melatonin 10 mg PO HS 04/08/18 Potassium Chloride [Klor-Con] 40 meq PO DAILY 04/08/18 Tiotropium Inhaler [Spiriva 2 inh IH DAILY 04/08/18 Inhaler (RX)] Acetaminophen [Tylenol 325mg (*)] 650 mg PO Q4HRS PRN tab 04/18/18 [facility] 07/15/18 Medical Decision Making - Diagnostics EKG Interpretation: EKG: Complete interpretation has been separately recorded in the [email or web address] archive. Summary impression: Sinus tachycardia, rate 105 ED Course/Re-evaluation: I reviewed the patient's past medical records including her chest x-ray which was done yesterday which demonstrated no significant disease. EKG demonstrates a sinus tachycardia without ischemic changes. Patient is chronically anticoagulated for PE/DVT and I doubt acute PE as a cause of the presentation today. Patient is requesting IV fentanyl. I am reluctant to give her IV narcotic medications as a treatment for her chronic pain condition. The patient's electrolytes are within normal limits. The patient's troponin is also normal. I spoke with the patient's allergy child welfare specialist Dr. Diehl at 8:20 p.m.. She has requested that we treat the patient with a single dose of IV fentanyl. The patient received 50 mcg of fentanyl at 8:20 p.m.. The patient does have a chronic pain specialist. She currently has a fentanyl patch. She recently was given a prescription for Ativan. The patient will be discharged from the emergency department with instructions to follow up with her chronic pain specialist at the [facility]. Differential Diagnosis: Differential diagnosis considered includes acute exacerbation of chronic pain syndrome, acute coronary syndrome, pericarditis, myocarditis - Data Points Laboratory Results: Laboratory Results 07/15/18 18:45 07/15/18 18:45 12/07/15/18 07/15/18 18:47 18:45 18:45 WBC 6.32 10^3/uL 10^3/uL (3.80-9.50) RBC 3.72 10^6/uL L 10^6/uL (4.18-5.33) Hgb 8.9 g/dL L g/dL (12.6-16.3) Hct 29.1 % L % (38.0-47.0) MCV 78.2 fL L fL (81.5-99.8) MCH 23.9 pg L pg (27.9-34.1) MCHC 30.6 g/dL L g/dL (32.4-36.7) RDW 17.5 % H % (11.5-15.2) Plt Count 346 10^3/uL 10^3/uL (150-400) MPV 10.6 fL fL (8.7-11.7) Neut % (Auto) 53.6 % % (39.3-74.2) Lymph % (Auto) 28.5 % % (15.0-45.0) [place] % (Auto) 10.6 % % (4.5-13.0) Eos % (Auto) 5.9 % % (0.6-7.6) Baso % (Auto) 1.1 % % (0.3-1.7) Nucleat RBC Rel Count 0.0 % % (0.0-0.2) Absolute Neuts (auto) 3.39 10^3/uL 10^3/uL (1.70-6.50) Absolute Lymphs (auto) 1.80 10^3/uL 10^3/uL (1.00-3.00) Absolute Monos (auto) 0.67 10^3/uL 10^3/uL (0.30-0.80) Absolute Eos (auto) 0.37 10^3/uL 10^3/uL (0.03-0.40) Absolute Basos (auto) 0.07 10^3/uL 10^3/uL (0.02-0.10) Absolute Nucleated RBC 0.00 10^3/uL 10^3/uL (0-0.01) Immature Gran % 0.3 % % (0.0-1.1) Immature Gran # 0.02 10^3/uL 10^3/uL (0.00-0.10) Sodium 138 mEq/L mEq/L (135-145) Potassium 4.4 mEq/L mEq/L (3.5-5.2) Chloride 106 mEq/L mEq/L (97-110) Carbon Dioxide 26 mEq/l mEq/l (22-31) Anion Gap 6 mEq/L mEq/L (6-14) BUN 19 mg/dL mg/dL (7-23) Creatinine 0.7 mg/dL mg/dL (0.6-1.0) Estimated GFR > 60 Glucose 96 mg/dL mg/dL (70-100) Calcium 9.0 mg/dL mg/dL (8.5-10.4) POC Troponin I 0.01 ng/mL ng/mL (0.00-0.08) Point of Care Test Results: Chemistry 07/15/18 18:47 POC Troponin I 0.01 ng/mL ng/mL (0.00-0.08) Departure - Departure Disposition: Home, Routine, Self-Care Clinical Impression: Chest pain, Bilateral hip pain Condition: Good Instructions: Chest Pain (ED) Additional Instructions: 1. Your EKG demonstrates no evidence of an obvious injury pattern. 2. Please schedule a follow-up appointment with your [facility] 3. Your laboratory testing demonstrates no evidence of a significant metabolic abnormality or cardiac condition. 4. Your chest x-ray demonstrates no evidence of acute disease. Referrals: Janiya Schwartz MD [Medical Doctor] - As per Instructions
[2018-07-15 18:53] LABS: PLATELET COUNT 346 10^3/uL (150-400)
--- NOTE | 2018-07-15 19:25 | CPEKG ---
Test Reason : OPEN Blood Pressure : / mmHG Vent. Rate : 105 BPM Atrial Rate : 106 BPM P-R Int : 131 ms QRS Dur : 089 ms QT Int : 356 ms P-R-T Axes : 041 053 015 degrees QTc Int : 471 ms Sinus tachycardia Confirmed by Jayesh Le ([id number]) on 07/15/2018 7:24:24 PM Referred By: Confirmed By:Jayesh Le
[2018-07-15 19:42] VITALS: BP 128/93
[2018-07-15] MEDS ORDERED: fentaNYL 100 MCG/2 ML INJ IVP ONE (20:21)
== END 2018-07-15 20:58 | disposition home or self-care (01) ==
DX: R07.9 Chest pain, unspecified (principal); M25.551 Pain in right hip; M25.552 Pain in left hip; Z79.01 Long term (current) use of anticoagulants; Z87.891 Personal history of nicotine dependence
CPT/HCPCS: 84484-PO; 96374; J3010

== ENCOUNTER 2018-07-23 09:17 | Inpatient (IN) | payer OTHER ==
[2018-07-23] MEDS ORDERED: ACETAMINOPHEN 500 MG TAB PO ONE (09:37)
--- NOTE | 2018-07-23 09:58 | EDPHY ---
H & P Stated Complaint: fever/sob/cough/chest tight/mast cell disease/pe uses o2 at home as needed Time Seen by Provider: 07/23/18 09:41 HPI/ROS: CHIEF COMPLAINT: Chest pain, fever HISTORY OF PRESENT ILLNESS: 42-year-old female with medical history significant for mass cell disorder, chronic Benadryl infusions her Otero catheter, followed by Dr. Caroline Diehl and at [facility] via private vehicle complaining of fever, chest pain, nonproductive cough since yesterday. Positive dyspnea. Chronic anticoagulation with Pradaxa secondary to recurrent PE DVT history. PRIMARY CARE PROVIDER: Dr. 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 Chronic anticoagulation with Pradaxa. Appendectomy. Home oxygen. Adrenal insufficiency. Gastroparesis. SOCIAL HISTORY: Nonsmoker PHYSICAL EXAM (Prior to examination, patient consented to physical exam, hands were washed and my usual and customary physical exam procedures followed) 1) GENERAL: Well-developed, well-nourished, alert and oriented. Appears nontoxic 2) HEAD: Normocephalic, atraumatic 3) HEENT: Pupils equal, round, reactive to light bilaterally. Sclera anicteric. Nasopharynx, oropharynx, clear, no lesions. Moist Mucous membranes. No tonsillar enlargement or exudate Ears bilaterally with normal tympanic membranes. No evidence of otitis media otitis externa 4) NECK: Full range of motion, no meningeal signs. 5) LUNGS: Clear auscultation bilaterally, no wheezes, no rhonchi, no retractions. 6) HEART: Regular rate and rhythm, no murmur, no heave, no gallop. 7) ABDOMEN: No guarding, no rebound, no focal tenderness, negative McBurney's, negative Burnham's, negative Rovsing's, negative peritoneal sign, 8) MUSCULOSKELETAL: Moving all extremities, no focal areas of tenderness, no obvious trauma. No peripheral edema or discoloration. 9) BACK: No CVA tenderness, no midline vertebral tenderness, no fluctuance, no step-off, no obvious trauma, no visual or palpable abnormality. 10) SKIN: No rash, no petechiae. 11) Psychiatric: Patient is oriented X 3, there is no agitation. DIFFERENTIAL DIAGNOSIS: In no particular include but limited to pneumonia, bronchitis, influenza, PE - Personal History LMP (Females 10-55): Over 28 Days Ago Current Tetanus/Diphtheria Vaccine: Yes Tetanus Vaccine Date: LAST 10 YRS - Medical/Surgical History Hx Asthma: Yes Hx Chronic Respiratory Disease: No Hx Diabetes: No Hx Cardiac Disease: Yes Hx Renal Disease: No Hx Cirrhosis: No Hx Alcoholism: No Hx HIV/AIDS: No Hx Splenectomy or Spleen Trauma: No Other PMH: medical- mast cell activation disorder/multiple allergies, Adrenal Insufficiency, Colitis, Food allergies, asthma, "small PFO" home o2, PE, DVT. surgery- appy, ortho-back/hip pain, DVT, gastroperisis - Social History Smoking Status: Former smoker Constitutional: Initial Vital Signs Temperature (C) 38.3 C 07/23/18 09:19 Heart Rate 112 H 07/23/18 09:19 Respiratory Rate 18 07/23/18 09:19 Blood Pressure 138/87 H 07/23/18 09:19 O2 Sat (%) 95 07/23/18 09:19 O2 Delivery Mode Room Air Allergies/Adverse Reactions: levofloxacin Allergy (Unknown, Verified 07/23/18 09:18) hives all over and swelling of tongue nabumetone Allergy (Unknown, Verified 07/23/18 09:18) hives all over and swelling of tongue povidone-iodine Allergy (Unknown, Verified 07/23/18 09:18) rash/hives soap Allergy (Unknown, Verified 07/23/18 09:18) Rash/hives adhesive tape Allergy (Verified 07/23/18 09:18) Hives aspirin Allergy (Verified 07/23/18 09:18) Anaphylaxis dapsone Allergy (Verified 07/23/18 09:18) severe anemia gluten Allergy (Verified 07/23/18 09:18) iron sucrose complex [From Venofer] Allergy (Verified 07/23/18 09:18) Anaphylaxis lactose Allergy (Verified 07/23/18 09:18) latex Allergy (Verified 07/23/18 09:18) Anaphylaxis peanut Allergy (Verified 07/23/18 09:18) perfume Allergy (Verified 07/23/18 09:18) throat will close up and sob soy Allergy (Verified 07/23/18 09:18) major gi issues, if in lotion she gets hives tree nut Allergy (Verified 07/23/18 09:18) iron sucrose complex Allergy (Unknown, Uncoded 07/15/18 18:01) Anaphylaxis cleaning chemicals Allergy (Uncoded 07/15/18 18:01) throat will close and sob STEROIDS Allergy (Uncoded 07/15/18 18:01) has to have benadryl first Home Medications: Medication Instructions Recorded Cetirizine [ZyrTEC 10 mg (*)] 10 mg PO DAILY@12 08/10/16 Hydrocortisone [Cortef] 5 mg PO TIDMEAL 08/10/16 Cholecalciferol Vit D3 [Vitamin D3 4,000 units PO DAILY 06/30/17 2000 units tab (OTC)] Cyanocobalamin [Vitamin B12 1,000 mcg IM Q14D 06/30/17 1000MCG/ML (*)] Montelukast Sodium [Singulair 10 20 mg PO BID@,06/30/17 mg (*)] methylPREDNISolone SOD SUCC 125 mg IM DAILY PRN 06/30/17 [Solu-Medrol 125 mg (*)] Benadryl Own Pump 15 mg IV CONT 07/02/17 Budesonide 1 mg IH BID@,07/02/17 Cetirizine [ZyrTEC 10 mg (*)] 20 mg PO HS 07/02/17 Cromolyn Sodium 20 mg IH QID@,1129,,07/02/17 Quercetin 500mg 500 mg PO QID@,1130,,07/02/17 Diltiazem HCl [Cartia XT 180mg] 180 mg PO DAILY@08/28/17 Levalbuterol 1.25 mg [Xopenex 1.25 mg IH Q8H PRN 08/28/17 1.25MG Neb (*)] Levalbuterol Inhaler [Xopenex Hfa 2 puffs IH Q4H PRN 08/28/17 Inhaler (*)] Ondansetron HCl [Zofran] 4 mg IV Q6HRS PRN 08/28/17 Compounded Ranitidine Mary Grace. 10 ml PO QID@,0,17,21 09/02/17 Gastrocrom 200 mg PO QID@07,1130,17,21 09/02/17 Nitro Cream 1 simran TP DAILY PRN 09/02/17 Nitroglycerin [Nitrostat 0.4 mg 0.4 mg SL Q5M PRN 09/02/17 (*)] Gabapentin [Neurontin 300 MG (*)] 600 mg PO TID 10/27/17 Isosorbide Dinitrate [Isosorbide 20 mg PO TIDNITRATE 10/27/17 Dinitrate 20 mg (*)] traMADol [Ultram 50 mg (*)] 100 mg PO TID PRN 10/27/17 fentaNYL [Duragesic 25 MCG Patch 25 mcg TD Q3D #1 patch 11/05/17 (*)] Hydroxychloroquine Sulfate 200 mg PO DAILY 02/04/18 [Plaquenil 200 mg (*)] Promethazine HCl [Phenergan 25 mg IV Q4 PRN 02/04/18 Injection] Alocril 1 drop EACHEYE BID 04/08/18 Dabigatran Etexilate Mesylate 150 mg PO BID 04/08/18 [Pradaxa] Melatonin 10 mg PO HS 04/08/18 Acetaminophen [Tylenol 325mg (*)] 650 mg PO Q4HRS PRN tab 04/18/18 Cromolyn Sodium [Nasalcrom] 2 sprays EACHNARE QID 07/23/18 Docusate Sodium [Colace Clear] 50 mg PO DAILY PRN 07/23/18 EPINEPHrine [Epipen 0.3 MG] 0.3 mg IM ONCE PRN 07/23/18 Famotidine Injectable 1.2 ml IV Q8H 07/23/18 Potassium Cl [Klor-Con 20 meq (*)] 40 meq PO DAILY 07/23/18 Simethicone [Gas Relief] 125 mg PO DAILY PRN 07/23/18 Tiotropium [place] [Spiriva 2 inh IH DAILY 07/23/18 Respimat] diphenhydrAMINE [Benadryl 25 - 50 mg IV Q4H 07/23/18 Injection] Medical Decision Making - Diagnostics Imaging Results: Imaging Impressions Chest X-Ray 07/23/18 09:47 Impression: New patchy infiltrate and pleural reactive changes left lower lobe suspicious for pneumonia.. Images reviewed myself ED Course/Re-evaluation: 9:50 a.m.: Care of patient under supervision of secondary supervising physician Dr Maxwell with whom I discussed case. Reviewed old medical records. Will obtain diagnostic studies. 10:19 a.m.: New left lower lobe pneumonia noted. Influenza testing negative. Awaiting lactate i and further diagnostic studies. History of Levaquin allergy. Will administer azithromycin , ceftriaxone plan on admission. 10:27 a.m.: Consultation with hospitalist, Sonja Rodriguez, admit to Dr. Geovanny Mary - Data Points Laboratory Results: Laboratory Results 07/23/18 10:22 07/23/18 10:22 07/23/18 07/23/18 07/23/18 10:22 10:22 10:22 WBC RBC Hgb Hct MCV MCH MCHC RDW Plt Count MPV Neut % (Auto) Lymph % (Auto) [place] % (Auto) Eos % (Auto) Baso % (Auto) Nucleat RBC Rel Count Absolute Neuts (auto) Absolute Lymphs (auto) Absolute Monos (auto) Absolute Eos (auto) Absolute Basos (auto) Absolute Nucleated RBC Immature Gran % Immature Gran # PT 12.4 SEC SEC (12.0-15.0) INR 0.90 (0.83-1.16) APTT 20.0 SEC L SEC (23.0-38.0) VBG Lactic Acid Sodium 138 mEq/L mEq/L (135-145) Potassium 3.8 mEq/L mEq/L (3.5-5.2) Chloride 107 mEq/L mEq/L (97-110) Carbon Dioxide 24 mEq/l mEq/l (22-31) Anion Gap 7 mEq/L mEq/L (6-14) BUN 9 mg/dL mg/dL (7-23) Creatinine 0.6 mg/dL mg/dL (0.6-1.0) Estimated GFR > 60 Glucose 100 mg/dL mg/dL (70-100) Calcium 8.4 mg/dL L mg/dL (8.5-10.4) Total Bilirubin 0.2 mg/dL mg/dL (0.1-1.4) Procalcitonin 0.04 ng/mL ng/mL (0.02-0.10) Urine Color PALE YELLOW Urine Appearance CLEAR Urine pH 7.0 (5.0-7.5) Ur Specific [place] 1.009 (1.002-1.030) Urine Protein NEGATIVE (NEGATIVE) Urine Ketones NEGATIVE (NEGATIVE) Urine Blood NEGATIVE (NEGATIVE) Urine Nitrate NEGATIVE (NEGATIVE) Urine Bilirubin NEGATIVE (NEGATIVE) Urine Urobilinogen NEGATIVE EU EU (0.2-1.0) Ur Leukocyte Esterase NEGATIVE (NEGATIVE) Urine Glucose NEGATIVE (NEGATIVE) Nasal Influenza A PCR Nasal Influenza B PCR 07/23/18 07/23/18 07/23/18 10:22 10:22 09:30 WBC 7.96 10^3/uL 10^3/uL (3.80-9.50) RBC 3.76 10^6/uL L 10^6/uL (4.18-5.33) Hgb 8.5 g/dL L g/dL (12.6-16.3) Hct 28.8 % L % (38.0-47.0) MCV 76.6 fL L fL (81.5-99.8) MCH 22.6 pg L pg (27.9-34.1) MCHC 29.5 g/dL L g/dL (32.4-36.7) RDW 17.4 % H % (11.5-15.2) Plt Count 299 10^3/uL 10^3/uL (150-400) MPV 10.3 fL fL (8.7-11.7) Neut % (Auto) 73.4 % % (39.3-74.2) Lymph % (Auto) 13.2 % L % (15.0-45.0) [place] % (Auto) 10.3 % % (4.5-13.0) Eos % (Auto) 2.1 % % (0.6-7.6) Baso % (Auto) 0.6 % % (0.3-1.7) Nucleat RBC Rel Count 0.0 % % (0.0-0.2) Absolute Neuts (auto) 5.84 10^3/uL 10^3/uL (1.70-6.50) Absolute Lymphs (auto) 1.05 10^3/uL 10^3/uL (1.00-3.00) Absolute Monos (auto) 0.82 10^3/uL H 10^3/uL (0.30-0.80) Absolute Eos (auto) 0.17 10^3/uL 10^3/uL (0.03-0.40) Absolute Basos (auto) 0.05 10^3/uL 10^3/uL (0.02-0.10) Absolute Nucleated RBC 0.00 10^3/uL 10^3/uL (0-0.01) Immature Gran % 0.4 % % (0.0-1.1) Immature Gran # 0.03 10^3/uL 10^3/uL (0.00-0.10) PT INR APTT VBG Lactic Acid 1.3 mmol/L mmol/L (0.7-2.1) Sodium Potassium Chloride Carbon Dioxide Anion Gap BUN Creatinine Estimated GFR Glucose Calcium Total Bilirubin Procalcitonin Urine Color Urine Appearance Urine pH Ur Specific [place] Urine Protein Urine Ketones Urine Blood Urine Nitrate Urine Bilirubin Urine Urobilinogen Ur Leukocyte Esterase Urine Glucose Nasal Influenza A PCR NEGATIVE FOR FLU A (NEGATIVE) Nasal Influenza B PCR NEGATIVE FOR FLU B (NEGATIVE) Microbiology Results: MICROBIOLOGY 07/23/18 09:30 Nasal, Sinus - Swab Respiratory Panel (PCR) - Final No Organism Detected By Pcr Medications Given: Cetirizine HCl (Zyrtec) 10 mg PO DAILY@12 [facility] Stop: 01/19/19 11:59 Last Admin: 07/23/18 13:20 Dose: 10 mg Diphenhydramine HCl (Benadryl Injection) 25 - 50 mg IV Q4H [facility] Stop: 01/19/19 11:44 Last Admin: 07/23/18 13:11 Dose: 50 mg Fentanyl (Sublimaze) 50 mcg IVP Q4HRS PRN PRN Reason: Pain, Severe Stop: 08/02/18 12:19 Last Admin: 07/23/18 13:05 Dose: 50 mcg Isosorbide Dinitrate (Isosorbide Dinitrate) 20 mg PO TIDNITRATE [facility] Stop: 01/19/19 14:59 Last Admin: 07/23/18 13:21 Dose: 20 mg Ondansetron HCl (Zofran) 4 mg IVP Q4HRS PRN PRN Reason: Nausea/Vomiting, Can't Take PO Stop: 01/19/19 11:39 Last Admin: 07/23/18 13:05 Dose: 4 mg Tramadol HCl (Ultram) 100 mg PO TID PRN PRN Reason: Pain, Breakthrough Stop: 01/19/19 11:44 Last Admin: 07/23/18 13:20 Dose: 100 mg Discontinued Medications Acetaminophen (Tylenol) 1,000 mg PO EDNOW ONE Stop: 07/23/18 09:38 Last Admin: 07/23/18 09:45 Dose: 1,000 mg Azithromycin 500 mg/ Dextrose 255 mls @ 255 mls/hr IV DAILY SABINA PRN Reason: Protocol Stop: 08/22/18 10:29 Last Admin: 07/23/18 11:44 Dose: 255 mls Ceftriaxone Sodium/Dextrose (Rocephin 1 Gm (Premix)) 50 mls @ 100 mls/hr IV DAILY SABINA PRN Reason: Protocol Stop: 08/22/18 10:29 Last Admin: 07/23/18 11:09 Dose: 50 mls Departure - Departure Disposition: [facility] Inpatient Acute Clinical Impression: Pneumonia Qualifiers: Pneumonia type: due to unspecified organism Laterality: left Lung location: lower lobe of lung Qualified Code(s): J18.1 - Lobar pneumonia, unspecified organism Condition: Fair
[2018-07-23] MEDS ORDERED: AZITHROMYCIN IV 500 MG in D5W 250 ML IV SCH (10:30)
[2018-07-23 10:37] LABS: PLATELET COUNT 299 10^3/uL (150-400)
[2018-07-23 10:47] LABS: INR 0.9 (0.83-1.16); PROTIME(PATIENT) 12.4 SEC (12.0-15.0)
--- NOTE | 2018-07-23 11:07 | PDGENHP ---
History and Physical - Chief Complaint chest pain/cough - History of Present Illness Moni Campoverde is a 42 year old female with pmh of mast cell activation syndrome on continuous benadryl infusion, who presented to the ER today with complaints of chest pain which started yesterday. she reports that she was scheduled to have a stress test today at [facility], but this was put on hold and she was told to come to the ER for this chest pain. She says that the pain started yesterday, and is located across her entire chest. feels different than when she had her PE, and feels like her lungs. Nothing makes it better or worse, and the pain has been constant. She has also had fevers and chills and some cough since yesterday as well. She has not been around anyone sick, no recent travel. She denied any NV, diarrhea, dysuria, orthopnes, sob or other symptoms History Information - Allergies/Home Medication List Allergies/Adverse Reactions: levofloxacin Allergy (Unknown, Verified 07/23/18 09:18) hives all over and swelling of tongue nabumetone Allergy (Unknown, Verified 07/23/18:18) hives all over and swelling of tongue povidone-iodine Allergy (Unknown, Verified 07/23/18:18) rash/hives soap Allergy (Unknown, Verified 07/23/18:) Rash/hives adhesive tape Allergy (Verified 07/23/18:18) Hives aspirin Allergy (Verified 07/23/18:18) Anaphylaxis dapsone Allergy (Verified 07/23/18 09:18) severe anemia gluten Allergy (Verified 07/23/18:18) iron sucrose complex [From Venofer] Allergy (Verified 07/23/18:18) Anaphylaxis lactose Allergy (Verified 07/23/18:18) latex Allergy (Verified 07/23/18:18) Anaphylaxis peanut Allergy (Verified 07/23/18:18) perfume Allergy (Verified 07/23/18:18) throat will close up and sob soy Allergy (Verified 07/23/18:18) major gi issues, if in lotion she gets hives tree nut Allergy (Verified 07/23/18:18) iron sucrose complex Allergy (Unknown, Uncoded 07/15/18 18:01) Anaphylaxis cleaning chemicals Allergy (Uncoded 07/15/18 18:01) throat will close and sob STEROIDS Allergy (Uncoded 07/15/18 18:01) has to have benadryl first Home Medications: Cetirizine [ZyrTEC 10 mg (*)] 10 mg PO DAILY@12 08/10/16 [Last Taken 04/17/18 12 :00] Hydrocortisone [Cortef] 5 mg PO TIDMEAL 08/10/16 [Last Taken 05/12/18] Cholecalciferol Vit D3 [Vitamin D3 2000 units tab (OTC)] 4,000 units PO DAILY [Last Taken 05/12/18] Cyanocobalamin [Vitamin B12 1000MCG/ML (*)] 1,000 mcg IM Q14D 06/30/17 [Last Taken 07/16/18] Montelukast Sodium [Singulair 10 mg (*)] 20 mg PO BID@06/30/17 [Last Taken 05/12/18 07:00] methylPREDNISolone SOD SUCC [Solu-Medrol 125 mg (*)] 125 mg IM DAILY PRN [Last Taken 04/02/18] Benadryl Own Pump 15 mg IV CONT 07/02/17 [Last Taken 05/12/18 10:37] Budesonide 1 mg IH BID@07/02/17 [Last Taken 05/11/18] Cetirizine [ZyrTEC 10 mg (*)] 20 mg PO HS 07/02/17 [Last Taken 05/11/18] Cromolyn Sodium 20 mg IH QID@,,07/02/17 [Last Taken 05/11/18] Quercetin 500mg 500 mg PO QID@,0,,07/02/17 [Last Taken 05/12/18] Diltiazem HCl [Cartia XT 180mg] 180 mg PO DAILY@08/28/17 [Last Taken 05/12/18 ] Levalbuterol 1.25 mg [Xopenex 1.25MG Neb (*)] 1.25 mg IH Q8H PRN 08/28/17 [Last Taken 04/09/18] Levalbuterol Inhaler [Xopenex Hfa Inhaler (*)] 2 puffs IH Q4H PRN 08/28/17 [ Last Taken 04/09/18] Ondansetron HCl [Zofran] 4 mg IV Q6HRS PRN 08/28/17 [Last Taken 05/12/18] Compounded Ranitidine Mary Grace. 10 ml PO QID@07,1130,,09/02/17 [Last Taken 05/11] Gastrocrom 200 mg PO QID@07,1130,,09/02/17 [Last Taken 05/12/18] Nitro Cream 1 simran TP DAILY PRN 09/02/17 [Last Taken 04/11/18] Nitroglycerin [Nitrostat 0.4 mg (*)] 0.4 mg SL Q5M PRN 09/02/17 [Last Taken 05/06] Gabapentin [Neurontin 300 MG (*)] 600 mg PO TID 10/27/17 [Last Taken 05/12/18] Isosorbide Dinitrate [Isosorbide Dinitrate 20 mg (*)] 20 mg PO TIDNITRATE [Last Taken 05/12/18] traMADol [Ultram 50 mg (*)] 100 mg PO TID PRN 10/27/17 [Last Taken 05/12/18 07: 00] Hydroxychloroquine Sulfate [Plaquenil 200 mg (*)] 200 mg PO DAILY 02/04/18 [ Last Taken 05/12/18] Promethazine HCl [Phenergan Injection] 25 mg IV Q4 PRN 02/04/18 [Last Taken 06:30] Alocril 1 drop EACHEYE BID 04/08/18 [Last Taken 05/12/18] Dabigatran Etexilate Mesylate [Pradaxa] 150 mg PO BID 04/08/18 [Last Taken 05/09] Melatonin 10 mg PO HS 04/08/18 [Last Taken 05/11/18] Cholecalciferol Vit D3 [Vitamin D3 (*)] 50,000 unit PO HAIDER 07/23/18 [Last Taken Unknown] Cromolyn Sodium [Nasalcrom] 2 sprays EACHNARE QID 07/23/18 [Last Taken Unknown] Docusate Sodium [Colace Clear] 50 mg PO DAILY PRN 07/23/18 [Last Taken Unknown] EPINEPHrine [Epipen 0.3 MG] 0.3 mg IM ONCE PRN 07/23/18 [Last Taken Unknown] Famotidine Injectable 1.2 ml IV Q8H 07/23/18 [Last Taken Unknown] Potassium Cl [Klor-Con 20 meq (*)] 40 meq PO DAILY 07/23/18 [Last Taken Unknown] Simethicone [Gas Relief] 125 mg PO DAILY PRN 07/23/18 [Last Taken Unknown] Tiotropium [place] [Spiriva Respimat] 2 inh IH DAILY 07/23/18 [Last Taken Unknown] diphenhydrAMINE [Benadryl Injection] 25 - 50 mg IV Q4H 07/23/18 [Last Taken Unknown] I have personally reviewed and updated: family history, medical history, social history, surgical history - Past Medical History DVT, hypertension Additional medical history: mast cell activation syndrome with chronic benadryl pump, adrenal insufficiency on chronic steroid therapy, asthma severe persistent , coronary artery vasospasm, CREAST, hx PE/DVTs on chronic anticoagulation with lovenox, chronic sinusitis, PFO, diaphragm paresis, chronic iron deficiency anemia, b12 deficiency, vocal cord dysfunction - Surgical History Additional surgical history: PICC/PORT, appy, laporoscopy for ovairian cysts with findings of endometriosis, right wrist, right elbow, left heel, left ankle rconstruction - Family History Additional family history: sister - Gestational DM,thyroid dysfunction. no fhx mast cell dysfunction, autoimmune disease or CAD - Social History Smoking Status: Former smoker Additional social history: patient is disabled. COR - FULL. father Yogesh Campoverde is MDPOA. Review of Systems Review of Systems: ROS: 10pt was reviewed & negative except for what was stated in HPI & below Physical Exam Physical Exam: Temp Pulse Resp BP Pulse Ox 38.3 C 112 H 18 138/87 H 95 07/23/18 09:19 07/23/18 09:19 07/23/18 09:19 07/23/18 09:19 07/23/18 09:19 Constitutional: no apparent distress, appears nourished, not in pain Eyes: PERRL, anicteric sclera, EOMI Ears, Nose, Mouth, Throat: moist mucous membranes, hearing normal, ears appear normal, no oral mucosal ulcers Cardiovascular: regular rate and rhythym, no murmur, rub, or gallop, No edema Respiratory: no respiratory distress, no rales or rhonchi, clear to auscultation Gastrointestinal: normoactive bowel sounds, soft, non-tender abdomen, no palpable masses Genitourinary: no bladder fullness, no bladder tenderness Skin: warm, normal color, no rashes or abrasions, no fluctuance, no induration, No mottled Musculoskeletal: full muscle strength, no muscle tenderness, normal joint ROM, no joint effusions Psychiatric: interacting appropriately, not anxious, not encephalopathic, thought process linear Lymph, Heme, Immunologic: no cervical LAD, no supraclavicular LAD Lab Data & Imaging Review 07/24/18 05:15 07/24/18 05:15 WBC 7.96 10^3/uL (3.80-9.50) 07/23/18 10:22 RBC 3.76 10^6/uL (4.18-5.33) L 07/23/18 10:22 Hgb 8.5 g/dL (12.6-16.3) L 07/23/18 10:22 Hct 28.8 % (38.0-47.0) L 07/23/18 10:22 MCV 76.6 fL (81.5-99.8) L 07/23/18 10:22 MCH 22.6 pg (27.9-34.1) L 07/23/18 10:22 MCHC 29.5 g/dL (32.4-36.7) L 07/23/18 10:22 RDW 17.4 % (11.5-15.2) H 07/23/18 10:22 Plt Count 299 10^3/uL (150-400) 07/23/18 10:22 MPV 10.3 fL (8.7-11.7) 07/23/18 10:22 Neut % (Auto) 73.4 % (39.3-74.2) 07/23/18 10:22 Lymph % (Auto) 13.2 % (15.0-45.0) L 07/23/18 10:22 [place] % (Auto) 10.3 % (4.5-13.0) 07/23/18 10:22 Eos % (Auto) 2.1 % (0.6-7.6) 07/23/18 10:22 Baso % (Auto) 0.6 % (0.3-1.7) 07/23/18 10:22 Nucleat RBC Rel Count 0.0 % (0.0-0.2) 07/23/18 10:22 Absolute Neuts (auto) 5.84 10^3/uL (1.70-6.50) 07/23/18 10:22 Absolute Lymphs (auto) 1.05 10^3/uL (1.00-3.00) 07/23/18 10:22 Absolute Monos (auto) 0.82 10^3/uL (0.30-0.80) H 07/23/18 10:22 Absolute Eos (auto) 0.17 10^3/uL (0.03-0.40) 07/23/18 10:22 Absolute Basos (auto) 0.05 10^3/uL (0.02-0.10) 07/23/18 10:22 Absolute Nucleated RBC 0.00 10^3/uL (0-0.01) 07/23/18 10:22 Immature Gran % 0.4 % (0.0-1.1) 07/23/18 10:22 Immature Gran # 0.03 10^3/uL (0.00-0.10) 07/23/18 10:22 PT 12.4 SEC (12.0-15.0) 07/23/18 10:22 INR 0.90 (0.83-1.16) 07/23/18 10:22 VBG Lactic Acid 1.3 mmol/L (0.7-2.1) 07/23/18 10:22 Sodium 138 mEq/L (135-145) 07/23/18 10:22 Potassium 3.8 mEq/L (3.5-5.2) 07/23/18 10:22 Chloride 107 mEq/L (97-110) 07/23/18 10:22 Carbon Dioxide 24 mEq/l (22-31) 07/23/18 10:22 Anion Gap 7 mEq/L (6-14) 07/23/18 10:22 BUN 9 mg/dL (7-23) 07/23/18 10:22 Creatinine 0.6 mg/dL (0.6-1.0) 07/23/18 10:22 Estimated GFR > 60 07/23/18 10:22 Glucose 100 mg/dL (70-100) 07/23/18 10:22 Calcium 8.4 mg/dL (8.5-10.4) L 07/23/18 10:22 Total Bilirubin 0.2 mg/dL (0.1-1.4) 07/23/18 10:22 POC Troponin I 0.01 ng/mL (0.00-0.08) 07/23/18 10:30 Nasal Influenza A PCR NEGATIVE FOR FLU A (NEGATIVE) 07/23/18 09:30 Nasal Influenza B PCR NEGATIVE FOR FLU B (NEGATIVE) 07/23/18 09:30 Visualized and Interpreted Chest x-ray results: Yes Chest X-Ray results: infiltrate (left lower lobe infiltrate) Assessment & Plan Assessment: Pneumonia- CXR reviewed and patient does have a new LLL infiltrate which could be consistent with a new developing PNA. I discussed the case with the Er physician. ECG is non ischemic, and troponin negative. given the infiltrate on CXR and the fact that she is already anticoagulated and is not hypoxic or tachycardic I think PE is less likely. labs all WNL -Rocephin/Azithro after cultures -continue home xopenex and nebs -oxygen PRN Mast cell activation syndrome- on continuous benadryl infusions and cromolyn -continue benadryl infusion -continue home compounded cromolyn infusions DVT/PE- on pradaxa. Continue. will monitor on telemetry HTN- on diltiazem Addisons disease- on chronic steroids. continue cortef here. PPX- SCds, contiue home pradaxa Fluids- Patient able to take pO Lytes- WNL, monitor Nutrition- regular diet Cor- Full Dispo- observation for pna. -
[2018-07-23] MEDS ORDERED: ACETAMINOPHEN 325 MG TAB PO PRN (11:40)
[2018-07-23] MEDS ORDERED: ONDANSETRON DISINTEGRATING 4 MG TAB PO PRN (11:40)
[2018-07-23] MEDS ORDERED: [UNRECOGNIZED DRUG - OTHER] IV SCH (11:45)
[2018-07-23] MEDS ORDERED: DOCUSATE SODIUM 50 MG PO PRN (11:45)
[2018-07-23] MEDS ORDERED: LEVALBUTEROL INHALER 200 PUFFS/15 GM MDI IH PRN (11:45)
[2018-07-23] MEDS: ONDANSETRON 4 MG/2 ML VIAL IVP PRN ×3 (13:05→21:35)
[2018-07-23] MEDS: fentaNYL 100 MCG/2 ML INJ IVP PRN ×3 (13:05→21:35)
[2018-07-23] MEDS: traMADol 50 MG TAB PO PRN (13:20)
[2018-07-23] MEDS: CETIRIZINE 10 MG TAB PO SCH ×2 (13:20→21:16)
[2018-07-23] MEDS: ACETAMINOPHEN 325 MG TAB PO PRN ×2 (14:41→19:22)
--- NOTE | 2018-07-23 14:47 | CPEKG ---
Test Reason : OPEN Blood Pressure : / mmHG Vent. Rate : 103 BPM Atrial Rate : 103 BPM P-R Int : 141 ms QRS Dur : 087 ms QT Int : 345 ms P-R-T Axes : 032 039 021 degrees QTc Int : 452 ms Sinus tachycardia Confirmed by Adina Maxwell ([id number]) on 07/23/2018 2:47:30 PM Referred By: Confirmed By:Adina Maxwell
[2018-07-23] MEDS ORDERED: ISOSORBIDE DINITRATE 20 MG TAB PO SCH (15:00)
[2018-07-23] MEDS: CROMOLYN SODIUM EACHNARE SCH ×3 (15:58→21:18)
[2018-07-23] MEDS ORDERED: GABAPENTIN 300 MG CAP PO SCH (16:00)
[2018-07-23] MEDS: MONTELUKAST SODIUM 10 MG TAB PO SCH (17:20)
[2018-07-23] MEDS: CROMOLYN SODIUM IH SCH ×2 (18:03→21:18)
[2018-07-23] MEDS: LEVALBUTEROL 1.25 MG/3 ML DEYVIAL IH PRN (18:03)
[2018-07-23] MEDS: BUDESONIDE 1 MG IH SCH (18:04)
[2018-07-23] MEDS: QUERCETIN 500 MG PO SCH ×2 (18:33→21:23)
[2018-07-23] MEDS: HYDROCORTISONE 5 MG PO SCH ×2 (18:35)
[2018-07-23] MEDS: RANITIDINE PO SCH ×2 (18:37→21:17)
[2018-07-23] MEDS: CROMOLYN SODIUM 100 MG/5 ML PO SCH ×2 (18:39→21:21)
[2018-07-23] MEDS ORDERED: ALTEPLASE 2 MG VIAL IVP PRN (19:29)
[2018-07-23] MEDS: DABIGATRAN ETEXILATE MESYL 75 MG CAP PO SCH (21:19)
[2018-07-23] MEDS: ALOCRIL EACHEYE SCH (21:35)
[2018-07-23] MEDS ORDERED: GABAPENTIN 250 MG/5 ML 30 ML BOTTLE PO SCH (22:00)
[2018-07-24] MEDS: ONDANSETRON 4 MG/2 ML VIAL IVP PRN ×2 (01:43→06:12)
[2018-07-24] MEDS: fentaNYL 100 MCG/2 ML INJ IVP PRN ×5 (01:44→20:58)
[2018-07-24 05:25] LABS: PLATELET COUNT 316 10^3/uL (150-400)
[2018-07-24] MEDS: BUDESONIDE 1 MG IH SCH ×2 (06:06→17:12)
[2018-07-24] MEDS: RANITIDINE PO SCH ×4 (06:06→21:03)
[2018-07-24] MEDS: CROMOLYN SODIUM IH SCH ×5 (06:07→21:33)
[2018-07-24] MEDS: CROMOLYN SODIUM 100 MG/5 ML PO SCH ×4 (06:08→21:02)
[2018-07-24] MEDS: QUERCETIN 500 MG PO SCH ×4 (06:08→21:02)
[2018-07-24] MEDS: ISOSORBIDE DINITRATE 10 MG TAB PO SCH ×3 (06:10→15:46)
[2018-07-24] MEDS: MONTELUKAST SODIUM 10 MG TAB PO SCH ×2 (06:10→17:17)
[2018-07-24] MEDS: CROMOLYN SODIUM EACHNARE SCH ×4 (06:11→20:59)
[2018-07-24] MEDS: DILTIAZEM CD 180 MG CAP PO SCH (06:12)
[2018-07-24] MEDS: ALOCRIL EACHEYE SCH ×2 (08:34→21:00)
[2018-07-24] MEDS: DABIGATRAN ETEXILATE MESYL 75 MG CAP PO SCH (08:42)
[2018-07-24] MEDS: Tiotropium Bromide [Spiriva Respimat] 2 INH IH SCH (08:49)
[2018-07-24] MEDS: HYDROCORTISONE 5 MG PO SCH ×3 (08:49→17:21)
[2018-07-24] MEDS: AZITHROMYCIN IV 500 MG in NS 250 ML IV SCH (08:54)
[2018-07-24] MEDS: HYDROXYCHLOROQUINE SULFATE 200 MG TAB PO SCH (09:05)
[2018-07-24] MEDS: traMADol 50 MG TAB PO PRN (09:40)
--- NOTE | 2018-07-24 10:04 | ASMTCMCOM ---
CM Note CM Note Notes: Pt with mast cell disorder, on chronic Benadryl infusion with [facility] in for pneumonia. Referral sent to [facility], will need resumption of care order for HC RN at d/c. PT/OT evals pending. CM to follow for d/c needs. Date Signed: 07/24/2018 10:03 AM Electronically Signed By:KEVIN Currie
[2018-07-24] MEDS ORDERED: IOPAMIDOL (ISOVUE 370) 100 ML BTL IV ONE (12:26)
[2018-07-24] MEDS: CETIRIZINE 10 MG TAB PO SCH ×2 (13:25→20:59)
--- NOTE | 2018-07-24 15:30 | HOSPPROG ---
Hospitalist Progress Note Assessment/Plan: 42 year old female with pmh of mast cell activation, PE on pradaxa, admitted with chest pain, sob, thought to be PNA. PE- CTA done today for ongoing chest pain with two new clots. I reviewed her chart and her last CTA was in January 2018 at which point there were no PEs, so new since then. Patient has already developed clots on eliquis, and coumadin and now is on pradaxa. Follows with Dr. Lopes from hematology. -Stop pradaxa -start treatment dose of lovenox at 1mg/kg bid -consult placed to oncology to see patient bilateral pleural effusions- CT reviewed [facility] radiology who feels that patient has new cardiomegaly and bilateral pleural effusions. Last echo about a year ago was normal, and previous CT with no cardiomegaly, patient with increased WOB -Will check TTE Pneumonia- CXR reviewed and patient does have a new LLL infiltrate which could be consistent with a new developing PNA. I discussed the case with the Er physician. ECG is non ischemic, and troponin negative. given the infiltrate on CXR and the fact that she is already anticoagulated and is not hypoxic or tachycardic I think PE is less likely. 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 Continue. will monitor on telemetry HTN- on diltiazem Addisons disease- on chronic steroids. continue cortef here. PPX- SCds, contiue home pradaxa Fluids- Patient able to take pO Lytes- WNL, monitor Nutrition- regular diet Cor- Full Dispo- observation for pna. Subjective: still some chest pain, relieved with fentanyl. Objective: Vital Signs Temp Pulse Resp BP Pulse Ox 37.6 C 93 18 133/90 H 93 07/24/18 12:00 07/24/18 14:09 07/24/18 14:09 07/24/18 12:00 07/24/18 14:09 Laboratory Results 07/24/18 05:15 07/24/18 05:15 07/23/18 07/24/1807/25/19 05:59 05:59 05:59 Intake Total 250 Output Total 350 Balance -100 PT 12.4 SEC (12.0-15.0) 07/23/18 10:22 INR 0.90 (0.83-1.16) 07/23/18 10:22 - Physical Exam Constitutional: no apparent distress, appears nourished, not in pain Eyes: PERRL, anicteric sclera, EOMI Ears, Nose, Mouth, Throat: moist mucous membranes, hearing normal, ears appear normal, no oral mucosal ulcers Cardiovascular: regular rate and rhythym, no murmur, rub, or gallop Respiratory: no respiratory distress, no rales or rhonchi, clear to auscultation Gastrointestinal: normoactive bowel sounds, soft, non-tender abdomen, no palpable masses Genitourinary: no bladder fullness, no bladder tenderness, no renal bruits Skin: no rashes or abrasions, no fluctuance, no induration Musculoskeletal: full muscle strength, no muscle tenderness, normal joint ROM Neurologic: AAOx3, sensation intact bilaterally Psychiatric: interacting appropriately, not anxious, not encephalopathic, thought process linear Lymph, Heme, Immunologic: no cervical LAD, no supraclavicular LAD ICD10 Worksheet Patient Problems: Problems Problem Status Onset Pneumonia Acute Bilateral hip pain Acute Cellulitis Acute Chest pain Acute Hypokalemia Acute Mast cell activation Acute
--- NOTE | 2018-07-24 16:34 | PDMN ---
Medical Necessity Medical [place] [facility] [id number]- A-4 days: status changed to INPT 07/24/18 for ongoing med nec care > 2 MN> pt admits with ongoing CP - CT shows two new clots pt currently on Pradaxa, CT also shows bilat. pleural effusions, new cardiomegaly , LLL infiltrate consistent with new developing PNA. 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 on chronic steroids, asthma , CREST, coronary artery vasospasm, DVT,- on chonic anticoagulation, HTN, ....
[2018-07-24] MEDS: ENOXAPARIN 80 MG/0.8 ML SYR SC SCH (20:59)
[2018-07-25] MEDS: fentaNYL 100 MCG/2 ML INJ IVP PRN ×5 (01:15→21:20)
[2018-07-25] MEDS: CROMOLYN SODIUM EACHNARE SCH ×4 (06:35→21:21)
[2018-07-25] MEDS: CROMOLYN SODIUM 100 MG/5 ML PO SCH ×4 (06:35→21:21)
[2018-07-25] MEDS: ISOSORBIDE DINITRATE 10 MG TAB PO SCH ×3 (06:36→15:10)
[2018-07-25] MEDS: QUERCETIN 500 MG PO SCH ×4 (06:36→21:23)
[2018-07-25] MEDS: MONTELUKAST SODIUM 10 MG TAB PO SCH ×2 (06:36→17:00)
[2018-07-25] MEDS: DILTIAZEM CD 180 MG CAP PO SCH (06:37)
[2018-07-25] MEDS: BUDESONIDE 1 MG IH SCH ×2 (06:38→17:03)
[2018-07-25] MEDS: RANITIDINE PO SCH ×4 (06:38→21:24)
[2018-07-25] MEDS: CROMOLYN SODIUM IH SCH ×4 (06:53→20:36)
[2018-07-25] MEDS: HYDROCORTISONE 5 MG PO SCH ×3 (07:59→18:03)
[2018-07-25] MEDS: HYDROXYCHLOROQUINE SULFATE 200 MG TAB PO SCH (08:09)
[2018-07-25] MEDS: Tiotropium Bromide [Spiriva Respimat] 2 INH IH SCH (08:36)
[2018-07-25] MEDS: LEVALBUTEROL 1.25 MG/3 ML DEYVIAL IH PRN ×3 (08:38→20:36)
[2018-07-25] MEDS: traMADol 50 MG TAB PO PRN (09:03)
[2018-07-25] MEDS: AZITHROMYCIN IV 500 MG in NS 250 ML IV SCH (09:06)
[2018-07-25] MEDS: ALOCRIL EACHEYE SCH ×2 (09:14→21:21)
[2018-07-25] MEDS: ENOXAPARIN 80 MG/0.8 ML SYR SC SCH ×2 (09:20→21:20)
--- NOTE | 2018-07-25 11:46 | ECHO ---
[email or web address] [address] [address] Main: [phone] Fax: Transthoracic Echocardiogram Name: AKHIL ARTEAGA MR#: [id number] Study Date: 07/25/2018 Study Time: 11:03 AM Date of : 1975 Age: 42 year(s) Height: 177.8 cm (70 in.) Weight: 77.11 kg (170 lb.) BSA: 1.95 m2 Gender: Female Examination: Echo Indication: New cardiomegaly on CT/bilat pleural effusions/SOB Image Quality: Excellent Contrast: Requested by: Ranjit Hardy BP: 133 mmHg/95 mmHg Heart Rate: Rhythm: Indication: New cardiomegaly on CT/bilat pleural effusions/SOB Procedure Staff Chips Screen Tender: Sofia Skaggs RDCS Reading Physician: Tim Cooper MD Requesting Provider: Conclusions: Normal size left ventricle. Global hypercontractility of the left ventricle. The ejection fraction is estimated to be 60-65 %. No regional wall motion abnormality. Normal size right ventricle. Mild mitral valve regurgitation is present. The aortic valve is normal in appearance and function. Trivial to mild tricuspid valve regurgitation. The pulmonary artery pressure is normal. Small pericardial effusion. Measurements: Chambers Valvular Assessment AV/MV Valvular Assessment TV/PV Normal Normal Normal Name Value Range Name Value Range Name Value Range Ao Siria (MM): 3.1 cm (2.2 cm-3.7 AV Vmax: 1.62 m/s (1 m/s-1.7 TR Vmax: 2.63 mm/s ( - ) cm) m/s) TR PGmax: 28 mmHg ( - ) IVSd (2D): 0.8 cm (0.6 cm-1.1 AV meanP mmHg ( - ) syst. PAP: 33 mmHg ( - ) cm) MV E Vmax: 0.56 m/s ( - ) LVDd (2D): 5.0 cm (3.9 cm-5.3 MV A Vmax: 0.71 m/s ( - ) cm) MV E/A: 0.79 ( - ) LVDs (2D): 3.5 cm (2.1 cm-4 cm) LVPWd (2D): 0.9 cm ( - ) LVEF (BP): 73 % (>=55 %) EF Range: 60-65 % Continued Measurements: Chambers Valvular Assessment AV/MV Valvular Assessment TV/PV Patient: AKHIL ARTEAGA Study Date: 07/25/2018 Page 1 of 2 11:03 AM Name Value Name Value Name Value LADs: 4.4 cm MV E' Septal: 0.05 m/s CVP (est.): 5 mmHg LADs Lon.4 cm MV E/E' Septal: 11.10 LA Area: 19.5 cm2 MV E/E' Lateral: 6.70 Additional Vessels Name Value Ao Ascendin.2 cm Findings: Left Ventricle: Normal size left ventricle. No LV hypertrophy. Global hypercontractility of the left ventricle. The ejection fraction is estimated to be 60-65 %. No regional wall motion abnormality. Normal diastolic LV function. Right Ventricle: Normal size right ventricle. Left Atrium: The left atrium is normal in size. Right Atrium: The right atrium is normal in size. Mitral Valve: The mitral valve is normal in appearance and function. Mild mitral valve regurgitation is present. Aortic Valve: The aortic valve is normal in appearance and function. Tricuspid Valve: The tricuspid valve is normal in appearance and function. Trivial to mild tricuspid valve regurgitation. The pulmonary artery pressure is normal. Pulmonic Valve: The pulmonic valve is normal in appearance and function. Aorta: The aorta is normal. Pericardium: Small pericardial effusion. (No Signature Object) Patient: AKHIL ARTEAGA Study Date: 07/25/2018 Page 2 of 2 11:03 AM [id number]
[2018-07-25] MEDS: CETIRIZINE 10 MG TAB PO SCH ×2 (12:38→21:20)
[2018-07-25] MEDS: fentaNYL 25 MCG PATCH TD SCH (15:07)
--- NOTE | 2018-07-25 16:02 | HOSPPROG ---
Hospitalist Progress Note Assessment/Plan: 42 year old female with pmh of mast cell activation, PE on pradaxa, admitted with chest pain, sob, thought to be PNA, found to have PE on CTA, PE- CTA done with two new clots. patient has had numerous other clots, while on xarelto and now on pradaxa. Patient followed by Dr. Lopes with hem/onc. I discussed her case with police liaison oncology Dr. Angeles who felt that holding pradaxa and starting treatment dose of lovenox is appropriate. -Cont lovenox 1mg/kg bid -Dr. Lopes police liaison tomorrow, to see. bilateral pleural effusions- CT reviewed [facility] radiology who feels that patient has new cardiomegaly and bilateral pleural effusions. Last echo about a year ago was normal, and previous CT with no cardiomegaly, patient with increased WOB -echo normal, may be due to superimposed PNA, cont cap coverage. Pneumonia- CXR reviewed and patient does have a new LLL infiltrate which could be consistent with a new developing PNA. I discussed the case with the Er physician. ECG is non ischemic, and troponin negative. given the infiltrate on CXR and the fact that she is already anticoagulated and is not hypoxic or tachycardic I think PE is less likely. labs all WNL -Rocephin/Azithro day 3 -continue home xopenex and nebs -oxygen PRN Anemia- has had progressive anemia, worsened over course of admission. No overt melenic or bloody stools. Has low MCV and history of anemia. Will check fecal occult, gi panel and H pylori. 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 Continue. will monitor on telemetry HTN- on diltiazem Addisons disease- on chronic steroids. continue cortef here. PPX- SCds, contiue home pradaxa Fluids- Patient able to take pO Lytes- WNL, monitor Nutrition- regular diet Cor- Full Dispo- inpatient for PE, Pna, anemia. Subjective: pain better today. no complaints. Objective: Vital Signs Temp Pulse Resp BP Pulse Ox 36.7 C 94 14 127/93 H 96 07/25/18 15:12 07/25/18 15:12 07/25/18 15:12 07/25/18 15:12 07/25/18 15:12 07/24/18 07/25/18 07/26/18 05:59 05:59 05:59 Intake Total 3300 500 Balance 3300 500 PT 12.4 SEC (12.0-15.0) 07/23/18 10:22 INR 0.90 (0.83-1.16) 07/23/18 10:22 - Physical Exam Constitutional: no apparent distress, appears nourished, not in pain Eyes: PERRL, anicteric sclera, EOMI Ears, Nose, Mouth, Throat: moist mucous membranes, hearing normal, ears appear normal, no oral mucosal ulcers Cardiovascular: regular rate and rhythym, no murmur, rub, or gallop Respiratory: no respiratory distress, no rales or rhonchi, clear to auscultation Gastrointestinal: normoactive bowel sounds, soft, non-tender abdomen, no palpable masses Genitourinary: no bladder fullness, no bladder tenderness, no renal bruits Skin: no rashes or abrasions, no fluctuance, no induration Musculoskeletal: full muscle strength, no muscle tenderness, normal joint ROM Neurologic: AAOx3, sensation intact bilaterally Psychiatric: interacting appropriately, not anxious, not encephalopathic, thought process linear Lymph, Heme, Immunologic: no cervical LAD, no supraclavicular LAD ICD10 Worksheet Patient Problems: Problems Problem Status Onset Pneumonia Acute Bilateral hip pain Acute Cellulitis Acute Chest pain Acute Hypokalemia Acute Mast cell activation Acute
[2018-07-26] MEDS: fentaNYL 100 MCG/2 ML INJ IVP PRN ×5 (01:48→20:05)
[2018-07-26 04:10] LABS: PLATELET COUNT 319 10^3/uL (150-400)
[2018-07-26] MEDS: LEVALBUTEROL 1.25 MG/3 ML DEYVIAL IH PRN ×3 (05:49→17:00)
[2018-07-26] MEDS: CROMOLYN SODIUM IH SCH ×4 (05:54→21:38)
[2018-07-26] MEDS: BUDESONIDE 1 MG IH SCH ×2 (06:00→17:05)
[2018-07-26] MEDS: CROMOLYN SODIUM EACHNARE SCH ×4 (06:14→20:04)
[2018-07-26] MEDS: ISOSORBIDE DINITRATE 10 MG TAB PO SCH ×3 (06:14→15:24)
[2018-07-26] MEDS: CROMOLYN SODIUM 100 MG/5 ML PO SCH ×4 (06:15→20:06)
[2018-07-26] MEDS: QUERCETIN 500 MG PO SCH ×4 (06:16→20:04)
[2018-07-26] MEDS: MONTELUKAST SODIUM 10 MG TAB PO SCH ×2 (06:16→17:41)
[2018-07-26] MEDS: RANITIDINE PO SCH ×4 (06:17→20:06)
[2018-07-26] MEDS: DILTIAZEM CD 180 MG CAP PO SCH (06:17)
[2018-07-26] MEDS: AZITHROMYCIN IV 500 MG in NS 250 ML IV SCH (08:28)
[2018-07-26] MEDS: traMADol 50 MG TAB PO PRN (08:36)
[2018-07-26] MEDS: ENOXAPARIN 80 MG/0.8 ML SYR SC SCH ×2 (08:36→20:07)
[2018-07-26] MEDS: HYDROCORTISONE 5 MG PO SCH ×3 (08:40→17:41)
[2018-07-26] MEDS: ALOCRIL EACHEYE SCH ×2 (08:42→20:05)
[2018-07-26] MEDS: HYDROXYCHLOROQUINE SULFATE 200 MG TAB PO SCH (08:44)
[2018-07-26] MEDS: Tiotropium Bromide [Spiriva Respimat] 2 INH IH SCH (08:44)
--- NOTE | 2018-07-26 09:04 | HOSPPROG ---
Hospitalist Progress Note Assessment/Plan: 42 year old female with pmh of mast cell activation, PE on pradaxa, admitted with chest pain, sob, PNA, found to have PE on CTA, PE- CTA done with two new clots. patient has had numerous other clots, while on xarelto and now on pradaxa. Patient followed by Dr. Lopes with hem/onc. I discussed her case with [employer] oncology Dr. Angeles who felt that holding pradaxa and starting treatment dose of lovenox is appropriate. -Cont lovenox 1mg/kg, hopeful for transition to another oral. -Hematology consult pending bilateral pleural effusions- CT reviewed [facility] radiology who feels that patient has new cardiomegaly and bilateral pleural effusions. could be infectious or other. Last echo about a year ago was normal, and previous CT with no cardiomegaly, patient with increased WOB -echo normal, may be due to superimposed PNA, cont cap coverage. Pneumonia- CXR reviewed and patient does have a new LLL infiltrate which could be consistent with a new developing PNA. I discussed the case with the Er physician. ECG is non ischemic, and troponin negative. -Rocephin/Azithro day 4 -continue home xopenex and nebs -oxygen PRN Anemia- has had progressive anemia, worsened over course of admission. No overt melenic or bloody stools. Has low MCV and history of anemia. Will check fecal occult, gi panel and H pylori. 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 Continue. will monitor on telemetry HTN- on diltiazem Addisons disease- on chronic steroids. continue cortef here. PPX- SCds, contiue home pradaxa Fluids- Patient able to take pO Lytes- WNL, monitor Nutrition- regular diet Cor- Full Dispo- inpatient for PE, Pna, anemia, awaiting heme consult then hopefully dc home in am. Subjective: chest pain better today, breathing better as well Objective: Vital Signs Temp Pulse Resp BP Pulse Ox 37.1 C 93 14 120/79 97 07/26/18 08:00 07/26/18 08:00 07/26/18 08:00 07/26/18 08:00 07/26/18 08:00 Laboratory Results 07/26/18 03:50 07/26/18 03:50 07/25/18 07/26/18 07/27/18 05:59 05:59 05:59 Intake Total 3300 1450 1000 Balance 3300 1450 1000 PT 12.4 SEC (12.0-15.0) 07/23/18 10:22 INR 0.90 (0.83-1.16) 07/23/18 10:22 - Physical Exam Constitutional: no apparent distress, appears nourished, not in pain Eyes: PERRL, anicteric sclera, EOMI Ears, Nose, Mouth, Throat: moist mucous membranes, hearing normal, ears appear normal, no oral mucosal ulcers Cardiovascular: regular rate and rhythym, no murmur, rub, or gallop Respiratory: no respiratory distress, no rales or rhonchi, clear to auscultation Gastrointestinal: normoactive bowel sounds, soft, non-tender abdomen, no palpable masses Genitourinary: no bladder fullness, no bladder tenderness, no renal bruits Skin: no rashes or abrasions, no fluctuance, no induration Musculoskeletal: full muscle strength, no muscle tenderness, normal joint ROM Neurologic: AAOx3, sensation intact bilaterally Psychiatric: interacting appropriately, not anxious, not encephalopathic, thought process linear Lymph, Heme, Immunologic: no cervical LAD, no supraclavicular LAD ICD10 Worksheet Patient Problems: Problems Problem Status Onset Pneumonia Acute Bilateral hip pain Acute Cellulitis Acute Chest pain Acute Hypokalemia Acute Mast cell activation Acute
[2018-07-26] MEDS: CETIRIZINE 10 MG TAB PO SCH ×2 (12:06→20:06)
[2018-07-26] MEDS: ONDANSETRON 4 MG/2 ML VIAL IVP PRN ×2 (15:39→20:05)
--- NOTE | 2018-07-26 20:50 | GCON ---
The patient is a 42-year-old female with a history of mast cell activation syndrome and recurrent thrombotic events, who was admitted with chest pain and some dyspnea. This has also been accompanied by some fevers and chills. She had a CT angiogram on 07/24, which showed small-volume left upper and left lower lobe pulmonary emboli which were new since a study from January of 2018. Cardiomegaly was also noted. There was segmental atelectasis in both lobes with small pleural effusions, left greater than right. The patient was anticoagulated with enoxaparin, and is feeling somewhat better today but still has some chest discomfort. Of note, she has had issues with recurrent thromboembolic events. Some of these have been associated with PICC lines which she needs for continue this Benadryl infusion. She has also had pulmonary embolic disease in the past. She was tried initially on warfarin but had significant difficulty regulating her INR. She was placed on Xarelto, but developed a clot in her left arm in the fall of 2016 while on this drug. Since last year, she has been on Pradaxa, and had been taking it religiously until this current event. She had a bone marrow biopsy in the fall which showed no evidence of abnormal mast cells. She has been on chronic steroid therapy and has adrenal insufficiency. ADDITIONAL DIAGNOSES: Include asthma, coronary artery vasospasm, CREST syndrome , chronic sinusitis, patent foramen ovale by history, diaphragmatic paresis, and chronic iron-deficiency anemia, as well as B12 deficiency. SURGICAL HISTORY: Includes laparoscopy, surgeries on her right wrist, right elbow, left knee and left ankle. 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 REVIEW OF SYSTEMS: Negative except as discussed above. PHYSICAL EXAMINATION: GENERAL: Alert. Appears mildly ill. VITAL SIGNS: Blood pressure 121/83. Afebrile. Not icteric. LUNGS: Clear. CARDIAC: Unremarkable. ABDOMEN: Benign. EXTREMITIES: No edema. LABORATORY: White count today is 5.32, hemoglobin 8.1, hematocrit 27.3, MCV 78.2, albumin is 3.4, calcium 8.4. IMAGING: Bilateral lower extremity ultrasounds show no evidence of clot. An echocardiogram shows a somewhat hyperkinetic ventricle with minimal regurgitation in her tricuspid and mitral valve; a small pericardial effusion is noted. In the past, she has been negative for the prothrombin gene mutation. Dilute Manjeet viper venom time has been unremarkable. Beta-2 glycoproteins and anticardiolipin antibodies have been negative. I am unclear about other testing such as Factor V Leiden, protein C, S, and antithrombin 3 levels. IMPRESSION: Patient with recurrent thromboembolic event and a long history of anticoagulation. She has failed Pradaxa and Xarelto, and has done poorly on warfarin in terms of management. The exact cause of her hypercoagulable syndrome is unclear, but is probably related to her complex disorder. I think at this time it would be best to maintain her on subcutaneous low-molecular weight heparin. I would recommend discharge when she is ready on b.i.d. injections, I think we could probably transition that after 4 weeks or so to daily enoxaparin, and I think we will probably need to continue that indefinitely. The only drug that she has not tried is Eliquis, but that is closely related to Xarelto and I am not all that confident that would be effective for her. I discussed this at length with the patient and her family. /[id number]/MODL MTDD
[2018-07-27] MEDS: fentaNYL 100 MCG/2 ML INJ IVP PRN ×3 (00:18→09:05)
[2018-07-27] MEDS: ONDANSETRON 4 MG/2 ML VIAL IVP PRN ×4 (00:18→13:06)
[2018-07-27 05:02] LABS: PLATELET COUNT 353 10^3/uL (150-400)
[2018-07-27] MEDS: CROMOLYN SODIUM IH SCH ×4 (05:58→21:57)
[2018-07-27] MEDS: BUDESONIDE 1 MG IH SCH ×2 (06:11→16:48)
[2018-07-27] MEDS: RANITIDINE PO SCH ×4 (06:11→21:32)
[2018-07-27] MEDS: DILTIAZEM CD 180 MG CAP PO SCH (06:12)
[2018-07-27] MEDS: CROMOLYN SODIUM 100 MG/5 ML PO SCH ×4 (06:12→21:35)
[2018-07-27] MEDS: CROMOLYN SODIUM EACHNARE SCH ×4 (06:17→21:33)
[2018-07-27] MEDS: MONTELUKAST SODIUM 10 MG TAB PO SCH ×2 (06:17→16:55)
[2018-07-27] MEDS: ISOSORBIDE DINITRATE 10 MG TAB PO SCH ×3 (06:17→15:52)
[2018-07-27] MEDS: HYDROXYCHLOROQUINE SULFATE 200 MG TAB PO SCH (08:22)
[2018-07-27] MEDS: ENOXAPARIN 80 MG/0.8 ML SYR SC SCH ×2 (08:28→21:42)
[2018-07-27] MEDS: QUERCETIN 500 MG PO SCH ×4 (08:34→21:35)
[2018-07-27] MEDS: HYDROCORTISONE 5 MG PO SCH ×3 (08:36→18:30)
[2018-07-27] MEDS: ALOCRIL EACHEYE SCH ×2 (08:38→21:28)
[2018-07-27] MEDS: Tiotropium Bromide [Spiriva Respimat] 2 INH IH SCH (08:42)
[2018-07-27] MEDS: AZITHROMYCIN IV 500 MG in NS 250 ML IV SCH (10:29)
[2018-07-27] MEDS: CETIRIZINE 10 MG TAB PO SCH ×2 (11:56→21:42)
--- NOTE | 2018-07-27 12:46 | SOAPPROG ---
SOAP Progress Note Assessment/Plan: Assessment: 1. mast cell activation syndrome 2. pe Plan:Continue enoxaparin, could d/c on daily dose 07/27/18 12:43 Subjective: Pain better Objective: Vital Signs Temp Pulse Resp BP Pulse Ox 98.5 F 86 18 128/87 H 96 07/27/18 11:38 07/27/18 11:38 07/27/18 11:38 07/27/18 11:49 07/27/18 11:38 Microbiology 07/26/18 23:59 Gastrointestinal Tract Panel (PCR) - Final Stool Laboratory Results 07/27/18 04:30 07/27/18 04:30 07/26/18 07/27/18 07/28/18 05:59 05:59 05:59 Intake Total 1450 1999 Balance 1450 1999 PT 12.4 SEC (12.0-15.0) 07/23/18 10:22 INR 0.90 (0.83-1.16) 07/23/18 10:22 ICD10 Worksheet Patient Problems: Problems Problem Status Onset Pneumonia Acute Bilateral hip pain Acute Cellulitis Acute Chest pain Acute Hypokalemia Acute Mast cell activation Acute
[2018-07-27] MEDS: fentaNYL 100 MCG/2 ML INJ IVP SCH ×2 (13:06→21:10)
--- NOTE | 2018-07-27 14:43 | ASMTCMCOM ---
CM Note CM Note Notes: Pts case discussed w/ Dr. English. Pt will most likely tomorrow. Updates sent to David. David is providing RN services. CM to follow. Plan: David olson/ RN services Date Signed: 07/27/2018 02:43 PM Electronically Signed By:MAGUI Fair
[2018-07-27] MEDS: traMADol 50 MG TAB PO SCH ×2 (15:55→22:57)
--- NOTE | 2018-07-27 19:04 | HOSPPROG ---
Hospitalist Progress Note Assessment/Plan: * Acute PE -failed Pradaxa and Xarelto -discharge home on Lovenox * Acute on chronic pleuritic CP -still uncontrolled - on IV Fentanyl -discussed taper IV narcotic over next 24 hours and back to home Tramadol doses * Mast cell activation syndrome -IV Benadryl pump per home regimen * Pneumonia -ceftriaxone, azithro * Anemia -recheck iron studies * Marko's -continue hydrocortisone + budesonide -has done well without need for stress dose steroids * Continuous narcotic dependency -Fentanyl patch Subjective: Chest pain has been there for 1 year since her episode of sepsis and has decreased her QOL. It got much worse with the PE. She is barely able to make it 4 hours between IV fentanyl doses. She is willing to wean off over the next 24 hours and get back on her home Tramadol. She is aware that no new narcotic will be prescribed at discharge as she follows with chronic pain clinic. Objective: Vital Signs Temp Pulse Resp BP Pulse Ox 36.7 C 92 16 119/86 H 97 07/27/18 15:33 07/27/18 15:33 07/27/18 15:33 07/27/18 15:52 07/27/18 15:33 Microbiology 07/26/18 23:59 Gastrointestinal Tract Panel (PCR) - Final Stool Laboratory Results 07/27/18 04:30 07/27/18 04:30 07/26/18 07/27/18 07/28/18 05:59 05:59 05:59 Intake Total 1450 2000 Balance 1450 2000 PT 12.4 SEC (12.0-15.0) 07/23/18 10:22 INR 0.90 (0.83-1.16) 07/23/18 10:22 - Physical Exam Constitutional: no apparent distress, appears nourished, not in pain Cardiovascular: regular rate and rhythym, no murmur, rub, or gallop Respiratory: no respiratory distress, no rales or rhonchi, clear to auscultation Gastrointestinal: normoactive bowel sounds, soft, non-tender abdomen, no palpable masses Skin: no rashes or abrasions, no fluctuance, no induration Neurologic: AAOx3, sensation intact bilaterally Psychiatric: interacting appropriately, not anxious, not encephalopathic, thought process linear ICD10 Worksheet Patient Problems: Problems Problem Status Onset Mast cell activation Acute Chest pain Acute Hypokalemia Acute Bilateral hip pain Acute Cellulitis Acute Pneumonia Acute
[2018-07-27] MEDS: CEFUROXIME AXETIL 250 MG TAB PO SCH (21:42)
[2018-07-28] MEDS ORDERED: fentaNYL 100 MCG/2 ML INJ IVP SCH (04:00)
[2018-07-28] MEDS: CROMOLYN SODIUM IH SCH ×3 (06:07→11:06)
[2018-07-28] MEDS: CROMOLYN SODIUM EACHNARE SCH (06:31)
[2018-07-28] MEDS: DILTIAZEM CD 180 MG CAP PO SCH (06:33)
[2018-07-28] MEDS: BUDESONIDE 1 MG IH SCH (06:33)
[2018-07-28] MEDS: RANITIDINE PO SCH (06:33)
[2018-07-28] MEDS: ISOSORBIDE DINITRATE 10 MG TAB PO SCH (06:34)
[2018-07-28] MEDS: CROMOLYN SODIUM 100 MG/5 ML PO SCH (06:34)
[2018-07-28] MEDS: MONTELUKAST SODIUM 10 MG TAB PO SCH (06:36)
[2018-07-28] MEDS: QUERCETIN 500 MG PO SCH (06:37)
[2018-07-28 08:03] VITALS: BP 117/78
[2018-07-28] MEDS: fentaNYL 25 MCG PATCH TD SCH (08:25)
[2018-07-28] MEDS: HYDROCORTISONE 5 MG PO SCH (08:26)
[2018-07-28] MEDS: ALOCRIL EACHEYE SCH (08:27)
[2018-07-28] MEDS: AZITHROMYCIN IV 500 MG in NS 250 ML IV SCH (08:27)
[2018-07-28] MEDS: CEFUROXIME AXETIL 250 MG TAB PO SCH (08:28)
[2018-07-28] MEDS: ENOXAPARIN 80 MG/0.8 ML SYR SC SCH (08:28)
[2018-07-28] MEDS: HYDROXYCHLOROQUINE SULFATE 200 MG TAB PO SCH (08:29)
[2018-07-28] MEDS: traMADol 50 MG TAB PO SCH (08:31)
[2018-07-28] MEDS: Tiotropium Bromide [Spiriva Respimat] 2 INH IH SCH (09:07)
--- NOTE | 2018-07-28 10:38 | PDIAF ---
- Diagnosis Diagnosis: acute PE Code Status: Full Code - Medication Management Discharge Medications: electronically signed and located in the Home Medication List. PICC Care - Routine: Yes - Orders Services needed: Home Care, Registered Nurse Home Care Face to Face: I certify that this patient was under my care and that I had the required [id number] encounter meeting the encounter requirements on the discharge day. My findings support the fact that the patient is homebound as defined in Home Care Face to Face Continued: CMS Chapter 7 Medicare Benefits Manual 30.1.1 , The condition of the patient is such that there exists a normal inability to leave home and consequently, leaving home would require a considerable and taxing effort. Isolation Type: None Diet Recommendation: no restrictions on diet - Follow Up Care Current Providers and Referrals: Caroline Diehl MD [Primary Care Provider] - As per Instructions Nolan Lopes MD [Medical Doctor] -
--- NOTE | 2018-07-28 11:37 | ASMTLACE ---
LACE Length of stay for Answers: 4-6 days current admission Acuity / Level of Answers: Yes Care: Did the patient have an inpatient admission? 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
--- NOTE | 2018-07-28 11:39 | ASMTDCNOTE ---
Case Management Discharge Discharge Order Complete? Answers: Yes Patient to Obtain Answers: Other Notes: [employer] Medications Transportation Arranged Answers: Family/Friends Faxed Final Orders Answers: Yes Agency/Facility Transfer Answers: Yes Report Printed & Faxed to Receiving Agency Discharge Comments Notes: D/w MD, final orders faxed. Naomie medley [facility] notified and will call ptLeni Hernandez's RN to do medication admisnistration. Date Signed: 07/28/2018 11:39 AM Electronically Signed By:Elsi Matute RN
--- NOTE | 2018-07-28 18:05 | GDS ---
DISCHARGE DIAGNOSES: 1. Acute pulmonary embolus due to failure of Pradaxa. 2. Acute on chronic pleuritic chest pain. 3. Mast cell activation syndrome. 4. Pneumonia. 5. Iron deficiency anemia. 6. [place] disease. 7. Continuous narcotic dependency. HISTORY: The patient is a 42-year-old female with a history of mast cell activation syndrome, with a PICC line at home for which she is administered IV Benadryl via pump. She also self administers mul tiple other IV medications under the direction of Dr. Caroline Diehl. She has multiple complications from the PICC line including sepsis and recurrent pulmonary emboli. She has previously failed Xarelt o and is now on Pradaxa but presents with worsening pleuritic chest pain despite Pradaxa therapy. CT angiogram of the chest shows left-sided pulmonary emboli. Dr. Lopes saw her from Hematology. Given her failure of oral agents she is going to discharge home on indefinite subcutaneous Lovenox therapy. This will be prescribed twice daily for [address] Lopes plans on changing her to the onc e daily dosing. The patient states she has chronic pleuritic chest pain for the last 1 year ever since her episode of sepsis. This worsened with the acute pulmonary embolus. She required multiple doses of IV fentanyl over her 1st few days of hospitalization. I was able to taper the IV fentanyl off over the last 24 h ours and she is back to her home tramadol doses. She follows with Dr. Schwartz in a chronic pain clini c so she was advised that no narcotic prescriptions will be given at the time of hospital discharge. She has close followup with Dr. Schwartz scheduled. She wants to increase her fentanyl patch but give n her chronic pain contract, I told her I was not able to change her narcotic doses at this time. She was also diagnosed with pneumonia, however my suspicion she had more of a pulmonary infarct situa tion than actual pneumonia. She got ceftriaxone, azithromycin throughout this hospitalization. On t day of discharge she has completed 5 days of therapy which I think will be sufficient considering I am not completely convinced pneumonia was truly there. DISCHARGE MEDICATIONS: Please see computer record for full detailed list. New medications: Lovenox 80 mg subcu twice daily. ADDITIONAL DISCHARGE INSTRUCTIONS: 1. Follow up with Dr. Caroline Diehl who is her project engineer and also functions as her primary care phys ician. 2. Follow up with Dr. Lopes of Hematology for Lovenox dosage adjustment in 1 month down to once zeb y dosing. 3. Greater than 30 minutes' time was spent arranging this discharge. Patient seen and examined by me on the date of discharge. /[id number]/MODL
[2018-08-02] MEDS ORDERED: CYANO/VITAMIN B12 1000 MCG/ML VIAL IM SCH (11:45)
== END 2018-07-28 11:33 | disposition home or self-care (01) | DRG 175 ==
LOC: F3N 11:55 → OBSVTOIN 07-24 15:19 → F3E 07-26 17:56
PROVIDERS: ADMIT Internal Medicine; ATTEND Internal Medicine
DX: I26.99 Other pulmonary embolism without acute cor pulmonale (principal); J18.9 Pneumonia, unspecified organism; D89.40 Mast cell activation, unspecified; D50.9 Iron deficiency anemia, unspecified; E27.1 Primary adrenocortical insufficiency; F11.20 Opioid dependence, uncomplicated; I10 Essential (primary) hypertension; Z87.891 Personal history of nicotine dependence; Z79.52 Long term (current) use of systemic steroids; Z99.81 Dependence on supplemental oxygen; Z79.01 Long term (current) use of anticoagulants; Z86.711 Personal history of pulmonary embolism; Z86.718 Personal history of other venous thrombosis and embolism
CPT/HCPCS: 84484-ER; 87338-90; 96365; 96366; 97161-GP; 97165-GO; G0378; J0456; J0696; J1200; J1650; J2405; J2997; J3010; Q9967

== ENCOUNTER → 2018-08-05 | Outpatient (CLI) | payer OTHER | LOC: FIMAGING 15:04 → EDSTATUS 15:05 | PROVIDERS: ATTEND Allergy & Immunology Allergy | DX: J98.4 Other disorders of lung (principal) ==

== ENCOUNTER → 2018-08-19 | Outpatient (CLI) | payer OTHER | LOC: FIMAGING 15:10 | PROVIDERS: ATTEND Allergy & Immunology Allergy | DX: R05 Cough (principal) ==

== ENCOUNTER 2018-08-23 12:58 | Outpatient (CLI) | payer OTHER ==
[2018-08-23] MEDS ORDERED: ACETAMINOPHEN 325 MG TAB ONE (13:17)
[2018-08-23] MEDS ORDERED: ACETAMINOPHEN 325 MG TAB PO ONE (13:30)
[2018-08-23] MEDS ORDERED: diphenhydrAMINE 25 MG CAP PO ONE (13:30)
== END 2018-08-23 16:17 | disposition home or self-care (01) ==
LOC: FOBOP 12:58
PROVIDERS: ATTEND Internal Medicine Hematology & Oncology
PROC: 30233N1 Transfusion of Nonautologous Red Blood Cells into Peripheral Vein, Percutaneous Approach (ICD-10-PCS; principal; 2018-08-23)
DX: D50.9 Iron deficiency anemia, unspecified (principal)
CPT/HCPCS: J1200; J1642; P9016

== ENCOUNTER → 2018-09-02 | Outpatient (CLI) | payer OTHER | LOC: FIMAGING 13:44 | PROVIDERS: ATTEND Allergy & Immunology Allergy | DX: J45.909 Unspecified asthma, uncomplicated (principal) ==

== ENCOUNTER 2018-09-07 15:56 | Observation (INO) | payer OTHER | END 2018-09-08 14:16 | disposition home or self-care (01) | LOC: F1N 23:29 ==

== ENCOUNTER → 2018-09-28 | Outpatient (CLI) | payer OTHER ==
[~2018-09-28] MED LIST changes: +IOPAMIDOL (ISOVUE 370) 100 ML BTL IV ONE; -IOPAMIDOL (ISOVUE-300) 100 ML BTL ONE
== END ==
LOC: FIMAGING 08:47
PROVIDERS: ATTEND Allergy & Immunology Allergy
DX: J90 Pleural effusion, not elsewhere classified (principal); R06.02 Shortness of breath
CPT/HCPCS: 71275; Q9967

== ENCOUNTER 2018-10-15 16:42 | Inpatient (IN) | payer OTHER ==
--- NOTE | 2018-10-15 17:09 | EDPHY ---
H & P Stated Complaint: DVT left leg Time Seen by Provider: 10/15/18 17:09 - Personal History LMP (Females 10-55): Post Menopausal Current Tetanus Diphtheria and Acellular Pertussis (TDAP): Yes Tetanus Vaccine Date: LAST 10 YRS - Medical/Surgical History Hx Asthma: Yes Hx Chronic Respiratory Disease: No Hx Diabetes: No Hx Cardiac Disease: Yes Hx Renal Disease: No Hx Cirrhosis: No Hx Alcoholism: No Hx HIV/AIDS: No Hx Splenectomy or Spleen Trauma: No Other PMH: medical- mast cell activation disorder/multiple allergies, Adrenal Insufficiency, Colitis, Food allergies, asthma, "small PFO" home o2, PE, DVT. surgery- appy, ortho-back/hip pain, DVT, gastroperisis. PNA PE - Social History Smoking Status: Former smoker Constitutional: Initial Vital Signs Temperature (C) 36.8 C 10/15/18 17:03 Heart Rate 92 10/15/18 17:03 Respiratory Rate 16 10/15/18 17:03 Blood Pressure 103/82 H 10/15/18 17:03 O2 Sat (%) 94 10/15/18 17:03 O2 Delivery Mode Room Air Allergies/Adverse Reactions: levofloxacin Allergy (Unknown, Verified 09/07/18 15:59) hives all over and swelling of tongue nabumetone Allergy (Unknown, Verified 09/07/18 15:59) hives all over and swelling of tongue povidone-iodine Allergy (Unknown, Verified 09/07/18 15:59) rash/hives soap Allergy (Unknown, Verified 09/07/18 15:59) Rash/hives adhesive tape Allergy (Verified 09/07/18 15:59) Hives aspirin Allergy (Verified 09/07/18 15:59) Anaphylaxis dapsone Allergy (Verified 09/07/18 15:59) severe anemia gluten Allergy (Verified 09/07/18 15:59) iron sucrose complex [From Venofer] Allergy (Verified 09/07/18 15:59) Anaphylaxis lactose Allergy (Verified 09/07/18 15:59) latex Allergy (Verified 09/07/18 15:59) Anaphylaxis peanut Allergy (Verified 09/07/18 15:59) perfume Allergy (Verified 09/07/18 15:59) throat will close up and sob soy Allergy (Verified 09/07/18 15:59) major gi issues, if in lotion she gets hives tree nut Allergy (Verified 09/07/18 15:59) iron sucrose complex Allergy (Unknown, Uncoded 07/15/18 18:01) Anaphylaxis cleaning chemicals Allergy (Uncoded 07/15/18 18:01) throat will close and sob STEROIDS Allergy (Uncoded 07/15/18 18:01) has to have benadryl first Home Medications: Medication Instructions Recorded Cetirizine [ZyrTEC 10 mg (*)] 10 mg PO DAILY@12 08/10/16 Hydrocortisone [Cortef] 5 mg PO TIDMEAL 08/10/16 Cholecalciferol Vit D3 [Vitamin D3 4,000 units PO DAILY 06/30/17 2000 units tab (OTC)] Cyanocobalamin [Vitamin B12 1,000 mcg IM Q14D 06/30/17 1000MCG/ML (*)] Montelukast Sodium [Singulair 10 10 mg PO BID@,06/30/17 mg (*)] methylPREDNISolone SOD SUCC 125 mg IM DAILY PRN 06/30/17 [Solu-Medrol 125 mg (*)] Benadryl Own Pump 15 mg IV CONT 07/02/17 Cetirizine [ZyrTEC 10 mg (*)] 20 mg PO HS 07/02/17 Cromolyn Sodium 20 mg IH QID@,1129,,07/02/17 Quercetin 500mg 500 mg PO QID@,1129,,07/02/17 Levalbuterol 1.25 mg [Xopenex 1.25 mg IH Q8H PRN 08/28/17 1.25MG Neb (*)] Levalbuterol Inhaler [Xopenex Hfa 2 puffs IH Q4H PRN 08/28/17 Inhaler (*)] Ondansetron HCl [Zofran] 4 mg IV Q6HRS PRN 08/28/17 Compounded Ranitidine Mary Grace. 5 ml PO QID@,1129,,09/02/17 Gastrocrom 200 mg PO QID@,1129,,09/02/17 Nitro Cream 1 simran TP DAILY PRN 09/02/17 Nitroglycerin [Nitrostat 0.4 mg 0.4 mg SL Q5M PRN 09/02/17 (*)] Gabapentin [Neurontin 300 MG (*)] 600 mg PO BID@07,1130 10/27/17 Isosorbide Dinitrate [Isosorbide 20 mg PO TIDNITRATE 10/27/17 Dinitrate 20 mg (*)] traMADol [Ultram 50 mg (*)] 100 mg PO TID 10/27/17 Hydroxychloroquine Sulfate 300 mg PO DAILY 02/04/18 [Plaquenil 200 mg (*)] Promethazine HCl [Phenergan 25 mg IV Q4 PRN 02/04/18 Injection] Acetaminophen [Tylenol 325mg (*)] 650 mg PO Q4HRS PRN tab 04/18/18 Cholecalciferol Vit D3 [Vitamin D3 50,000 unit PO WE 07/23/18 (*)] Cromolyn Sodium [Nasalcrom] 2 sprays EACHNARE QID@07,1130,17,21 07/23/18 Docusate Sodium [Colace Clear] 50 mg PO DAILY PRN 07/23/18 EPINEPHrine [Epipen 0.3 MG] 0.3 mg IM ONCE PRN 07/23/18 Tiotropium [place] [Spiriva 2 inh IH DAILY 07/23/18 Respimat] diphenhydrAMINE [Benadryl 25 - 50 mg IV Q4H PRN 07/23/18 Injection] Enoxaparin [Lovenox 80 MG (*)] 80 mg SC BID #60 syr 07/28/18 fentaNYL [Duragesic 25 MCG Patch 25 mcg TD Q3D 08/23/18 (*)] Alocril 2% Opth Solution 1 drop EACHEYE BID 09/07/18 Diltiazem HCl [Diltiazem 24Hr ER] 360 mg PO DAILY@07 09/07/18 Dupilumab [Dupixent] 200 mg SQ Q14D 09/07/18 Famotidine Own Pump 2 ml IV CONT 09/07/18 Gabapentin 900 mg PO HS 09/07/18 fentaNYL [Duragesic 12 MCG Patch 12 mcg TD Q3D 09/07/18 (*)] Medical Decision Making - Diagnostics Imaging Results: Imaging Impressions Extremity Venous Study 10/15/18 11:00 Impression: 1. Occlusive thrombus within a paired left popliteal vein, possibly subacute to chronic. 2. No evidence of DVT in the upper extremities. A Follow-Up Required test result has been communicated via the [employer] Critical Result system on 10/15/2018 12:34, Message ID [id number]. Extremity Venous Study 10/15/18 11:45 Impression: 1. Occlusive thrombus within a paired left popliteal vein, possibly subacute to chronic. 2. No evidence of DVT in the upper extremities. A Follow-Up Required test result has been communicated via the [employer] Critical Result system on 10/15/2018 12:34, Message ID [id number]. Imaging: I viewed and interpreted images myself ED Course/Re-evaluation: CHIEF COMPLAINT: Left lower leg swelling, DVT HISTORY OF PRESENT ILLNESS: The patient is an anticoagulated 42 y/o female with a history chronic mass cell dysfunction, recurrent DVT and PE, and chronic anticoagulation complaining of left lower leg swelling. The patient has been on Pradaxa, Xarelto, Eliquis, Coumadin, and low molecular Heparin. Currently she is taking 80mg Lovenox but still developed left lower leg swelling. Due to this swelling her oncology pharmacist/ oncologist, Dr. Shirin Lopes, ordered an US to evaluate for a DVT. The patient had bilateral US's today and was diagnosed with a left leg DVT. The patient reports that she is active and is unsure if she has an undiagnosed clotting disorder. Due to this DVT finding she was advised to present to the emergency department. No fever, headache, body aches, lightheadedness, chest pain, heart palpitations , shortness of breath, cough, abdominal pain, urinary or bowel complaints, numbness, paresthesias. REVIEW OF SYSTEMS: A comprehensive 10 system review of systems is otherwise negative aside from elements mentioned in the history of present illness and medical decision making. PHYSICAL EXAM: HR, BP, O2 Sat, RR. Temp noted General Appearance: Alert, well hydrated, appropriate, and non-toxic appearing. Head: Atraumatic without scalp tenderness or obvious injury Eyes: Pupils equal, round, reactive to light and accommodation, EOMI, no trauma , no injection. Ears: Clear bilaterally, no perforation, normal landmarks Nose: Atraumatic, no rhinorrhea, clear. Throat: There is no erythema or exudates, no lesions, normal tonsils, mucus membranes moist. Neck: Supple, 2+ carotid upstroke, nontender, no lymphadenopathy. Respiratory: No retractions, no distress, no wheezes, and no accessory muscle use. Lungs are clear to auscultation bilaterally. Cardiovascular: Regular rate and rhythm, no murmurs, rubs, or gallops. Bilateral carotid, radial, dorsalis pedis, and posterior tibial pulses intact. Good capillary refill all extremities. Gastrointestinal: Abdomen is soft, nontender, non-distended, no masses, no rebound, no guarding, no peritoneal signs. Musculoskeletal: Left lower extremity swelling. Normal active ROM of all extremities, atraumatic. Neurological: Alert, appropriate, and interactive. The patient has normal DTRs and non-focal cranial nerves, motor, sensory, and cerebellar exam. Skin: No rashes, good turgor, no nodules on palpation. Past medical and surgical history: Chronic mass cell dysfunction. Recurrent DVT PE. Chronic anticoagulation. Appendectomy. Home oxygen. Adrenal insufficiency. Gastroparesis. Family history: Denies Social history: Father at bedside, lives in [place], [facility] DIAGNOSTICS/PROCEDURES/CRITICAL CARE TIME: Bilateral lower extremity US: Occlusive thrombus within a paired left popliteal vein, possibly subacute to chronic. DIFFERENTIAL DIAGNOSIS: The differential diagnosis for the patient's leg swelling included but was not limited to hypoalbuminemia, congestive heart failure, cor pulmonale, venous stasis, trauma, and DVT. MEDICAL DECISION MAKING: The patient is an anticoagulated 42 y/o female with a history chronic mass cell dysfunction, recurrent DVT and PE, and chronic anticoagulation presenting with left lower leg swelling and a DVT. The patient has been on Pradaxa, Xarelto, Eliquis, Coumadin, and low molecular Heparin. Currently she is taking 80mg Lovenox but still developed left lower leg swelling and the DVT. She is followed by a oncology pharmacist/oncologist, Dr. Shirin Lopes. The patient reports that she is active and is unsure if she has an undiagnosed clotting disorder. On exam she has a swollen left lower extremity. Patient's bilateral lower extremity US reveals an occlusive thrombus within a paired left popliteal vein, possibly subacute to chronic. As this DVT may be subacute it may be a resolving DVT. I will page the oncology pharmacist/oncologist to consult on this patient. 1729: I consulted with Dr. Guerra, oncology pharmacist/oncologist, regarding this patient. She will consult with another hem/onc to determine the best treatment for this patient. 174: Reassessed patient and discussed my consultation with Dr. Guerra. 1814: I consulted with Dr. Guerra and Dr. Lopes, patient will need to be switched to unfractionated IV Heparin and admitted. Hem/Onc will consult on this patient tomorrow. IV Heparin administered per protocol. 1818: Reassessed patient and discussed plan for admission and IV Heparin. Patient is comfortable with this plan. 1841: I consulted with the hospitalist service, Dr. Bo accepts admission of this patient. Departure - Departure Disposition: [facility] Inpatient Acute Clinical Impression: Chronic anticoagulation DVT (deep venous thrombosis) Qualifiers: DVT location: lower extremity Affected thrombotic vein of extremity: popliteal Chronicity: unspecified Laterality: left Qualified Code(s): I82.432 - Acute embolism and thrombosis of left popliteal vein Condition: Fair Referrals: Caroline Diehl MD [Primary Care Provider] - As per Instructions Report Scribed for: Duong Hewitt Report Scribed by: Cande Razo Date of Report: 10/15/18 Time of Report: 17:11
[2018-10-15] MEDS ORDERED: HEPARIN/DEXTROSE 500 ML IV ONE (18:17)
[2018-10-15] MEDS ORDERED: HEPARIN 10,000 UNIT/10 ML MDV (1,000 UNIT/ML) IVP ONE (18:17)
[2018-10-15] MEDS ORDERED: ONDANSETRON DISINTEGRATING 4 MG TAB PO PRN (19:18)
[2018-10-15] MEDS ORDERED: ACETAMINOPHEN 325 MG TAB PO PRN (19:18)
[2018-10-15] MEDS ORDERED: HEPARIN 10,000 UNIT/10 ML MDV (1,000 UNIT/ML) IVP PRN (19:19)
[2018-10-15] MEDS ORDERED: HEPARIN/DEXTROSE 500 ML IV SCH (19:30)
--- NOTE | 2018-10-15 20:09 | PDGENHP ---
History and Physical - Chief Complaint LLE swelling - History of Present Illness Moni Campoverde is a 42 yo F with a PMHx of Mast cell activation syndrome, adrenal insufficiency, recurrent PE/DVTs currently on Lovenox who presents to [facility] for LLE swelling. She was seen by her land leveler, Dr. Lopes, who found LLE DVT on US. She has been on multiple anticoagulants in the past including Pradaxa, Eliquis, Xarelto, Coumadin, and most recently Lovenox. She reports good compliance with these medications. She denies chest pain, d/c, f/c, dysuria, palpitations. She does report some non-productive cough for which she was diagnosed with bronchitis and is currently taking Azithromycin. History Information - Allergies/Home Medication List Allergies/Adverse Reactions: levofloxacin Allergy (Unknown, Verified 09/07/18 15:59) hives all over and swelling of tongue nabumetone Allergy (Unknown, Verified 09/07/18 15:59) hives all over and swelling of tongue povidone-iodine Allergy (Unknown, Verified 09/07/18 15:59) rash/hives soap Allergy (Unknown, Verified 09/07/18 15:59) Rash/hives adhesive tape Allergy (Verified 09/07/18 15:59) Hives aspirin Allergy (Verified 09/07/18 15:59) Anaphylaxis dapsone Allergy (Verified 09/07/18 15:59) severe anemia gluten Allergy (Verified 09/07/18 15:59) iron sucrose complex [From Venofer] Allergy (Verified 09/07/18 15:59) Anaphylaxis lactose Allergy (Verified 09/07/18 15:59) latex Allergy (Verified 09/07/18 15:59) Anaphylaxis peanut Allergy (Verified 09/07/18 15:59) perfume Allergy (Verified 09/07/18 15:59) throat will close up and sob soy Allergy (Verified 09/07/18 15:59) major gi issues, if in lotion she gets hives tree nut Allergy (Verified 09/07/18 15:59) iron sucrose complex Allergy (Unknown, Uncoded 07/15/18 18:01) Anaphylaxis cleaning chemicals Allergy (Uncoded 07/15/18 18:01) throat will close and sob STEROIDS Allergy (Uncoded 07/15/18 18:01) has to have benadryl first Home Medications: Cetirizine [ZyrTEC 10 mg (*)] 10 mg PO DAILY@12 08/10/16 [Last Taken 10/15/18] Hydrocortisone [Cortef] 5 mg PO TIDMEAL 08/10/16 [Last Taken 10/15/18] Cholecalciferol Vit D3 [Vitamin D3 2000 units tab (OTC)] 4,000 units PO DAILY [Last Taken 10/15/18] Cyanocobalamin [Vitamin B12 1000MCG/ML (*)] 1,000 mcg IM Q14D 06/30/17 [Last Taken 10/01/18] Montelukast Sodium [Singulair 10 mg (*)] 10 mg PO BID@06/30/17 [Last Taken 10/15/18] methylPREDNISolone SOD SUCC [Solu-Medrol 125 mg (*)] 125 mg IM DAILY PRN [Last Taken 08/09/18] Benadryl Own Pump 15 mg IV CONT 07/02/17 [Last Taken 10/15/18] Cetirizine [ZyrTEC 10 mg (*)] 20 mg PO HS 07/02/17 [Last Taken 10/14/18] Cromolyn Sodium 20 mg IH QID@,1129,,07/02/17 [Last Taken 10/15/18] Quercetin 500mg 500 mg PO QID@,1129,,07/02/17 [Last Taken 10/15/18] Levalbuterol 1.25 mg [Xopenex 1.25MG Neb (*)] 1.25 mg IH Q8H PRN 08/28/17 [Last Taken 09/07/18] Levalbuterol Inhaler [Xopenex Hfa Inhaler (*)] 2 puffs IH Q4H PRN 08/28/17 [ Last Taken 09/07/18] Ondansetron HCl [Zofran] 4 mg IV Q6HRS PRN 08/28/17 [Last Taken 09/07/18] Compounded Ranitidine Mary Grace. 5 ml PO QID@,1129,,09/02/17 [Last Taken ] Gastrocrom 200 mg PO QID@,1129,,09/02/17 [Last Taken 10/15/18] Nitro Cream 1 simran TP DAILY PRN 09/02/17 [Last Taken 08/23/18] Nitroglycerin [Nitrostat 0.4 mg (*)] 0.4 mg SL Q5M PRN 09/02/17 [Last Taken 11/05] Isosorbide Dinitrate [Isosorbide Dinitrate 20 mg (*)] 20 mg PO TIDNITRATE [Last Taken 10/15/18] traMADol [Ultram 50 mg (*)] 150 mg PO TID 10/27/17 [Last Taken 09/06/18] Hydroxychloroquine Sulfate [Plaquenil 200 mg (*)] 300 mg PO DAILY 02/04/18 [ Last Taken 10/15/18] Promethazine HCl [Phenergan Injection] 25 mg IV Q4 PRN 02/04/18 [Last Taken ] Cholecalciferol Vit D3 [Vitamin D3 (*)] 50,000 unit PO FR 07/23/18 [Last Taken 10/15/18] Cromolyn Sodium [Nasalcrom] 2 sprays EACHNARE QID@07,1130,,07/23/18 [Last Taken 10/15/18] Docusate Sodium [Colace Clear] 50 mg PO DAILY PRN 07/23/18 [Last Taken 09/05/18] EPINEPHrine [Epipen 0.3 MG] 0.3 mg IM ONCE PRN 07/23/18 [Last Taken 07/05/18] Tiotropium [place] [Spiriva Respimat] 2 inh IH DAILY 07/23/18 [Last Taken ] diphenhydrAMINE [Benadryl Injection] 25 - 50 mg IV Q4H PRN 07/23/18 [Last Taken 10/14/18] fentaNYL [Duragesic 25 MCG Patch (*)] 25 mcg TD Q3D 08/23/18 [Last Taken ] Alocril 2% Opth Solution 1 drop EACHEYE BID 09/07/18 [Last Taken 10/15/18] Diltiazem HCl [Diltiazem 24Hr ER] 360 mg PO DAILY@07 09/07/18 [Last Taken ] Dupilumab [Dupixent] 200 mg SQ Q14D 09/07/18 [Last Taken 10/02/18] Famotidine Own Pump 2 ml IV CONT 09/07/18 [Last Taken 09/07/18] Gabapentin 900 mg PO TID 09/07/18 [Last Taken 10/15/18] fentaNYL [Duragesic 12 MCG Patch (*)] 12 mcg TD Q3D 09/07/18 [Last Taken ] Alteplase [Cathflo Activase 2 mg (*)] 2 mg IV DAILY PRN 10/15/18 [Last Taken ] I have personally reviewed and updated: family history, medical history, social history, surgical history - Past Medical History DVT, hypertension Additional medical history: mast cell activation syndrome with chronic benadryl pump, adrenal insufficiency on chronic steroid therapy, asthma severe persistent , coronary artery vasospasm, CREAST, hx PE/DVTs on chronic anticoagulation with lovenox, chronic sinusitis, PFO, diaphragm paresis, chronic iron deficiency anemia, b12 deficiency, vocal cord dysfunction - Surgical History Additional surgical history: PICC/PORT, appy, laporoscopy for ovairian cysts with findings of endometriosis, right wrist, right elbow, left heel, left ankle rconstruction - Family History Additional family history: sister - Gestational DM,thyroid dysfunction. no fhx mast cell dysfunction, autoimmune disease or CAD - Social History Smoking Status: Former smoker Additional social history: patient is disabled. COR - FULL. father Yogesh Campoverde is MDPOA. Review of Systems Review of Systems: ROS: 10pt was reviewed & negative except for what was stated in HPI & below Physical Exam Physical Exam: Temp Pulse Resp BP Pulse Ox 36.8 C 92 16 137/95 H 96 10/15/18 17:03 10/15/18 19:19 10/15/18 19:19 10/15/18 19:19 10/15/18 19:19 Constitutional: no apparent distress Eyes: PERRL Ears, Nose, Mouth, Throat: moist mucous membranes Cardiovascular: regular rate and rhythym Respiratory: no respiratory distress Gastrointestinal: soft, non-tender abdomen Skin: warm, No erythema Neurologic: AAOx3 Psychiatric: interacting appropriately Assessment & Plan Assessment: DVT (deep venous thrombosis) (Acute) - Presenting with LLE swelling, LLE U/S showing DVT in popliteal vein, subacute vs. chronic - ED consulted hematology on admission, Dr. Guerra due to extensive hx of DVT/PE , has been on multiple AC medications, most recently Lovenox - Per hematology, they recommend starting Heparin gtt overnight, will consult on patient in the AM to decide on further evaluation and management Recent URI - Reports improvement but continued non-productive cough - Currently on Azithromycin 250 mg qd, will continue for now - Nebs and antitussives PRN Mast Cell Activation - Continue home medications upon med rec Adrenal Insufficiency - Continue home medications upon med rec HTN - Continue home medications upon med rec FEN: IVF PRN, Regular DVT PPx: Heparin gtt Code: FULL Dispo: Admit to Observation
[2018-10-15] MEDS ORDERED: NITROGLYCERIN 0.4 MG BTL SL PRN (20:13)
[2018-10-15] MEDS ORDERED: ALTEPLASE 2 MG VIAL IV PRN (20:13)
[2018-10-15] MEDS ORDERED: LEVALBUTEROL INHALER 200 PUFFS/15 GM MDI IH PRN (20:13)
[2018-10-15] MEDS ORDERED: methylPREDNISolone SOD SUCC 125 MG/2 ML VIAL IM PRN (20:13)
[2018-10-15] MEDS ORDERED: FAMOTIDINE IV SCH (20:15)
[2018-10-15] MEDS ORDERED: [UNRECOGNIZED DRUG - OTHER] IV SCH (20:15)
[2018-10-15] MEDS ORDERED: EPINEPHrine 1 MG/ML INJ IM PRN (21:00)
[2018-10-15] MEDS ORDERED: NITROGLYCERIN 2% TP PRN (21:02)
[2018-10-15] MEDS ORDERED: ONDANSETRON 4 MG/2 ML VIAL IVP PRN (21:04)
[2018-10-15] MEDS ORDERED: DOCUSATE SODIUM 50 MG PO PRN (21:05)
[2018-10-15] MEDS ORDERED: fentaNYL 100 MCG/2 ML INJ IVP ONE (21:18)
[2018-10-15] MEDS: GABAPENTIN 300 MG CAP PO SCH ×2 (21:53→23:54)
[2018-10-15] MEDS: traMADol 50 MG TAB PO SCH (21:54)
[2018-10-15] MEDS: CETIRIZINE 10 MG TAB PO SCH (21:54)
[2018-10-15 22:08] LABS: PLATELET COUNT 315 10^3/uL (150-400)
[2018-10-15 22:15] LABS: PROTIME(PATIENT) 13.8 SEC (12.0-15.0)
[2018-10-15] MEDS: PROMETHAZINE HCL 25 MG/ML INJ IV PRN (23:27)
[2018-10-15] MEDS: ONDANSETRON 4 MG/2 ML VIAL IVP PRN (23:27)
[2018-10-15] MEDS: CROMOLYN SODIUM 20 MG/2 ML IH SCH (23:40)
[2018-10-15] MEDS: OPTH EACHEYE SCH (23:40)
[2018-10-15] MEDS: CROMOLYN EACHNARE SCH (23:40)
[2018-10-15] MEDS: ALOCRIL EACHEYE SCH (23:40)
[2018-10-15] MEDS: CROMOLYN PO SCH (23:41)
[2018-10-15] MEDS: GABAPENTIN 600 MG PO SCH (23:43)
[2018-10-15] MEDS: QUERCETIN 500 MG PO SCH (23:44)
[2018-10-15] MEDS: RANITIDINE PO SCH (23:45)
[2018-10-16] MEDS: PROMETHAZINE HCL 25 MG/ML INJ IV PRN ×4 (03:31→22:41)
[2018-10-16] MEDS: CROMOLYN SODIUM 20 MG/2 ML IH SCH ×4 (05:19→20:26)
[2018-10-16] MEDS: LEVALBUTEROL 1.25 MG/3 ML DEYVIAL IH PRN ×3 (05:39→20:27)
[2018-10-16 06:33] LABS: PLATELET COUNT 287 10^3/uL (150-400)
[2018-10-16] MEDS: DILTIAZEM 360 MG PO SCH (06:40)
[2018-10-16] MEDS: QUERCETIN 500 MG PO SCH ×4 (06:40→21:47)
[2018-10-16] MEDS: CROMOLYN EACHNARE SCH ×4 (06:41→21:44)
[2018-10-16] MEDS: CROMOLYN PO SCH ×4 (06:42→21:45)
[2018-10-16] MEDS: RANITIDINE PO SCH ×4 (06:44→22:39)
[2018-10-16] MEDS: ONDANSETRON 4 MG/2 ML VIAL IVP PRN ×4 (06:44→22:42)
[2018-10-16] MEDS ORDERED: MONTELUKAST SODIUM 10 MG TAB PO SCH (07:00)
[2018-10-16] MEDS ORDERED: DILTIAZEM CD 180 MG CAP PO SCH (07:00)
[2018-10-16] MEDS ORDERED: ISOSORBIDE DINITRATE 20 MG TAB PO SCH (07:00)
[2018-10-16] MEDS ORDERED: HYDROCORTISONE 10 MG TAB PO SCH (08:00)
[2018-10-16] MEDS ORDERED: CYANO/VITAMIN B12 1000 MCG/ML VIAL IM SCH (09:00)
[2018-10-16] MEDS ORDERED: fentaNYL 12 MCG PATCH TD SCH (09:00)
[2018-10-16] MEDS ORDERED: ISOSORBIDE MONONITRATE 30 MG TAB.SR PO SCH (09:00)
[2018-10-16] MEDS ORDERED: TIOTROPIUM IH SCH (09:00)
[2018-10-16] MEDS ORDERED: fentaNYL 25 MCG PATCH TD SCH (09:00)
[2018-10-16] MEDS: traMADol 50 MG TAB PO SCH ×3 (09:12→21:40)
[2018-10-16] MEDS: ALOCRIL EACHEYE SCH ×2 (09:13→21:43)
[2018-10-16] MEDS: AZITHROMYCIN 250 MG TAB PO SCH (09:13)
[2018-10-16] MEDS: CHOLECALCIFEROL VIT D3 2,000 UNITS TAB/CAP PO SCH (09:13)
[2018-10-16] MEDS: OPTH EACHEYE SCH ×2 (09:13→21:43)
[2018-10-16] MEDS: TIOTROPIUM BROMIDE IH SCH (09:14)
[2018-10-16] MEDS: HYDROXYCHLOROQUINE SULFATE 200 MG TAB PO SCH (09:14)
[2018-10-16] MEDS: ISOSORBIDE MONONITRATE 30 MG TAB.SR PO SCH (09:15)
[2018-10-16] MEDS: GABAPENTIN 600 MG PO SCH ×3 (09:18→21:46)
[2018-10-16] MEDS: CETIRIZINE 10 MG TAB PO SCH ×2 (11:51→21:40)
--- NOTE | 2018-10-16 12:10 | ASMTCMCOM ---
CM Note CM Note Notes: Plan of care reviewed in rounds this am. 42 year old female with history of numerous admissions for chronic health issues admitted via oncologist with c/o LLE swelling. History significant for PE and DVT. She is here for concern of possible development of new DVT. She is disabled and has caretakers in her home. No current needs identified CM to follow for needs. Plan: Likely return home with caregivers when medically cleared for discharge. Date Signed: 10/16/2018 12:09 PM Electronically Signed By:Kristina Scott RN
[2018-10-16] MEDS: HYDROCORTISONE 10 MG TAB PO SCH ×2 (13:00→18:01)
--- NOTE | 2018-10-16 15:00 | HOSPPROG ---
Hospitalist Progress Note Assessment/Plan: #Acute vs chronic LLE DVT -per Radiology review today, the clot appears chronic. The pt has duplicate popliteal veins and the vein that is clotted may have not been visualized during the last ultrasound. -for now cont with Heparin. Tomorrow, the ultrasound will be repeated for comparison. If it looks unchanged, she can go back on Lovenox. It is unclear why her Lovenox dose is low. Would increase dosing to Lovenox 100mg BID. Would also track Anti factor Xa levels. -Further complicating the clinical picture is the possibility of non compliance or poor compliance. She has failed multiple AC regimens which is concerning. She may benefit from once daily dosing of any medication, including Lovenox, but as for Lovenox this may not be the best AC strategy if she very hypercoagulable. I discussed this with Oncology today. They are also looking at other options including Arixtra. #Mast Cell Activation Syndrome: home meds #Adrenal Insufficiency: home meds #Bronchitis: cont Azithromycin, was started before hospitalization #hx of Asha #pedal edema -she had an echo on jul 2018 which was unremarkable dispo: change to inpatient Subjective: no cp or sob. no n/v. Objective: Vital Signs Temp Pulse Resp BP Pulse Ox 36.5 C 94 17 110/78 97 10/16/18 11:37 10/16/18 11:37 10/16/18 11:37 10/16/18 11:37 10/16/18 11:37 Laboratory Results 10/16/18 06:26 10/16/18 06:26 10/15/18 10/16/18 10/17/18 05:59 05:59 05:59 Intake Total 200 Balance 200 PT 13.8 SEC (12.0-15.0) 10/15/18 22:00 INR 1.10 (0.83-1.16) 10/15/18 22:00 - Physical Exam Constitutional: no apparent distress Eyes: PERRL, EOMI Ears, Nose, Mouth, Throat: moist mucous membranes, hearing normal Cardiovascular: regular rate and rhythym, no murmur, rub, or gallop, systolic murmur Respiratory: no respiratory distress, rhonchi Gastrointestinal: normoactive bowel sounds, soft, non-tender abdomen Skin: warm Neurologic: AAOx3 Psychiatric: interacting appropriately, not anxious, not encephalopathic Lymph, Heme, Immunologic: No petechiae ICD10 Worksheet Patient Problems: Problems Problem Status Onset Chronic anticoagulation Acute DVT (deep venous thrombosis) Acute Bilateral hip pain Acute Cellulitis Acute Chest pain Acute Hypokalemia Acute Intractable nausea and vomiting Acute Mast cell activation Acute Mast cell activation syndrome Acute Pneumonia Acute
--- NOTE | 2018-10-16 15:11 | BCON ---
[f rep st] [facility] CONSULTATION HEMATOLOGY ONCOLOGY CONSULTATION. REASON FOR CONSULTATION: History of multiple thromboembolic events and mast cell activation syndrome admitted with questionable new DVT. 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 The patient has a history of multiple thromboembolic events including PE and subclavian line associated DVT. She previously was on Warfarin but had difficulty maintaining a therapeutic INR. While on Xarelto, she developed a clot in the left arm associated with a PICC line. She was on Pradaxa until July of 2018 when she presented with bilateral small volume left upper and left lower lobe pulmonary emboli. At that time, she was started on Lovenox at 80 mg subcu. q.12 hours. The underlying cause of the recurrent thromboembolic disease is unclear but likely somehow related to the mast cell activation syndrome. She had a bone marrow biopsy in the fall of 2017 that shows no evidence of abnormal mast cells. She is followed closely by Dr. Caroline Diehl at the [facility]. The patient states that she has chronic pain really throughout her body. She states that Dr. Diehl had spoke to her on the telephone a few days ago and recommended an ultrasound just to confirm that she has not had any recurrent events while on the Lovenox. She states that she has been having some "puffiness" in her left lower leg. She has some tenderness that she points toward the lower aspect of the calf and the Achilles tendon. She has not had any pain behind the knee or any worsening shortness of breath or cough. PAST MEDICAL HISTORY: Mast cell activation syndrome as per HPI, pulmonary emboli, deep venous thrombosis, asthma, coronary artery vasospasm, CREST syndrome, chronic sinusitis, patent foramen ovale, diaphragmatic paresis, chronic iron deficiency and B12 deficiency. PAST SURGICAL HISTORY: Laparoscopy, surgeries on the right wrist, right elbow, left knee and left ankle. 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 REVIEW OF SYSTEMS: Ten point review of systems is negative other than HPI. PHYSICAL EXAMINATION: GENERAL: She is comfortable-appearing in bed in no acute distress. VITAL SIGNS: Stable. HEENT: Pupils are equal. Sclerae anicteric. Oropharynx clear. LUNGS: Clear to auscultation on the right with decreased breath sounds at the left base. HEART: Regular rate. ABDOMEN: Soft , nontender. EXTREMITIES: Minimal trace edema at the left ankle, slightly asymmetric compared to the right. No cords, no tenderness in the popliteal fossa. LABORATORY DATA: White blood cell count 4.9, hematocrit 30.2, platelets 287. Basic metabolic panel is unremarkable. Lower extremity ultrasound yesterday describes occlusive thrombus within a paired left popliteal vein possibly subacute to chronic, no evidence of DVT in the upper extremities. The right lower extremity was negative. IMPRESSION: This is a 42-year-old female with a complicated medical history including mast cell activation syndrome and multiple thromboembolic events occurring while anticoagulated. The patient had pulmonary emboli diagnosed in July and was placed on Lovenox 80 mg subcu. q.12 hours. She states that she has been compliant with this regimen. On reviewing the ultrasound from yesterday with Dr. Graves, she appears to have paired popliteal veins with a very short segment 2 cm or so of thrombus in 1 of the popliteal veins. It has more of a chronic appearance on ultrasound and could have been missed on a prior ultrasound. It is not clear that this is in fact a new acute event on Lovenox. In addition, the patient is reportedly on 80 mg subcu. b.i.d. of Lovenox and given her weight today of 97 kg, a dose of 100 mg q.12 hours may be more therapeutic. The patient has been on IV heparin overnight. She has really not noted any change in any discomfort or "puffiness" in the left leg. I am recommending that she stay on this overnight and we can recheck an ultrasound tomorrow morning. If this short segment of thrombus is stable in the paired popliteal vein, I would recommend transitioning to Lovenox 100 mg q.12 hours. I would then recommend that she have a short term followup ultrasound possibly later this week or 10 days later. In addition, we could follow anti- Xa levels as an outpatient to assure that this is therapeutic dosing. At this time, it is not clear that she has failed Lovenox and since options for further anticoagulation are somewhat limited, my recommendation is as outlined above. Another option in the event that we are convinced that she is failing therapeutic Lovenox would be Arixtra. This was explained to the patient and her family and all of their questions were answered. /[id number]/MODL MTDD
[2018-10-16] MEDS: MONTELUKAST SODIUM 10 MG TAB PO SCH (16:50)
[2018-10-17] MEDS: ONDANSETRON 4 MG/2 ML VIAL IVP PRN ×5 (05:03→21:13)
[2018-10-17] MEDS: PROMETHAZINE HCL 25 MG/ML INJ IV PRN ×5 (05:03→21:12)
[2018-10-17] MEDS: CROMOLYN SODIUM 20 MG/2 ML IH SCH ×4 (05:07→21:41)
[2018-10-17] MEDS: LEVALBUTEROL 1.25 MG/3 ML DEYVIAL IH PRN ×3 (05:08→21:42)
[2018-10-17] MEDS: CROMOLYN EACHNARE SCH ×4 (09:07→22:13)
[2018-10-17] MEDS: DILTIAZEM 360 MG PO SCH (09:07)
[2018-10-17] MEDS: CROMOLYN PO SCH ×4 (09:08→20:59)
[2018-10-17] MEDS: MONTELUKAST SODIUM 10 MG TAB PO SCH ×2 (09:09→16:59)
[2018-10-17] MEDS: QUERCETIN 500 MG PO SCH ×4 (09:10→21:03)
[2018-10-17] MEDS: HYDROCORTISONE 10 MG TAB PO SCH ×3 (09:10→16:59)
[2018-10-17] MEDS: ALOCRIL EACHEYE SCH ×2 (09:11→20:57)
[2018-10-17] MEDS: OPTH EACHEYE SCH ×2 (09:11→20:57)
[2018-10-17] MEDS: AZITHROMYCIN 250 MG TAB PO SCH (09:12)
[2018-10-17] MEDS: GABAPENTIN 600 MG PO SCH ×3 (09:12→21:03)
[2018-10-17] MEDS: CHOLECALCIFEROL VIT D3 2,000 UNITS TAB/CAP PO SCH (09:12)
[2018-10-17] MEDS: HYDROXYCHLOROQUINE SULFATE 200 MG TAB PO SCH (09:13)
[2018-10-17] MEDS: ISOSORBIDE MONONITRATE 30 MG TAB.SR PO SCH (09:14)
[2018-10-17] MEDS: traMADol 50 MG TAB PO SCH ×3 (09:14→22:12)
[2018-10-17] MEDS: TIOTROPIUM BROMIDE IH SCH (09:15)
[2018-10-17] MEDS: RANITIDINE PO SCH ×4 (09:19→21:15)
--- NOTE | 2018-10-17 10:38 | PDMN ---
Medical Necessity Medical necessity: Pt meets IP criteria as of 10/16/2018 per and MCG M-350 ( DVT of lower extremities); los > 2 mn for ongoing tx and management of acute vs chronic LLE DVT in a pt on OP AC; requiring heparin gtt and serial ultrasounds; hx mast cell activation syndrome, adrenal insufficiency, bronchitis, and asthma.
[2018-10-17] MEDS: CETIRIZINE 10 MG TAB PO SCH ×2 (12:10→20:57)
--- NOTE | 2018-10-17 13:41 | HOSPPROG ---
Hospitalist Progress Note Assessment/Plan: #Acute vs chronic LLE DVT -per Radiology review, the clot appears chronic. The pt has duplicate popliteal veins and the vein that is clotted may have not been visualized during the last ultrasound. -Repeat U/S performed this morning showing stable LLE DVT -Discussed with Dr. Guerra, Oncology this AM, recommending increase dosing to Lovenox 100mg BID (was on 80 mg BID, pt weighs ~100 kg, unsure why on subtherapeutic dosing) #Mast Cell Activation Syndrome: home meds #Adrenal Insufficiency: home meds #Bronchitis: cont Azithromycin, was started before hospitalization #hx of Ashtma #pedal edema -she had an echo on jul 2018 which was unremarkable Dispo: Pending clinical course, likely d/c tomorrow if tolerates increased dose of Lovenox Subjective: Pt reporting some pain in LLE, doing well otherwise Objective: Vital Signs Temp Pulse Resp BP Pulse Ox 36.4 C 83 18 115/80 98 10/17/18 05:01 10/17/18 11:34 10/17/18 11:34 10/17/18 09:14 10/17/18 11:34 10/16/18 10/17/18 10/18/18 05:59 05:59 05:59 Intake Total 1668 250 Output Total 6 Balance 1662 250 PT 13.8 SEC (12.0-15.0) 10/15/18 22:00 INR 1.10 (0.83-1.16) 10/15/18 22:00 - Physical Exam Constitutional: no apparent distress Eyes: PERRL Ears, Nose, Mouth, Throat: moist mucous membranes Cardiovascular: regular rate and rhythym, edema Respiratory: no respiratory distress Gastrointestinal: soft, non-tender abdomen Skin: warm Musculoskeletal: full muscle strength Neurologic: AAOx3 Psychiatric: interacting appropriately ICD10 Worksheet Patient Problems: Problems Problem Status Onset Chronic anticoagulation Acute DVT (deep venous thrombosis) Acute Bilateral hip pain Acute Cellulitis Acute Chest pain Acute Hypokalemia Acute Intractable nausea and vomiting Acute Mast cell activation Acute Mast cell activation syndrome Acute Pneumonia Acute
--- NOTE | 2018-10-17 14:56 | SOAPPROG ---
[facility] Progress Note Assessment/Plan: Assessment: 1. Short segment thrombus in duplicated popliteal vein-unclear of time course, but appearance more chronic in nature. Repeat ultrasound today without change. Not at all clear that this developed on therapeutic lovenox. 2. Mast cell activation syndrome Plan: 1. Transition IV heparin to Therapeutic lovenox. Patient weighs 97 kg, therefore would dose at 100 mg Q12 hours (previously on 80 mg Q12). 2. consider short term follow up ultrasound as an outpatient. 3. consider outpatient measurements of anti-Xa levels at addie to assure therapeutic dosing 10/17/18 14:50 Subjective: didn't sleep well, no new worrisome symptoms for thromboembolic or bleeding events Objective: Vital Signs Temp Pulse Resp BP Pulse Ox 36.4 C 83 18 115/80 98 10/17/18 05:01 10/17/18 11:34 10/17/18 11:34 10/17/18 09:14 10/17/18 11:34 10/16/18 10/17/18 10/18/18 05:59 05:59 05:59 Intake Total 1668 250 Output Total 6 Balance 1662 250 PT 13.8 SEC (12.0-15.0) 10/15/18 22:00 INR 1.10 (0.83-1.16) 10/15/18 22:00 Physical Exam - Physical Exam General Appearance: alert Abdomen: soft ICD10 Worksheet Patient Problems: Problems Problem Status Onset Chronic anticoagulation Acute DVT (deep venous thrombosis) Acute Bilateral hip pain Acute Cellulitis Acute Chest pain Acute Hypokalemia Acute Intractable nausea and vomiting Acute Mast cell activation Acute Mast cell activation syndrome Acute Pneumonia Acute
[2018-10-17] MEDS: ENOXAPARIN 100 MG/ML SYR SC SCH (21:04)
[2018-10-18] MEDS: CROMOLYN SODIUM 20 MG/2 ML IH SCH ×2 (05:10→10:54)
[2018-10-18] MEDS: LEVALBUTEROL 1.25 MG/3 ML DEYVIAL IH PRN (05:11)
[2018-10-18] MEDS: RANITIDINE PO SCH (05:57)
[2018-10-18] MEDS: CROMOLYN EACHNARE SCH (05:59)
[2018-10-18] MEDS: CROMOLYN PO SCH (06:00)
[2018-10-18] MEDS: MONTELUKAST SODIUM 10 MG TAB PO SCH (06:00)
[2018-10-18] MEDS: QUERCETIN 500 MG PO SCH (06:02)
[2018-10-18] MEDS: ONDANSETRON 4 MG/2 ML VIAL IVP PRN ×2 (06:02→10:30)
[2018-10-18] MEDS: PROMETHAZINE HCL 25 MG/ML INJ IV PRN ×2 (06:04→10:29)
[2018-10-18 07:43] VITALS: BP 127/99
[2018-10-18] MEDS: TIOTROPIUM BROMIDE IH SCH (08:40)
[2018-10-18] MEDS: ISOSORBIDE MONONITRATE 30 MG TAB.SR PO SCH (08:43)
[2018-10-18] MEDS: HYDROXYCHLOROQUINE SULFATE 200 MG TAB PO SCH (08:44)
[2018-10-18] MEDS: GABAPENTIN 600 MG PO SCH (08:45)
[2018-10-18] MEDS: ALOCRIL EACHEYE SCH (08:46)
[2018-10-18] MEDS: OPTH EACHEYE SCH (08:46)
[2018-10-18] MEDS: DILTIAZEM 360 MG PO SCH (08:47)
[2018-10-18] MEDS: ENOXAPARIN 100 MG/ML SYR SC SCH (08:59)
[2018-10-18] MEDS: traMADol 50 MG TAB PO SCH (08:59)
[2018-10-18] MEDS: AZITHROMYCIN 250 MG TAB PO SCH (08:59)
[2018-10-18] MEDS ORDERED: DUPILUMAB SQ SCH (09:00)
[2018-10-18] MEDS: HYDROCORTISONE 10 MG TAB PO SCH (09:00)
[2018-10-18] MEDS ORDERED: FAMOTIDINE 20 MG/2 ML SDV IVP SCH (09:00)
[2018-10-18] MEDS: CHOLECALCIFEROL VIT D3 2,000 UNITS TAB/CAP PO SCH (09:01)
[2018-10-18] MEDS ORDERED: FAMOTIDINE 20 MG/NACL 50 ML IV SCH (09:30)
--- NOTE | 2018-10-18 10:00 | ASDISCHSUM ---
Discharge Information Plan Status:Home with Home Health Medically Cleared to Leave:10/18/2018 Discharge Date:10/18/2018 CM D/C Disposition:Home Health Service ADT D/C Disposition: Projected Discharge Date:10/18/2018 Transportation at D/C: Discharge Delay Reason: Follow-Up Date:10/18/2018 Discharge Slot: Final Diagnosis: Placement Information Patient Contact Information Contact Name:HUA Relationship:Other Address:[address] [place] [address] City:[place] Alternate Phone: State/Zip Code:[place] [address] Email: Financial Information Financial Class:Medicare Primary Plan Desc:MEDICARE OUTPATIENT Primary Plan Number:[id number] Secondary Plan Desc:FELICIA Secondary Plan Number:[id number] Assessment Information LACE LACE Length of stay for Answers: 2 days current admission Comorbidities - select Answers: Chronic pulmonary disease all that apply # of Emergency department Answers: 3-4 visits in the last 6 months Score: 7 Date Signed: 10/18/2018 09:59 AM Electronically Signed By:Kristina Scott RN [facility] Progress Note CM Note CM Note Notes: Plan of care reviewed in rounds this am. 42 year old female with history of numerous admissions for chronic health issues admitted via oncologist with c/o LLE swelling. History significant for PE and DVT. She is here for concern of possible development of new DVT. She is disabled and has caretakers in her home. No current needs identified CM to follow for needs. Plan: Likely return home with caregivers when medically cleared for discharge. Date Signed: 10/16/2018 12:09 PM Electronically Signed By:Kristina Scott RN Intervention Information
--- NOTE | 2018-10-18 10:03 | ASMTCMCOM ---
CM Note CM Note Notes: Patient medically cleared fro discharge top home with caregivers in place. No other needs identified at this time. CM available if needs should arise. Plan: Dc to home wit caregivers. Date Signed: 10/18/2018 10:02 AM Electronically Signed By:Kristina Scott RN
--- NOTE | 2018-10-18 11:22 | PDDCSUM ---
Discharge Summary Discharge Summary: Date of Admission: 10/16/2018 Date of Discharge: 10/18/2018 Consults: Hematology Procedures: LE U/S x2 Followup: Hematology, repeat LE U/S and anti-xa level as outpatient Hospital Course Problem List: #Acute vs chronic LLE DVT -per Radiology review, the clot appears chronic. The pt has duplicate popliteal veins and the vein that is clotted may have not been visualized during the last ultrasound. -Repeat U/S performed on 10/17 showing stable LLE DVT -Discussed with Dr. Guerra, Oncology, recommended increase dosing to Lovenox 100mg BID for discharge (was on 80 mg BID, pt weighs ~100 kg, unsure why on subtherapeutic dosing), also recommending repeat LE U/S and anti-xa level, patient to followup #Mast Cell Activation Syndrome: home meds #Adrenal Insufficiency: home meds #Bronchitis: continued azithromycin, will discontinue upon discharge #hx of Ashtma #pedal edema -she had an echo on jul 2018 which was unremarkable Dispo: Pending clinical course, likely d/c tomorrow if tolerates increased dose of Lovenox
[2018-10-22] MEDS ORDERED: CHOLECALCIFEROL VIT D3 50,000 UNIT CAP PO SCH
== END 2018-10-18 11:54 | disposition home health service (06) | DRG 300 ==
LOC: F1N 20:27 → OBSVTOIN 10-16 15:02
PROVIDERS: ADMIT Internal Medicine; ATTEND Internal Medicine
DX: I82.532 Chronic embolism and thrombosis of left popliteal vein (principal); J20.9 Acute bronchitis, unspecified; D89.40 Mast cell activation, unspecified; E27.40 Unspecified adrenocortical insufficiency; Z86.711 Personal history of pulmonary embolism; Z86.718 Personal history of other venous thrombosis and embolism; Z79.01 Long term (current) use of anticoagulants; Z87.891 Personal history of nicotine dependence; J45.909 Unspecified asthma, uncomplicated; I10 Essential (primary) hypertension; D50.9 Iron deficiency anemia, unspecified; E53.8 Deficiency of other specified B group vitamins
CPT/HCPCS: 85520-90; 96365; 97161-GP; 97166-GO; G0378; J1200; J1644; J1650; J2405; J2550; J3010; J3420

== ENCOUNTER → 2018-10-27 | Outpatient (CLI) | payer OTHER | LOC: FIMAGING 08:03 | PROVIDERS: ATTEND Internal Medicine Hematology & Oncology | DX: I82.432 Acute embolism and thrombosis of left popliteal vein (principal) ==

== ENCOUNTER → 2018-11-25 | Outpatient (CLI) | payer OTHER | PROVIDERS: ATTEND Allergy & Immunology Allergy | DX: R13.10 Dysphagia, unspecified (principal) | CPT/HCPCS: 92611-GN ==

== ENCOUNTER → 2018-12-09 | Outpatient (CLI) | payer OTHER | LOC: BMCIMAGING 14:52 | PROVIDERS: ATTEND Allergy & Immunology Allergy | DX: M79.661 Pain in right lower leg (principal); M79.662 Pain in left lower leg; M79.89 Other specified soft tissue disorders; Z86.718 Personal history of other venous thrombosis and embolism ==